=== PATIENT | female | born 1945 | race African-American/Black ===

== ENCOUNTER 2018-06-21 00:19 | Inpatient (IN) | payer MEDICARE, OTHER ==
[~2018-06-21] VITALS: Ht 165.1 cm; Wt 96.2 kg
[2018-06-21] VITALS (10 sets, daily range): BP systolic 109–155; BP diastolic 53–103
[~2018-06-21 00:19] MED LIST: ATIVAN2 MG ORAL; LEVETIRACETAM500 MG ORAL; MULTIVITAMINS1 EA11 ORAL; PREDNISOLO15 MG/5 M1 ORAL; RISPERDAL2 MG ORAL; SINGULAIR10 MG ORAL; TYLENOL 8 HOUR650 M1 ORAL; URECHOLINE25 M1 ORAL
--- NOTE | 2018-06-21 00:47 | Emergency Room Report ---
History of Present Illness General Chief Complaint: Gastrointestinal Illness Source: Patient, Medical Record Present Illness HPI Patient is a 72-year-old female sent in by nursing facility for possible G-tube placement. Patient was noted to have prior history of end-stage Alzheimer's disease. The patient prior G-tube which had been removed due to infection. Patient had been unable to take po fluids and had recent Gtube removal due to infection. Allergies: Coded Allergies: ASPIRIN (Verified Allergy, Unknown, 06/21/18) LOSARTAN (Verified Allergy, Unknown, 06/21/18) Patient History Past Medical History: see triage record Last Menstrual Period: unable to obtain Reviewed Nursing Documentation: PMH: Agreed; PSxH: Agreed Nursing Documentation-PMH Hx Hypertension: Yes Hx Cancer: No Hx Gastrointestinal Problems: Yes - cellulitis abdominal wall, dysphagia History Of Psychiatric Problem: Yes - dementia, Hx Neurological Problems: Yes - alzeimer's disease Hx Dementia: Yes Hx Seizures: Yes Review of Systems All Other Systems: limited - by mental status Physical Exam Vital Signs Date Time Temp Pulse Resp B/P (MAP) Pulse Ox O2 Delivery O2 Flow Rate FiO2 06/21/18 00:24 98.6 80 20 143/108 97 Nasal Cannula 2.0 General Appearance: alert, Chronically Ill Head: normocephalic Neck: limited range of motion Respiratory: lungs clear, normal breath sounds Cardiovascular #1: normal peripheral pulses, regular rate, rhythm Gastrointestinal: other - gtube site incision without erythema, sutures in place Neurologic: aphasia, motor weakness Psychiatric: memory normal Skin: normal color Medical Decision Making Diagnostic Impression: Primary Impression: Weakness generalized Additional Impressions: Hypernatremia Urinary tract infection ER Course Patient is a 72-year-old female brought in by EMS for failure to thrive and possible G-tube placement. Differential diagnosis included was not limited to dehydration, anemia, CVA among others Because of complexity of patient's case laboratory testing and imaging studies were ordered. Patient was given IV fluids the patient was noted to have a recent surgical procedure and still has the suture line. The patient was started on IV fluids. Patient was given IV antibiotics after cultures were obtained. The patient was discussed with Dr. Sarmiento for possible transfer due to capitated facility at [place]. Patient's insurance was unable to arrange a timely transfer. Dr. Hong Caballero was contacted for inpatient management due to panel physician. Labs Test 06/21/18 00:40 White Blood Count 15.8 K/UL (4.8-10.8) Red Blood Count 4.96 M/UL (4.20-5.40) Hemoglobin 12.8 G/DL (12.0-16.0) Hematocrit 42.5 % (37.0-47.0) Mean Corpuscular Volume 86 FL (80-99) Mean Corpuscular Hemoglobin 25.9 PG (27.0-31.0) Mean Corpuscular Hemoglobin Concent 30.2 G/DL (32.0-36.0) Red Cell Distribution Width 16.9 % (11.6-14.8) Platelet Count 261 K/UL (150-450) Mean Platelet Volume 6.5 FL (6.5-10.1) Neutrophils (%) (Auto) 65.9 % (45.0-75.0) Lymphocytes (%) (Auto) 25.5 % (20.0-45.0) Monocytes (%) (Auto) 5.7 % (1.0-10.0) Eosinophils (%) (Auto) 2.5 % (0.0-3.0) Basophils (%) (Auto) 0.4 % (0.0-2.0) Prothrombin Time 11.8 SEC (9.30-11.50) Prothromb Time International Ratio 1.1 (0.9-1.1) Activated Partial Thromboplast Time 27 SEC (23-33) Sodium Level 172 MMOL/L (136-145) Potassium Level 3.2 MMOL/L (3.5-5.1) Chloride Level 130 MMOL/L (98-107) Carbon Dioxide Level 32 MMOL/L (21-32) Anion Gap 9 mmol/L (5-15) Blood Urea Nitrogen 22 mg/dL (7-18) Creatinine 1.2 MG/DL (0.55-1.30) Estimat Glomerular Filtration Rate mL/min (>60) Glucose Level 109 MG/DL (74-106) Calcium Level 10.4 MG/DL (8.5-10.1) Total Bilirubin 0.7 MG/DL (0.2-1.0) Aspartate Amino Transf (AST/SGOT) 19 U/L (15-37) Alanine Aminotransferase (ALT/SGPT) 21 U/L (12-78) Alkaline Phosphatase 63 U/L (46-116) Total Protein 8.4 G/DL (6.4-8.2) Albumin 2.8 G/DL (3.4-5.0) Globulin 5.6 g/dL Albumin/Globulin Ratio 0.5 (1.0-2.7) Last Vital Signs Date Time Temp Pulse Resp B/P (MAP) Pulse Ox O2 Delivery O2 Flow Rate FiO2 06/21/18 00:24 98.6 80 20 143/108 97 Nasal Cannula 2.0 Status: improved Disposition: ADMITTED INPATIENT Condition: Stable Zenon Hu MD Jun 21, 2018 00:47
[2018-06-21] MEDS ORDERED: METOPROLOL HCT GT (00:55)
[2018-06-21] MEDS ORDERED: DUONEB 0.5-3(2.53 ML HHN (00:55)
[2018-06-21] MEDS ORDERED: MORPHINE S10 MG/5 ML ORAL (00:55)
[2018-06-21] MEDS ORDERED: ACETAMINOPHEN325 M1 GT (00:55)
[2018-06-21] MEDS ORDERED: ZOFRAN4 M3 GT (00:55)
[2018-06-21] MEDS ORDERED: LEVSIN0.125 MG ORAL (00:55)
[2018-06-21] MEDS ORDERED: LORAZEPAM0.5 MG GT (00:55)
[2018-06-21] MEDS ORDERED: AMLODIPINE-ATO1 EAC1 ORAL (00:55)
[2018-06-21] MEDS ORDERED: CATAPRES0.1 MG GT (00:55)
[2018-06-21] MEDS ORDERED: BISACODYL5 MG GT (00:55)
[2018-06-21] MEDS ORDERED: PRO-STAT LIQUID30 ML GT (00:55)
[2018-06-21] MEDS ORDERED: HUMALOG 75/255 UNIT1 SUBQ (00:55)
[2018-06-21] MEDS ORDERED: HYDRALAZINE HCL50 MG GT (00:55)
[2018-06-21] MEDS ORDERED: GLUCERNA 1.5 C237 ML GT (00:55)
[2018-06-21 01:05] LABS: BASOPHILS % (AUTO) 0.4 % (0.0-2.0); EOSINOPHILS % (AUTO) 2.5 % (0.0-3.0); HEMATOCRIT 42.5 % (37.0-47.0); HEMOGLOBIN 12.8 G/DL (12.0-16.0); LYMPHOCYTES % (AUTO) 25.5 % (20.0-45.0); MEAN CORPUSCULAR VOLUME 86 FL (80-99); MONOCYTES % (AUTO) 5.7 % (1.0-10.0); NEUTROPHILS % (AUTO) 65.9 % (45.0-75.0); PLATELET COUNT 261 K/UL (150-450); RED BLOOD COUNT 4.96 M/UL (4.20-5.40); RED CELL DISTRIBUTION WIDTH 16.9 % (11.6-14.8); WHITE BLOOD COUNT 15.8 K/UL (4.8-10.8)
[2018-06-21 01:16] LABS: INR 1.1 (0.9-1.1)
[2018-06-21 01:19] LABS: ALANINE AMINOTRANSFERASE 21 U/L (12-78); ALBUMIN 2.8 G/DL (3.4-5.0); ALBUMIN/GLOBULIN RATIO 0.5 (1.0-2.7); ALKALINE PHOSPHATASE 63 U/L (46-116); ANION GAP 9 mmol/L (5-15); ASPARTATE AMINO TRANSFERASE 19 U/L (15-37); BILIRUBIN,TOTAL 0.7 MG/DL (0.2-1.0); BLOOD UREA NITROGEN 22 mg/dL (7-18); CALCIUM 10.4 MG/DL (8.5-10.1); CARBON DIOXIDE 32 MMOL/L (21-32); CHLORIDE 130 MMOL/L (98-107); CREATININE 1.2 MG/DL (0.55-1.30); POTASSIUM 3.2 MMOL/L (3.5-5.1)
[2018-06-21 01:23] LABS: SODIUM 172 MMOL/L (136-145)
[2018-06-21] MEDS ORDERED: D5 1/2NS w/KCl 20mEq 1,000 ML IV ONE (02:00)
[2018-06-21] MEDS ORDERED: Sodium Chloride 500ML 500 ML IV ONE (02:00)
[2018-06-21] MEDS ORDERED: cefTRIAXone 1 GM in NS 55 ML IVPB ONE (02:30)
[2018-06-21 03:08] LABS: BILIRUBIN, URINE NEGATIVE (NEGATIVE); GLUCOSE, URINE (UA) NEGATIVE (NEGATIVE); KETONES,URINE 1+ (NEGATIVE); LEUKOCYTE ESTERASE ,URINE 2+ (NEGATIVE); NITRITE,URINE NEGATIVE (NEGATIVE); PH,URINE 5 (4.5-8.0); PROTEIN,URINE 2+ (NEGATIVE); UROBILINOGEN,URINE 4 MG/DL (0.0-1.0)
[2018-06-21 03:12] LABS: APPEARANCE,URINE SLIGHTLY CLOUDY; COLOR,URINE YELLOW
[2018-06-21] MEDS ORDERED: Morphine Sulfate 2mg/ml Inj IVP PRN (06:30)
[2018-06-21] MEDS ORDERED: Miralax 17gm pkt ORAL PRN (06:30)
[2018-06-21] MEDS ORDERED: Nitroglycerin Subl 0.4mg tab SL PRN (06:30)
[2018-06-21] MEDS ORDERED: Albuterol/Ipratropium 3ml neb HHN PRN (06:30)
[2018-06-21] MEDS ORDERED: Cefepime HCl 2 GM in D5W 110 ML IV SCH (09:00)
[2018-06-21] MEDS ORDERED: Vancomycin 1.5 GM/D5W 250ML IVPB ONE (10:00)
--- NOTE | 2018-06-21 10:00 | Consultation ---
Consult Note Consult Note asked to eval for HyperNatremia HPI Patient is a 72-year-old female sent in by nursing facility for possible G-tube placement. Patient was noted to have prior history of end-stage Alzheimer's disease. The patient prior G-tube which had been removed due to infection. Allergies: Coded Allergies: ASPIRIN (Verified Allergy, Unknown, 06/21/18) Uncoded Allergies: ANGIOTENSIN RECEPTOR RIMA (Allergy, Unknown, 06/21/18) Hx Hypertension: Yes Hx Gastrointestinal Problems: Yes - cellulitis abdominal wall, dysphagia History Of Psychiatric Problem: Yes - dementia, Hx Neurological Problems: Yes - alzeimer's disease Hx Dementia: Yes Hx Seizures: Yes patient examined data reviewed . Assessment/Plan HyperNatremia: Free water deficit / Dehydration UTI HyperCalcemia HypoAlbuminemia Sz disorder Dementia Allergy to ASA and YVONNE inhibitors HTN GT out D5W Monitor Lytes antibiotics IV Keppra Per orders Gonsalo Ortiz MD Jun 21, 2018 10:00
--- NOTE | 2018-06-21 10:58 | Diagnostic Imaging Report ---
Indication: Dyspnea Technique: One view of the chest Comparison: 10/12/2013 Findings: Lungs and pleural spaces are clear. Heart size is upper limits of normal. There is no significant interim change Impression: Negative
--- NOTE | 2018-06-21 11:04 | GI Initial Consult Note ---
History of Present Illness General Date patient seen: Jun 21, 2018 Time patient seen: 11:17 Reason for Hospitalization: Gastrointestinal Illness Referring physician: VERONIQUE CORONADO Reason for Consultation: FTT Present Illness HPI Patient is a 72-year-old female sent in by nursing facility for possible G-tube placement. Patient was noted to have prior history of end-stage Alzheimer's disease. The patient prior G-tube which had been removed due to infection. GI consulted for PEG evaluation. Pt presents today with FTT. ROS limited, patient unable to provide any history. Labs reviewed; leukocytosis and hypernatremia. Unknown history of colonoscopy. Home Meds Reported Medications Acetaminophen* (ACETAMINOPHEN 325MG TABLET*) 325 Mg Tablet, 650 MG GT Q4H PRN for Fever/Headache/Mild Pain, TAB 06/21/18 Lorazepam* (LORAZEPAM*) 0.5 Mg Tablet, 0.5 MG GT THREE TIMES A DAY, TAB 06/21/18 Bisacodyl* (DULCOLAX*) 5 Mg Tablet.dr, 10 MG GT ONCE, #4 TAB 0 Refills 06/21/18 Morphine 10mg/5ml Oral Soln* (Morphine 10mg/5ml Oral Soln*) 10 Mg/5 Ml Solution , 10 MG ORAL PRN for For Pain, ML 0 Refills 06/21/18 Insulin Human Lispro (Humalog) 100 Unit/1 Ml Vial, 0 SUBQ, #1 UNIT 0 Refills 06/21/18 Nut.tx.gluc.intoler,Lac-Fr,Soy (Glucerna 1.5 Stan) 237 Ml Liquid, 237 ML GT, ML 06/21/18 Hydralazine Hcl* (HYDRALAZINE HCL*) 50 Mg Tablet, 50 MG GT EVERY 8 HOURS, TAB 06/21/18 Clonidine Hcl* (CATAPRES*) 0.1 Mg Tablet, 0.1 MG GT EVERY 8 HOURS, TAB 06/21/18 Amlodipine/Atorvastatin 5-40 Mg (AMLODIPINE-ATORVAST 5-40 MG) 1 Each Tablet, 1 TAB ORAL DAILY, TAB 06/21/18 Hyoscyamine Sulfate (LEVSIN) 0.125 Mg Tablet, 0.125 MG ORAL, TAB 06/21/18 Ondansetron* (ZOFRAN*) 4 Mg Tablet, 4 MG GT Q6H PRN for Nausea & Vomiting, TAB 06/21/18 Amino Acids/Protein Hydrolys (PRO-STAT LIQUID) 30 Ml Liquid.pkt, 30 ML GT TWICE A DAY, ML 06/21/18 Metoprolol/Hydrochlorothiazide (METOPROLOL-HCTZ 100-50 MG TAB) 1 Each Tablet, 1 TAB GT DAILY, TAB 06/21/18 Ipratropium/Albuterol Sulfate (DuoNeb 0.5-3(2.5)mg/3ml) 3 Ml Ampul.neb, 3 ML HHN , EA 06/21/18 Risperidone* (RISPERDAL*) 2 Mg Tablet, 2 MG ORAL HS, #30 TAB 0 Refills 10/12/13 Lorazepam* (ATIVAN*) 2 Mg Tablet, 2 MG ORAL THREE TIMES A DAY PRN for For Anxiety, TAB 10/12/13 Acetaminophen (TYLENOL 8 HOUR) 650 Mg Tablet.er, 650 MG ORAL Q6HR, #30 TAB 0 Refills 10/12/13 Prednisolone* (PRELONE*) 15 Mg/5 Ml Solution, 15 MG ORAL HS, ML 10/12/13 Montelukast Sodium* (SINGULAIR*) 10 Mg Tablet, 10 MG ORAL DAILY, #30 TAB 0 Refills 10/12/13 Levetiracetam* (LEVETIRACETAM*) 500 Mg Tablet, 750 MG ORAL TWICE A DAY, #60 TAB 0 Refills 10/12/13 Multivitamin (MULTIVITAMINS) 1 Each Capsule, 1 CAP ORAL DAILY, CAP 10/12/13 Bethanechol Chl* (URECHOLINE*) 25 Mg Tablet, 25 MG ORAL THREE TIMES A DAY, TAB 10/12/13 Med list reviewed/reconciled: Yes Allergies: Coded Allergies: ASPIRIN (Verified Allergy, Unknown, 06/21/18) LOSARTAN (Verified Allergy, Unknown, 06/21/18) Patient History Limited by: medical condition History Provided By: Medical Record PMH Narrative Past Medical History: see triage record Last Menstrual Period: unable to obtain Reviewed Nursing Documentation: PMH: Agreed; PSxH: Agreed Nursing Documentation-PMH Hx Hypertension: Yes Hx Cancer: No Hx Gastrointestinal Problems: Yes - cellulitis abdominal wall, dysphagia History Of Psychiatric Problem: Yes - dementia, Hx Neurological Problems: Yes - Alzheimer's disease Hx Dementia: Yes Hx Seizures: Yes Social History: Denies: smoking, alcohol use, drug use, other Review of Systems All Other Systems: limited Physical Exam Vital Signs Date Time Temp Pulse Resp B/P (MAP) Pulse Ox O2 Delivery O2 Flow Rate FiO2 06/21/18 00:24 98.6 80 20 143/108 97 Nasal Cannula 2.0 Sp02 EP Interpretation: reviewed Labs Laboratory Tests Test 06/21/18 00:40 06/21/18 02:57 06/21/18 08:10 White Blood Count 15.8 K/UL (4.8-10.8) H Red Blood Count 4.96 M/UL (4.20-5.40) Hemoglobin 12.8 G/DL (12.0-16.0) Hematocrit 42.5 % (37.0-47.0) Mean Corpuscular Volume 86 FL (80-99) Mean Corpuscular Hemoglobin 25.9 PG (27.0-31.0) L Mean Corpuscular Hemoglobin Concent 30.2 G/DL (32.0-36.0) L Red Cell Distribution Width 16.9 % (11.6-14.8) H Platelet Count 261 K/UL (150-450) Mean Platelet Volume 6.5 FL (6.5-10.1) Neutrophils (%) (Auto) 65.9 % (45.0-75.0) Lymphocytes (%) (Auto) 25.5 % (20.0-45.0) Monocytes (%) (Auto) 5.7 % (1.0-10.0) Eosinophils (%) (Auto) 2.5 % (0.0-3.0) Basophils (%) (Auto) 0.4 % (0.0-2.0) Prothrombin Time 11.8 SEC (9.30-11.50) H Prothromb Time International Ratio 1.1 (0.9-1.1) Activated Partial Thromboplast Time 27 SEC (23-33) Sodium Level 172 MMOL/L (136-145) *H Potassium Level 3.2 MMOL/L (3.5-5.1) L Chloride Level 130 MMOL/L (98-107) H Carbon Dioxide Level 32 MMOL/L (21-32) Anion Gap 9 mmol/L (5-15) Blood Urea Nitrogen 22 mg/dL (7-18) H Creatinine 1.2 MG/DL (0.55-1.30) Estimat Glomerular Filtration Rate mL/min (>60) Glucose Level 109 MG/DL (74-106) H Calcium Level 10.4 MG/DL (8.5-10.1) H Total Bilirubin 0.7 MG/DL (0.2-1.0) Aspartate Amino Transf (AST/SGOT) 19 U/L (15-37) Alanine Aminotransferase (ALT/SGPT) 21 U/L (12-78) Alkaline Phosphatase 63 U/L (46-116) Total Protein 8.4 G/DL (6.4-8.2) H Albumin 2.8 G/DL (3.4-5.0) L Globulin 5.6 g/dL Albumin/Globulin Ratio 0.5 (1.0-2.7) L Urine Color Yellow Urine Appearance Slightly cloudy Urine pH 5 (4.5-8.0) Urine Specific [place] 1.015 (1.005-1.035) Urine Protein 2+ (NEGATIVE) H Urine Glucose (UA) Negative (NEGATIVE) Urine Ketones 1+ (NEGATIVE) H Urine Blood 2+ (NEGATIVE) H Urine Nitrite Negative (NEGATIVE) Urine Bilirubin Negative (NEGATIVE) Urine Urobilinogen 4 MG/DL (0.0-1.0) H Urine Leukocyte Esterase 2+ (NEGATIVE) H Urine RBC 2-4 /HPF (0 - 2) H Urine WBC 40-60 /HPF (0 - 2) H Urine Squamous Epithelial Cells Many /LPF (NONE/OCC) H Urine Bacteria Moderate /HPF (NONE) H C-Reactive Protein, Quantitative 17.5 mg/dL (0.00-0.90) H General Appearance: no apparent distress Head: normocephalic EENT: normal ENT inspection Neck: supple Respiratory: normal breath sounds Cardiovascular: normal rate Gastrointestinal: non tender, soft Musculoskeletal: back normal Neurologic: alert, responsive Skin: normal inspection, normal color Lymphatic: normal inspection, no adenopathy Current Medications Current Medications Medications (Trade) Dose Ordered Sig/Caroline Route PRN Reason Start Time Stop Time Status Last Admin Dose Admin Acetaminophen (Tylenol) 650 mg Q4H PRN ORAL fever 06/21/18 06:30 07/21/18 06:29 Albuterol/ Ipratropium (Albuterol/ Ipratropium) 3 ml Q4H PRN HHN Shortness of Breath 06/21/18 06:30 06/26/18 06:29 Cefepime HCl 2 gm/ Dextrose 110 ml @ 220 mls/hr EVERY 12 HOURS IV 06/21/18 09:00 06/28/18 08:59 06/21/18 10:16 Dextrose 1,000 ml @ 100 mls/hr Q10H IV 06/21/18 10:00 07/21/18 09:59 Famotidine (Pepcid I.v.) 20 mg Q12HR IVP 06/21/18 11:00 07/21/18 10:59 Heparin Sodium (Porcine) (Heparin 5000 units/ml) 5,000 units EVERY 12 HOURS SUBQ 06/21/18 09:00 07/21/18 08:59 Levetiracetam 1000 mg/Dextrose 105 ml @ 440 mls/hr Q12HR IV 06/21/18 11:30 07/21/18 11:29 Morphine Sulfate (Morphine Sulfate) 2 mg Q4H PRN IVP Moderate Pain (Pain Scale 4-6) 06/21/18 06:30 06/28/18 06:29 Nitroglycerin (Ntg) 0.4 mg Q5M PRN SL Prn Chest Pain 06/21/18 06:30 07/21/18 06:29 Ondansetron HCl (Zofran) 4 mg Q6H PRN IVP Nausea & Vomiting 06/21/18 06:30 07/21/18 06:29 Polyethylene Glycol (Miralax) 17 gm DAILYPRN PRN ORAL Constipation 06/21/18 06:30 07/21/18 06:29 Temazepam (Restoril) 15 mg HSPRN PRN ORAL Insomnia 06/21/18 06:30 06/28/18 06:29 Vancomycin HCl (Vanco rx to dose) 1 ea DAILY PRN MISC PER RX PROTOCOL 06/21/18 07:15 07/21/18 07:14 Vancomycin HCl 1 gm/Dextrose 275 ml @ 183.708 mls/hr Q24H IVPB 06/22/18 10:00 06/27/18 09:59 Vancomycin HCl/ Dextrose 250 ml @ 125 mls/hr ONCE ONCE IVPB 06/21/18 10:00 06/21/18 11:59 GI: Plan Problems: (1) Dysphagia (2) FTT (failure to thrive) in adult (3) Encounter for PEG (percutaneous endoscopic gastrostomy) (4) Dehydration (5) Severe malnutrition Plan ST evaluation ordered, possible PEG electrolyte correction IV hydration bowel regime H2B fu labs Discussed with Dr. Sanchez. Thank you for this patient referral, we will follow. The patient was seen and examined at bedside and all new and available data was reviewed in the patients chart. I agree with the above findings, impression and plan. (Patient seen earlier today. Signature stamp does not reflect patient encounter time.). - MD [facility]illermina [facility] Jun 21, 2018 11:03
--- NOTE | 2018-06-21 14:20 | Consultation ---
History of Present Illness General Date patient seen: Jun 21, 2018 Chief Complaint: Gastrointestinal Illness Referring physician: VERONIQUE CORONADO Reason for Consultation: FTT Present Illness HPI 72 year old female with hx of dementia, prison resident, bed bound, gutube in the past. Brought in for evaluation of FTT. Pt was found to have severe hypernatremia and decreased mental status. Pt is admitted for further evaluation. Allergies: Coded Allergies: ASPIRIN (Verified Allergy, Unknown, 06/21/18) LOSARTAN (Verified Allergy, Unknown, 06/21/18) Medication History Scheduled Acetaminophen (Tylenol 8 Hour), 650 MG ORAL Q6HR, (Reported) Amino Acids/Protein Hydrolys (Pro-Stat Liquid), 30 ML GT TWICE A DAY, (Reported) Amlodipine/Atorvastatin 5-40 Mg (Amlodipine-Atorvast 5-40 Mg), 1 TAB ORAL DAILY, (Reported) Bethanechol Chl* (Urecholine*), 25 MG ORAL THREE TIMES A DAY, (Reported) Bisacodyl* (Dulcolax*), 10 MG GT ONCE, (Reported) Clonidine Hcl* (Catapres*), 0.1 MG GT EVERY 8 HOURS, (Reported) Hydralazine Hcl* (Hydralazine Hcl*), 50 MG GT EVERY 8 HOURS, (Reported) Levetiracetam* (Levetiracetam*), 750 MG ORAL TWICE A DAY, (Reported) Lorazepam* (Lorazepam*), 0.5 MG GT THREE TIMES A DAY, (Reported) Metoprolol/Hydrochlorothiazide (Metoprolol-Hctz 100-50 Mg Tab), 1 TAB GT DAILY, (Reported) Montelukast Sodium* (Singulair*), 10 MG ORAL DAILY, (Reported) Multivitamin (Multivitamins), 1 CAP ORAL DAILY, (Reported) Prednisolone* (Prelone*), 15 MG ORAL HS, (Reported) Risperidone* (Risperdal*), 2 MG ORAL HS, (Reported) Scheduled PRN Acetaminophen* (Acetaminophen 325MG Tablet*), 650 MG GT Q4H PRN for Fever/ Headache/Mild Pain, (Reported) Lorazepam* (Ativan*), 2 MG ORAL THREE TIMES A DAY PRN for For Anxiety, (Reported ) Morphine 10mg/5ml Oral Soln* (Morphine 10mg/5ml Oral Soln*), 10 MG ORAL for For Pain, (Reported) Ondansetron* (Zofran*), 4 MG GT Q6H PRN for Nausea & Vomiting, (Reported) Miscellaneous Medications Hyoscyamine Sulfate (Levsin), 0.125 MG ORAL, (Reported) Insulin Human Lispro (Humalog), 0 SUBQ, (Reported) Ipratropium/Albuterol Sulfate (DuoNeb 0.5-3(2.5)mg/3ml), 3 ML HHN, (Reported) Nut.tx.gluc.intoler,Lac-Fr,Soy (Glucerna 1.5 Stan), 237 ML GT, (Reported) Patient History Healthcare decision maker Resuscitation status Advanced Directive on File Past Medical/Surgical History Past Medical/Surgical History: (1) Severe malnutrition (2) Weakness generalized (3) Seizure disorder, complex partial (4) Bilateral lower extremity edema (5) Diabetes mellitus (6) At high risk for aspiration (7) Hypertension Review of Systems Constitutional: Reports: malaise All Other Systems: negative except mentioned in HPI Physical Exam General Appearance: WD/WN Lines, tubes and drains: peripheral HEENT: atraumatic Neck: non-tender, normal alignment Respiratory/Chest: chest wall non-tender, lungs clear Breasts: no masses Cardiovascular/Chest: normal peripheral pulses, normal rate Abdomen: normal bowel sounds, non tender Genitourinary/Rectal: normal genital exam Extremities: normal range of motion Skin Exam: normal pigmentation Last 24 Hour Vital Signs Date Time Temp Pulse Resp B/P (MAP) Pulse Ox O2 Delivery O2 Flow Rate FiO2 06/21/18 12:13 98.2 87 21 131/103 (112) 96 06/21/18 09:00 Room Air 06/21/18 05:49 Nasal Cannula 2.0 06/21/18 05:39 98.5 76 22 141/65 96 Nasal Cannula 2.0 06/21/18 04:52 98.6 75 24 148/66 100 Nasal Cannula 2.0 06/21/18 03:32 98.6 78 21 147/72 100 Nasal Cannula 2.0 06/21/18 02:16 98.6 80 16 146/64 100 Nasal Cannula 2.0 06/21/18 01:11 80 20 Nasal Cannula 2.0 11/12/18 01:11 98.6 82 24 155/79 100 Nasal Cannula 2.0 06/21/18 00:24 98.6 80 20 143/108 97 Nasal Cannula 2.0 Intake and Output 06/20/18 06/21/18 19:00 07:00 Intake Total 0 ml Balance 0 ml Intake Oral 0 ml Laboratory Tests Test 06/21/18 00:40 06/21/18 02:57 06/21/18 08:10 White Blood Count 15.8 K/UL (4.8-10.8) H Red Blood Count 4.96 M/UL (4.20-5.40) Hemoglobin 12.8 G/DL (12.0-16.0) Hematocrit 42.5 % (37.0-47.0) Mean Corpuscular Volume 86 FL (80-99) Mean Corpuscular Hemoglobin 25.9 PG (27.0-31.0) L Mean Corpuscular Hemoglobin Concent 30.2 G/DL (32.0-36.0) L Red Cell Distribution Width 16.9 % (11.6-14.8) H Platelet Count 261 K/UL (150-450) Mean Platelet Volume 6.5 FL (6.5-10.1) Neutrophils (%) (Auto) 65.9 % (45.0-75.0) Lymphocytes (%) (Auto) 25.5 % (20.0-45.0) Monocytes (%) (Auto) 5.7 % (1.0-10.0) Eosinophils (%) (Auto) 2.5 % (0.0-3.0) Basophils (%) (Auto) 0.4 % (0.0-2.0) Prothrombin Time 11.8 SEC (9.30-11.50) H Prothromb Time International Ratio 1.1 (0.9-1.1) Activated Partial Thromboplast Time 27 SEC (23-33) Sodium Level 172 MMOL/L (136-145) *H Potassium Level 3.2 MMOL/L (3.5-5.1) L Chloride Level 130 MMOL/L (98-107) H Carbon Dioxide Level 32 MMOL/L (21-32) Anion Gap 9 mmol/L (5-15) Blood Urea Nitrogen 22 mg/dL (7-18) H Creatinine 1.2 MG/DL (0.55-1.30) Estimat Glomerular Filtration Rate mL/min (>60) Glucose Level 109 MG/DL (74-106) H Calcium Level 10.4 MG/DL (8.5-10.1) H Total Bilirubin 0.7 MG/DL (0.2-1.0) Aspartate Amino Transf (AST/SGOT) 19 U/L (15-37) Alanine Aminotransferase (ALT/SGPT) 21 U/L (12-78) Alkaline Phosphatase 63 U/L (46-116) Total Protein 8.4 G/DL (6.4-8.2) H Albumin 2.8 G/DL (3.4-5.0) L Globulin 5.6 g/dL Albumin/Globulin Ratio 0.5 (1.0-2.7) L Urine Color Yellow Urine Appearance Slightly cloudy Urine pH 5 (4.5-8.0) Urine Specific [place] 1.015 (1.005-1.035) Urine Protein 2+ (NEGATIVE) H Urine Glucose (UA) Negative (NEGATIVE) Urine Ketones 1+ (NEGATIVE) H Urine Blood 2+ (NEGATIVE) H Urine Nitrite Negative (NEGATIVE) Urine Bilirubin Negative (NEGATIVE) Urine Urobilinogen 4 MG/DL (0.0-1.0) H Urine Leukocyte Esterase 2+ (NEGATIVE) H Urine RBC 2-4 /HPF (0 - 2) H Urine WBC 40-60 /HPF (0 - 2) H Urine Squamous Epithelial Cells Many /LPF (NONE/OCC) H Urine Bacteria Moderate /HPF (NONE) H C-Reactive Protein, Quantitative 17.5 mg/dL (0.00-0.90) H Height (Feet): 5 Height (Inches): 5.00 Weight (Pounds): 200 Medications Current Medications Medications (Trade) Dose Ordered Sig/Caroline Route PRN Reason Start Time Stop Time Status Last Admin Dose Admin Acetaminophen (Tylenol) 650 mg Q4H PRN ORAL fever 06/21/18 06:30 07/21/18 06:29 Albuterol/ Ipratropium (Albuterol/ Ipratropium) 3 ml Q4H PRN HHN Shortness of Breath 06/21/18 06:30 06/26/18 06:29 Cefepime HCl 2 gm/ Dextrose 110 ml @ 220 mls/hr EVERY 12 HOURS IV 06/21/18 09:00 06/28/18 08:59 06/21/18 10:16 Dextrose 1,000 ml @ 100 mls/hr Q10H IV 06/21/18 10:00 07/21/18 09:59 Famotidine (Pepcid I.v.) 20 mg Q12HR IVP 06/21/18 11:00 07/21/18 10:59 Heparin Sodium (Porcine) (Heparin 5000 units/ml) 5,000 units EVERY 12 HOURS SUBQ 06/21/18 09:00 07/21/18 08:59 Levetiracetam 1000 mg/Dextrose 105 ml @ 440 mls/hr Q12HR IV 06/21/18 11:30 07/21/18 11:29 Morphine Sulfate (Morphine Sulfate) 2 mg Q4H PRN IVP Moderate Pain (Pain Scale 4-6) 06/21/18 06:30 06/28/18 06:29 Nitroglycerin (Ntg) 0.4 mg Q5M PRN SL Prn Chest Pain 06/21/18 06:30 07/21/18 06:29 Ondansetron HCl (Zofran) 4 mg Q6H PRN IVP Nausea & Vomiting 06/21/18 06:30 07/21/18 06:29 Polyethylene Glycol (Miralax) 17 gm DAILYPRN PRN ORAL Constipation 06/21/18 06:30 07/21/18 06:29 Temazepam (Restoril) 15 mg HSPRN PRN ORAL Insomnia 06/21/18 06:30 06/28/18 06:29 Vancomycin HCl (Vanco rx to dose) 1 ea DAILY PRN MISC PER RX PROTOCOL 06/21/18 07:15 07/21/18 07:14 Vancomycin HCl 1 gm/Dextrose 275 ml @ 183.708 mls/hr Q24H IVPB 06/22/18 10:00 06/27/18 09:59 Assessment/Plan Problem List: (1) Acute encephalopathy ICD Codes: G93.40 - Encephalopathy, unspecified SNOMED: 03373524, 371329985 (2) Hypernatremia ICD Codes: E87.0 - Hyperosmolality and hypernatremia SNOMED: 94729639 (3) At high risk for aspiration ICD Codes: Z91.89 - Other specified personal risk factors, not elsewhere classified SNOMED: 337870962 (4) Urinary tract infection ICD Codes: N39.0 - Urinary tract infection, site not specified SNOMED: 71986003 (5) Seizure disorder, complex partial ICD Codes: G40.209 - Seizure disorder, complex partial SNOMED: 580509469 (6) Dysphagia ICD Codes: R13.10 - Dysphagia, unspecified SNOMED: 73675912, 380785528 (7) Hypokalemia ICD Codes: E87.6 - Hypokalemia SNOMED: 62210434 (8) Hypertension ICD Codes: I10 - Hypertension SNOMED: 98739466 (9) Diabetes mellitus ICD Codes: E11.9 - Type 2 diabetes mellitus without complications SNOMED: 80973310 Assessment/Plan iv fluids weiner culture renal evaluatin check electrolytes sliding scale insulin coverage ID evaluation weiner cultures Morgan Tang MD Jun 21, 2018 14:20
[2018-06-21] MEDS: levETIRAcetam 1,000 MG in D5W 95 ML IV SCH (15:03)
[2018-06-21] MEDS: Heparin 5000 units/ml inj SUBQ SCH (15:29)
--- NOTE | 2018-06-21 15:46 | Consultation ---
Consult Note Consult Note # [id number] Eduardo Phelps MD Jun 21, 2018 15:46
--- NOTE | 2018-06-21 18:02 | History and Physical Report ---
DATE OF ADMISSION: 06/21/2018 CONSULTANTS: 1. Morgan Tang M.D. 2. Gonsalo Ortiz M.D. 3. Eduardo Phelps M.D. 4. Frankie Sanchez M.D. 5. Pearl Cunningham M.D. CHIEF COMPLAINT: Urinary tract infection, dehydration, hyponatremia, and G-tube malfunction. HISTORY: A 72-year-old female from [facility], presented with above-mentioned diagnosis, was found to have urinary tract infection, sepsis, leukocytosis, hyponatremia, and admitted to medical floor for further treatment. Currently, O2 NC, confused in bed, and now refusing to answer questions. PAST MEDICAL HISTORY: Failure to thrive, weak, and seizure. PAST SURGICAL HISTORY: G-tube. MEDICATIONS: Include vancomycin, levetiracetam, famotidine, cefepime, heparin, albuterol, morphine, polyethylene glycol, Zofran, and temazepam. ALLERGY: Aspirin and losartan. SOCIAL HISTORY: Unable to obtain secondary to the patient's condition. REVIEW OF SYSTEMS: Unavailable. PHYSICAL EXAMINATION: GENERAL: O2 NC, confused in bed, sleeping, not talking much. VITAL SIGNS: Temperature 98 degrees, pulse 87, respirations 21, and blood pressure 131/103. CARDIOVASCULAR: No murmurs. LUNGS: Distant. Poor air exchange. ABDOMEN: Bowel sounds distant. EXTREMITIES: No cyanosis, clubbing, or edema. NEUROLOGIC: The patient moves all extremities, slightly weak. Not following directions. LABORATORY AND DIAGNOSTIC DATA: Labs, at this time, show white count of 15, otherwise CBC is normal. BMP shows sodium 132, potassium 3.2, chloride 130, BUN 22, and glucose 109. INR is 1.1. Urinalysis shows 2+ leukocyte esterase. ASSESSMENT: 1. Urinary tract infection. 2. Sepsis. 3. Leukocytosis. 4. Dehydration. 5. Hyponatremia. 6. Gastrostomy tube malfunction. 7. Encephalopathy. PLAN: 1. Intravenous fluids. 2. Antibiotics per Infectious Disease. 3. OT, PT, and dietary evaluation. 4. CBC and BMP in the morning. 5. Resume home medications. 6. We will continue to follow this patient. 7. Possible G-tube replacement. Hong Caballero D.O. DR: LESLIE JOB#: [id number] CC:
--- NOTE | 2018-06-21 22:31 | Consultation ---
DATE OF CONSULTATION: 06/21/2018 REFERRING PHYSICIAN: Hong Caballero D.O. REASON FOR CONSULTATION: Evaluation of the patient for UTI plus abdominal wall wound infection. HISTORY OF PRESENT ILLNESS: The patient is a 72-year-old female with multiple medical problems as listed below who was admitted to this medical center for G-tube placement. The patient has abdominal wall surgery recently could not obtain detailed information of that. Apparently, the patient had a PEG tube site infection in the past. Laboratory workup, UA showed pyuria. Infectious Disease consultation has been requested for further evaluation of the patient. The patient was found to have white blood cells 15.8 at the time of admission. The patient is not able to provide information, much of the history is gathered through the chart and speaking to the staff. PAST MEDICAL HISTORY: 1. Dementia. 2. History of seizure disorder. 3. Anemia. 4. Hypertension. 5. COPD. 6. History of abdominal wall cellulitis/G-tube site infection. 7. Diabetes. 8. Schizophrenia. ALLERGIES: Aspirin and losartan. FAMILY HISTORY: Unavailable. REVIEW OF SYSTEMS: Unobtainable. SOCIAL HISTORY: The patient is a custodial. MEDICATIONS: Vancomycin and cefepime. PHYSICAL EXAMINATION: VITAL SIGNS: Temperature 98.2, pulse 66, respiratory rate 18, and blood pressure 131/103. HEENT: No pallor. No icterus. CHEST: Clear. HEART: S1 and S2. ABDOMEN: Soft. Transverse abdominal wound present. No evidence of discharge. NEUROLOGIC: Awake. Verbal. LABORATORY AND DIAGNOSTIC DATA: White blood cells 15, hemoglobin 12, and platelets 262,000. UA 40 to 60 white blood cells. BUN 22 and creatinine 1.2. ALT, AST, and alkaline phosphatase are unremarkable. Chest x-ray, negative. ASSESSMENT: The patient is a 72-year-old female with: 1. Leukocytosis. 2. Probable UTI (UA showed pyuria). 3. Probable bacteremia. 4. No evidence of pneumonia. Chest x-ray, NAP[facility]. PLAN: 1. We will continue the patient on IV cefepime day #1, hold IV vancomycin. 2. CBC and . 3. Monitor cultures (blood, urine). 4. Monitor CBC. 5. BMP. 6. Monitor cultures. 7. Monitor chest x-ray. 8. Based on the patient's clinical course and labs, we will do further recommendation. Eduardo Phelps M.D. DR: BOSSMAN JOB#: [id number] CC:
[2018-06-22] VITALS: BP 106/80
[2018-06-22] MEDS: levETIRAcetam 1,000 MG in D5W 95 ML IV SCH ×3 (00:16→23:59)
[2018-06-22] MEDS: Heparin 5000 units/ml inj SUBQ SCH ×3 (00:22→20:59)
[2018-06-22] MEDS ORDERED: Vancomycin 1 GM in D5W 275 ML IV SCH (00:30)
[2018-06-22 04:00] VITALS: BP 109/69
[2018-06-22 06:35] LABS: BASOPHILS % (AUTO) 0.6 % (0.0-2.0); EOSINOPHILS % (AUTO) 5.6 % (0.0-3.0); HEMATOCRIT 33.9 % (37.0-47.0); HEMOGLOBIN 10.2 G/DL (12.0-16.0); LYMPHOCYTES % (AUTO) 19.9 % (20.0-45.0); MEAN CORPUSCULAR VOLUME 86 FL (80-99); NEUTROPHILS % (AUTO) 68.9 % (45.0-75.0); PLATELET COUNT 214 K/UL (150-450); RED BLOOD COUNT 3.95 M/UL (4.20-5.40); RED CELL DISTRIBUTION WIDTH 16.4 % (11.6-14.8); WHITE BLOOD COUNT 12.9 K/UL (4.8-10.8)
[2018-06-22 07:36] LABS: ALANINE AMINOTRANSFERASE 19 U/L (12-78); ALBUMIN 2.3 G/DL (3.4-5.0); ALBUMIN/GLOBULIN RATIO 0.5 (1.0-2.7); ALKALINE PHOSPHATASE 56 U/L (46-116); ANION GAP 9 mmol/L (5-15); ASPARTATE AMINO TRANSFERASE 19 U/L (15-37); BILIRUBIN,TOTAL 0.4 MG/DL (0.2-1.0); BLOOD UREA NITROGEN 15 mg/dL (7-18); CALCIUM 9.3 MG/DL (8.5-10.1); CARBON DIOXIDE 27 MMOL/L (21-32); CHLORIDE 125 MMOL/L (98-107); CHOLESTEROL 182 MG/DL (< 200); CREATININE 0.8 MG/DL (0.55-1.30); HDL CHOLESTEROL 35 MG/DL (40-60); TRIGLYCERIDES 123 MG/DL (30-150)
[2018-06-22 07:37] LABS: POTASSIUM 2.6 MMOL/L (3.5-5.1); SODIUM 161 MMOL/L (136-145)
[2018-06-22 07:43] LABS: CREATINE KINASE 98 U/L (26-308); GAMMA GLUTAMYL TRANSPEPTIDASE 7 U/L (5-85); PHOSPHORUS 2.1 MG/DL (2.5-4.9)
[2018-06-22 08:00] VITALS: BP 140/72
[2018-06-22] MEDS: Memantine 5 MG TAB ORAL SCH ×2 (09:00→18:00)
[2018-06-22] MEDS ORDERED: Potassium Phosphate 30 MM in NS 275 ML IV ONE (09:30)
[2018-06-22] MEDS ORDERED: Vancomycin 1gm/D5W 275ml IVPB SCH ×2 (10:00)
[2018-06-22] MEDS: Cefepime HCl 2 GM in D5W 110 ML IV SCH (11:02)
[2018-06-22 12:00] VITALS: BP 110/58
--- NOTE | 2018-06-22 12:31 | Consultation ---
DATE OF CONSULTATION: 06/22/2018 NOTE: "VERY POOR AUDIO QUALITY/INCOMPREHENSIBLE" CONSULTING PHYSICIAN: Pearl Cunningham M.D. HISTORY OF PRESENT ILLNESS: The patient is a 72-year-old female patient with failure to thrive. This patient is a 72-year-old female patient she came in from [facility], but she does have some confusion, disorganized thought process, and mood lability. altered mental status worsened by , she had significant decline in cognition below her baseline currently just for her medical illness. That is why, her attending has requested daily psychiatric consultation at this time. At bedside, she was flat affect explain why she came to the hospital, so to calm down. PAST MEDICAL HISTORY: Her medical problems and surgical history, failure to thrive. Please see Internal Medicine note for further details. ALLERGIES: No known drug allergies. SUBSTANCE ABUSE HISTORY: No known history of any drug or alcohol use. FAMILY PSYCHIATRIC HISTORY: Denies. PAIN ASSESSMENT: 0/10. DEVELOPMENTAL PROBLEMS: She has no known developmental problems at this time. SOCIAL HISTORY: She lives in [facility]. Financially supported by [employer] and Medicare. PSYCHIATRIC HISTORY: History of major depression with psychotic features, rule out dementia with psychosis. STRENGTHS: She is motivated to get better and has a place to live. WEAKNESSES AND LIABILITIES: She is impulsive. No support system. MENTAL STATUS EXAMINATION: This is a 72-year-old female. Appearance is disheveled. Attitude, irritable and agitated. Affect is flat. Thought process is disorganized and illogical. Intellect is poor because she has no current . Mood, depressed and anxious. Motor activity, psychomotor agitation. Attention an is poor because she cannot do serial 7's or spell world backwards. Orientation x1, because she is oriented to name, but not the person, place, or time. Speech is low volume and she does have altered speech speech. Perception is poor because she seemed to have some perceptual disturbance paranoia. she does have some paranoid perception with problems. Abstract reasoning is poor because she does have . Her insight is poor because she does not have any insight into her psychiatric or medical condition. Judgment is poor because she has decided not to distress. No signs of any suicidal or homicidal thoughts. Short-term memory is 0/3 of 3-word recall, so poor short-term memory. Long-term memory is poor because she cannot recall long-term events of life such as high school that she went to. DIAGNOSIS: Major depressive disorder with psychotic features, rule out dementia with psychosis. PLAN: To start her with Namenda 5 mg twice a day to prevent any further decline in her cognition and also Zyprexa 2.5 mg p.o. nightly to help with mood stabilization disorganized thought process and also appetite. Twenty minutes of cognitive behavioral therapy to help her identify automatic negative thoughts and to convert those negative thoughts to more positive thoughts to reduce depression and anxiety. The patient was seen and assessed at bedside. Chart has been reviewed. Discussed with staff. I recommend that we continue on . Pearl Cunningham M.D. DR: Ruthie JOB#: [id number] CC:
--- NOTE | 2018-06-22 12:50 | Pulmonology Progress Note ---
Assessment/Plan Problems: (1) Acute encephalopathy (2) Hypernatremia (3) At high risk for aspiration (4) Urinary tract infection (5) Seizure disorder, complex partial (6) Dysphagia (7) Hypokalemia (8) Hypertension (9) Diabetes mellitus Assessment/Plan contnue iv fluids Na decreasing weiner culture, pending renal evaluatin check electrolytes sliding scale insulin coverage ID evaluation appreciated weiner cultures Subjective Constitutional: Reports: no symptoms HEENT: Repors: no symptoms Allergies: Coded Allergies: ASPIRIN (Verified Allergy, Unknown, 06/21/18) LOSARTAN (Verified Allergy, Unknown, 06/21/18) Objective Last 24 Hour Vital Signs Date Time Temp Pulse Resp B/P (MAP) Pulse Ox O2 Delivery O2 Flow Rate FiO2 06/22/18 09:00 Room Air 06/22/18 08:00 97.9 77 20 140/72 (94) 96 06/22/18 04:00 98.0 78 20 109/69 (82) 99 06/22/18 00:00 97.9 81 20 106/80 (89) 95 06/21/18 22:01 82 20 Room Air 21 06/21/18 21:00 Room Air 06/21/18 20:00 98.4 85 20 109/82 (91) 93 06/21/18 16:00 97.7 71 18 113/59 (77) 95 06/21/18 15:47 97.7 71 18 113/54 (73) 95 Intake and Output 06/21/18 06/22/18 18:59 06:59 Intake Total 915 ml 1105 ml Output Total 250 ml Balance 915 ml 855 ml IV Total 915 ml 1105 ml Output Urine Total 250 ml General Appearance: WD/WN Respiratory/Chest: chest wall non-tender, lungs clear Breasts: no masses Cardiovascular: normal peripheral pulses Abdomen: normal bowel sounds, soft, non tender Genitourinary: normal external genitalia Neurologic/Psychiatric: contact lens cutter II-XII grossly normal Microbiology Date/Time Source Procedure Growth Status 06/21/18 02:57 Urine,Clean Catch Urine Culture - Preliminary Resulted 06/21/18 01:30 Rectum - Preliminary Resulted Laboratory Tests 06/22/18 06:07: White Blood Count 12.9H, Red Blood Count 3.95L, Hemoglobin 10.2L, Hematocrit 33.9L, Mean Corpuscular Volume 86, Mean Corpuscular Hemoglobin 25.8L, Mean Corpuscular Hemoglobin Concent 30.1L, Red Cell Distribution Width 16.4H, Platelet Count 214, Mean Platelet Volume 6.9, Neutrophils (%) (Auto) 68.9, Lymphocytes (%) (Auto) 19.9L, Monocytes (%) (Auto) 5.0, Eosinophils (%) (Auto) 5.6H, Basophils (%) (Auto) 0.6, Sodium Level 161*H, Potassium Level 2.6*L, Chloride Level 125H, Carbon Dioxide Level 27, Anion Gap 9, Blood Urea Nitrogen 15, Creatinine 0.8, Estimat Glomerular Filtration Rate , Glucose Level 102, Hemoglobin A1c 5.0, Uric Acid 8.8H, Calcium Level 9.3, Phosphorus Level 2.1L, Magnesium Level 1.9, Total Bilirubin 0.4, Gamma Glutamyl Transpeptidase 7, Aspartate Amino Transf (AST/SGOT) 19, Alanine Aminotransferase (ALT/SGPT) 19, Alkaline Phosphatase 56, Total Creatine Kinase 98, Troponin I 0.011, Pro-B-Type Natriuretic Peptide 221H, Total Protein 6.8, Albumin 2.3L, Globulin 4.5, Albumin /Globulin Ratio 0.5L, Triglycerides Level 123, Cholesterol Level 182, LDL Cholesterol 109H, HDL Cholesterol 35L, Cholesterol/HDL Ratio 5.2H, Vitamin B12 Level > 2000H, Folate 32.1, Thyroid Stimulating Hormone (TSH) 1.248 Current Medications Medications (Trade) Dose Ordered Sig/Caroline Route PRN Reason Start Time Stop Time Status Last Admin Dose Admin Acetaminophen (Tylenol) 650 mg Q4H PRN ORAL fever 06/21/18 06:30 07/21/18 06:29 Albuterol/ Ipratropium (Albuterol/ Ipratropium) 3 ml Q4H PRN HHN Shortness of Breath 06/21/18 06:30 06/26/18 06:29 Cefepime HCl 2 gm/ Dextrose 110 ml @ 220 mls/hr DAILY IV 06/22/18 09:00 06/29/18 08:59 06/22/18 11:02 Dextrose 1,000 ml @ 100 mls/hr Q10H IV 06/21/18 10:00 07/21/18 09:59 06/22/18 05:44 Famotidine (Pepcid I.v.) 20 mg Q12HR IVP 06/21/18 11:00 07/21/18 10:59 06/22/18 10:24 Heparin Sodium (Porcine) (Heparin 5000 units/ml) 5,000 units EVERY 12 HOURS SUBQ 06/21/18 09:00 07/21/18 08:59 06/22/18 10:27 Levetiracetam 1000 mg/Dextrose 105 ml @ 440 mls/hr Q12HR IV 06/21/18 11:30 07/21/18 11:29 06/22/18 10:29 Memantine (Namenda) 5 mg BID ORAL 06/22/18 09:00 07/22/18 08:59 Morphine Sulfate (Morphine Sulfate) 2 mg Q4H PRN IVP Moderate Pain (Pain Scale 4-6) 06/21/18 06:30 06/28/18 06:29 Nitroglycerin (Ntg) 0.4 mg Q5M PRN SL Prn Chest Pain 06/21/18 06:30 07/21/18 06:29 Olanzapine (ZyPREXA) 2.5 mg QHS ORAL 06/22/18 21:00 07/22/18 20:59 Ondansetron HCl (Zofran) 4 mg Q6H PRN IVP Nausea & Vomiting 06/21/18 06:30 07/21/18 06:29 Polyethylene Glycol (Miralax) 17 gm DAILYPRN PRN ORAL Constipation 06/21/18 06:30 07/21/18 06:29 Potassium Phosphate 30 mm/ Sodium Chloride 285 ml @ 47.5 mls/hr ONCE ONCE IV 06/22/18 09:30 06/22/18 15:29 06/22/18 12:01 Potassium Chloride 100 ml @ 100 mls/hr Q1H IVPB 06/22/18 15:30 06/22/18 19:29 Temazepam (Restoril) 15 mg HSPRN PRN ORAL Insomnia 06/21/18 06:30 06/28/18 06:29 Morgan Tang MD Jun 22, 2018 12:50
--- NOTE | 2018-06-22 14:19 | General Progress Note ---
Assessment/Plan Problem List: (1) Sepsis ICD Codes: A41.9 - Sepsis, unspecified organism SNOMED: 47959834 (2) Leukocytosis ICD Codes: D72.829 - Elevated white blood cell count, unspecified SNOMED: 511158926, 584514388 (3) Dehydration ICD Codes: E86.0 - Dehydration SNOMED: 48918687 (4) Attention to G-tube ICD Codes: Z43.1 - Encounter for attention to gastrostomy SNOMED: 029800074, 087476466 (5) Acute encephalopathy ICD Codes: G93.40 - Encephalopathy, unspecified SNOMED: 26549515, 066311379 (6) Urinary tract infection ICD Codes: N39.0 - Urinary tract infection, site not specified SNOMED: 61612729 Status: unchanged Assessment/Plan ot pt diet wound care abx pending swallow eval Subjective Constitutional: Reports: weakness Allergies: Coded Allergies: ASPIRIN (Verified Allergy, Unknown, 06/21/18) LOSARTAN (Verified Allergy, Unknown, 06/21/18) All Systems: reviewed and negative except above Subjective calm in bed Objective Last 24 Hour Vital Signs Date Time Temp Pulse Resp B/P (MAP) Pulse Ox O2 Delivery O2 Flow Rate FiO2 06/22/18 12:00 98.2 77 16 110/58 (75) 99 06/22/18 09:00 Room Air 06/22/18 08:00 97.9 77 20 140/72 (94) 96 06/22/18 04:00 98.0 78 20 109/69 (82) 99 06/22/18 00:00 97.9 81 20 106/80 (89) 95 06/21/18 22:01 82 20 Room Air 21 06/21/18 21:00 Room Air 06/21/18 20:00 98.4 85 20 109/82 (91) 93 06/21/18 16:00 97.7 71 18 113/59 (77) 95 06/21/18 15:47 97.7 71 18 113/54 (73) 95 Intake and Output 06/21/18 06/22/18 18:59 06:59 Intake Total 915 ml 1105 ml Output Total 250 ml Balance 915 ml 855 ml IV Total 915 ml 1105 ml Output Urine Total 250 ml Laboratory Tests 06/22/18 06:07: White Blood Count 12.9H, Red Blood Count 3.95L, Hemoglobin 10.2L, Hematocrit 33.9L, Mean Corpuscular Volume 86, Mean Corpuscular Hemoglobin 25.8L, Mean Corpuscular Hemoglobin Concent 30.1L, Red Cell Distribution Width 16.4H, Platelet Count 214, Mean Platelet Volume 6.9, Neutrophils (%) (Auto) 68.9, Lymphocytes (%) (Auto) 19.9L, Monocytes (%) (Auto) 5.0, Eosinophils (%) (Auto) 5.6H, Basophils (%) (Auto) 0.6, Sodium Level 161*H, Potassium Level 2.6*L, Chloride Level 125H, Carbon Dioxide Level 27, Anion Gap 9, Blood Urea Nitrogen 15, Creatinine 0.8, Estimat Glomerular Filtration Rate , Glucose Level 102, Hemoglobin A1c 5.0, Uric Acid 8.8H, Calcium Level 9.3, Phosphorus Level 2.1L, Magnesium Level 1.9, Total Bilirubin 0.4, Gamma Glutamyl Transpeptidase 7, Aspartate Amino Transf (AST/SGOT) 19, Alanine Aminotransferase (ALT/SGPT) 19, Alkaline Phosphatase 56, Total Creatine Kinase 98, Troponin I 0.011, Pro-B-Type Natriuretic Peptide 221H, Total Protein 6.8, Albumin 2.3L, Globulin 4.5, Albumin /Globulin Ratio 0.5L, Triglycerides Level 123, Cholesterol Level 182, LDL Cholesterol 109H, HDL Cholesterol 35L, Cholesterol/HDL Ratio 5.2H, Vitamin B12 Level > 2000H, Folate 32.1, Thyroid Stimulating Hormone (TSH) 1.248 Height (Feet): 5 Height (Inches): 5.00 Weight (Pounds): 200 General Appearance: lethargic EENT: normal ENT inspection Neck: normal alignment Cardiovascular: normal peripheral pulses, normal rate, regular rhythm Respiratory/Chest: chest wall non-tender, lungs clear, normal breath sounds Abdomen: normal bowel sounds, non tender, soft Extremities: normal inspection Edema: no edema noted Arm (L), no edema noted Arm (R), no edema noted Leg (L), no edema noted Leg (R), no edema noted Pedal (L), no edema noted Pedal (R), no edema noted Generalized Neurologic: motor weakness Skin: normal pigmentation, warm/dry Hong Caballero DO Jun 22, 2018 14:19
--- NOTE | 2018-06-22 14:35 | GI Progress Note ---
Assessment/Plan Problems: (1) At high risk for aspiration ICD Codes: Z91.89 - Other specified personal risk factors, not elsewhere classified SNOMED: 176970411 (2) Seizure disorder, complex partial ICD Codes: G40.209 - Seizure disorder, complex partial SNOMED: 302909527 (3) Encounter for PEG (percutaneous endoscopic gastrostomy) ICD Codes: Z43.1 - Encounter for attention to gastrostomy SNOMED: 092105511, 816482121 (4) FTT (failure to thrive) in adult ICD Codes: R62.7 - Adult failure to thrive SNOMED: 361842926 (5) Dysphagia ICD Codes: R13.10 - Dysphagia, unspecified SNOMED: 52369193, 948190570 (6) Severe malnutrition ICD Codes: E43 - Unspecified severe protein-calorie malnutrition SNOMED: 32366795 (7) Dehydration ICD Codes: E86.0 - Dehydration SNOMED: 84503571 Status: unchanged Status Narrative Discussed with Dr. Sanchez. Assessment/Plan ST evaluation noted >> video swallow study tomorrow PEG if necessary NGT insertion today, GTFs per RD to goal electrolyte correction IV hydration bowel regime H2B fu labs The patient was seen and examined at bedside and all new and available data was reviewed in the patients chart. I agree with the above findings, impression and plan. (Patient seen earlier today. Signature stamp does not reflect patient encounter time.). - Frankie Sanchez MD Subjective Gastrointestinal/Abdominal: Reports: no symptoms Subjective limited Objective Last 24 Hour Vital Signs Date Time Temp Pulse Resp B/P (MAP) Pulse Ox O2 Delivery O2 Flow Rate FiO2 06/22/18 12:00 98.2 77 16 110/58 (75) 99 06/22/18 09:00 Room Air 06/22/18 08:00 97.9 77 20 140/72 (94) 96 06/22/18 04:00 98.0 78 20 109/69 (82) 99 06/22/18 00:00 97.9 81 20 106/80 (89) 95 06/21/18 22:01 82 20 Room Air 21 06/21/18 21:00 Room Air 06/21/18 20:00 98.4 85 20 109/82 (91) 93 06/21/18 16:00 97.7 71 18 113/59 (77) 95 06/21/18 15:47 97.7 71 18 113/54 (73) 95 Intake and Output 06/21/18 06/22/18 18:59 06:59 Intake Total 915 ml 1105 ml Output Total 250 ml Balance 915 ml 855 ml IV Total 915 ml 1105 ml Output Urine Total 250 ml Laboratory Tests Test 06/22/18 06:07 White Blood Count 12.9 K/UL (4.8-10.8) H Red Blood Count 3.95 M/UL (4.20-5.40) L Hemoglobin 10.2 G/DL (12.0-16.0) L Hematocrit 33.9 % (37.0-47.0) L Mean Corpuscular Volume 86 FL (80-99) Mean Corpuscular Hemoglobin 25.8 PG (27.0-31.0) L Mean Corpuscular Hemoglobin Concent 30.1 G/DL (32.0-36.0) L Red Cell Distribution Width 16.4 % (11.6-14.8) H Platelet Count 214 K/UL (150-450) Mean Platelet Volume 6.9 FL (6.5-10.1) Neutrophils (%) (Auto) 68.9 % (45.0-75.0) Lymphocytes (%) (Auto) 19.9 % (20.0-45.0) L Monocytes (%) (Auto) 5.0 % (1.0-10.0) Eosinophils (%) (Auto) 5.6 % (0.0-3.0) H Basophils (%) (Auto) 0.6 % (0.0-2.0) Sodium Level 161 MMOL/L (136-145) *H Potassium Level 2.6 MMOL/L (3.5-5.1) *L Chloride Level 125 MMOL/L (98-107) H Carbon Dioxide Level 27 MMOL/L (21-32) Anion Gap 9 mmol/L (5-15) Blood Urea Nitrogen 15 mg/dL (7-18) Creatinine 0.8 MG/DL (0.55-1.30) Estimat Glomerular Filtration Rate mL/min (>60) Glucose Level 102 MG/DL (74-106) Hemoglobin A1c 5.0 % (4.3-6.0) Uric Acid 8.8 MG/DL (2.6-7.2) H Calcium Level 9.3 MG/DL (8.5-10.1) Phosphorus Level 2.1 MG/DL (2.5-4.9) L Magnesium Level 1.9 MG/DL (1.8-2.4) Total Bilirubin 0.4 MG/DL (0.2-1.0) Gamma Glutamyl Transpeptidase 7 U/L (5-85) Aspartate Amino Transf (AST/SGOT) 19 U/L (15-37) Alanine Aminotransferase (ALT/SGPT) 19 U/L (12-78) Alkaline Phosphatase 56 U/L (46-116) Total Creatine Kinase 98 U/L (26-308) Troponin I 0.011 ng/mL (0.000-0.056) Pro-B-Type Natriuretic Peptide 221 pg/mL (0-125) H Total Protein 6.8 G/DL (6.4-8.2) Albumin 2.3 G/DL (3.4-5.0) L Globulin 4.5 g/dL Albumin/Globulin Ratio 0.5 (1.0-2.7) L Triglycerides Level 123 MG/DL (30-150) Cholesterol Level 182 MG/DL (< 200) LDL Cholesterol 109 mg/dL (<100) H HDL Cholesterol 35 MG/DL (40-60) L Cholesterol/HDL Ratio 5.2 (3.3-4.4) H Vitamin B12 Level > 2000 PG/ML (193-986) H Folate 32.1 NG/ML (8.6-58.9) Thyroid Stimulating Hormone (TSH) 1.248 uiU/mL (0.358-3.740) Height (Feet): 5 Height (Inches): 5.00 Weight (Pounds): 200 General Appearance: WD/WN, no apparent distress, alert Cardiovascular: normal rate Respiratory/Chest: normal breath sounds, no respiratory distress Abdominal Exam: normal bowel sounds, non tender, soft Extremities: non-tender Kari Sarmiento [employer] HEL[employer] Jun 22, 2018 14:35
--- NOTE | 2018-06-22 15:52 | Nephrology Progress Note ---
Assessment/Plan Problem List: (1) Hypernatremia (2) Dehydration (3) Hypokalemia (4) Seizure disorder, complex partial (5) Urinary tract infection Assessment HyperNatremia: Free water deficit / Dehydration UTI HyperCalcemia HypoAlbuminemia Sz disorder Dementia Allergy to ASA and YVONNE inhibitors HTN GT out Plan D5W Monitor Lytes antibiotics IV Keppra K and Phos IV Per orders Subjective ROS Limited/Unobtainable: No Constitutional: Reports: malaise Objective Objective Last 24 Hour Vital Signs Date Time Temp Pulse Resp B/P (MAP) Pulse Ox O2 Delivery O2 Flow Rate FiO2 06/22/18 12:00 98.2 77 16 110/58 (75) 99 06/22/18 09:00 Room Air 06/22/18 08:00 97.9 77 20 140/72 (94) 96 06/22/18 04:00 98.0 78 20 109/69 (82) 99 06/22/18 00:00 97.9 81 20 106/80 (89) 95 06/21/18 22:01 82 20 Room Air 21 06/21/18 21:00 Room Air 06/21/18 20:00 98.4 85 20 109/82 (91) 93 06/21/18 16:00 97.7 71 18 113/59 (77) 95 06/21/18 15:47 97.7 71 18 113/54 (73) 95 Intake and Output 06/21/18 06/22/18 18:59 06:59 Intake Total 915 ml 1105 ml Output Total 250 ml Balance 915 ml 855 ml IV Total 915 ml 1105 ml Output Urine Total 250 ml Laboratory Tests 06/22/18 06:07: White Blood Count 12.9H, Red Blood Count 3.95L, Hemoglobin 10.2L, Hematocrit 33.9L, Mean Corpuscular Volume 86, Mean Corpuscular Hemoglobin 25.8L, Mean Corpuscular Hemoglobin Concent 30.1L, Red Cell Distribution Width 16.4H, Platelet Count 214, Mean Platelet Volume 6.9, Neutrophils (%) (Auto) 68.9, Lymphocytes (%) (Auto) 19.9L, Monocytes (%) (Auto) 5.0, Eosinophils (%) (Auto) 5.6H, Basophils (%) (Auto) 0.6, Sodium Level 161*H, Potassium Level 2.6*L, Chloride Level 125H, Carbon Dioxide Level 27, Anion Gap 9, Blood Urea Nitrogen 15, Creatinine 0.8, Estimat Glomerular Filtration Rate , Glucose Level 102, Hemoglobin A1c 5.0, Uric Acid 8.8H, Calcium Level 9.3, Phosphorus Level 2.1L, Magnesium Level 1.9, Total Bilirubin 0.4, Gamma Glutamyl Transpeptidase 7, Aspartate Amino Transf (AST/SGOT) 19, Alanine Aminotransferase (ALT/SGPT) 19, Alkaline Phosphatase 56, Total Creatine Kinase 98, Troponin I 0.011, Pro-B-Type Natriuretic Peptide 221H, Total Protein 6.8, Albumin 2.3L, Globulin 4.5, Albumin /Globulin Ratio 0.5L, Triglycerides Level 123, Cholesterol Level 182, LDL Cholesterol 109H, HDL Cholesterol 35L, Cholesterol/HDL Ratio 5.2H, Vitamin B12 Level > 2000H, Folate 32.1, Thyroid Stimulating Hormone (TSH) 1.248 Height (Feet): 5 Height (Inches): 5.00 Weight (Pounds): 200 General Appearance: no apparent distress, lethargic Cardiovascular: normal rate Respiratory/Chest: decreased breath sounds Abdomen: soft Gonsalo Ortiz MD Jun 22, 2018 15:52
--- NOTE | 2018-06-22 15:58 | Infectious Diseases Prog Note ---
Assessment/Plan Assessment/Plan ASSESSMENT: The patient is a 72-year-old female with: Leukocytosis, improving Probable UTI (UA showed pyuria) Ro probable bacteremia No evidence of pneumonia. Chest x-ray, [facility] Dementia History of seizure disorder Anemia Hypertension COPD History of abdominal wall cellulitis/G-tube site infection Diabetes Schizophrenia PLAN: cont on IV cefepime day # 2 06/21 SP IV Vanco CBC and BMP Monitor cultures (blood, urine) Monitor CBC Monitor chest x-ray Subjective Allergies: Coded Allergies: ASPIRIN (Verified Allergy, Unknown, 06/21/18) LOSARTAN (Verified Allergy, Unknown, 06/21/18) Subjective comfortable Objective Vital Signs Last 24 Hour Vital Signs Date Time Temp Pulse Resp B/P (MAP) Pulse Ox O2 Delivery O2 Flow Rate FiO2 06/22/18 12:00 98.2 77 16 110/58 (75) 99 06/22/18 09:00 Room Air 06/22/18 08:00 97.9 77 20 140/72 (94) 96 06/22/18 04:00 98.0 78 20 109/69 (82) 99 06/22/18 00:00 97.9 81 20 106/80 (89) 95 06/21/18 22:01 82 20 Room Air 21 06/21/18 21:00 Room Air 06/21/18 20:00 98.4 85 20 109/82 (91) 93 06/21/18 16:00 97.7 71 18 113/59 (77) 95 Height (Feet): 5 Height (Inches): 5.00 Weight (Pounds): 200 HEENT: anicteric Respiratory/Chest: normal breath sounds Cardiovascular: regular rhythm Abdomen: no organomegaly Microbiology Date/Time Source Procedure Growth Status 06/21/18 02:57 Urine,Clean Catch Urine Culture - Preliminary Resulted 06/21/18 01:30 Rectum - Preliminary Resulted Laboratory Tests Test 06/22/18 06:07 White Blood Count 12.9 K/UL (4.8-10.8) H Red Blood Count 3.95 M/UL (4.20-5.40) L Hemoglobin 10.2 G/DL (12.0-16.0) L Hematocrit 33.9 % (37.0-47.0) L Mean Corpuscular Volume 86 FL (80-99) Mean Corpuscular Hemoglobin 25.8 PG (27.0-31.0) L Mean Corpuscular Hemoglobin Concent 30.1 G/DL (32.0-36.0) L Red Cell Distribution Width 16.4 % (11.6-14.8) H Platelet Count 214 K/UL (150-450) Mean Platelet Volume 6.9 FL (6.5-10.1) Neutrophils (%) (Auto) 68.9 % (45.0-75.0) Lymphocytes (%) (Auto) 19.9 % (20.0-45.0) L Monocytes (%) (Auto) 5.0 % (1.0-10.0) Eosinophils (%) (Auto) 5.6 % (0.0-3.0) H Basophils (%) (Auto) 0.6 % (0.0-2.0) Sodium Level 161 MMOL/L (136-145) *H Potassium Level 2.6 MMOL/L (3.5-5.1) *L Chloride Level 125 MMOL/L (98-107) H Carbon Dioxide Level 27 MMOL/L (21-32) Anion Gap 9 mmol/L (5-15) Blood Urea Nitrogen 15 mg/dL (7-18) Creatinine 0.8 MG/DL (0.55-1.30) Estimat Glomerular Filtration Rate mL/min (>60) Glucose Level 102 MG/DL (74-106) Hemoglobin A1c 5.0 % (4.3-6.0) Uric Acid 8.8 MG/DL (2.6-7.2) H Calcium Level 9.3 MG/DL (8.5-10.1) Phosphorus Level 2.1 MG/DL (2.5-4.9) L Magnesium Level 1.9 MG/DL (1.8-2.4) Total Bilirubin 0.4 MG/DL (0.2-1.0) Gamma Glutamyl Transpeptidase 7 U/L (5-85) Aspartate Amino Transf (AST/SGOT) 19 U/L (15-37) Alanine Aminotransferase (ALT/SGPT) 19 U/L (12-78) Alkaline Phosphatase 56 U/L (46-116) Total Creatine Kinase 98 U/L (26-308) Troponin I 0.011 ng/mL (0.000-0.056) Pro-B-Type Natriuretic Peptide 221 pg/mL (0-125) H Total Protein 6.8 G/DL (6.4-8.2) Albumin 2.3 G/DL (3.4-5.0) L Globulin 4.5 g/dL Albumin/Globulin Ratio 0.5 (1.0-2.7) L Triglycerides Level 123 MG/DL (30-150) Cholesterol Level 182 MG/DL (< 200) LDL Cholesterol 109 mg/dL (<100) H HDL Cholesterol 35 MG/DL (40-60) L Cholesterol/HDL Ratio 5.2 (3.3-4.4) H Vitamin B12 Level > 2000 PG/ML (193-986) H Folate 32.1 NG/ML (8.6-58.9) Thyroid Stimulating Hormone (TSH) 1.248 uiU/mL (0.358-3.740) Current Medications Medications (Trade) Dose Ordered Sig/Caroline Route PRN Reason Start Time Stop Time Status Last Admin Dose Admin Acetaminophen (Tylenol) 650 mg Q4H PRN ORAL fever 06/21/18 06:30 07/21/18 06:29 Albuterol/ Ipratropium (Albuterol/ Ipratropium) 3 ml Q4H PRN HHN Shortness of Breath 06/21/18 06:30 06/26/18 06:29 Cefepime HCl 2 gm/ Dextrose 110 ml @ 220 mls/hr DAILY IV 06/22/18 09:00 06/29/18 08:59 06/22/18 11:02 Dextrose 1,000 ml @ 100 mls/hr Q10H IV 06/21/18 10:00 07/21/18 09:59 06/22/18 05:44 Famotidine (Pepcid I.v.) 20 mg Q12HR IVP 06/21/18 11:00 07/21/18 10:59 06/22/18 10:24 Heparin Sodium (Porcine) (Heparin 5000 units/ml) 5,000 units EVERY 12 HOURS SUBQ 06/21/18 09:00 07/21/18 08:59 06/22/18 10:27 Levetiracetam 1000 mg/Dextrose 105 ml @ 440 mls/hr Q12HR IV 06/21/18 11:30 07/21/18 11:29 06/22/18 10:29 Memantine (Namenda) 5 mg BID ORAL 06/22/18 09:00 07/22/18 08:59 Morphine Sulfate (Morphine Sulfate) 2 mg Q4H PRN IVP Moderate Pain (Pain Scale 4-6) 06/21/18 06:30 06/28/18 06:29 Nitroglycerin (Ntg) 0.4 mg Q5M PRN SL Prn Chest Pain 06/21/18 06:30 07/21/18 06:29 Olanzapine (ZyPREXA) 2.5 mg QHS ORAL 06/22/18 21:00 07/22/18 20:59 Ondansetron HCl (Zofran) 4 mg Q6H PRN IVP Nausea & Vomiting 06/21/18 06:30 07/21/18 06:29 Polyethylene Glycol (Miralax) 17 gm DAILYPRN PRN ORAL Constipation 06/21/18 06:30 07/21/18 06:29 Potassium Chloride 100 ml @ 100 mls/hr Q1H IVPB 06/22/18 19:00 06/22/18 22:59 Temazepam (Restoril) 15 mg HSPRN PRN ORAL Insomnia 06/21/18 06:30 06/28/18 06:29 Eduardo Phelps MD Jun 22, 2018 15:58
[2018-06-22 16:00] VITALS: BP 149/83
--- NOTE | 2018-06-22 16:35 | Consultation ---
History of Present Illness General Date patient seen: Jun 22, 2018 Chief Complaint: Gastrointestinal Illness Referring physician: VERONIQUE CORONADO Reason for Consultation: FTT Present Illness HPI 72F with multiple medical comorbidities presented with UTI, abdominal pain, decubitus ulcer for care and management. Currently under medical care and surgery called to evaluate and help assist with care of wounds. patient seen, chart reviewed, patient examined. photos taken and care plan initiated. Allergies: Coded Allergies: ASPIRIN (Verified Allergy, Unknown, 06/21/18) LOSARTAN (Verified Allergy, Unknown, 06/21/18) Medication History Scheduled Acetaminophen (Tylenol 8 Hour), 650 MG ORAL Q6HR, (Reported) Amino Acids/Protein Hydrolys (Pro-Stat Liquid), 30 ML GT TWICE A DAY, (Reported) Amlodipine/Atorvastatin 5-40 Mg (Amlodipine-Atorvast 5-40 Mg), 1 TAB ORAL DAILY, (Reported) Bethanechol Chl* (Urecholine*), 25 MG ORAL THREE TIMES A DAY, (Reported) Bisacodyl* (Dulcolax*), 10 MG GT ONCE, (Reported) Clonidine Hcl* (Catapres*), 0.1 MG GT EVERY 8 HOURS, (Reported) Hydralazine Hcl* (Hydralazine Hcl*), 50 MG GT EVERY 8 HOURS, (Reported) Levetiracetam* (Levetiracetam*), 750 MG ORAL TWICE A DAY, (Reported) Lorazepam* (Lorazepam*), 0.5 MG GT THREE TIMES A DAY, (Reported) Metoprolol/Hydrochlorothiazide (Metoprolol-Hctz 100-50 Mg Tab), 1 TAB GT DAILY, (Reported) Montelukast Sodium* (Singulair*), 10 MG ORAL DAILY, (Reported) Multivitamin (Multivitamins), 1 CAP ORAL DAILY, (Reported) Prednisolone* (Prelone*), 15 MG ORAL HS, (Reported) Risperidone* (Risperdal*), 2 MG ORAL HS, (Reported) Scheduled PRN Acetaminophen* (Acetaminophen 325MG Tablet*), 650 MG GT Q4H PRN for Fever/ Headache/Mild Pain, (Reported) Lorazepam* (Ativan*), 2 MG ORAL THREE TIMES A DAY PRN for For Anxiety, (Reported ) Morphine 10mg/5ml Oral Soln* (Morphine 10mg/5ml Oral Soln*), 10 MG ORAL for For Pain, (Reported) Ondansetron* (Zofran*), 4 MG GT Q6H PRN for Nausea & Vomiting, (Reported) Miscellaneous Medications Hyoscyamine Sulfate (Levsin), 0.125 MG ORAL, (Reported) Insulin Human Lispro (Humalog), 0 SUBQ, (Reported) Ipratropium/Albuterol Sulfate (DuoNeb 0.5-3(2.5)mg/3ml), 3 ML HHN, (Reported) Nut.tx.gluc.intoler,Lac-Fr,Soy (Glucerna 1.5 Stan), 237 ML GT, (Reported) Patient History Limited by: medical condition History Provided By: Medical Record, PMD Healthcare decision maker Resuscitation status Advanced Directive on File Past Medical/Surgical History Past Medical/Surgical History: (1) Acute encephalopathy (2) Dehydration (3) Leukocytosis (4) Sepsis (5) Attention to G-tube (6) Hypokalemia (7) Urinary tract infection (8) Hypernatremia (9) Dysphagia (10) Severe malnutrition (11) FTT (failure to thrive) in adult (12) Encounter for PEG (percutaneous endoscopic gastrostomy) (13) Seizure disorder, complex partial (14) Bilateral lower extremity edema (15) Diabetes mellitus (16) At high risk for aspiration (17) Hypertension Review of Systems ROS Narrative cannot obtain given medical condition Physical Exam General Appearance: no apparent distress Lines, tubes and drains: peripheral HEENT: mucous membranes moist Neck: normal inspection Respiratory/Chest: no respiratory distress Abdomen: soft, no organomegaly, no mass, other - large wound subcostal Extremities: non-tender Skin Exam: other Neurologic: unresponsiveness, other Last 24 Hour Vital Signs Date Time Temp Pulse Resp B/P (MAP) Pulse Ox O2 Delivery O2 Flow Rate FiO2 06/22/18 12:00 98.2 77 16 110/58 (75) 99 06/22/18 09:00 Room Air 06/22/18 08:00 97.9 77 20 140/72 (94) 96 06/22/18 04:00 98.0 78 20 109/69 (82) 99 06/22/18 00:00 97.9 81 20 106/80 (89) 95 06/21/18 22:01 82 20 Room Air 21 06/21/18 21:00 Room Air 06/21/18 20:00 98.4 85 20 109/82 (91) 93 Intake and Output 06/21/18 06/22/18 18:59 06:59 Intake Total 915 ml 1105 ml Output Total 250 ml Balance 915 ml 855 ml IV Total 915 ml 1105 ml Output Urine Total 250 ml Laboratory Tests Test 06/22/18 06:07 White Blood Count 12.9 K/UL (4.8-10.8) H Red Blood Count 3.95 M/UL (4.20-5.40) L Hemoglobin 10.2 G/DL (12.0-16.0) L Hematocrit 33.9 % (37.0-47.0) L Mean Corpuscular Volume 86 FL (80-99) Mean Corpuscular Hemoglobin 25.8 PG (27.0-31.0) L Mean Corpuscular Hemoglobin Concent 30.1 G/DL (32.0-36.0) L Red Cell Distribution Width 16.4 % (11.6-14.8) H Platelet Count 214 K/UL (150-450) Mean Platelet Volume 6.9 FL (6.5-10.1) Neutrophils (%) (Auto) 68.9 % (45.0-75.0) Lymphocytes (%) (Auto) 19.9 % (20.0-45.0) L Monocytes (%) (Auto) 5.0 % (1.0-10.0) Eosinophils (%) (Auto) 5.6 % (0.0-3.0) H Basophils (%) (Auto) 0.6 % (0.0-2.0) Sodium Level 161 MMOL/L (136-145) *H Potassium Level 2.6 MMOL/L (3.5-5.1) *L Chloride Level 125 MMOL/L (98-107) H Carbon Dioxide Level 27 MMOL/L (21-32) Anion Gap 9 mmol/L (5-15) Blood Urea Nitrogen 15 mg/dL (7-18) Creatinine 0.8 MG/DL (0.55-1.30) Estimat Glomerular Filtration Rate mL/min (>60) Glucose Level 102 MG/DL (74-106) Hemoglobin A1c 5.0 % (4.3-6.0) Uric Acid 8.8 MG/DL (2.6-7.2) H Calcium Level 9.3 MG/DL (8.5-10.1) Phosphorus Level 2.1 MG/DL (2.5-4.9) L Magnesium Level 1.9 MG/DL (1.8-2.4) Total Bilirubin 0.4 MG/DL (0.2-1.0) Gamma Glutamyl Transpeptidase 7 U/L (5-85) Aspartate Amino Transf (AST/SGOT) 19 U/L (15-37) Alanine Aminotransferase (ALT/SGPT) 19 U/L (12-78) Alkaline Phosphatase 56 U/L (46-116) Total Creatine Kinase 98 U/L (26-308) Troponin I 0.011 ng/mL (0.000-0.056) Pro-B-Type Natriuretic Peptide 221 pg/mL (0-125) H Total Protein 6.8 G/DL (6.4-8.2) Albumin 2.3 G/DL (3.4-5.0) L Globulin 4.5 g/dL Albumin/Globulin Ratio 0.5 (1.0-2.7) L Triglycerides Level 123 MG/DL (30-150) Cholesterol Level 182 MG/DL (< 200) LDL Cholesterol 109 mg/dL (<100) H HDL Cholesterol 35 MG/DL (40-60) L Cholesterol/HDL Ratio 5.2 (3.3-4.4) H Vitamin B12 Level > 2000 PG/ML (193-986) H Folate 32.1 NG/ML (8.6-58.9) Thyroid Stimulating Hormone (TSH) 1.248 uiU/mL (0.358-3.740) Height (Feet): 5 Height (Inches): 5.00 Weight (Pounds): 200 Medications Current Medications Medications (Trade) Dose Ordered Sig/Caroline Route PRN Reason Start Time Stop Time Status Last Admin Dose Admin Acetaminophen (Tylenol) 650 mg Q4H PRN ORAL fever 06/21/18 06:30 07/21/18 06:29 Albuterol/ Ipratropium (Albuterol/ Ipratropium) 3 ml Q4H PRN HHN Shortness of Breath 06/21/18 06:30 06/26/18 06:29 Cefepime HCl 2 gm/ Dextrose 110 ml @ 220 mls/hr DAILY IV 06/22/18 09:00 06/29/18 08:59 06/22/18 11:02 Dextrose 1,000 ml @ 100 mls/hr Q10H IV 06/21/18 10:00 07/21/18 09:59 06/22/18 05:44 Famotidine (Pepcid I.v.) 20 mg Q12HR IVP 06/21/18 11:00 07/21/18 10:59 06/22/18 10:24 Heparin Sodium (Porcine) (Heparin 5000 units/ml) 5,000 units EVERY 12 HOURS SUBQ 06/21/18 09:00 07/21/18 08:59 06/22/18 10:27 Levetiracetam 1000 mg/Dextrose 105 ml @ 440 mls/hr Q12HR IV 06/21/18 11:30 07/21/18 11:29 06/22/18 10:29 Memantine (Namenda) 5 mg BID ORAL 06/22/18 09:00 07/22/18 08:59 Morphine Sulfate (Morphine Sulfate) 2 mg Q4H PRN IVP Moderate Pain (Pain Scale 4-6) 06/21/18 06:30 06/28/18 06:29 Nitroglycerin (Ntg) 0.4 mg Q5M PRN SL Prn Chest Pain 06/21/18 06:30 07/21/18 06:29 Olanzapine (ZyPREXA) 2.5 mg QHS ORAL 06/22/18 21:00 07/22/18 20:59 Ondansetron HCl (Zofran) 4 mg Q6H PRN IVP Nausea & Vomiting 06/21/18 06:30 07/21/18 06:29 Polyethylene Glycol (Miralax) 17 gm DAILYPRN PRN ORAL Constipation 06/21/18 06:30 07/21/18 06:29 Potassium Chloride 100 ml @ 100 mls/hr Q1H IVPB 06/22/18 19:00 06/22/18 22:59 Temazepam (Restoril) 15 mg HSPRN PRN ORAL Insomnia 06/21/18 06:30 06/28/18 06:29 Assessment/Plan Problem List: (1) Open abdominal wall wound ICD Codes: S31.109A - Unspecified open wound of abdominal wall, unspecified quadrant without penetration into peritoneal cavity, initial encounter SNOMED: 022622556 Qualifiers: Qualified Codes: S31.109A - Unspecified open wound of abdominal wall, unspecified quadrant without penetration into peritoneal cavity, initial encounter (2) Severe malnutrition Assessment & Plan: will have dietary see patient for nutritional optimization will follow labs ordered will need extra for wound healing ICD Codes: E43 - Unspecified severe protein-calorie malnutrition SNOMED: 18131545 Assessment/Plan Obese female presents with abdominal incision extending from mid upper abd to L lateral abd (L)1cm x (W)26cm with dehiscence noted proximal incision at mid upper abdomen (L)1cm x (W)5cm,site clean and moist .Minimal serous non-odorous exudate. Additional partial openings and dry scabs with sutures noted along incision without exudate or erythema. I&D noted to abdominal folds groin areas and perineum Noted to have hyperpigmentation sacrum R and L gluteal clefts and posterior L thigh from previous wounds. Darker skin tone noted R and L ischium. Pressure injury to lateral L heel with unstable eschar centrally -detached from borders which noted to have soft slough with small amt purulents exudate(L) 3.8cm x (W)2.8cm . Periwound with dark skin tone. R heel boggy with non-blanchable erythema noted. Tx.Plan : Surface support mattress . Please request Physician consult for evaluation of L heel Ulcer. Cleanse abd wound with saline and obtain Tx orders per Physician consult. Reposition at least every 2 hours or as tolerated. Off-load heels with pillow. Martin Gordon Jun 22, 2018 16:35
[2018-06-22 20:00] VITALS: BP 133/78
[2018-06-22] MEDS: OLANZapine 2.5mg tab ORAL SCH (21:00)
[2018-06-23] VITALS: BP 147/72
[2018-06-23 04:00] VITALS: BP 144/87
--- NOTE | 2018-06-23 05:01 | Consultation ---
DATE OF CONSULTATION: 06/22/2018 NOTE: POOR AUDIO PSYCHOTHERAPY CONSULTATION PROGRESS NOTE CONSULTING PHYSICIAN: Austen Cole PsyD. ATTENDING PHYSICIAN: Hong Caballero D.O. HISTORY OF PRESENT ILLNESS: The patient is a 72-year-old female patient [facility]. The patient has a history of mental illness including the patient was initially admitted to the hospital for failure to thrive. The patient since then has been experiencing mood lability, agitation, confusion, disorganization, and altered mental status, and for these reasons, she was referred to psychotherapeutic services. Today, clinician assessed the patient. The patient very confused and disorganized. The patient continues to remain in hospice. She is a poor historian, unable to provide a logical plan for self-care at this time. has been anxious and impulsive. However, at this time, there is no indication of suicidal or homicidal thoughts of ideation. The patient she remains confused, disorganized, and labile. PAST MEDICAL HISTORY: Includes a history of failure to thrive. ALLERGIES: The patient is allergic to losartan and aspirin. SUBSTANCE ABUSE HISTORY: There is no indication of alcohol use, illicit substance use, or smoking cigarette. PSYCHIATRIC HISTORY: The patient has a history of schizophrenia and has been treated with psychotropic medications in the past. SOCIAL HISTORY: The patient is a 72-year-old female patient from [facility]. Financially sustained through [employer]. MENTAL STATUS EXAMINATION: The patient is alert and oriented to person and place. Mood is anxious. Affect is blunted. Thought process disorganized. Thought content, confused. Poor attention and concentration. Poor insight, judgment, and impulse control. DIAGNOSIS: Paranoid schizophrenia. PLAN: assessed the patient for altered mental status. Provided the patient with reality orientation provided the patient with supportive psychotherapy disorganized thought process anxiety and agitation. mood lability coping skills, relaxation exercises reviewed the patient's chart and discussed the treatment with treatment team. Austen Cole PsyD. DR: DORIS JOB#: [id number] CC:
[2018-06-23 06:48] LABS: BASOPHILS % (AUTO) 0.8 % (0.0-2.0); EOSINOPHILS % (AUTO) 4.7 % (0.0-3.0); HEMATOCRIT 35.9 % (37.0-47.0); LYMPHOCYTES % (AUTO) 30.7 % (20.0-45.0); MEAN CORPUSCULAR VOLUME 85 FL (80-99); MONOCYTES % (AUTO) 5.4 % (1.0-10.0); NEUTROPHILS % (AUTO) 58.5 % (45.0-75.0); PLATELET COUNT 258 K/UL (150-450); RED BLOOD COUNT 4.22 M/UL (4.20-5.40); RED CELL DISTRIBUTION WIDTH 16.4 % (11.6-14.8); WHITE BLOOD COUNT 7.7 K/UL (4.8-10.8)
[2018-06-23 07:20] LABS: ANION GAP 10 mmol/L (5-15); CARBON DIOXIDE 26 MMOL/L (21-32); CHLORIDE 121 MMOL/L (98-107); POTASSIUM 3.4 MMOL/L (3.5-5.1); SODIUM 157 MMOL/L (136-145)
[2018-06-23 07:33] LABS: ALANINE AMINOTRANSFERASE 19 U/L (12-78); ALBUMIN 2.2 G/DL (3.4-5.0); ALBUMIN/GLOBULIN RATIO 0.5 (1.0-2.7); ALKALINE PHOSPHATASE 60 U/L (46-116); ASPARTATE AMINO TRANSFERASE 19 U/L (15-37); BILIRUBIN,TOTAL 0.4 MG/DL (0.2-1.0); BLOOD UREA NITROGEN 10 mg/dL (7-18); CREATININE 0.8 MG/DL (0.55-1.30); PHOSPHORUS 3.1 MG/DL (2.5-4.9)
[2018-06-23 08:00] VITALS: BP 121/61
[2018-06-23] MEDS: Memantine 5 MG TAB ORAL SCH ×2 (09:32→17:42)
[2018-06-23] MEDS: Heparin 5000 units/ml inj SUBQ SCH ×2 (09:37→21:00)
[2018-06-23] MEDS: levETIRAcetam 1,000 MG in D5W 95 ML IV SCH (10:57)
--- NOTE | 2018-06-23 11:44 | GI Progress Note ---
Assessment/Plan Problems: (1) At high risk for aspiration ICD Codes: Z91.89 - Other specified personal risk factors, not elsewhere classified SNOMED: 445501502 (2) Seizure disorder, complex partial ICD Codes: G40.209 - Seizure disorder, complex partial SNOMED: 504723006 (3) Encounter for PEG (percutaneous endoscopic gastrostomy) ICD Codes: Z43.1 - Encounter for attention to gastrostomy SNOMED: 621299351, 529369243 (4) FTT (failure to thrive) in adult ICD Codes: R62.7 - Adult failure to thrive SNOMED: 046378111 (5) Dysphagia ICD Codes: R13.10 - Dysphagia, unspecified SNOMED: 45158728, 525946387 (6) Severe malnutrition ICD Codes: E43 - Unspecified severe protein-calorie malnutrition SNOMED: 79931274 (7) Dehydration ICD Codes: E86.0 - Dehydration SNOMED: 20999329 Status: stable Status Narrative Discussed with Dr. Sanchez. Assessment/Plan d/w with ST, patient passed swallow evaluation with possible silent aspiration. Recommendation for PEG to meet nutritional needs voicemail left with daughter PEG tomorrow if family agrees cont NGTFs per RD to goal electrolyte correction IV hydration bowel regime H2B fu labs The patient was seen and examined at bedside and all new and available data was reviewed in the patients chart. I agree with the above findings, impression and plan. (Patient seen earlier today. Signature stamp does not reflect patient encounter time.). - Frankie Sanchez MD Subjective Subjective limited Objective Last 24 Hour Vital Signs Date Time Temp Pulse Resp B/P (MAP) Pulse Ox O2 Delivery O2 Flow Rate FiO2 06/23/18 09:00 Room Air 06/23/18 08:00 98.6 72 18 121/61 (81) 96 06/23/18 04:00 97.9 70 18 144/87 (106) 100 06/23/18 00:00 97.7 77 20 147/72 (97) 100 06/22/18 21:00 Room Air 06/22/18 20:04 78 18 Room Air 21 06/22/18 20:00 97.4 78 18 133/78 (96) 99 06/22/18 16:00 98.8 79 20 149/83 (105) 97 06/22/18 12:00 98.2 77 16 110/58 (75) 99 Intake and Output 06/22/18 06/23/18 19:00 07:00 Intake Total 300 ml 1125 ml Output Total 650 ml 500 ml Balance -350 ml 625 ml Free Water 50 ml IV Total 300 ml 905 ml Tube Feeding 170 ml Output Urine Total 650 ml 500 ml # Bowel Movements 1 Laboratory Tests Test 06/23/18 05:45 White Blood Count 7.7 K/UL (4.8-10.8) Red Blood Count 4.22 M/UL (4.20-5.40) Hemoglobin 11.0 G/DL (12.0-16.0) L Hematocrit 35.9 % (37.0-47.0) L Mean Corpuscular Volume 85 FL (80-99) Mean Corpuscular Hemoglobin 26.0 PG (27.0-31.0) L Mean Corpuscular Hemoglobin Concent 30.6 G/DL (32.0-36.0) L Red Cell Distribution Width 16.4 % (11.6-14.8) H Platelet Count 258 K/UL (150-450) Mean Platelet Volume 7.2 FL (6.5-10.1) Neutrophils (%) (Auto) 58.5 % (45.0-75.0) Lymphocytes (%) (Auto) 30.7 % (20.0-45.0) Monocytes (%) (Auto) 5.4 % (1.0-10.0) Eosinophils (%) (Auto) 4.7 % (0.0-3.0) H Basophils (%) (Auto) 0.8 % (0.0-2.0) Erythrocyte Sedimentation Rate 99 MM/HR (0-30) H Sodium Level 157 MMOL/L (136-145) H Potassium Level 3.4 MMOL/L (3.5-5.1) L Chloride Level 121 MMOL/L (98-107) H Carbon Dioxide Level 26 MMOL/L (21-32) Anion Gap 10 mmol/L (5-15) Blood Urea Nitrogen 10 mg/dL (7-18) Creatinine 0.8 MG/DL (0.55-1.30) Estimat Glomerular Filtration Rate mL/min (>60) Glucose Level 93 MG/DL (74-106) Calcium Level 9.0 MG/DL (8.5-10.1) Phosphorus Level 3.1 MG/DL (2.5-4.9) Magnesium Level 1.8 MG/DL (1.8-2.4) Total Bilirubin 0.4 MG/DL (0.2-1.0) Aspartate Amino Transf (AST/SGOT) 19 U/L (15-37) Alanine Aminotransferase (ALT/SGPT) 19 U/L (12-78) Alkaline Phosphatase 60 U/L (46-116) C-Reactive Protein, Quantitative 9.2 mg/dL (0.00-0.90) H Total Protein 6.9 G/DL (6.4-8.2) Albumin 2.2 G/DL (3.4-5.0) L Globulin 4.7 g/dL Albumin/Globulin Ratio 0.5 (1.0-2.7) L Height (Feet): 5 Height (Inches): 5.00 Weight (Pounds): 212 General Appearance: WD/WN, no apparent distress, alert Cardiovascular: normal rate Respiratory/Chest: normal breath sounds, no respiratory distress Abdominal Exam: normal bowel sounds, non tender, soft, other - NGT Extremities: non-tender Kari Sarmiento MOSS PICKER Jun 23, 2018 11:44
--- NOTE | 2018-06-23 11:47 | Diagnostic Imaging Report ---
Indication: Nasogastric tube Technique: Supine view of the upper abdomen Comparison: none Findings: There is a nasogastric tube in place, shaft making a hairpin loop deep within the gastric antrum, tip pointed retrograde within the gastric fundus, proximal port at the level gastric body. Visualized bowel gas is unremarkable. Impression: Satisfactory nasogastric intubation This agrees with the preliminary interpretation provided overnight by [facility] teleradiology service.
--- NOTE | 2018-06-23 11:52 | Nephrology Progress Note ---
Assessment/Plan Problem List: (1) Hypernatremia (2) Dehydration (3) Hypokalemia (4) Seizure disorder, complex partial (5) Urinary tract infection Assessment HyperNatremia: Free water deficit / Dehydration improving UTI HyperCalcemia HypoAlbuminemia Sz disorder Dementia Allergy to ASA and YVONNE inhibitors HTN GT out Plan D5W Monitor Lytes- antibiotics Keppra to po K and Phos IV Per orders Subjective ROS Limited/Unobtainable: No Constitutional: Reports: malaise Objective Objective Last 24 Hour Vital Signs Date Time Temp Pulse Resp B/P (MAP) Pulse Ox O2 Delivery O2 Flow Rate FiO2 06/23/18 09:00 Room Air 06/23/18 08:00 98.6 72 18 121/61 (81) 96 06/23/18 04:00 97.9 70 18 144/87 (106) 100 06/23/18 00:00 97.7 77 20 147/72 (97) 100 06/22/18 21:00 Room Air 06/22/18 20:04 78 18 Room Air 21 06/22/18 20:00 97.4 78 18 133/78 (96) 99 06/22/18 16:00 98.8 79 20 149/83 (105) 97 06/22/18 12:00 98.2 77 16 110/58 (75) 99 Intake and Output 06/22/18 06/23/18 19:00 07:00 Intake Total 300 ml 1125 ml Output Total 650 ml 500 ml Balance -350 ml 625 ml Free Water 50 ml IV Total 300 ml 905 ml Tube Feeding 170 ml Output Urine Total 650 ml 500 ml # Bowel Movements 1 Laboratory Tests 06/23/18 05:45: White Blood Count 7.7, Red Blood Count 4.22, Hemoglobin 11.0L, Hematocrit 35.9L , Mean Corpuscular Volume 85, Mean Corpuscular Hemoglobin 26.0L, Mean Corpuscular Hemoglobin Concent 30.6L, Red Cell Distribution Width 16.4H, Platelet Count 258, Mean Platelet Volume 7.2, Neutrophils (%) (Auto) 58.5, Lymphocytes (%) (Auto) 30.7, Monocytes (%) (Auto) 5.4, Eosinophils (%) (Auto) 4.7H, Basophils (%) (Auto) 0.8, Erythrocyte Sedimentation Rate 99H, Sodium Level 157H, Potassium Level 3.4L, Chloride Level 121H, Carbon Dioxide Level 26, Anion Gap 10, Blood Urea Nitrogen 10, Creatinine 0.8, Estimat Glomerular Filtration Rate , Glucose Level 93, Calcium Level 9.0, Phosphorus Level 3.1, Magnesium Level 1.8, Total Bilirubin 0.4, Aspartate Amino Transf (AST/SGOT) 19, Alanine Aminotransferase (ALT/SGPT) 19, Alkaline Phosphatase 60, C-Reactive Protein, Quantitative 9.2H, Total Protein 6.9, Albumin 2.2L, Globulin 4.7, Albumin/Globulin Ratio 0.5L Height (Feet): 5 Height (Inches): 5.00 Weight (Pounds): 212 EENT: other - NGT Cardiovascular: normal rate Respiratory/Chest: decreased breath sounds Abdomen: soft Objective no other changes Gonsalo Ortiz MD Jun 23, 2018 11:52
[2018-06-23] MEDS: Cefepime HCl 2 GM in D5W 110 ML IV SCH (11:57)
[2018-06-23 12:00] VITALS: BP 136/72
--- NOTE | 2018-06-23 12:24 | Pulmonology Progress Note ---
Assessment/Plan Problems: (1) Acute encephalopathy (2) Hypernatremia (3) At high risk for aspiration (4) Urinary tract infection (5) Seizure disorder, complex partial (6) Dysphagia (7) Hypokalemia (8) Hypertension (9) Diabetes mellitus Assessment/Plan swallow study done, pt can eat orally No new complains contnue iv fluids Na decreasing some more weiner culture, pending renal evaluatin check electrolytes sliding scale insulin coverage ID evaluation appreciated weiner cultures Subjective ROS Limited/Unobtainable: Yes Interval Events: awake, comfortable Allergies: Coded Allergies: ASPIRIN (Verified Allergy, Unknown, 06/21/18) LOSARTAN (Verified Allergy, Unknown, 06/21/18) Objective Last 24 Hour Vital Signs Date Time Temp Pulse Resp B/P (MAP) Pulse Ox O2 Delivery O2 Flow Rate FiO2 06/23/18 09:00 Room Air 06/23/18 08:00 98.6 72 18 121/61 (81) 96 06/23/18 04:00 97.9 70 18 144/87 (106) 100 06/23/18 00:00 97.7 77 20 147/72 (97) 100 06/22/18 21:00 Room Air 06/22/18 20:04 78 18 Room Air 21 06/22/18 20:00 97.4 78 18 133/78 (96) 99 06/22/18 16:00 98.8 79 20 149/83 (105) 97 Intake and Output 06/22/18 06/23/18 19:00 07:00 Intake Total 300 ml 1125 ml Output Total 650 ml 500 ml Balance -350 ml 625 ml Free Water 50 ml IV Total 300 ml 905 ml Tube Feeding 170 ml Output Urine Total 650 ml 500 ml # Bowel Movements 1 General Appearance: WD/WN HEENT: normocephalic, anicteric Respiratory/Chest: chest wall non-tender, lungs clear Breasts: no masses Cardiovascular: normal rate Abdomen: soft, non tender, non distended Genitourinary: normal external genitalia Extremities: no cyanosis Skin: no rash Microbiology Date/Time Source Procedure Growth Status 06/21/18 08:10 Blood Blood Culture - Preliminary NO GROWTH AFTER 24 HOURS Resulted 06/21/18 08:00 Blood Blood Culture - Preliminary NO GROWTH AFTER 24 HOURS Resulted 06/21/18 01:30 Nasal Nares MRSA Culture - Final NO METHICILLIN RESISTANT STAPH AUREUS... Complete 06/21/18 02:57 Urine,Clean Catch Urine Culture - Preliminary Streptococcus Species Resulted 06/21/18 01:30 Rectum VRE Culture - Final Enterococcus Faecalis - Vre Enterococcus Faecium - Vre Complete 06/21/18 01:30 Rectum - Final NO CARBAPENEM-RESISTANT ENTEROBACTERI... Complete Laboratory Tests 06/23/18 05:45: White Blood Count 7.7, Red Blood Count 4.22, Hemoglobin 11.0L, Hematocrit 35.9L , Mean Corpuscular Volume 85, Mean Corpuscular Hemoglobin 26.0L, Mean Corpuscular Hemoglobin Concent 30.6L, Red Cell Distribution Width 16.4H, Platelet Count 258, Mean Platelet Volume 7.2, Neutrophils (%) (Auto) 58.5, Lymphocytes (%) (Auto) 30.7, Monocytes (%) (Auto) 5.4, Eosinophils (%) (Auto) 4.7H, Basophils (%) (Auto) 0.8, Erythrocyte Sedimentation Rate 99H, Sodium Level 157H, Potassium Level 3.4L, Chloride Level 121H, Carbon Dioxide Level 26, Anion Gap 10, Blood Urea Nitrogen 10, Creatinine 0.8, Estimat Glomerular Filtration Rate , Glucose Level 93, Calcium Level 9.0, Phosphorus Level 3.1, Magnesium Level 1.8, Total Bilirubin 0.4, Aspartate Amino Transf (AST/SGOT) 19, Alanine Aminotransferase (ALT/SGPT) 19, Alkaline Phosphatase 60, C-Reactive Protein, Quantitative 9.2H, Total Protein 6.9, Albumin 2.2L, Globulin 4.7, Albumin/Globulin Ratio 0.5L Current Medications Medications (Trade) Dose Ordered Sig/Caroline Route PRN Reason Start Time Stop Time Status Last Admin Dose Admin Acetaminophen (Tylenol) 650 mg Q4H PRN ORAL fever 06/21/18 06:30 07/21/18 06:29 Albuterol/ Ipratropium (Albuterol/ Ipratropium) 3 ml Q4H PRN HHN Shortness of Breath 06/21/18 06:30 06/26/18 06:29 Cefepime HCl 2 gm/ Dextrose 110 ml @ 220 mls/hr DAILY IV 06/22/18 09:00 06/29/18 08:59 06/23/18 11:57 Dextrose 1,000 ml @ 100 mls/hr Q10H IV 06/21/18 10:00 07/21/18 09:59 06/23/18 02:01 Famotidine (Pepcid) 20 mg BID GT 06/23/18 18:00 07/23/18 17:59 Heparin Sodium (Porcine) (Heparin 5000 units/ml) 5,000 units EVERY 12 HOURS SUBQ 06/21/18 09:00 07/21/18 08:59 06/23/18 09:37 Levetiracetam (Keppra) 1,000 mg Q12HR NG 06/23/18 21:00 07/23/18 20:59 Memantine (Namenda) 5 mg BID ORAL 06/22/18 09:00 07/22/18 08:59 06/23/18 09:32 Morphine Sulfate (Morphine Sulfate) 2 mg Q4H PRN IVP Moderate Pain (Pain Scale 4-6) 06/21/18 06:30 06/28/18 06:29 Nitroglycerin (Ntg) 0.4 mg Q5M PRN SL Prn Chest Pain 06/21/18 06:30 07/21/18 06:29 Olanzapine (ZyPREXA) 2.5 mg QHS ORAL 06/22/18 21:00 07/22/18 20:59 Ondansetron HCl (Zofran) 4 mg Q6H PRN IVP Nausea & Vomiting 06/21/18 06:30 07/21/18 06:29 Polyethylene Glycol (Miralax) 17 gm DAILYPRN PRN ORAL Constipation 06/21/18 06:30 07/21/18 06:29 Potassium Chloride 100 ml @ 100 mls/hr Q1HR IVPB 06/23/18 10:00 06/23/18 12:59 06/23/18 10:56 Temazepam (Restoril) 15 mg HSPRN PRN ORAL Insomnia 06/21/18 06:30 06/28/18 06:29 Morgan Tang MD Jun 23, 2018 12:24
--- NOTE | 2018-06-23 13:19 | Infectious Diseases Prog Note ---
Assessment/Plan Assessment/Plan ASSESSMENT: The patient is a 72-year-old female with: Leukocytosis, improving Probable UTI (UA showed pyuria) Ucx : 40-50K Strp ? significance Ro probable bacteremia / Asp pneumonia. Chest x-ray, NAPD patient passed swallow evaluation with possible silent aspiration. Recommendation for PEG to meet nutritional needs Dementia History of seizure disorder Anemia Hypertension COPD History of abdominal wall cellulitis/G-tube site infection Diabetes Schizophrenia PLAN: cont on IV cefepime day # 3 ,a dd Flagyl d# 1 / 11 SP IV Vanco CBC and BMP Monitor cultures (blood, urine) Monitor CBC Monitor chest x-ray PEG Subjective Allergies: Coded Allergies: ASPIRIN (Verified Allergy, Unknown, 06/21/18) LOSARTAN (Verified Allergy, Unknown, 06/21/18) Subjective Afebrile comfortable Objective Vital Signs Last 24 Hour Vital Signs Date Time Temp Pulse Resp B/P (MAP) Pulse Ox O2 Delivery O2 Flow Rate FiO2 06/23/18 12:00 98.9 86 18 136/72 (93) 98 06/23/18 09:00 Room Air 06/23/18 08:00 98.6 72 18 121/61 (81) 96 06/23/18 04:00 97.9 70 18 144/87 (106) 100 06/23/18 00:00 97.7 77 20 147/72 (97) 100 06/22/18 21:00 Room Air 06/22/18 20:04 78 18 Room Air 21 06/22/18 20:00 97.4 78 18 133/78 (96) 99 06/22/18 16:00 98.8 79 20 149/83 (105) 97 Height (Feet): 5 Height (Inches): 5.00 Weight (Pounds): 212 HEENT: anicteric Respiratory/Chest: no respiratory distress Cardiovascular: regular rhythm Abdomen: soft, non tender Microbiology Date/Time Source Procedure Growth Status 06/21/18 08:10 Blood Blood Culture - Preliminary NO GROWTH AFTER 24 HOURS Resulted 06/21/18 08:00 Blood Blood Culture - Preliminary NO GROWTH AFTER 24 HOURS Resulted 06/21/18 01:30 Nasal Nares MRSA Culture - Final NO METHICILLIN RESISTANT STAPH AUREUS... Complete 06/21/18 02:57 Urine,Clean Catch Urine Culture - Preliminary Streptococcus Species Resulted 06/21/18 01:30 Rectum VRE Culture - Final Enterococcus Faecalis - Vre Enterococcus Faecium - Vre Complete 06/21/18 01:30 Rectum - Final NO CARBAPENEM-RESISTANT ENTEROBACTERI... Complete Laboratory Tests Test 06/23/18 05:45 White Blood Count 7.7 K/UL (4.8-10.8) Red Blood Count 4.22 M/UL (4.20-5.40) Hemoglobin 11.0 G/DL (12.0-16.0) L Hematocrit 35.9 % (37.0-47.0) L Mean Corpuscular Volume 85 FL (80-99) Mean Corpuscular Hemoglobin 26.0 PG (27.0-31.0) L Mean Corpuscular Hemoglobin Concent 30.6 G/DL (32.0-36.0) L Red Cell Distribution Width 16.4 % (11.6-14.8) H Platelet Count 258 K/UL (150-450) Mean Platelet Volume 7.2 FL (6.5-10.1) Neutrophils (%) (Auto) 58.5 % (45.0-75.0) Lymphocytes (%) (Auto) 30.7 % (20.0-45.0) Monocytes (%) (Auto) 5.4 % (1.0-10.0) Eosinophils (%) (Auto) 4.7 % (0.0-3.0) H Basophils (%) (Auto) 0.8 % (0.0-2.0) Erythrocyte Sedimentation Rate 99 MM/HR (0-30) H Sodium Level 157 MMOL/L (136-145) H Potassium Level 3.4 MMOL/L (3.5-5.1) L Chloride Level 121 MMOL/L (98-107) H Carbon Dioxide Level 26 MMOL/L (21-32) Anion Gap 10 mmol/L (5-15) Blood Urea Nitrogen 10 mg/dL (7-18) Creatinine 0.8 MG/DL (0.55-1.30) Estimat Glomerular Filtration Rate mL/min (>60) Glucose Level 93 MG/DL (74-106) Calcium Level 9.0 MG/DL (8.5-10.1) Phosphorus Level 3.1 MG/DL (2.5-4.9) Magnesium Level 1.8 MG/DL (1.8-2.4) Total Bilirubin 0.4 MG/DL (0.2-1.0) Aspartate Amino Transf (AST/SGOT) 19 U/L (15-37) Alanine Aminotransferase (ALT/SGPT) 19 U/L (12-78) Alkaline Phosphatase 60 U/L (46-116) C-Reactive Protein, Quantitative 9.2 mg/dL (0.00-0.90) H Total Protein 6.9 G/DL (6.4-8.2) Albumin 2.2 G/DL (3.4-5.0) L Globulin 4.7 g/dL Albumin/Globulin Ratio 0.5 (1.0-2.7) L Current Medications Medications (Trade) Dose Ordered Sig/Caroline Route PRN Reason Start Time Stop Time Status Last Admin Dose Admin Acetaminophen (Tylenol) 650 mg Q4H PRN ORAL fever 06/21/18 06:30 07/21/18 06:29 Albuterol/ Ipratropium (Albuterol/ Ipratropium) 3 ml Q4H PRN HHN Shortness of Breath 06/21/18 06:30 06/26/18 06:29 Cefepime HCl 2 gm/ Dextrose 110 ml @ 220 mls/hr DAILY IV 06/22/18 09:00 06/29/18 08:59 06/23/18 11:57 Dextrose 1,000 ml @ 100 mls/hr Q10H IV 06/21/18 10:00 07/21/18 09:59 06/23/18 12:00 Famotidine (Pepcid) 20 mg BID GT 06/23/18 18:00 07/23/18 17:59 Heparin Sodium (Porcine) (Heparin 5000 units/ml) 5,000 units EVERY 12 HOURS SUBQ 06/21/18 09:00 07/21/18 08:59 06/23/18 09:37 Levetiracetam (Keppra) 1,000 mg Q12HR NG 06/23/18 21:00 07/23/18 20:59 Memantine (Namenda) 5 mg BID ORAL 06/22/18 09:00 07/22/18 08:59 06/23/18 09:32 Morphine Sulfate (Morphine Sulfate) 2 mg Q4H PRN IVP Moderate Pain (Pain Scale 4-6) 06/21/18 06:30 06/28/18 06:29 Nitroglycerin (Ntg) 0.4 mg Q5M PRN SL Prn Chest Pain 06/21/18 06:30 07/21/18 06:29 Olanzapine (ZyPREXA) 2.5 mg QHS ORAL 06/22/18 21:00 07/22/18 20:59 Ondansetron HCl (Zofran) 4 mg Q6H PRN IVP Nausea & Vomiting 06/21/18 06:30 07/21/18 06:29 Polyethylene Glycol (Miralax) 17 gm DAILYPRN PRN ORAL Constipation 06/21/18 06:30 07/21/18 06:29 Temazepam (Restoril) 15 mg HSPRN PRN ORAL Insomnia 06/21/18 06:30 06/28/18 06:29 Eduardo Phelps MD Jun 23, 2018 13:19
--- NOTE | 2018-06-23 14:27 | General Progress Note ---
Assessment/Plan Problem List: (1) Sepsis ICD Codes: A41.9 - Sepsis, unspecified organism SNOMED: 39600790 (2) Leukocytosis ICD Codes: D72.829 - Elevated white blood cell count, unspecified SNOMED: 167898507, 100844967 (3) Dehydration ICD Codes: E86.0 - Dehydration SNOMED: 75279831 (4) Attention to G-tube ICD Codes: Z43.1 - Encounter for attention to gastrostomy SNOMED: 837433325, 051683669 (5) Acute encephalopathy ICD Codes: G93.40 - Encephalopathy, unspecified SNOMED: 62094353, 141034856 (6) Urinary tract infection ICD Codes: N39.0 - Urinary tract infection, site not specified SNOMED: 01910636 Status: unchanged Assessment/Plan ot pt diet wound care abx cbc bmp am possible gtube placement Subjective Constitutional: Reports: weakness Allergies: Coded Allergies: ASPIRIN (Verified Allergy, Unknown, 06/21/18) LOSARTAN (Verified Allergy, Unknown, 06/21/18) All Systems: reviewed and negative except above Subjective calm in bed ng in place Objective Last 24 Hour Vital Signs Date Time Temp Pulse Resp B/P (MAP) Pulse Ox O2 Delivery O2 Flow Rate FiO2 06/23/18 12:00 98.9 86 18 136/72 (93) 98 06/23/18 09:00 Room Air 06/23/18 08:00 98.6 72 18 121/61 (81) 96 06/23/18 04:00 97.9 70 18 144/87 (106) 100 06/23/18 00:00 97.7 77 20 147/72 (97) 100 06/22/18 21:00 Room Air 06/22/18 20:04 78 18 Room Air 21 06/22/18 20:00 97.4 78 18 133/78 (96) 99 06/22/18 16:00 98.8 79 20 149/83 (105) 97 Intake and Output 06/22/18 06/23/18 18:59 06:59 Intake Total 300 ml 1125 ml Output Total 650 ml 500 ml Balance -350 ml 625 ml Free Water 50 ml IV Total 300 ml 905 ml Tube Feeding 170 ml Output Urine Total 650 ml 500 ml # Bowel Movements 1 Laboratory Tests 06/23/18 05:45: White Blood Count 7.7, Red Blood Count 4.22, Hemoglobin 11.0L, Hematocrit 35.9L , Mean Corpuscular Volume 85, Mean Corpuscular Hemoglobin 26.0L, Mean Corpuscular Hemoglobin Concent 30.6L, Red Cell Distribution Width 16.4H, Platelet Count 258, Mean Platelet Volume 7.2, Neutrophils (%) (Auto) 58.5, Lymphocytes (%) (Auto) 30.7, Monocytes (%) (Auto) 5.4, Eosinophils (%) (Auto) 4.7H, Basophils (%) (Auto) 0.8, Erythrocyte Sedimentation Rate 99H, Sodium Level 157H, Potassium Level 3.4L, Chloride Level 121H, Carbon Dioxide Level 26, Anion Gap 10, Blood Urea Nitrogen 10, Creatinine 0.8, Estimat Glomerular Filtration Rate , Glucose Level 93, Calcium Level 9.0, Phosphorus Level 3.1, Magnesium Level 1.8, Total Bilirubin 0.4, Aspartate Amino Transf (AST/SGOT) 19, Alanine Aminotransferase (ALT/SGPT) 19, Alkaline Phosphatase 60, C-Reactive Protein, Quantitative 9.2H, Total Protein 6.9, Albumin 2.2L, Globulin 4.7, Albumin/Globulin Ratio 0.5L Height (Feet): 5 Height (Inches): 5.00 Weight (Pounds): 212 General Appearance: lethargic EENT: normal ENT inspection Neck: normal alignment Cardiovascular: normal peripheral pulses, normal rate, regular rhythm Respiratory/Chest: chest wall non-tender, lungs clear, normal breath sounds Abdomen: normal bowel sounds, non tender, soft Extremities: normal inspection Edema: no edema noted Arm (L), no edema noted Arm (R), no edema noted Leg (L), no edema noted Leg (R), no edema noted Pedal (L), no edema noted Pedal (R), no edema noted Generalized Neurologic: responsive, motor weakness Skin: normal pigmentation, warm/dry Hong Caballero DO Jun 23, 2018 14:27
[2018-06-23 16:00] VITALS: BP 122/82
[2018-06-23] MEDS ORDERED: D5W 275ml ONE (16:03)
[2018-06-23] MEDS ORDERED: Tubing IV Secondary IV ONE (16:54)
--- NOTE | 2018-06-23 19:15 | Progress Note ---
DATE: 06/23/2018 SUBJECTIVE: The patient is a 72-year-old female patient with failure to thrive. She has altered mental status and confusion worsened by stress of her medical illness that is why her attending physician has requested daily psychiatric consultation because of failure to thrive and significant decline in cognition below baseline. MENTAL STATUS EXAMINATION: The patient is a 72-year-old female. Appearance disheveled. Attitude, irritable and agitated. Affect, guarded and restricted. Intellect poor. Mood depressed and anxious. Motor activity, psychomotor agitation. Attention is poor. Orientation x2. Speech is low volume. Thought process, disorganized and illogical. Thought content, some paranoid delusions. Insight and judgment is poor. DIAGNOSIS: Major depressive disorder with psychotic features, rule out pseudodementia. PLAN: Treat this patient with psychotropic medication regimen of Zyprexa 2.5 mg p.o. at bedtime for mood stabilization and altered mental status and also to increase her appetite. Also, Namenda 5 mg twice a day to prevent any further decline in cognition and in addition to that provided 20 minutes of cognitive behavior therapy to help identify automatic negative thoughts and help convert those negative thought to more positive thoughts to reduce depression, anxiety, and suicidality. A 20 minutes of cognitive behavior therapy. Chart reviewed and discussed with staff. Seen and assessed in room. Pearl Cunningham M.D. DR: Kermit JOB#: [id number] CC:
[2018-06-23 20:00] VITALS: BP 133/71
[2018-06-23] MEDS: levETIRAcetam 500mg/5ml Liquid NG SCH (20:15)
[2018-06-23] MEDS: OLANZapine 2.5mg tab ORAL SCH (20:15)
[2018-06-24] VITALS (10 sets, daily range): BP systolic 125–140; BP diastolic 65–94
[2018-06-24 07:36] LABS: BASOPHILS % (AUTO) 0.9 % (0.0-2.0); EOSINOPHILS % (AUTO) 3.6 % (0.0-3.0); HEMATOCRIT 30.1 % (37.0-47.0); HEMOGLOBIN 9.5 G/DL (12.0-16.0); LYMPHOCYTES % (AUTO) 33.5 % (20.0-45.0); MEAN CORPUSCULAR VOLUME 84 FL (80-99); MONOCYTES % (AUTO) 5.5 % (1.0-10.0); NEUTROPHILS % (AUTO) 56.5 % (45.0-75.0); PLATELET COUNT 222 K/UL (150-450); RED BLOOD COUNT 3.58 M/UL (4.20-5.40); RED CELL DISTRIBUTION WIDTH 15.9 % (11.6-14.8); WHITE BLOOD COUNT 8.8 K/UL (4.8-10.8)
[2018-06-24] MEDS: Cefepime HCl 2 GM in D5W 110 ML IV SCH (08:00)
[2018-06-24] MEDS: Memantine 5 MG TAB ORAL SCH ×2 (08:01→17:25)
[2018-06-24] MEDS: Heparin 5000 units/ml inj SUBQ SCH ×2 (08:01→21:29)
[2018-06-24 08:03] LABS: ALANINE AMINOTRANSFERASE 12 U/L (12-78); ALBUMIN/GLOBULIN RATIO 0.5 (1.0-2.7); ALKALINE PHOSPHATASE 59 U/L (46-116); ANION GAP 8 mmol/L (5-15); ASPARTATE AMINO TRANSFERASE 18 U/L (15-37); BILIRUBIN,TOTAL 0.3 MG/DL (0.2-1.0); BLOOD UREA NITROGEN 6 mg/dL (7-18); CALCIUM 8.8 MG/DL (8.5-10.1); CARBON DIOXIDE 24 MMOL/L (21-32); CHLORIDE 116 MMOL/L (98-107); CREATININE 0.7 MG/DL (0.55-1.30); PHOSPHORUS 2.2 MG/DL (2.5-4.9); POTASSIUM 3.2 MMOL/L (3.5-5.1); SODIUM 148 MMOL/L (136-145)
[2018-06-24] MEDS: levETIRAcetam 500mg/5ml Liquid NG SCH ×2 (08:39→21:22)
--- NOTE | 2018-06-24 09:35 | Anethesia Preoperative Eval ---
Anesthesia Pre-op PMH/ROS General Date of Evaluation: Jun 24, 2018 Anesthesiologist: Renu Linares CRNA ASA Score: ASA 3 Mallampati Score Class I : Soft palate, uvula, fauces, pillars visible Class II: Soft palate, uvula, fauces visible Class III: Soft palate, base of uvula visible Class IV: Only hard plate visible Mallampati Classification: Class II Surgeon: Daniel Diagnosis: Failure to thrive, dehydration, dysphagia Surgical Procedure: EGD with PEG placement Anesthesia History: none Family History: no anesthesia problems Allergies: Coded Allergies: ASPIRIN (Verified Allergy, Unknown, 06/21/18) LOSARTAN (Verified Allergy, Unknown, 06/21/18) Medications: see eMAR Patient NPO?: Yes NPO Date: Jun 24, 2018 NPO Time: 00:00 Past Medical History Cardiovascular: Reports: HTN; Denies: CAD, [place], valve dz, arrhythmia, other Pulmonary: Denies: asthma, COPD, MAX, other Gastrointestinal/Genitourinary: Reports: GERD, other - severe dehydration with hypokalemia and hypernatremia resolving; Denies: CRI, ESRD Neurologic/Psychiatric: Reports: dementia, other - Seizure disorder, acute encephalopathy; Denies: CVA, depression/anxiety, TIA Endocrine: Reports: DM; Denies: hypothyroidism, steroids, other HEENT: Denies: cataract (L), cataract (R), glaucoma, [place] (L), [place] (R), other Hematology/Immune: Denies: anemia, DVT, bleeding disorder, other Musculoskeletal/Integumentary: Reports: OA; Denies: RA, DJD, DDD, edema, other Other: obesity PMH Narrative: as above PSxH Narrative: G-tube Anesthesia Pre-op Phys. Exam Physician Exam Last Vital Signs Date Time Temp Pulse Resp B/P (MAP) Pulse Ox O2 Delivery O2 Flow Rate FiO2 06/24/18 04:00 99.7 74 18 137/78 (97) 100 06/23/18 21:00 Room Air 06/23/18 19:28 21 06/21/18 05:49 2.0 Constitutional: NAD Neurologic: other - not oriented Cardiovascular: RRR Respiratory: CTA Gastrointestinal: S/NT/ND, other - g-tube scar Airway Exam Mallampati Score: Class II MO: full Neck: limited TMD: > 3 FB ROM: limited Teeth: missing, broken Dentures: upper, lower Anesthesia Pre-op A/P Labs Hematology Test 06/24/18 06:20 White Blood Count 8.8 K/UL (4.8-10.8) Red Blood Count 3.58 M/UL (4.20-5.40) L Hemoglobin 9.5 G/DL (12.0-16.0) L Hematocrit 30.1 % (37.0-47.0) L Mean Corpuscular Volume 84 FL (80-99) Mean Corpuscular Hemoglobin 26.6 PG (27.0-31.0) L Mean Corpuscular Hemoglobin Concent 31.7 G/DL (32.0-36.0) L Red Cell Distribution Width 15.9 % (11.6-14.8) H Platelet Count 222 K/UL (150-450) Mean Platelet Volume 6.5 FL (6.5-10.1) Neutrophils (%) (Auto) 56.5 % (45.0-75.0) Lymphocytes (%) (Auto) 33.5 % (20.0-45.0) Monocytes (%) (Auto) 5.5 % (1.0-10.0) Eosinophils (%) (Auto) 3.6 % (0.0-3.0) H Basophils (%) (Auto) 0.9 % (0.0-2.0) Erythrocyte Sedimentation Rate 97 MM/HR (0-30) H Coagulation Test 06/24/18 06:20 Prothrombin Time 10.6 SEC (9.30-11.50) Prothromb Time International Ratio 1.0 (0.9-1.1) Activated Partial Thromboplast Time 30 SEC (23-33) Chemistry Test 06/24/18 06:20 Sodium Level 148 MMOL/L (136-145) H Potassium Level 3.2 MMOL/L (3.5-5.1) L Chloride Level 116 MMOL/L (98-107) H Carbon Dioxide Level 24 MMOL/L (21-32) Anion Gap 8 mmol/L (5-15) Blood Urea Nitrogen 6 mg/dL (7-18) L Creatinine 0.7 MG/DL (0.55-1.30) Estimat Glomerular Filtration Rate mL/min (>60) Glucose Level 91 MG/DL (74-106) Uric Acid 5.8 MG/DL (2.6-7.2) Calcium Level 8.8 MG/DL (8.5-10.1) Phosphorus Level 2.2 MG/DL (2.5-4.9) L Magnesium Level 1.8 MG/DL (1.8-2.4) Total Bilirubin 0.3 MG/DL (0.2-1.0) Aspartate Amino Transf (AST/SGOT) 18 U/L (15-37) Alanine Aminotransferase (ALT/SGPT) 12 U/L (12-78) Alkaline Phosphatase 59 U/L (46-116) C-Reactive Protein, Quantitative 6.4 mg/dL (0.00-0.90) H Total Protein 6.3 G/DL (6.4-8.2) L Albumin 2.0 G/DL (3.4-5.0) L Globulin 4.3 g/dL Albumin/Globulin Ratio 0.5 (1.0-2.7) L Accucheck 91 Studies Pre-op Studies: CXR - no acute disease Risk Assessment & Plan Assessment: ASA 3, ok to proceed Plan: MAC Status Change Before Surgery: No Pre-Antibiotics Given Within 1 Hr of Incision: Renu Alexander CRNA Jun 24, 2018 09:35
[2018-06-24] MEDS ORDERED: DiphenhydrAMINE 50mg/ml Inj IVP PRN (10:30)
[2018-06-24] MEDS ORDERED: Lidocaine 1% MPF 10mg/ml 5ml ONE (10:30)
[2018-06-24] MEDS ORDERED: Propofol 200mg/20ml IV ONE (10:30)
[2018-06-24] MEDS ORDERED: LR 1000ml ONE (10:30)
[2018-06-24] MEDS ORDERED: NS 500ML IVPB ONE (10:35)
--- NOTE | 2018-06-24 10:38 | Pre-Procedure Note/Attestation ---
Pre-Procedure Note/Attestation Complete Prior to Procedure Planned Procedure: not applicable Procedure Narrative: egd/peg Indications for Procedure Pre-Operative Diagnosis: dysphagia Attestation I attest that I discussed the nature of the procedure; its benefits; risks and complications; and alternatives (and the risks and benefits of such alternatives ), prior to the procedure, with the patient (or the patient's legal car sales representative). I attest that, if there was a reasonable possibility of needing a blood transfusion, the patient (or the patient's legal car sales representative) was given the [facility] standardized written summary, pursuant to the Papito Justine Blood Safety Act ([place] Health and Safety Code # 1645, as amended). I attest that I re-evaluated the patient just prior to the surgery and that there has been no change in the patient's H&P, except as documented below: Frankie Sanchez MD Jun 24, 2018 10:38
[2018-06-24] MEDS ORDERED: Potassium Phosphate 30 MM in NS 275 ML IV ONE (11:00)
--- NOTE | 2018-06-24 11:13 | Immediate Post-Op Evaluation ---
Immediate Post-Op Evalulation Immediate Post-Op Evalulation Procedure: PEG insertion Date of Evaluation: Jun 24, 2018 Time of Evaluation: 10:56 IV Fluids: LR 100 ml Blood Pressure Systolic: 135 Blood Pressure Diastolic: 68 Pulse Rate: 71 Respiratory Rate: 30 O2 Sat by Pulse Oximetry: 100 Temperature (Fahrenheit): 98.0 Pain Score (1-10): 0 Nausea: No Vomiting: No Complications none Patient Status: awake, reacts, patent Hydration Status: adequate Given Within 1 Hr of Incision: Renu Alexander CRNA Jun 24, 2018 11:13
--- NOTE | 2018-06-24 11:59 | General Progress Note ---
Assessment/Plan Problem List: (1) Sepsis ICD Codes: A41.9 - Sepsis, unspecified organism SNOMED: 20048057 (2) Leukocytosis ICD Codes: D72.829 - Elevated white blood cell count, unspecified SNOMED: 826568739, 341697639 (3) Dehydration ICD Codes: E86.0 - Dehydration SNOMED: 10646610 (4) Attention to G-tube ICD Codes: Z43.1 - Encounter for attention to gastrostomy SNOMED: 572403190, 801856445 (5) Acute encephalopathy ICD Codes: G93.40 - Encephalopathy, unspecified SNOMED: 52948296, 967726005 (6) Urinary tract infection ICD Codes: N39.0 - Urinary tract infection, site not specified SNOMED: 47579897 Status: stable, progressing Assessment/Plan ot pt diet wound care abx cbc bmp am Subjective Constitutional: Reports: weakness Allergies: Coded Allergies: ASPIRIN (Verified Allergy, Unknown, 06/21/18) LOSARTAN (Verified Allergy, Unknown, 06/21/18) All Systems: reviewed and negative except above Subjective calm in bed lethargic Objective Last 24 Hour Vital Signs Date Time Temp Pulse Resp B/P (MAP) Pulse Ox O2 Delivery O2 Flow Rate FiO2 06/24/18 11:17 74 30 134/65 100 Room Air 06/24/18 11:13 71 30 100 06/24/18 11:05 71 30 137/68 100 Nasal Cannula 3 06/24/18 11:00 71 30 136/69 100 Nasal Cannula 3 06/24/18 10:56 98.0 71 30 135/68 100 Nasal Cannula 3 06/24/18 09:00 Room Air 06/24/18 08:00 98.7 81 18 132/68 (89) 100 06/24/18 04:00 99.7 74 18 137/78 (97) 100 06/24/18 00:00 98.7 79 18 135/77 (96) 99 06/23/18 21:00 Room Air 06/23/18 20:00 98.9 77 20 133/71 (91) 100 06/23/18 19:28 75 18 Room Air 21 06/23/18 16:00 98.4 79 16 122/82 (95) 98 06/23/18 12:00 98.9 86 18 136/72 (93) 98 Intake and Output 06/23/18 06/24/18 19:00 07:00 Intake Total 1370 ml 1240 ml Output Total 600 ml Balance 1370 ml 640 ml Free Water 100 ml IV Total 700 ml 1000 ml Tube Feeding 570 ml 240 ml Output Urine Total 600 ml # Bowel Movements 1 1 Laboratory Tests 06/24/18 06:20: White Blood Count 8.8, Red Blood Count 3.58L, Hemoglobin 9.5L, Hematocrit 30.1L , Mean Corpuscular Volume 84, Mean Corpuscular Hemoglobin 26.6L, Mean Corpuscular Hemoglobin Concent 31.7L, Red Cell Distribution Width 15.9H, Platelet Count 222, Mean Platelet Volume 6.5, Neutrophils (%) (Auto) 56.5, Lymphocytes (%) (Auto) 33.5, Monocytes (%) (Auto) 5.5, Eosinophils (%) (Auto) 3.6H, Basophils (%) (Auto) 0.9, Erythrocyte Sedimentation Rate 97H, Prothrombin Time 10.6, Prothromb Time International Ratio 1.0, Activated Partial Thromboplast Time 30, Sodium Level 148H, Potassium Level 3.2L, Chloride Level 116H, Carbon Dioxide Level 24, Anion Gap 8, Blood Urea Nitrogen 6L, Creatinine 0.7, Estimat Glomerular Filtration Rate , Glucose Level 91, Uric Acid 5.8, Calcium Level 8.8, Phosphorus Level 2.2L, Magnesium Level 1.8, Total Bilirubin 0.3, Aspartate Amino Transf (AST/SGOT) 18, Alanine Aminotransferase (ALT/SGPT) 12, Alkaline Phosphatase 59, C-Reactive Protein, Quantitative 6.4H, Total Protein 6.3L, Albumin 2.0L, Globulin 4.3, Albumin/Globulin Ratio 0.5L Height (Feet): 5 Height (Inches): 5.00 Weight (Pounds): 212 General Appearance: lethargic, confused EENT: normal ENT inspection Neck: normal alignment Cardiovascular: normal peripheral pulses, normal rate, regular rhythm Respiratory/Chest: chest wall non-tender, lungs clear, normal breath sounds Abdomen: normal bowel sounds, non tender, soft Extremities: normal inspection Edema: no edema noted Arm (L), no edema noted Arm (R), no edema noted Leg (L), no edema noted Leg (R), no edema noted Pedal (L), no edema noted Pedal (R), no edema noted Generalized Neurologic: motor weakness Skin: normal pigmentation, warm/dry Hong Caballero DO Jun 24, 2018 11:59
--- NOTE | 2018-06-24 12:18 | Nephrology Progress Note ---
Assessment/Plan Problem List: (1) Hypernatremia (2) Dehydration (3) Hypokalemia (4) Seizure disorder, complex partial (5) Urinary tract infection Assessment HyperNatremia: Free water deficit / Dehydration improving UTI HyperCalcemia HypoAlbuminemia Sz disorder Dementia Allergy to ASA and YVONNE inhibitors HTN GT out Plan PEG in now- D5W Monitor Lytes- antibiotics Keppra to GT K and Phos IV Per orders Subjective ROS Limited/Unobtainable: No Constitutional: Reports: malaise Objective Objective Last 24 Hour Vital Signs Date Time Temp Pulse Resp B/P (MAP) Pulse Ox O2 Delivery O2 Flow Rate FiO2 06/24/18 12:00 98.3 73 21 140/70 (93) 96 06/24/18 11:17 74 30 134/65 100 Room Air 06/24/18 11:13 71 30 100 06/24/18 11:05 71 30 137/68 100 Nasal Cannula 3 06/24/18 11:00 71 30 136/69 100 Nasal Cannula 3 06/24/18 10:56 98.0 71 30 135/68 100 Nasal Cannula 3 06/24/18 09:00 Room Air 06/24/18 08:00 98.7 81 18 132/68 (89) 100 06/24/18 04:00 99.7 74 18 137/78 (97) 100 06/24/18 00:00 98.7 79 18 135/77 (96) 99 06/23/18 21:00 Room Air 06/23/18 20:00 98.9 77 20 133/71 (91) 100 06/23/18 19:28 75 18 Room Air 21 06/23/18 16:00 98.4 79 16 122/82 (95) 98 Intake and Output 06/23/18 06/24/18 19:00 07:00 Intake Total 1370 ml 1240 ml Output Total 600 ml Balance 1370 ml 640 ml Free Water 100 ml IV Total 700 ml 1000 ml Tube Feeding 570 ml 240 ml Output Urine Total 600 ml # Bowel Movements 1 1 Laboratory Tests 06/24/18 06:20: White Blood Count 8.8, Red Blood Count 3.58L, Hemoglobin 9.5L, Hematocrit 30.1L , Mean Corpuscular Volume 84, Mean Corpuscular Hemoglobin 26.6L, Mean Corpuscular Hemoglobin Concent 31.7L, Red Cell Distribution Width 15.9H, Platelet Count 222, Mean Platelet Volume 6.5, Neutrophils (%) (Auto) 56.5, Lymphocytes (%) (Auto) 33.5, Monocytes (%) (Auto) 5.5, Eosinophils (%) (Auto) 3.6H, Basophils (%) (Auto) 0.9, Erythrocyte Sedimentation Rate 97H, Prothrombin Time 10.6, Prothromb Time International Ratio 1.0, Activated Partial Thromboplast Time 30, Sodium Level 148H, Potassium Level 3.2L, Chloride Level 116H, Carbon Dioxide Level 24, Anion Gap 8, Blood Urea Nitrogen 6L, Creatinine 0.7, Estimat Glomerular Filtration Rate , Glucose Level 91, Uric Acid 5.8, Calcium Level 8.8, Phosphorus Level 2.2L, Magnesium Level 1.8, Total Bilirubin 0.3, Aspartate Amino Transf (AST/SGOT) 18, Alanine Aminotransferase (ALT/SGPT) 12, Alkaline Phosphatase 59, C-Reactive Protein, Quantitative 6.4H, Total Protein 6.3L, Albumin 2.0L, Globulin 4.3, Albumin/Globulin Ratio 0.5L Height (Feet): 5 Height (Inches): 5.00 Weight (Pounds): 212 General Appearance: no apparent distress Respiratory/Chest: decreased breath sounds Abdomen: soft, other - PEG in Objective no other changes Gonsalo Ortiz MD Jun 24, 2018 12:18
--- NOTE | 2018-06-24 12:37 | Infectious Diseases Prog Note ---
Assessment/Plan Assessment/Plan ASSESSMENT: The patient is a 72-year-old female with: Leukocytosis, Sp doubt UTI (UA showed pyuria) Ucx : 40-50K VRE Colonizer Asp pneumonia. Chest x-ray, NAPD patient passed swallow evaluation with possible silent aspiration Dementia History of seizure disorder Anemia Hypertension COPD History of abdominal wall cellulitis/G-tube site infection 06/23 SP PEG replacement 06/23 Sp debridment of Rt foot Diabetes Schizophrenia PLAN: cont on IV cefepime day # 4/7 Flagyl d# 2/5 ( Asp pneum ) 06/21 SP IV Vanco CBC and BMP Monitor cultures (blood) Monitor CBC Monitor chest x-ray Subjective Allergies: Coded Allergies: ASPIRIN (Verified Allergy, Unknown, 06/21/18) LOSARTAN (Verified Allergy, Unknown, 06/21/18) Subjective Afebrile comfortable Objective Vital Signs Last 24 Hour Vital Signs Date Time Temp Pulse Resp B/P (MAP) Pulse Ox O2 Delivery O2 Flow Rate FiO2 06/24/18 12:00 98.3 73 21 140/70 (93) 96 06/24/18 11:17 74 30 134/65 100 Room Air 06/24/18 11:13 71 30 100 06/24/18 11:05 71 30 137/68 100 Nasal Cannula 3 06/24/18 11:00 71 30 136/69 100 Nasal Cannula 3 06/24/18 10:56 98.0 71 30 135/68 100 Nasal Cannula 3 06/24/18 09:00 Room Air 06/24/18 08:00 98.7 81 18 132/68 (89) 100 06/24/18 04:00 99.7 74 18 137/78 (97) 100 06/24/18 00:00 98.7 79 18 135/77 (96) 99 06/23/18 21:00 Room Air 06/23/18 20:00 98.9 77 20 133/71 (91) 100 06/23/18 19:28 75 18 Room Air 21 06/23/18 16:00 98.4 79 16 122/82 (95) 98 Height (Feet): 5 Height (Inches): 5.00 Weight (Pounds): 212 HEENT: atraumatic Respiratory/Chest: normal breath sounds Cardiovascular: normal rate Abdomen: non distended Laboratory Tests Test 06/24/18 06:20 White Blood Count 8.8 K/UL (4.8-10.8) Red Blood Count 3.58 M/UL (4.20-5.40) L Hemoglobin 9.5 G/DL (12.0-16.0) L Hematocrit 30.1 % (37.0-47.0) L Mean Corpuscular Volume 84 FL (80-99) Mean Corpuscular Hemoglobin 26.6 PG (27.0-31.0) L Mean Corpuscular Hemoglobin Concent 31.7 G/DL (32.0-36.0) L Red Cell Distribution Width 15.9 % (11.6-14.8) H Platelet Count 222 K/UL (150-450) Mean Platelet Volume 6.5 FL (6.5-10.1) Neutrophils (%) (Auto) 56.5 % (45.0-75.0) Lymphocytes (%) (Auto) 33.5 % (20.0-45.0) Monocytes (%) (Auto) 5.5 % (1.0-10.0) Eosinophils (%) (Auto) 3.6 % (0.0-3.0) H Basophils (%) (Auto) 0.9 % (0.0-2.0) Erythrocyte Sedimentation Rate 97 MM/HR (0-30) H Prothrombin Time 10.6 SEC (9.30-11.50) Prothromb Time International Ratio 1.0 (0.9-1.1) Activated Partial Thromboplast Time 30 SEC (23-33) Sodium Level 148 MMOL/L (136-145) H Potassium Level 3.2 MMOL/L (3.5-5.1) L Chloride Level 116 MMOL/L (98-107) H Carbon Dioxide Level 24 MMOL/L (21-32) Anion Gap 8 mmol/L (5-15) Blood Urea Nitrogen 6 mg/dL (7-18) L Creatinine 0.7 MG/DL (0.55-1.30) Estimat Glomerular Filtration Rate mL/min (>60) Glucose Level 91 MG/DL (74-106) Uric Acid 5.8 MG/DL (2.6-7.2) Calcium Level 8.8 MG/DL (8.5-10.1) Phosphorus Level 2.2 MG/DL (2.5-4.9) L Magnesium Level 1.8 MG/DL (1.8-2.4) Total Bilirubin 0.3 MG/DL (0.2-1.0) Aspartate Amino Transf (AST/SGOT) 18 U/L (15-37) Alanine Aminotransferase (ALT/SGPT) 12 U/L (12-78) Alkaline Phosphatase 59 U/L (46-116) C-Reactive Protein, Quantitative 6.4 mg/dL (0.00-0.90) H Total Protein 6.3 G/DL (6.4-8.2) L Albumin 2.0 G/DL (3.4-5.0) L Globulin 4.3 g/dL Albumin/Globulin Ratio 0.5 (1.0-2.7) L Current Medications Medications (Trade) Dose Ordered Sig/Caroline Route PRN Reason Start Time Stop Time Status Last Admin Dose Admin Acetaminophen (Tylenol) 650 mg Q4H PRN ORAL fever 06/21/18 06:30 12 06:29 Acetaminophen (Tylenol) 650 mg Q4H PRN ORAL Mild Pain (Pain Scale 1-3) 06/24/18 10:30 06/24/18 18:00 Albuterol/ Ipratropium (Albuterol/ Ipratropium) 3 ml Q4H PRN HHN Shortness of Breath 06/21/18 06:30 06/26/18 06:29 Cefepime HCl 2 gm/ Dextrose 110 ml @ 220 mls/hr DAILY IV 06/22/18 09:00 06/29/18 08:59 06/24/18 08:00 Dextrose 1,000 ml @ 50 mls/hr Q20H IV 06/24/18 10:00 07/21/18 09:59 Diphenhydramine HCl (Benadryl) 25 mg Q15M PRN IVP Itching 06/24/18 10:30 06/24/18 18:00 Famotidine (Pepcid) 20 mg BID GT 06/23/18 18:00 07/23/18 17:59 06/23/18 17:42 Heparin Sodium (Porcine) (Heparin 5000 units/ml) 5,000 units EVERY 12 HOURS SUBQ 06/21/18 09:00 07/21/18 08:59 06/23/18 09:37 Hydralazine HCl (Apresoline) 5 mg Q30M PRN IV SBP>160 /DBP>90 06/24/18 10:30 06/24/18 18:00 Levetiracetam (Keppra) 1,000 mg Q12HR NG 06/23/18 21:00 07/23/18 20:59 06/23/18 20:15 Memantine (Namenda) 5 mg BID ORAL 06/22/18 09:00 07/22/18 08:59 06/23/18 17:42 Metronidazole 100 ml @ 100 mls/hr Q8HR IVPB 06/23/18 14:00 06/30/18 13:59 06/24/18 05:25 Morphine Sulfate (Morphine Sulfate) 2 mg Q4H PRN IVP Moderate Pain (Pain Scale 4-6) 06/21/18 06:30 06/28/18 06:29 Nitroglycerin (Ntg) 0.4 mg Q5M PRN SL Prn Chest Pain 06/21/18 06:30 07/21/18 06:29 Olanzapine (ZyPREXA) 2.5 mg QHS ORAL 06/22/18 21:00 07/22/18 20:59 06/23/18 20:15 Ondansetron HCl (Zofran) 4 mg Q6H PRN IVP Nausea & Vomiting 06/21/18 06:30 07/21/18 06:29 Polyethylene Glycol (Miralax) 17 gm DAILYPRN PRN ORAL Constipation 06/21/18 06:30 07/21/18 06:29 Potassium Phosphate 30 mm/ Sodium Chloride 285 ml @ 47.5 mls/hr ONCE ONCE IV 06/24/18 11:00 06/24/18 16:59 06/24/18 12:01 Temazepam (Restoril) 15 mg HSPRN PRN ORAL Insomnia 06/21/18 06:30 06/28/18 06:29 Eduardo Phelps MD Jun 24, 2018 12:37
--- NOTE | 2018-06-24 12:44 | Pulmonology Progress Note ---
Assessment/Plan Problems: (1) Acute encephalopathy (2) Hypernatremia (3) At high risk for aspiration (4) Urinary tract infection (5) Seizure disorder, complex partial (6) Dysphagia (7) Hypokalemia (8) Hypertension (9) Diabetes mellitus Assessment/Plan all reviewed No new complains contnue iv fluids Na decreasing some more weiner culture, pending renal evaluatin check electrolytes sliding scale insulin coverage ID evaluation appreciated weiner cultures dc planning Subjective ROS Limited/Unobtainable: No Constitutional: Reports: no symptoms HEENT: Repors: no symptoms Respiratory: Reports: no symptoms Allergies: Coded Allergies: ASPIRIN (Verified Allergy, Unknown, 06/21/18) LOSARTAN (Verified Allergy, Unknown, 06/21/18) Objective Last 24 Hour Vital Signs Date Time Temp Pulse Resp B/P (MAP) Pulse Ox O2 Delivery O2 Flow Rate FiO2 06/24/18 12:00 98.3 73 21 140/70 (93) 96 06/24/18 11:17 74 30 134/65 100 Room Air 06/24/18 11:13 71 30 100 06/24/18 11:05 71 30 137/68 100 Nasal Cannula 3 06/24/18 11:00 71 30 136/69 100 Nasal Cannula 3 06/24/18 10:56 98.0 71 30 135/68 100 Nasal Cannula 3 06/24/18 09:00 Room Air 06/24/18 08:00 98.7 81 18 132/68 (89) 100 06/24/18 04:00 99.7 74 18 137/78 (97) 100 06/24/18 00:00 98.7 79 18 135/77 (96) 99 06/23/18 21:00 Room Air 06/23/18 20:00 98.9 77 20 133/71 (91) 100 06/23/18 19:28 75 18 Room Air 21 06/23/18 16:00 98.4 79 16 122/82 (95) 98 Intake and Output 06/23/18 06/24/18 19:00 07:00 Intake Total 1370 ml 1240 ml Output Total 600 ml Balance 1370 ml 640 ml Free Water 100 ml IV Total 700 ml 1000 ml Tube Feeding 570 ml 240 ml Output Urine Total 600 ml # Bowel Movements 1 1 General Appearance: WD/WN HEENT: normocephalic, atraumatic Respiratory/Chest: chest wall non-tender, lungs clear Breasts: no masses Cardiovascular: normal peripheral pulses, normal rate Abdomen: normal bowel sounds, soft, non tender, no organomegaly Genitourinary: normal external genitalia Extremities: no cyanosis Neurologic/Psychiatric: production cloth cutter II-XII grossly normal Lymphatic: no neck adenopathy Laboratory Tests 06/24/18 06:20: White Blood Count 8.8, Red Blood Count 3.58L, Hemoglobin 9.5L, Hematocrit 30.1L , Mean Corpuscular Volume 84, Mean Corpuscular Hemoglobin 26.6L, Mean Corpuscular Hemoglobin Concent 31.7L, Red Cell Distribution Width 15.9H, Platelet Count 222, Mean Platelet Volume 6.5, Neutrophils (%) (Auto) 56.5, Lymphocytes (%) (Auto) 33.5, Monocytes (%) (Auto) 5.5, Eosinophils (%) (Auto) 3.6H, Basophils (%) (Auto) 0.9, Erythrocyte Sedimentation Rate 97H, Prothrombin Time 10.6, Prothromb Time International Ratio 1.0, Activated Partial Thromboplast Time 30, Sodium Level 148H, Potassium Level 3.2L, Chloride Level 116H, Carbon Dioxide Level 24, Anion Gap 8, Blood Urea Nitrogen 6L, Creatinine 0.7, Estimat Glomerular Filtration Rate , Glucose Level 91, Uric Acid 5.8, Calcium Level 8.8, Phosphorus Level 2.2L, Magnesium Level 1.8, Total Bilirubin 0.3, Aspartate Amino Transf (AST/SGOT) 18, Alanine Aminotransferase (ALT/SGPT) 12, Alkaline Phosphatase 59, C-Reactive Protein, Quantitative 6.4H, Total Protein 6.3L, Albumin 2.0L, Globulin 4.3, Albumin/Globulin Ratio 0.5L Current Medications Medications (Trade) Dose Ordered Sig/Caroline Route PRN Reason Start Time Stop Time Status Last Admin Dose Admin Acetaminophen (Tylenol) 650 mg Q4H PRN ORAL fever 06/21/18 06:30 07/21/18 06:29 Acetaminophen (Tylenol) 650 mg Q4H PRN ORAL Mild Pain (Pain Scale 1-3) 06/24/18 10:30 06/24/18 18:00 Albuterol/ Ipratropium (Albuterol/ Ipratropium) 3 ml Q4H PRN HHN Shortness of Breath 06/21/18 06:30 06/26/18 06:29 Cefepime HCl 2 gm/ Dextrose 110 ml @ 220 mls/hr DAILY IV 06/22/18 09:00 06/29/18 08:59 06/24/18 08:00 Dextrose 1,000 ml @ 50 mls/hr Q20H IV 06/24/18 10:00 07/21/18 09:59 Diphenhydramine HCl (Benadryl) 25 mg Q15M PRN IVP Itching 06/24/18 10:30 06/24/18 18:00 Famotidine (Pepcid) 20 mg BID GT 06/23/18 18:00 07/23/18 17:59 06/23/18 17:42 Heparin Sodium (Porcine) (Heparin 5000 units/ml) 5,000 units EVERY 12 HOURS SUBQ 06/21/18 09:00 07/21/18 08:59 06/23/18 09:37 Hydralazine HCl (Apresoline) 5 mg Q30M PRN IV SBP>160 /DBP>90 06/24/18 10:30 06/24/18 18:00 Levetiracetam (Keppra) 1,000 mg Q12HR NG 06/23/18 21:00 07/23/18 20:59 06/23/18 20:15 Memantine (Namenda) 5 mg BID ORAL 06/22/18 09:00 07/22/18 08:59 06/23/18 17:42 Metronidazole 100 ml @ 100 mls/hr Q8HR IVPB 06/23/18 14:00 06/30/18 13:59 06/24/18 05:25 Morphine Sulfate (Morphine Sulfate) 2 mg Q4H PRN IVP Moderate Pain (Pain Scale 4-6) 06/21/18 06:30 06/28/18 06:29 Nitroglycerin (Ntg) 0.4 mg Q5M PRN SL Prn Chest Pain 06/21/18 06:30 07/21/18 06:29 Olanzapine (ZyPREXA) 2.5 mg QHS ORAL 06/22/18 21:00 07/22/18 20:59 06/23/18 20:15 Ondansetron HCl (Zofran) 4 mg Q6H PRN IVP Nausea & Vomiting 06/21/18 06:30 07/21/18 06:29 Polyethylene Glycol (Miralax) 17 gm DAILYPRN PRN ORAL Constipation 06/21/18 06:30 07/21/18 06:29 Potassium Phosphate 30 mm/ Sodium Chloride 285 ml @ 47.5 mls/hr ONCE ONCE IV 06/24/18 11:00 06/24/18 16:59 06/24/18 12:01 Temazepam (Restoril) 15 mg HSPRN PRN ORAL Insomnia 06/21/18 06:30 06/28/18 06:29 Morgan Tang MD Jun 24, 2018 12:44
--- NOTE | 2018-06-24 15:06 | Operative Note - PDOC ---
Operative Note Operative Note Date of Operation/Procedure: Jun 24, 2018 Pre-op Diagnosis: left lateral distal lower extremity unstable eschar on decubitus ulcer Procedure: Excisional debridement of left lateral distal lower extremity unstable eschar on decubitus ulcer 4cm x 3cm Post-op Diagnosis: same as pre-op Surgeon: megan Anesthesia: other Specimen: yes - eschar discarded Complications: none Condition: stable Estimated Blood Loss: minimal Drains: none Implant(s) used?: No Indications for Procedure 72F with left lateral distal lower extremity unstable eschar on decubitus ulcer noted on admission. eschar cap with fibrinous edges and unstable. exudate noted around necrotic eschar cap. family notified and debridement was indicated and recommended. consent obtained from POA. Description of Procedure patient was made comfortable at bedside. wound evaluated on left distal lower lateral extremity. site cleaned. using fresh #10 scalpel and surgical supplies the necrotic eschar cap was removed followed by debridement of fibrinous necrotic tissue down to healthy viable back bleeding tissue. wound cleaned and dressings applied. non adherent dressing with honeygel and gauze placed. keep leg elevated. change daily and prn. Martin Gordon Jun 24, 2018 15:06
--- NOTE | 2018-06-24 16:24 | Diagnostic Imaging Report ---
Indications: Dysphagia Technique: Patient ingested multiple substances under the supervision of speech pathology. Video fluoroscopic recording performed. Total fluoroscopy time 172 seconds. Total dose area product 0.05896 mGycm2 Total number of images-10 Comparison: none Findings: There is a nasogastric tube in place. Ingestion of thin liquid barium demonstrates multiple episodes of supraglottic laryngeal penetration, with marisa aspiration with sequential drinking through a straw. With nectar thick liquid barium, there is early pooling in the vallecula, multiple episodes of supraglottic laryngeal penetration. Ingestion of honey thick liquid barium demonstrates early pooling in the vallecula, no evidence of aspiration or penetration. Ingestion of barium puree demonstrates early pooling, no evidence of aspiration or penetration Impression: Positive for aspiration of thin liquid barium and penetration of nectar thick liquid barium Please refer to speech pathology report for more detailed analysis
--- NOTE | 2018-06-24 19:30 | Progress Note ---
DATE: 06/24/2018 SUBJECTIVE: The patient is a 72-year-old female patient with failure to thrive. She continues to have confusion, disorganized thought process, and some mood lability as well confusion, disorganized thought process, and depression. That is why, her attending physician has requested daily psychiatric consultation. MENTAL STATUS EXAMINATION: A 72-year-old female. Appearance is disheveled. Attitude, irritable and agitated. Affect, guarded and restricted. Intellect poor. Mood, depressed and anxious. Motor activity, psychomotor agitation. Attention span is poor. Orientation x2. Speech is low volume and slurred. Thought process is disorganized. Thought content, some auditory hallucinations and paranoid delusions. Insight and judgment is poor. DIAGNOSIS: Major depression with psychotic features, rule out pseudodementia. PLAN: Treat her with Namenda 5 mg twice a day and Zyprexa 2.5 mg nightly to stabilize mood and to boost her appetite. Provided 20 minutes of cognitive behavioral therapy to help her identify automatic negative thoughts and help to convert her negative thoughts to more positive thinking. On June 24, 2018, 20 minutes of cognitive behavioral therapy provided. Chart reviewed. Discussed with staff. Seen and assessed in her room. Pearl Cunningham M.D. DR: Ruthie JOB#: [id number] CC:
--- NOTE | 2018-06-24 21:00 | Procedure Note ---
DATE OF PROCEDURE: 06/24/2018 SURGEON: Frankie Sanchez M.D. PROCEDURE: Upper endoscopy with PEG placement. ANESTHESIA: Per Nena SEBASTIAN. INSTRUMENT: Olympus adult flexible upper endoscope. INDICATION: Dysphagia. REASON FOR PROCEDURE: The procedure, risks, benefits, and possible consequences, including hemorrhage, aspiration, perforation and infection, and alternative treatments, were explained to the patient/legal guardian by Dr. Frankie Sanchez and the patient/legal guardian understood and accepted these risks. DESCRIPTION OF PROCEDURE: After informed consent was obtained and the patient was adequately sedated, Olympus upper endoscope was advanced from mouth into the second portion of duodenum and retroflexion was performed in the stomach. Then under endoscopic guidance and under sterile condition, a 20-Vietnamese pull type of G-tube was successfully placed in the epigastric area. The distance from the tip of the tube to skin was about 4 cm in size. The patient tolerated the procedure very well without any complication. SUMMARY FINDINGS: Status post successful PEG placement. RECOMMENDATIONS: 1. Abdominal binder. 2. Elevate the head of the bed at all times. 3. G-tube flush. 4. G-tube care. 5. Start tube feedings later today. 6. The patient is currently on antibiotics. Frankie Sanchez M.D. DR: CODY JOB#: [id number] CC:
[2018-06-24] MEDS: OLANZapine 2.5mg tab ORAL SCH (21:22)
[2018-06-25 00:44] VITALS: BP 155/80
[2018-06-25 04:36] VITALS: BP 158/64
[2018-06-25 06:40] LABS: BASOPHILS % (AUTO) 0.6 % (0.0-2.0); EOSINOPHILS % (AUTO) 3.1 % (0.0-3.0); HEMATOCRIT 33.9 % (37.0-47.0); LYMPHOCYTES % (AUTO) 26.7 % (20.0-45.0); MEAN CORPUSCULAR VOLUME 84 FL (80-99); MONOCYTES % (AUTO) 5.8 % (1.0-10.0); NEUTROPHILS % (AUTO) 63.8 % (45.0-75.0); PLATELET COUNT 266 K/UL (150-450); RED BLOOD COUNT 4.03 M/UL (4.20-5.40); RED CELL DISTRIBUTION WIDTH 15.7 % (11.6-14.8); WHITE BLOOD COUNT 8.7 K/UL (4.8-10.8)
[2018-06-25 06:50] LABS: ANION GAP 4 mmol/L (5-15); BLOOD UREA NITROGEN 5 mg/dL (7-18); CALCIUM 9.3 MG/DL (8.5-10.1); CARBON DIOXIDE 29 MMOL/L (21-32); CHLORIDE 115 MMOL/L (98-107); CREATININE 0.7 MG/DL (0.55-1.30); POTASSIUM 3.4 MMOL/L (3.5-5.1); SODIUM 147 MMOL/L (136-145)
[2018-06-25 07:00] LABS: ALANINE AMINOTRANSFERASE 16 U/L (12-78); ALBUMIN 2.1 G/DL (3.4-5.0); ALKALINE PHOSPHATASE 67 U/L (46-116); ASPARTATE AMINO TRANSFERASE 19 U/L (15-37); BILIRUBIN,DIRECT < 0.1 MG/DL (0.0-0.3); BILIRUBIN,TOTAL 0.2 MG/DL (0.2-1.0); PHOSPHORUS 2.4 MG/DL (2.5-4.9)
[2018-06-25 08:00] VITALS: BP 138/76
--- NOTE | 2018-06-25 08:53 | 48 Hour Post Anesthesia Eval ---
Post Anesthesia Evaluation Procedure: PEG insertion Date of Evaluation: Jun 25, 2018 Time of Evaluation: 08:51 Blood Pressure Systolic: 155 0: 80 Pulse Rate: 77 Respiratory Rate: 20 Temperature (Fahrenheit): 98.3 O2 Sat by Pulse Oximetry: 100 Airway: patent Nausea: No Vomiting: No Pain Intensity: 0 Hydration Status: adequate Cardiopulmonary Status: stable Mental Status/LOC: patient returned to baseline Follow-up Care/Observations: per hospitalist Post-Anesthesia Complications: none Follow-up care needed: N/A Renu Linares CRNA Jun 25, 2018 08:52
[2018-06-25] MEDS ORDERED: Potassium Phosphate 30 MM in NS 275 ML IV SCH (09:30)
--- NOTE | 2018-06-25 09:44 | Nephrology Progress Note ---
Assessment/Plan Problem List: (1) Hypernatremia (2) Dehydration (3) Hypokalemia (4) Seizure disorder, complex partial (5) Urinary tract infection Assessment HyperNatremia: Free water deficit / Dehydration improving UTI HyperCalcemia HypoAlbuminemia Sz disorder Dementia Allergy to ASA and YVONNE inhibitors HTN GT out Plan PEG in now- D5W Monitor Lytes- antibiotics Keppra to GT K and Phos IV Per orders Subjective ROS Limited/Unobtainable: No Constitutional: Reports: malaise Objective Objective Last 24 Hour Vital Signs Date Time Temp Pulse Resp B/P (MAP) Pulse Ox O2 Delivery O2 Flow Rate FiO2 06/25/18 08:52 77 20 100 06/25/18 07:23 76 18 Room Air 21 06/25/18 04:36 97.3 82 20 158/64 (95) 97 06/25/18 00:44 98.7 77 20 155/80 (105) 97 06/24/18 21:41 Room Air 06/24/18 21:03 78 18 Room Air 21 06/24/18 20:30 99.9 85 20 125/94 (104) 100 06/24/18 16:00 99.1 73 20 137/77 (97) 86 06/24/18 12:00 98.3 73 21 140/70 (93) 96 06/24/18 11:17 74 30 134/65 100 Room Air 06/24/18 11:13 71 30 100 06/24/18 11:05 71 30 137/68 100 Nasal Cannula 3 06/24/18 11:00 71 30 136/69 100 Nasal Cannula 3 06/24/18 10:56 98.0 71 30 135/68 100 Nasal Cannula 3 Intake and Output 06/24/18 06/25/18 19:00 07:00 Intake Total 802.5 ml 780 ml Balance 802.5 ml 780 ml Free Water 60 ml 60 ml IV Total 502.5 ml 200 ml Tube Feeding 240 ml 520 ml Laboratory Tests 06/25/18 05:10: White Blood Count 8.7, Red Blood Count 4.03L, Hemoglobin 11.0L, Hematocrit 33.9L , Mean Corpuscular Volume 84, Mean Corpuscular Hemoglobin 27.2, Mean Corpuscular Hemoglobin Concent 32.3, Red Cell Distribution Width 15.7H, Platelet Count 266, Mean Platelet Volume 6.6, Neutrophils (%) (Auto) 63.8, Lymphocytes (%) (Auto) 26.7, Monocytes (%) (Auto) 5.8, Eosinophils (%) (Auto) 3.1H, Basophils (%) (Auto) 0.6, Sodium Level 147H, Potassium Level 3.4L, Chloride Level 115H, Carbon Dioxide Level 29, Anion Gap 4L, Blood Urea Nitrogen 5L, Creatinine 0.7, Estimat Glomerular Filtration Rate , Glucose Level 110H, Calcium Level 9.3, Phosphorus Level 2.4L, Magnesium Level 1.7L, Total Bilirubin 0.2, Direct Bilirubin < 0.1, Aspartate Amino Transf (AST/SGOT) 19, Alanine Aminotransferase (ALT/SGPT) 16, Alkaline Phosphatase 67, Total Protein 6.6, Albumin 2.1L Height (Feet): 5 Height (Inches): 5.00 Weight (Pounds): 212 Cardiovascular: normal rate Respiratory/Chest: decreased breath sounds Abdomen: soft, other - GT + Objective no other changes Gonsalo Ortiz MD Jun 25, 2018 09:44
[2018-06-25] MEDS: levETIRAcetam 500mg/5ml Liquid NG SCH (09:55)
[2018-06-25] MEDS: Memantine 5 MG TAB ORAL SCH ×2 (09:55→18:52)
[2018-06-25] MEDS: Heparin 5000 units/ml inj SUBQ SCH ×2 (09:57→20:35)
--- NOTE | 2018-06-25 10:49 | Endoscopy Procedure Note ---
Endoscopy Procedure Note General Indication for Procedure: dusphagia Procedures Performed: EGD, PEG Operative Findings/Diagnosis: same Specimen: none Pt Tolerated Procedure Well: Yes Estimated Blood Loss: none Anesthesia Anesthesiologist: see chart Anesthesia: MAC Inserted Devices Implant(s) used?: No GI Core Measures 50 yrs or older w/o bx or poly: Not Applicable 10yrs. F/U not recommended: Not Applicable Frankie Sanchez MD Jun 25, 2018 10:49
--- NOTE | 2018-06-25 11:00 | GI Progress Note ---
Assessment/Plan Problems: (1) At high risk for aspiration ICD Codes: Z91.89 - Other specified personal risk factors, not elsewhere classified SNOMED: 032534268 (2) Seizure disorder, complex partial ICD Codes: G40.209 - Seizure disorder, complex partial SNOMED: 540147340 (3) Encounter for PEG (percutaneous endoscopic gastrostomy) ICD Codes: Z43.1 - Encounter for attention to gastrostomy SNOMED: 428114945, 828490862 (4) FTT (failure to thrive) in adult ICD Codes: R62.7 - Adult failure to thrive SNOMED: 870189284 (5) Dysphagia ICD Codes: R13.10 - Dysphagia, unspecified SNOMED: 53908216, 205452741 (6) Severe malnutrition ICD Codes: E43 - Unspecified severe protein-calorie malnutrition SNOMED: 32364986 (7) Dehydration ICD Codes: E86.0 - Dehydration SNOMED: 39477792 Status: stable Status Narrative Discussed with Dr. Sanchez. Assessment/Plan SUMMARY FINDINGS: Status post successful PEG placement. RECOMMENDATIONS: GTFs per RD to goal IV hydration bowel regime H2B fu labs The patient was seen and examined at bedside and all new and available data was reviewed in the patients chart. I agree with the above findings, impression and plan. (Patient seen earlier today. Signature stamp does not reflect patient encounter time.). - Frankie Sanchez MD Subjective Subjective limited Objective Last 24 Hour Vital Signs Date Time Temp Pulse Resp B/P (MAP) Pulse Ox O2 Delivery O2 Flow Rate FiO2 06/25/18 08:52 77 20 100 06/25/18 07:23 76 18 Room Air 21 06/25/18 04:36 97.3 82 20 158/64 (95) 97 06/25/18 00:44 98.7 77 20 155/80 (105) 97 06/24/18 21:41 Room Air 06/24/18 21:03 78 18 Room Air 21 06/24/18 20:30 99.9 85 20 125/94 (104) 100 06/24/18 16:00 99.1 73 20 137/77 (97) 86 06/24/18 12:00 98.3 73 21 140/70 (93) 96 06/24/18 11:17 74 30 134/65 100 Room Air 06/24/18 11:13 71 30 100 06/24/18 11:05 71 30 137/68 100 Nasal Cannula 3 06/24/18 11:00 71 30 136/69 100 Nasal Cannula 3 Intake and Output 06/24/18 06/25/18 19:00 07:00 Intake Total 802.5 ml 780 ml Balance 802.5 ml 780 ml Free Water 60 ml 60 ml IV Total 502.5 ml 200 ml Tube Feeding 240 ml 520 ml Laboratory Tests Test 06/25/18 05:10 White Blood Count 8.7 K/UL (4.8-10.8) Red Blood Count 4.03 M/UL (4.20-5.40) L Hemoglobin 11.0 G/DL (12.0-16.0) L Hematocrit 33.9 % (37.0-47.0) L Mean Corpuscular Volume 84 FL (80-99) Mean Corpuscular Hemoglobin 27.2 PG (27.0-31.0) Mean Corpuscular Hemoglobin Concent 32.3 G/DL (32.0-36.0) Red Cell Distribution Width 15.7 % (11.6-14.8) H Platelet Count 266 K/UL (150-450) Mean Platelet Volume 6.6 FL (6.5-10.1) Neutrophils (%) (Auto) 63.8 % (45.0-75.0) Lymphocytes (%) (Auto) 26.7 % (20.0-45.0) Monocytes (%) (Auto) 5.8 % (1.0-10.0) Eosinophils (%) (Auto) 3.1 % (0.0-3.0) H Basophils (%) (Auto) 0.6 % (0.0-2.0) Sodium Level 147 MMOL/L (136-145) H Potassium Level 3.4 MMOL/L (3.5-5.1) L Chloride Level 115 MMOL/L (98-107) H Carbon Dioxide Level 29 MMOL/L (21-32) Anion Gap 4 mmol/L (5-15) L Blood Urea Nitrogen 5 mg/dL (7-18) L Creatinine 0.7 MG/DL (0.55-1.30) Estimat Glomerular Filtration Rate mL/min (>60) Glucose Level 110 MG/DL (74-106) H Calcium Level 9.3 MG/DL (8.5-10.1) Phosphorus Level 2.4 MG/DL (2.5-4.9) L Magnesium Level 1.7 MG/DL (1.8-2.4) L Total Bilirubin 0.2 MG/DL (0.2-1.0) Direct Bilirubin < 0.1 MG/DL (0.0-0.3) Aspartate Amino Transf (AST/SGOT) 19 U/L (15-37) Alanine Aminotransferase (ALT/SGPT) 16 U/L (12-78) Alkaline Phosphatase 67 U/L (46-116) Total Protein 6.6 G/DL (6.4-8.2) Albumin 2.1 G/DL (3.4-5.0) L Height (Feet): 5 Height (Inches): 5.00 Weight (Pounds): 212 General Appearance: WD/WN, no apparent distress, alert Cardiovascular: normal rate Respiratory/Chest: normal breath sounds, no respiratory distress Abdominal Exam: normal bowel sounds, non tender, soft Extremities: normal range of motion, non-tender Kari Sarmiento [employer] Jun 25, 2018 11:00
--- NOTE | 2018-06-25 11:48 | Infectious Diseases Prog Note ---
Assessment/Plan Assessment/Plan ASSESSMENT: The patient is a 72-year-old female with: Leukocytosis, Sp doubt UTI (UA showed pyuria) Ucx : 40-50K VRE Colonizer Asp pneumonia. Chest x-ray, NAPD patient passed swallow evaluation with possible silent aspiration Dementia History of seizure disorder Anemia Hypertension COPD History of abdominal wall cellulitis/G-tube site infection 06/23 SP PEG replacement 06/23 Sp debridment of Rt foot Diabetes Schizophrenia PLAN: cont on IV cefepime day # 5/ Flagyl d# 3/5 ( Asp pneum ) 06/21 SP IV Vanco CBC and BMP Monitor cultures (blood) Monitor CBC Monitor chest x-ray Subjective Allergies: Coded Allergies: ASPIRIN (Verified Allergy, Unknown, 06/21/18) LOSARTAN (Verified Allergy, Unknown, 06/21/18) Subjective Afebrile comfortable Objective Vital Signs Last 24 Hour Vital Signs Date Time Temp Pulse Resp B/P (MAP) Pulse Ox O2 Delivery O2 Flow Rate FiO2 06/25/18 08:52 77 20 100 06/25/18 07:23 76 18 Room Air 21 06/25/18 04:36 97.3 82 20 158/64 (95) 97 06/25/18 00:44 98.7 77 20 155/80 (105) 97 06/24/18 21:41 Room Air 06/24/18 21:03 78 18 Room Air 21 06/24/18 20:30 99.9 85 20 125/94 (104) 100 06/24/18 16:00 99.1 73 20 137/77 (97) 86 06/24/18 12:00 98.3 73 21 140/70 (93) 96 Height (Feet): 5 Height (Inches): 5.00 Weight (Pounds): 212 HEENT: atraumatic Respiratory/Chest: normal breath sounds Cardiovascular: regular rhythm Abdomen: non distended Laboratory Tests Test 06/25/18 05:10 White Blood Count 8.7 K/UL (4.8-10.8) Red Blood Count 4.03 M/UL (4.20-5.40) L Hemoglobin 11.0 G/DL (12.0-16.0) L Hematocrit 33.9 % (37.0-47.0) L Mean Corpuscular Volume 84 FL (80-99) Mean Corpuscular Hemoglobin 27.2 PG (27.0-31.0) Mean Corpuscular Hemoglobin Concent 32.3 G/DL (32.0-36.0) Red Cell Distribution Width 15.7 % (11.6-14.8) H Platelet Count 266 K/UL (150-450) Mean Platelet Volume 6.6 FL (6.5-10.1) Neutrophils (%) (Auto) 63.8 % (45.0-75.0) Lymphocytes (%) (Auto) 26.7 % (20.0-45.0) Monocytes (%) (Auto) 5.8 % (1.0-10.0) Eosinophils (%) (Auto) 3.1 % (0.0-3.0) H Basophils (%) (Auto) 0.6 % (0.0-2.0) Sodium Level 147 MMOL/L (136-145) H Potassium Level 3.4 MMOL/L (3.5-5.1) L Chloride Level 115 MMOL/L (98-107) H Carbon Dioxide Level 29 MMOL/L (21-32) Anion Gap 4 mmol/L (5-15) L Blood Urea Nitrogen 5 mg/dL (7-18) L Creatinine 0.7 MG/DL (0.55-1.30) Estimat Glomerular Filtration Rate mL/min (>60) Glucose Level 110 MG/DL (74-106) H Calcium Level 9.3 MG/DL (8.5-10.1) Phosphorus Level 2.4 MG/DL (2.5-4.9) L Magnesium Level 1.7 MG/DL (1.8-2.4) L Total Bilirubin 0.2 MG/DL (0.2-1.0) Direct Bilirubin < 0.1 MG/DL (0.0-0.3) Aspartate Amino Transf (AST/SGOT) 19 U/L (15-37) Alanine Aminotransferase (ALT/SGPT) 16 U/L (12-78) Alkaline Phosphatase 67 U/L (46-116) Total Protein 6.6 G/DL (6.4-8.2) Albumin 2.1 G/DL (3.4-5.0) L Current Medications Medications (Trade) Dose Ordered Sig/Caroline Route PRN Reason Start Time Stop Time Status Last Admin Dose Admin Acetaminophen (Tylenol) 650 mg Q4H PRN ORAL fever 06/21/18 06:30 07/21/18 06:29 Albuterol/ Ipratropium (Albuterol/ Ipratropium) 3 ml Q4H PRN HHN Shortness of Breath 06/21/18 06:30 06/26/18 06:29 Cefepime HCl 2 gm/ Dextrose 110 ml @ 220 mls/hr DAILY IV 06/22/18 09:00 06/29/18 08:59 06/24/18 08:00 Dextrose 1,000 ml @ 50 mls/hr Q20H IV 06/24/18 10:00 07/21/18 09:59 06/25/18 05:33 Famotidine (Pepcid) 20 mg BID GT 06/23/18 18:00 07/23/18 17:59 06/25/18 09:55 Heparin Sodium (Porcine) (Heparin 5000 units/ml) 5,000 units EVERY 12 HOURS SUBQ 06/21/18 09:00 07/21/18 08:59 06/25/18 09:57 Levetiracetam (Keppra) 1,000 mg Q12HR NG 06/23/18 21:00 07/23/18 20:59 06/25/18 09:55 Magnesium Sulfate 100 ml @ 100 mls/hr Q1H IVPB 06/25/18 09:00 06/25/18 11:59 06/25/18 09:54 Memantine (Namenda) 5 mg BID ORAL 06/22/18 09:00 07/22/18 08:59 06/25/18 09:55 Metronidazole 100 ml @ 100 mls/hr Q8HR IVPB 06/23/18 14:00 06/30/18 13:59 06/25/18 05:32 Morphine Sulfate (Morphine Sulfate) 2 mg Q4H PRN IVP Moderate Pain (Pain Scale 4-6) 06/21/18 06:30 06/28/18 06:29 06/24/18 17:27 Nitroglycerin (Ntg) 0.4 mg Q5M PRN SL Prn Chest Pain 06/21/18 06:30 07/21/18 06:29 Olanzapine (ZyPREXA) 2.5 mg QHS ORAL 06/22/18 21:00 07/22/18 20:59 06/24/18 21:22 Ondansetron HCl (Zofran) 4 mg Q6H PRN IVP Nausea & Vomiting 06/21/18 06:30 07/21/18 06:29 Polyethylene Glycol (Miralax) 17 gm DAILYPRN PRN ORAL Constipation 06/21/18 06:30 07/21/18 06:29 Temazepam (Restoril) 15 mg HSPRN PRN ORAL Insomnia 06/21/18 06:30 06/28/18 06:29 Eduardo Phelps MD Jun 25, 2018 11:48
[2018-06-25 12:00] VITALS: BP 143/73
--- NOTE | 2018-06-25 12:11 | Pulmonology Progress Note ---
Assessment/Plan Problems: (1) Acute encephalopathy (2) Hypernatremia (3) At high risk for aspiration (4) Urinary tract infection (5) Seizure disorder, complex partial (6) Dysphagia (7) Hypokalemia (8) Hypertension (9) Diabetes mellitus Assessment/Plan all reviewed No new complains hold iv fluids Na decreasing some more weiner culture, pending renal f/u check electrolytes sliding scale insulin coverage ID evaluation appreciated weiner cultures dc planning Subjective ROS Limited/Unobtainable: No Constitutional: Reports: no symptoms HEENT: Repors: no symptoms Respiratory: Reports: no symptoms Allergies: Coded Allergies: ASPIRIN (Verified Allergy, Unknown, 06/21/18) LOSARTAN (Verified Allergy, Unknown, 06/21/18) Objective Last 24 Hour Vital Signs Date Time Temp Pulse Resp B/P (MAP) Pulse Ox O2 Delivery O2 Flow Rate FiO2 06/25/18 08:52 77 20 100 06/25/18 07:23 76 18 Room Air 21 06/25/18 04:36 97.3 82 20 158/64 (95) 97 06/25/18 00:44 98.7 77 20 155/80 (105) 97 06/24/18 21:41 Room Air 06/24/18 21:03 78 18 Room Air 21 06/24/18 20:30 99.9 85 20 125/94 (104) 100 06/24/18 16:00 99.1 73 20 137/77 (97) 86 Intake and Output 06/24/18 06/25/18 19:00 07:00 Intake Total 802.5 ml 780 ml Balance 802.5 ml 780 ml Free Water 60 ml 60 ml IV Total 502.5 ml 200 ml Tube Feeding 240 ml 520 ml General Appearance: WD/WN HEENT: normocephalic Respiratory/Chest: chest wall non-tender, normal breath sounds Breasts: no masses Cardiovascular: normal peripheral pulses, regularly irregular Abdomen: normal bowel sounds Genitourinary: normal external genitalia Skin: no rash Laboratory Tests 06/25/18 05:10: White Blood Count 8.7, Red Blood Count 4.03L, Hemoglobin 11.0L, Hematocrit 33.9L , Mean Corpuscular Volume 84, Mean Corpuscular Hemoglobin 27.2, Mean Corpuscular Hemoglobin Concent 32.3, Red Cell Distribution Width 15.7H, Platelet Count 266, Mean Platelet Volume 6.6, Neutrophils (%) (Auto) 63.8, Lymphocytes (%) (Auto) 26.7, Monocytes (%) (Auto) 5.8, Eosinophils (%) (Auto) 3.1H, Basophils (%) (Auto) 0.6, Sodium Level 147H, Potassium Level 3.4L, Chloride Level 115H, Carbon Dioxide Level 29, Anion Gap 4L, Blood Urea Nitrogen 5L, Creatinine 0.7, Estimat Glomerular Filtration Rate , Glucose Level 110H, Calcium Level 9.3, Phosphorus Level 2.4L, Magnesium Level 1.7L, Total Bilirubin 0.2, Direct Bilirubin < 0.1, Aspartate Amino Transf (AST/SGOT) 19, Alanine Aminotransferase (ALT/SGPT) 16, Alkaline Phosphatase 67, Total Protein 6.6, Albumin 2.1L Current Medications Medications (Trade) Dose Ordered Sig/Caroline Route PRN Reason Start Time Stop Time Status Last Admin Dose Admin Acetaminophen (Tylenol) 650 mg Q4H PRN ORAL fever 06/21/18 06:30 07/21/18 06:29 Albuterol/ Ipratropium (Albuterol/ Ipratropium) 3 ml Q4H PRN HHN Shortness of Breath 06/21/18 06:30 06/26/18 06:29 Cefepime HCl 2 gm/ Dextrose 110 ml @ 220 mls/hr DAILY IV 06/22/18 09:00 06/29/18 08:59 06/24/18 08:00 Dextrose 1,000 ml @ 50 mls/hr Q20H IV 06/24/18 10:00 07/21/18 09:59 06/25/18 05:33 Famotidine (Pepcid) 20 mg BID GT 06/23/18 18:00 07/23/18 17:59 06/25/18 09:55 Heparin Sodium (Porcine) (Heparin 5000 units/ml) 5,000 units EVERY 12 HOURS SUBQ 06/21/18 09:00 07/21/18 08:59 06/25/18 09:57 Levetiracetam (Keppra) 1,000 mg Q12HR NG 06/23/18 21:00 07/23/18 20:59 06/25/18 09:55 Memantine (Namenda) 5 mg BID ORAL 06/22/18 09:00 07/22/18 08:59 06/25/18 09:55 Metronidazole 100 ml @ 100 mls/hr Q8HR IVPB 06/23/18 14:00 06/30/18 13:59 06/25/18 05:32 Morphine Sulfate (Morphine Sulfate) 2 mg Q4H PRN IVP Moderate Pain (Pain Scale 4-6) 06/21/18 06:30 06/28/18 06:29 06/24/18 17:27 Nitroglycerin (Ntg) 0.4 mg Q5M PRN SL Prn Chest Pain 06/21/18 06:30 07/21/18 06:29 Olanzapine (ZyPREXA) 2.5 mg QHS ORAL 06/22/18 21:00 07/22/18 20:59 06/24/18 21:22 Ondansetron HCl (Zofran) 4 mg Q6H PRN IVP Nausea & Vomiting 06/21/18 06:30 07/21/18 06:29 Polyethylene Glycol (Miralax) 17 gm DAILYPRN PRN ORAL Constipation 06/21/18 06:30 07/21/18 06:29 Temazepam (Restoril) 15 mg HSPRN PRN ORAL Insomnia 06/21/18 06:30 06/28/18 06:29 Morgan Tang MD Jun 25, 2018 12:10
--- NOTE | 2018-06-25 12:39 | General Progress Note ---
Assessment/Plan Problem List: (1) Sepsis ICD Codes: A41.9 - Sepsis, unspecified organism SNOMED: 42763664 (2) Leukocytosis ICD Codes: D72.829 - Elevated white blood cell count, unspecified SNOMED: 858638341, 252078440 (3) Dehydration ICD Codes: E86.0 - Dehydration SNOMED: 19386327 (4) Attention to G-tube ICD Codes: Z43.1 - Encounter for attention to gastrostomy SNOMED: 730213925, 986739763 (5) Acute encephalopathy ICD Codes: G93.40 - Encephalopathy, unspecified SNOMED: 25700933, 439247933 (6) Urinary tract infection ICD Codes: N39.0 - Urinary tract infection, site not specified SNOMED: 64693870 Status: stable, progressing Assessment/Plan ot pt diet wound care abx adv feed as bethany cbc bmp am Subjective Constitutional: Reports: weakness Allergies: Coded Allergies: ASPIRIN (Verified Allergy, Unknown, 06/21/18) LOSARTAN (Verified Allergy, Unknown, 06/21/18) All Systems: reviewed and negative except above Subjective calm in bed lethargic s/p gtube Objective Last 24 Hour Vital Signs Date Time Temp Pulse Resp B/P (MAP) Pulse Ox O2 Delivery O2 Flow Rate FiO2 06/25/18 08:52 77 20 100 06/25/18 07:23 76 18 Room Air 21 06/25/18 04:36 97.3 82 20 158/64 (95) 97 06/25/18 00:44 98.7 77 20 155/80 (105) 97 06/24/18 21:41 Room Air 06/24/18 21:03 78 18 Room Air 21 06/24/18 20:30 99.9 85 20 125/94 (104) 100 06/24/18 16:00 99.1 73 20 137/77 (97) 86 Intake and Output 06/24/18 06/25/18 19:00 07:00 Intake Total 802.5 ml 780 ml Balance 802.5 ml 780 ml Free Water 60 ml 60 ml IV Total 502.5 ml 200 ml Tube Feeding 240 ml 520 ml Laboratory Tests 06/25/18 05:10: White Blood Count 8.7, Red Blood Count 4.03L, Hemoglobin 11.0L, Hematocrit 33.9L , Mean Corpuscular Volume 84, Mean Corpuscular Hemoglobin 27.2, Mean Corpuscular Hemoglobin Concent 32.3, Red Cell Distribution Width 15.7H, Platelet Count 266, Mean Platelet Volume 6.6, Neutrophils (%) (Auto) 63.8, Lymphocytes (%) (Auto) 26.7, Monocytes (%) (Auto) 5.8, Eosinophils (%) (Auto) 3.1H, Basophils (%) (Auto) 0.6, Sodium Level 147H, Potassium Level 3.4L, Chloride Level 115H, Carbon Dioxide Level 29, Anion Gap 4L, Blood Urea Nitrogen 5L, Creatinine 0.7, Estimat Glomerular Filtration Rate , Glucose Level 110H, Calcium Level 9.3, Phosphorus Level 2.4L, Magnesium Level 1.7L, Total Bilirubin 0.2, Direct Bilirubin < 0.1, Aspartate Amino Transf (AST/SGOT) 19, Alanine Aminotransferase (ALT/SGPT) 16, Alkaline Phosphatase 67, Total Protein 6.6, Albumin 2.1L Height (Feet): 5 Height (Inches): 5.00 Weight (Pounds): 212 General Appearance: lethargic EENT: normal ENT inspection Neck: normal alignment Cardiovascular: normal peripheral pulses, normal rate, regular rhythm Respiratory/Chest: chest wall non-tender, lungs clear, normal breath sounds Abdomen: normal bowel sounds, non tender, soft Extremities: normal inspection Edema: no edema noted Arm (L), no edema noted Arm (R), no edema noted Leg (L), no edema noted Leg (R), no edema noted Pedal (L), no edema noted Pedal (R), no edema noted Generalized Neurologic: motor weakness Skin: normal pigmentation, warm/dry Hong Caballero DO Jun 25, 2018 12:39
[2018-06-25] MEDS: Cefepime HCl 2 GM in D5W 110 ML IV SCH (13:15)
--- NOTE | 2018-06-25 14:25 | General Surgery Progress Note ---
General Surgery-Progress Note Subjective Procedure Performed Excisional debridement of left lateral distal lower extremity unstable eschar on decubitus ulcer 4cm x 3cm Symptoms: improved Additional Comments resting comfortable. no n/v/f/c. Objective Last 24 Hour Vital Signs Date Time Temp Pulse Resp B/P (MAP) Pulse Ox O2 Delivery O2 Flow Rate FiO2 06/25/18 08:52 77 20 100 06/25/18 07:23 76 18 Room Air 21 06/25/18 04:36 97.3 82 20 158/64 (95) 97 06/25/18 00:44 98.7 77 20 155/80 (105) 97 06/24/18 21:41 Room Air 06/24/18 21:03 78 18 Room Air 21 06/24/18 20:30 99.9 85 20 125/94 (104) 100 06/24/18 16:00 99.1 73 20 137/77 (97) 86 I&O Intake and Output 06/24/18 06/25/18 19:00 07:00 Intake Total 802.5 ml 780 ml Balance 802.5 ml 780 ml Free Water 60 ml 60 ml IV Total 502.5 ml 200 ml Tube Feeding 240 ml 520 ml Dressing: saturated Wound: clean Drains: other Cardiovascular: RSR Respiratory: clear Abdomen: soft, flat, non-tender, present bowel sounds Extremities: other Laboratory Tests Test 06/25/18 05:10 White Blood Count 8.7 K/UL (4.8-10.8) Red Blood Count 4.03 M/UL (4.20-5.40) L Hemoglobin 11.0 G/DL (12.0-16.0) L Hematocrit 33.9 % (37.0-47.0) L Mean Corpuscular Volume 84 FL (80-99) Mean Corpuscular Hemoglobin 27.2 PG (27.0-31.0) Mean Corpuscular Hemoglobin Concent 32.3 G/DL (32.0-36.0) Red Cell Distribution Width 15.7 % (11.6-14.8) H Platelet Count 266 K/UL (150-450) Mean Platelet Volume 6.6 FL (6.5-10.1) Neutrophils (%) (Auto) 63.8 % (45.0-75.0) Lymphocytes (%) (Auto) 26.7 % (20.0-45.0) Monocytes (%) (Auto) 5.8 % (1.0-10.0) Eosinophils (%) (Auto) 3.1 % (0.0-3.0) H Basophils (%) (Auto) 0.6 % (0.0-2.0) Sodium Level 147 MMOL/L (136-145) H Potassium Level 3.4 MMOL/L (3.5-5.1) L Chloride Level 115 MMOL/L (98-107) H Carbon Dioxide Level 29 MMOL/L (21-32) Anion Gap 4 mmol/L (5-15) L Blood Urea Nitrogen 5 mg/dL (7-18) L Creatinine 0.7 MG/DL (0.55-1.30) Estimat Glomerular Filtration Rate mL/min (>60) Glucose Level 110 MG/DL (74-106) H Calcium Level 9.3 MG/DL (8.5-10.1) Phosphorus Level 2.4 MG/DL (2.5-4.9) L Magnesium Level 1.7 MG/DL (1.8-2.4) L Total Bilirubin 0.2 MG/DL (0.2-1.0) Direct Bilirubin < 0.1 MG/DL (0.0-0.3) Aspartate Amino Transf (AST/SGOT) 19 U/L (15-37) Alanine Aminotransferase (ALT/SGPT) 16 U/L (12-78) Alkaline Phosphatase 67 U/L (46-116) Total Protein 6.6 G/DL (6.4-8.2) Albumin 2.1 G/DL (3.4-5.0) L Plan Problems: (1) Open abdominal wall wound Assessment & Plan: wound well healing s/p g tube / PEG. okay to use. (2) Severe malnutrition Assessment & Plan: will have dietary see patient for nutritional optimization will follow labs ordered will need extra for wound healing (3) Ulcer of left lower leg Assessment & Plan: s/p excision of necrotic cap wound bed washed and now clean with healthy tissue cont with dressings will need outpatient care/follow up Martin Gordon Jun 25, 2018 14:25
[2018-06-25 16:00] VITALS: BP 148/73
[2018-06-25] MEDS ORDERED: NS 275ml ONE (16:29)
[2018-06-25] MEDS ORDERED: D5NS 1000ml IV ONE (16:29)
[2018-06-25] MEDS ORDERED: Tubing IV Secondary IV ONE (16:29)
--- NOTE | 2018-06-25 17:45 | Progress Note ---
DATE: 06/25/2018 SUBJECTIVE: The patient is a 72-year-old female patient with failure to thrive. She continues to have altered mental status and confusion and also not eating well, so her attending has requested daily psychiatric consultation. Diagnoses was failure to thrive, altered mental status. MENTAL STATUS EXAMINATION: The patient is a 72-year-old female. Appearance is disheveled. Attitude irritable and agitated. Affect guarded and restricted. Intellect poor. Mood depressed and anxious. Motor activity, psychomotor agitation. Attention span is poor. Orientation x2. Speech is low volume and slurred. Thought process, disorganized and illogical. Thought content, auditory hallucinations, paranoia. Insight and judgement poor. DIAGNOSES: Major depression with psychotic features, rule out dementia with psychosis. PLAN: Treat with Namenda at a dose of 5 mg twice a day to reduce any further decline in cognition, Zyprexa 2.5 mg at bedtime for mood stabilization and altered mental status and also to increase her appetite. Provided 20 minutes of supportive cognitive behavioral therapy to help identify automatic negative thoughts and help her to convert to those automatic negative thoughts to more positive thoughts to reduce depression, anxiety, and mood lability. Chart reviewed and discussed with staff. Seen and assessed in her room. Pearl Cunningham M.D. DR: Kermit JOB#: [id number] CC:
[2018-06-25 20:23] VITALS: BP 151/73
[2018-06-25] MEDS: OLANZapine 2.5mg tab GT SCH (20:33)
[2018-06-25] MEDS: levETIRAcetam 500mg/5ml Liquid GT SCH (20:34)
[2018-06-26 00:17] VITALS: BP 148/80
[2018-06-26 04:39] VITALS: BP 149/79
[2018-06-26 06:20] LABS: BASOPHILS % (AUTO) 0.9 % (0.0-2.0); EOSINOPHILS % (AUTO) 3.7 % (0.0-3.0); HEMATOCRIT 33.8 % (37.0-47.0); HEMOGLOBIN 10.4 G/DL (12.0-16.0); LYMPHOCYTES % (AUTO) 29.1 % (20.0-45.0); MEAN CORPUSCULAR VOLUME 84 FL (80-99); MONOCYTES % (AUTO) 6.1 % (1.0-10.0); NEUTROPHILS % (AUTO) 60.3 % (45.0-75.0); PLATELET COUNT 292 K/UL (150-450); RED BLOOD COUNT 4.03 M/UL (4.20-5.40); RED CELL DISTRIBUTION WIDTH 16.3 % (11.6-14.8)
[2018-06-26 06:34] LABS: ANION GAP 8 mmol/L (5-15); BLOOD UREA NITROGEN 6 mg/dL (7-18); CALCIUM 9.1 MG/DL (8.5-10.1); CARBON DIOXIDE 27 MMOL/L (21-32); CHLORIDE 112 MMOL/L (98-107); CREATININE 0.7 MG/DL (0.55-1.30); POTASSIUM 3.6 MMOL/L (3.5-5.1); SODIUM 147 MMOL/L (136-145)
[2018-06-26 08:00] VITALS: BP 128/56
--- NOTE | 2018-06-26 08:04 | General Progress Note ---
Assessment/Plan Problem List: (1) Sepsis ICD Codes: A41.9 - Sepsis, unspecified organism SNOMED: 72708455 (2) Leukocytosis ICD Codes: D72.829 - Elevated white blood cell count, unspecified SNOMED: 462120670, 834348337 (3) Dehydration ICD Codes: E86.0 - Dehydration SNOMED: 96438583 (4) Attention to G-tube ICD Codes: Z43.1 - Encounter for attention to gastrostomy SNOMED: 981509475, 664121187 (5) Acute encephalopathy ICD Codes: G93.40 - Encephalopathy, unspecified SNOMED: 46238583, 912388786 (6) Urinary tract infection ICD Codes: N39.0 - Urinary tract infection, site not specified SNOMED: 94028123 Status: stable, progressing Assessment/Plan ot pt diet wound care abx adv feed as bethany dc to snf if clear Subjective Constitutional: Reports: weakness Allergies: Coded Allergies: ASPIRIN (Verified Allergy, Unknown, 06/21/18) LOSARTAN (Verified Allergy, Unknown, 06/21/18) All Systems: reviewed and negative except above Subjective calm in bed lethargic s/p gtube Objective Last 24 Hour Vital Signs Date Time Temp Pulse Resp B/P (MAP) Pulse Ox O2 Delivery O2 Flow Rate FiO2 06/26/18 08:01 84 18 Room Air 21 06/26/18 04:39 99.3 85 20 149/79 (102) 99 06/26/18 00:17 99.3 84 20 148/80 (102) 96 06/25/18 21:06 Room Air 06/25/18 20:23 99.1 81 20 151/73 (99) 100 06/25/18 19:42 85 18 Room Air 21 06/25/18 16:00 98.1 84 20 148/73 (98) 99 06/25/18 12:00 99.0 84 20 143/73 (96) 98 06/25/18 09:00 Room Air 06/25/18 08:52 77 20 100 Intake and Output 06/25/18 06/26/18 19:00 07:00 Intake Total 1150 ml 1380 ml Output Total 600 ml 300 ml Balance 550 ml 1080 ml Free Water 240 ml IV Total 310 ml 600 ml Tube Feeding 600 ml 660 ml Blood Product 120 ml Output Urine Total 600 ml 300 ml Laboratory Tests 06/26/18 05:20: White Blood Count 10.0, Red Blood Count 4.03L, Hemoglobin 10.4L, Hematocrit 33.8L, Mean Corpuscular Volume 84, Mean Corpuscular Hemoglobin 25.8L, Mean Corpuscular Hemoglobin Concent 30.8L, Red Cell Distribution Width 16.3H, Platelet Count 292, Mean Platelet Volume 6.8, Neutrophils (%) (Auto) 60.3, Lymphocytes (%) (Auto) 29.1, Monocytes (%) (Auto) 6.1, Eosinophils (%) (Auto) 3.7H, Basophils (%) (Auto) 0.9, Sodium Level 147H, Potassium Level 3.6, Chloride Level 112H, Carbon Dioxide Level 27, Anion Gap 8, Blood Urea Nitrogen 6L, Creatinine 0.7, Estimat Glomerular Filtration Rate , Glucose Level 104, Calcium Level 9.1 Height (Feet): 5 Height (Inches): 5.00 Weight (Pounds): 212 General Appearance: lethargic EENT: normal ENT inspection Neck: normal alignment Cardiovascular: normal peripheral pulses, normal rate, regular rhythm Respiratory/Chest: chest wall non-tender, lungs clear, normal breath sounds Abdomen: normal bowel sounds, non tender, soft Extremities: normal inspection Edema: no edema noted Arm (L), no edema noted Arm (R), no edema noted Leg (L), no edema noted Leg (R), no edema noted Pedal (L), no edema noted Pedal (R), no edema noted Generalized Neurologic: motor weakness Skin: normal pigmentation, warm/dry Hong Caballero DO Jun 26, 2018 08:04
[2018-06-26] MEDS: Memantine 5 MG TAB GT SCH ×2 (09:13→18:31)
[2018-06-26] MEDS: levETIRAcetam 500mg/5ml Liquid GT SCH ×2 (09:13→21:15)
[2018-06-26] MEDS: Heparin 5000 units/ml inj SUBQ SCH ×2 (09:14→21:16)
[2018-06-26] MEDS: Cefepime HCl 2 GM in D5W 110 ML IV SCH (09:14)
--- NOTE | 2018-06-26 09:55 | Infectious Diseases Prog Note ---
Assessment/Plan Assessment/Plan ASSESSMENT: The patient is a 72-year-old female with: Sp fever x 1 , afebrile Leukocytosis, Sp doubt UTI (UA showed pyuria) Ucx : 40-50K VRE Colonizer Asp pneumonia. Chest x-ray, NAPD patient passed swallow evaluation with possible silent aspiration Dementia History of seizure disorder Anemia Hypertension COPD History of abdominal wall cellulitis/G-tube site infection 06/24 SP PEG replacement 06/24 Sp debridment of Rt foot Diabetes Schizophrenia PLAN: cont on IV cefepime day # 6 /7 Flagyl d# 4/5 ( Asp pneum ) 06/21 SP IV Vanco CBC and BMP Monitor cultures (blood) Monitor CBC Monitor chest x-ray Subjective Allergies: Coded Allergies: ASPIRIN (Verified Allergy, Unknown, 06/21/18) LOSARTAN (Verified Allergy, Unknown, 06/21/18) Subjective Afebrile x 24 hr Objective Vital Signs Last 24 Hour Vital Signs Date Time Temp Pulse Resp B/P (MAP) Pulse Ox O2 Delivery O2 Flow Rate FiO2 06/26/18 08:01 84 18 Room Air 21 06/26/18 04:39 99.3 85 20 149/79 (102) 99 06/26/18 00:17 99.3 84 20 148/80 (102) 96 06/25/18 21:06 Room Air 06/25/18 20:23 99.1 81 20 151/73 (99) 100 06/25/18 19:42 85 18 Room Air 21 06/25/18 16:00 98.1 84 20 148/73 (98) 99 06/25/18 12:00 99.0 84 20 143/73 (96) 98 Height (Feet): 5 Height (Inches): 5.00 Weight (Pounds): 212 HEENT: anicteric Respiratory/Chest: no respiratory distress Cardiovascular: regular rhythm Abdomen: non distended Laboratory Tests Test 06/26/18 05:20 White Blood Count 10.0 K/UL (4.8-10.8) Red Blood Count 4.03 M/UL (4.20-5.40) L Hemoglobin 10.4 G/DL (12.0-16.0) L Hematocrit 33.8 % (37.0-47.0) L Mean Corpuscular Volume 84 FL (80-99) Mean Corpuscular Hemoglobin 25.8 PG (27.0-31.0) L Mean Corpuscular Hemoglobin Concent 30.8 G/DL (32.0-36.0) L Red Cell Distribution Width 16.3 % (11.6-14.8) H Platelet Count 292 K/UL (150-450) Mean Platelet Volume 6.8 FL (6.5-10.1) Neutrophils (%) (Auto) 60.3 % (45.0-75.0) Lymphocytes (%) (Auto) 29.1 % (20.0-45.0) Monocytes (%) (Auto) 6.1 % (1.0-10.0) Eosinophils (%) (Auto) 3.7 % (0.0-3.0) H Basophils (%) (Auto) 0.9 % (0.0-2.0) Sodium Level 147 MMOL/L (136-145) H Potassium Level 3.6 MMOL/L (3.5-5.1) Chloride Level 112 MMOL/L (98-107) H Carbon Dioxide Level 27 MMOL/L (21-32) Anion Gap 8 mmol/L (5-15) Blood Urea Nitrogen 6 mg/dL (7-18) L Creatinine 0.7 MG/DL (0.55-1.30) Estimat Glomerular Filtration Rate mL/min (>60) Glucose Level 104 MG/DL (74-106) Calcium Level 9.1 MG/DL (8.5-10.1) Current Medications Medications (Trade) Dose Ordered Sig/Caroline Route PRN Reason Start Time Stop Time Status Last Admin Dose Admin Acetaminophen (Tylenol) 650 mg Q4H PRN ORAL fever 06/21/18 06:30 07/21/18 06:29 Cefepime HCl 2 gm/ Dextrose 110 ml @ 220 mls/hr DAILY IV 06/22/18 09:00 06/29/18 08:59 06/26/18 09:14 Dextrose 1,000 ml @ 50 mls/hr Q20H IV 06/24/18 10:00 07/21/18 09:59 06/25/18 05:33 Famotidine (Pepcid) 20 mg BID GT 06/23/18 18:00 07/23/18 17:59 06/26/18 09:13 Heparin Sodium (Porcine) (Heparin 5000 units/ml) 5,000 units EVERY 12 HOURS SUBQ 06/21/18 09:00 07/21/18 08:59 06/26/18 09:14 Levetiracetam (Keppra) 1,000 mg Q12HR GT 06/25/18 21:00 07/23/18 20:59 06/26/18 09:13 Memantine (Namenda) 5 mg BID GT 06/26/18 09:00 07/22/18 08:59 06/26/18 09:13 Metronidazole 100 ml @ 100 mls/hr Q8HR IVPB 06/23/18 14:00 06/30/18 13:59 06/26/18 05:04 Morphine Sulfate (Morphine Sulfate) 2 mg Q4H PRN IVP Moderate Pain (Pain Scale 4-6) 06/21/18 06:30 06/28/18 06:29 06/24/18 17:27 Nitroglycerin (Ntg) 0.4 mg Q5M PRN SL Prn Chest Pain 06/21/18 06:30 07/21/18 06:29 Olanzapine (ZyPREXA) 2.5 mg QHS GT 06/25/18 21:00 07/22/18 20:59 06/25/18 20:33 Ondansetron HCl (Zofran) 4 mg Q6H PRN IVP Nausea & Vomiting 06/21/18 06:30 07/21/18 06:29 Polyethylene Glycol (Miralax) 17 gm DAILYPRN PRN ORAL Constipation 06/21/18 06:30 07/21/18 06:29 Temazepam (Restoril) 15 mg HSPRN PRN ORAL Insomnia 06/21/18 06:30 06/28/18 06:29 Eduardo Phelps MD Jun 26, 2018 09:55
--- NOTE | 2018-06-26 10:17 | General Surgery Progress Note ---
General Surgery-Progress Note Subjective Procedure Performed Excisional debridement of left lateral distal lower extremity unstable eschar on decubitus ulcer 4cm x 3cm Symptoms: improved Additional Comments more alert today. improving. Objective Last 24 Hour Vital Signs Date Time Temp Pulse Resp B/P (MAP) Pulse Ox O2 Delivery O2 Flow Rate FiO2 06/26/18 08:01 84 18 Room Air 21 06/26/18 04:39 99.3 85 20 149/79 (102) 99 06/26/18 00:17 99.3 84 20 148/80 (102) 96 06/25/18 21:06 Room Air 06/25/18 20:23 99.1 81 20 151/73 (99) 100 06/25/18 19:42 85 18 Room Air 21 06/25/18 16:00 98.1 84 20 148/73 (98) 99 06/25/18 12:00 99.0 84 20 143/73 (96) 98 I&O Intake and Output 06/25/18 06/26/18 19:00 07:00 Intake Total 1150 ml 1380 ml Output Total 600 ml 300 ml Balance 550 ml 1080 ml Free Water 240 ml IV Total 310 ml 600 ml Tube Feeding 600 ml 660 ml Blood Product 120 ml Output Urine Total 600 ml 300 ml Dressing: saturated Wound: clean Drains: other Cardiovascular: RSR Respiratory: clear Abdomen: soft, flat, non-tender, present bowel sounds Extremities: other Laboratory Tests Test 06/26/18 05:20 White Blood Count 10.0 K/UL (4.8-10.8) Red Blood Count 4.03 M/UL (4.20-5.40) L Hemoglobin 10.4 G/DL (12.0-16.0) L Hematocrit 33.8 % (37.0-47.0) L Mean Corpuscular Volume 84 FL (80-99) Mean Corpuscular Hemoglobin 25.8 PG (27.0-31.0) L Mean Corpuscular Hemoglobin Concent 30.8 G/DL (32.0-36.0) L Red Cell Distribution Width 16.3 % (11.6-14.8) H Platelet Count 292 K/UL (150-450) Mean Platelet Volume 6.8 FL (6.5-10.1) Neutrophils (%) (Auto) 60.3 % (45.0-75.0) Lymphocytes (%) (Auto) 29.1 % (20.0-45.0) Monocytes (%) (Auto) 6.1 % (1.0-10.0) Eosinophils (%) (Auto) 3.7 % (0.0-3.0) H Basophils (%) (Auto) 0.9 % (0.0-2.0) Sodium Level 147 MMOL/L (136-145) H Potassium Level 3.6 MMOL/L (3.5-5.1) Chloride Level 112 MMOL/L (98-107) H Carbon Dioxide Level 27 MMOL/L (21-32) Anion Gap 8 mmol/L (5-15) Blood Urea Nitrogen 6 mg/dL (7-18) L Creatinine 0.7 MG/DL (0.55-1.30) Estimat Glomerular Filtration Rate mL/min (>60) Glucose Level 104 MG/DL (74-106) Calcium Level 9.1 MG/DL (8.5-10.1) Plan Problems: (1) Open abdominal wall wound Assessment & Plan: wound well healing s/p g tube / PEG. okay to use. (2) Severe malnutrition Assessment & Plan: will have dietary see patient for nutritional optimization will follow labs ordered will need extra for wound healing (3) Ulcer of left lower leg Assessment & Plan: s/p excision of necrotic cap wound bed washed and now clean with healthy tissue cont with dressings will need outpatient care/follow up Martin Gordon Jun 26, 2018 10:17
--- NOTE | 2018-06-26 10:20 | Nephrology Progress Note ---
Assessment/Plan Problem List: (1) Hypernatremia (2) Dehydration (3) Hypokalemia (4) Seizure disorder, complex partial (5) Urinary tract infection Assessment HyperNatremia: Free water deficit / Dehydration improving UTI HyperCalcemia HypoAlbuminemia Sz disorder Dementia Allergy to ASA and YVONNE inhibitors HTN GT out Plan PEG in now- D5W Monitor Lytes- antibiotics Keppra to GT K and Phos IV Per orders ? DC Subjective ROS Limited/Unobtainable: No Objective Objective Last 24 Hour Vital Signs Date Time Temp Pulse Resp B/P (MAP) Pulse Ox O2 Delivery O2 Flow Rate FiO2 06/26/18 08:01 84 18 Room Air 21 06/26/18 04:39 99.3 85 20 149/79 (102) 99 06/26/18 00:17 99.3 84 20 148/80 (102) 96 06/25/18 21:06 Room Air 06/25/18 20:23 99.1 81 20 151/73 (99) 100 06/25/18 19:42 85 18 Room Air 21 06/25/18 16:00 98.1 84 20 148/73 (98) 99 06/25/18 12:00 99.0 84 20 143/73 (96) 98 Intake and Output 06/25/18 06/26/18 19:00 07:00 Intake Total 1150 ml 1380 ml Output Total 600 ml 300 ml Balance 550 ml 1080 ml Free Water 240 ml IV Total 310 ml 600 ml Tube Feeding 600 ml 660 ml Blood Product 120 ml Output Urine Total 600 ml 300 ml Laboratory Tests 06/26/18 05:20: White Blood Count 10.0, Red Blood Count 4.03L, Hemoglobin 10.4L, Hematocrit 33.8L, Mean Corpuscular Volume 84, Mean Corpuscular Hemoglobin 25.8L, Mean Corpuscular Hemoglobin Concent 30.8L, Red Cell Distribution Width 16.3H, Platelet Count 292, Mean Platelet Volume 6.8, Neutrophils (%) (Auto) 60.3, Lymphocytes (%) (Auto) 29.1, Monocytes (%) (Auto) 6.1, Eosinophils (%) (Auto) 3.7H, Basophils (%) (Auto) 0.9, Sodium Level 147H, Potassium Level 3.6, Chloride Level 112H, Carbon Dioxide Level 27, Anion Gap 8, Blood Urea Nitrogen 6L, Creatinine 0.7, Estimat Glomerular Filtration Rate , Glucose Level 104, Calcium Level 9.1 Height (Feet): 5 Height (Inches): 5.00 Weight (Pounds): 212 General Appearance: no apparent distress Respiratory/Chest: lungs clear Abdomen: soft Objective no other changes Gonsalo Ortiz MD Jun 26, 2018 10:20
[2018-06-26] MEDS ORDERED: CEFEPIME-D2 GM/50 ML IVPB (10:36)
[2018-06-26] MEDS ORDERED: METRONIDAZ500 MG/100 IVPB (10:36)
[2018-06-26] MEDS ORDERED: FAMOTIDINE20 MG GT (10:37)
[2018-06-26] MEDS ORDERED: KEPPRA1000 MG GT (10:39)
[2018-06-26] MEDS ORDERED: NAMENDA5 MG GT (10:40)
[2018-06-26] MEDS ORDERED: OLANZAPINE2.5 MG GT (10:42)
[2018-06-26] MEDS ORDERED: MIRALAX17 G2 GT (10:43)
[2018-06-26] MEDS ORDERED: RESTORIL15 MG GT (10:44)
[2018-06-26 12:00] VITALS: BP 146/61
--- NOTE | 2018-06-26 12:00 | Progress Note ---
DATE: 06/26/2018 SUBJECTIVE: The patient is a 72-year-old female patient with failure to thrive. She states that she is 72 years old. She has failure to thrive. She has altered mental status as well, that is why her attending has requested daily psychiatric consultation. I saw and assessed this patient at bedside. She is confused, disorganized, mood labile. MENTAL STATUS EXAMINATION: The patient is a 72-year-old female. Appearance is disheveled. Attitude, irritable and agitated. Affect, guarded and restricted. Intellect poor. Mood depressed and anxious. Motor activity, psychomotor agitation. Attention span is poor. Orientation x2. Speech is pressured. Thought process, disorganized and illogical. Thought content is auditory hallucinations and paranoid delusions. Insight and judgment is poor. DIAGNOSIS: Major depression with psychotic features, rule out pseudodementia. PLAN: Treat with Namenda 5 mg twice a day and Zyprexa mg at bedtime. Provided with 20 minutes of cognitive behavioral therapy to help her identify automatic negative thoughts and help to convert her negative thoughts to more positive thinking. Chart reviewed. Discussed with staff. Seen and assessed in her room. Pearl Cunningham M.D. DR: Kermit JOB#: [id number] CC:
[2018-06-26 16:00] VITALS: BP 117/78
--- NOTE | 2018-06-26 17:39 | General Progress Note ---
Assessment/Plan Assessment/Plan Assessment Problems: (1) At high risk for aspiration ICD Codes: Z91.89 - Other specified personal risk factors, not elsewhere classified SNOMED: 167820454 (2) Seizure disorder, complex partial ICD Codes: G40.209 - Seizure disorder, complex partial SNOMED: 027621952 (3) Encounter for PEG (percutaneous endoscopic gastrostomy) ICD Codes: Z43.1 - Encounter for attention to gastrostomy SNOMED: 537215882, 327967712 (4) FTT (failure to thrive) in adult ICD Codes: R62.7 - Adult failure to thrive SNOMED: 111444036 (5) Dysphagia ICD Codes: R13.10 - Dysphagia, unspecified SNOMED: 56579487, 747273700 (6) Severe malnutrition ICD Codes: E43 - Unspecified severe protein-calorie malnutrition SNOMED: 75216917 (7) Dehydration ICD Codes: E86.0 - Dehydration SNOMED: 41210186 Status: stable Assessment/Plan SUMMARY FINDINGS: Status post successful PEG placement. RECOMMENDATIONS: GTFs per RD to goal IV hydration bowel regime H2B fu labs Subjective Allergies: Coded Allergies: ASPIRIN (Verified Allergy, Unknown, 06/21/18) LOSARTAN (Verified Allergy, Unknown, 06/21/18) Subjective no compliant no events overnight Objective Last 24 Hour Vital Signs Date Time Temp Pulse Resp B/P (MAP) Pulse Ox O2 Delivery O2 Flow Rate FiO2 06/26/18 12:00 98.2 86 24 146/61 (89) 100 06/26/18 09:00 Room Air 06/26/18 08:01 84 18 Room Air 21 06/26/18 08:00 98.4 84 24 128/56 (80) 99 06/26/18 04:39 99.3 85 20 149/79 (102) 99 06/26/18 00:17 99.3 84 20 148/80 (102) 96 06/25/18 21:06 Room Air 06/25/18 20:23 99.1 81 20 151/73 (99) 100 06/25/18 19:42 85 18 Room Air 21 Intake and Output 06/25/18 06/26/18 19:00 07:00 Intake Total 1150 ml 1380 ml Output Total 600 ml 300 ml Balance 550 ml 1080 ml Free Water 240 ml IV Total 310 ml 600 ml Tube Feeding 600 ml 660 ml Blood Product 120 ml Output Urine Total 600 ml 300 ml Laboratory Tests 06/26/18 05:20: White Blood Count 10.0, Red Blood Count 4.03L, Hemoglobin 10.4L, Hematocrit 33.8L, Mean Corpuscular Volume 84, Mean Corpuscular Hemoglobin 25.8L, Mean Corpuscular Hemoglobin Concent 30.8L, Red Cell Distribution Width 16.3H, Platelet Count 292, Mean Platelet Volume 6.8, Neutrophils (%) (Auto) 60.3, Lymphocytes (%) (Auto) 29.1, Monocytes (%) (Auto) 6.1, Eosinophils (%) (Auto) 3.7H, Basophils (%) (Auto) 0.9, Sodium Level 147H, Potassium Level 3.6, Chloride Level 112H, Carbon Dioxide Level 27, Anion Gap 8, Blood Urea Nitrogen 6L, Creatinine 0.7, Estimat Glomerular Filtration Rate , Glucose Level 104, Calcium Level 9.1 Height (Feet): 5 Height (Inches): 5.00 Weight (Pounds): 212 Objective Obese AA woman NCAT supple CTA RRR abd soft ND, (+) G no edema Feli Maya MD Jun 26, 2018 17:39
[2018-06-26 20:00] VITALS: BP 146/79
[2018-06-26] MEDS: OLANZapine 2.5mg tab GT SCH (21:15)
[2018-06-27] VITALS: BP 164/84
[2018-06-27 00:32] VITALS: BP 148/77
[2018-06-27 03:56] VITALS: BP 133/80
[2018-06-27 08:00] VITALS: BP 133/70
--- NOTE | 2018-06-27 08:13 | General Progress Note ---
Assessment/Plan Problem List: (1) Sepsis ICD Codes: A41.9 - Sepsis, unspecified organism SNOMED: 67719685 (2) Leukocytosis ICD Codes: D72.829 - Elevated white blood cell count, unspecified SNOMED: 582079913, 274094070 (3) Dehydration ICD Codes: E86.0 - Dehydration SNOMED: 90375008 (4) Attention to G-tube ICD Codes: Z43.1 - Encounter for attention to gastrostomy SNOMED: 605819888, 307269692 (5) Acute encephalopathy ICD Codes: G93.40 - Encephalopathy, unspecified SNOMED: 89125952, 275669663 (6) Urinary tract infection ICD Codes: N39.0 - Urinary tract infection, site not specified SNOMED: 05017087 Status: stable, progressing Assessment/Plan ot pt diet wound care abx adv feed as bethany cbc bmp am dc to snf if clear Subjective Constitutional: Reports: weakness Allergies: Coded Allergies: ASPIRIN (Verified Allergy, Unknown, 06/21/18) LOSARTAN (Verified Allergy, Unknown, 06/21/18) All Systems: reviewed and negative except above Subjective calm in bed sleepy Objective Last 24 Hour Vital Signs Date Time Temp Pulse Resp B/P (MAP) Pulse Ox O2 Delivery O2 Flow Rate FiO2 06/27/18 07:11 86 18 Room Air 21 06/27/18 03:56 98.7 86 20 133/80 (97) 99 06/27/18 00:32 148/77 (100) 06/27/18 00:00 99.0 86 20 164/84 (110) 100 06/26/18 21:00 Room Air 06/26/18 20:59 88 16 Room Air 21 06/26/18 20:00 99.0 81 20 146/79 (101) 100 06/26/18 16:00 99.5 89 24 117/78 (91) 100 06/26/18 12:00 98.2 86 24 146/61 (89) 100 06/26/18 09:00 Room Air Intake and Output 06/26/18 06/27/18 19:00 07:00 Intake Total 1305 ml 1295 ml Output Total 750 ml 450 ml Balance 555 ml 845 ml Free Water 120 ml 60 ml IV Total 465 ml 575 ml Tube Feeding 720 ml 660 ml Output Urine Total 750 ml 450 ml # Voids 1 Height (Feet): 5 Height (Inches): 5.00 Weight (Pounds): 212 General Appearance: lethargic EENT: normal ENT inspection Neck: normal alignment Cardiovascular: normal rate Respiratory/Chest: chest wall non-tender, lungs clear, normal breath sounds Abdomen: normal bowel sounds, non tender, soft Extremities: normal inspection Edema: no edema noted Arm (L), no edema noted Arm (R), no edema noted Leg (L), no edema noted Leg (R), no edema noted Pedal (L), no edema noted Pedal (R), no edema noted Generalized Neurologic: motor weakness Skin: normal pigmentation, warm/dry Hong Caballero DO Jun 27, 2018 08:13
[2018-06-27] MEDS: Memantine 5 MG TAB GT SCH (08:44)
[2018-06-27] MEDS: levETIRAcetam 500mg/5ml Liquid GT SCH (08:45)
[2018-06-27] MEDS: Cefepime HCl 2 GM in D5W 110 ML IV SCH (08:45)
[2018-06-27] MEDS: Heparin 5000 units/ml inj SUBQ SCH (08:46)
--- NOTE | 2018-06-27 13:53 | Nephrology Progress Note ---
Assessment/Plan Problem List: (1) Hypernatremia (2) Dehydration (3) Hypokalemia (4) Seizure disorder, complex partial (5) Urinary tract infection Assessment HyperNatremia: Free water deficit / Dehydration improving UTI HyperCalcemia HypoAlbuminemia Sz disorder Dementia Allergy to ASA and YVONNE inhibitors HTN GT out Plan PEG in now- D5W Monitor Lytes- antibiotics Keppra to GT K and Phos IV Per orders ? DC Subjective ROS Limited/Unobtainable: No Constitutional: Reports: malaise Objective Objective Last 24 Hour Vital Signs Date Time Temp Pulse Resp B/P (MAP) Pulse Ox O2 Delivery O2 Flow Rate FiO2 06/27/18 09:00 Room Air 06/27/18 08:00 98.5 85 21 133/70 (91) 06/27/18 07:11 86 18 Room Air 21 06/27/18 03:56 98.7 86 20 133/80 (97) 99 06/27/18 00:32 148/77 (100) 06/27/18 00:00 99.0 86 20 164/84 (110) 100 06/26/18 21:00 Room Air 06/26/18 20:59 88 16 Room Air 21 06/26/18 20:00 99.0 81 20 146/79 (101) 100 06/26/18 16:00 99.5 89 24 117/78 (91) 100 Intake and Output 06/26/18 06/27/18 19:00 07:00 Intake Total 1305 ml 1295 ml Output Total 750 ml 450 ml Balance 555 ml 845 ml Free Water 120 ml 60 ml IV Total 465 ml 575 ml Tube Feeding 720 ml 660 ml Output Urine Total 750 ml 450 ml # Voids 1 Height (Feet): 5 Height (Inches): 5.00 Weight (Pounds): 212 General Appearance: no apparent distress Cardiovascular: normal rate Respiratory/Chest: decreased breath sounds Abdomen: soft Objective no other changes Gonsalo Ortiz MD Jun 27, 2018 13:53
--- NOTE | 2018-06-27 16:15 | Progress Note ---
DATE: 06/27/2018 SUBJECTIVE: This is a 72-year-old female patient with failure to thrive. She continues to have altered mental status and some confusion, some disorganized thought process and mood lability. She has altered mental status, depression and poor insight. MENTAL STATUS EXAMINATION: The patient is a 72-year-old female. Appearance is disheveled. Attitude, irritable and agitated. Affect guarded and restricted. Intellect is poor. Mood depressed and anxious. Motor activity, psychomotor agitation. Attention span is poor. Orientation x2. Speech is low volume and slurred. Thought process disorganized and illogical. Thought content, auditory hallucinations, paranoia. Insight and judgement is poor. DIAGNOSIS: Major depression with psychotic features, rule out pseudodementia. PLAN: Treat her with Zyprexa 2.5 mg at bedtime to stabilize her mood and increase her appetite and also Namenda 5 mg twice a day to prevent any further decline in cognition. A 20 minutes of cognitive behavioral therapy provided to help this patient identify automatic negative thoughts and help to convert those negative thoughts to more positive thinking. Chart reviewed. Discussed with staff. Seen and assessed at bedside. Pearl Cunningham M.D. DR: Kermit JOB#: [id number] CC:
--- NOTE | 2018-06-27 21:21 | General Progress Note ---
Assessment/Plan Assessment/Plan Assessment Problems: (1) At high risk for aspiration ICD Codes: Z91.89 - Other specified personal risk factors, not elsewhere classified SNOMED: 247859987 (2) Seizure disorder, complex partial ICD Codes: G40.209 - Seizure disorder, complex partial SNOMED: 859127678 (3) Encounter for PEG (percutaneous endoscopic gastrostomy) ICD Codes: Z43.1 - Encounter for attention to gastrostomy SNOMED: 632384125, 854531843 (4) FTT (failure to thrive) in adult ICD Codes: R62.7 - Adult failure to thrive SNOMED: 514832138 (5) Dysphagia ICD Codes: R13.10 - Dysphagia, unspecified SNOMED: 33111962, 344486820 (6) Severe malnutrition ICD Codes: E43 - Unspecified severe protein-calorie malnutrition SNOMED: 30217294 (7) Dehydration ICD Codes: E86.0 - Dehydration SNOMED: 72435626 Status: stable Assessment/Plan SUMMARY FINDINGS: Status post successful PEG placement. RECOMMENDATIONS: GTFs per RD to goal GT care IV hydration bowel regime H2B fu labs d/c planning Subjective Allergies: Coded Allergies: ASPIRIN (Verified Allergy, Unknown, 06/21/18) LOSARTAN (Verified Allergy, Unknown, 06/21/18) Subjective no compliant no events overnight Objective Last 24 Hour Vital Signs Date Time Temp Pulse Resp B/P (MAP) Pulse Ox O2 Delivery O2 Flow Rate FiO2 06/27/18 09:00 Room Air 06/27/18 08:00 98.5 85 21 133/70 (91) 06/27/18 07:11 86 18 Room Air 21 06/27/18 03:56 98.7 86 20 133/80 (97) 99 06/27/18 00:32 148/77 (100) 06/27/18 00:00 99.0 86 20 164/84 (110) 100 Intake and Output 06/26/18 06/27/18 19:00 07:00 Intake Total 1305 ml 1295 ml Output Total 750 ml 450 ml Balance 555 ml 845 ml Free Water 120 ml 60 ml IV Total 465 ml 575 ml Tube Feeding 720 ml 660 ml Output Urine Total 750 ml 450 ml # Voids 1 Height (Feet): 5 Height (Inches): 5.00 Weight (Pounds): 212 Objective Obese AA woman NCAT supple CTA RRR abd soft ND, (+) G no edema Feli Maya MD Jun 27, 2018 21:21
--- NOTE | 2018-06-29 11:31 | Discharge Summary ---
Discharge Summary Discharge Summary _ DATE OF ADMISSION: 06/21/2018 DATE OF DISCHARGE: 06/27/2018 REASON FOR ADMISSION: 72 years old female, [facility], with past medical history of hypertension , diabetes, Alzheimer dementia ,seizure disorder, recent cellulitis of abdominal wall ,status post removal of G-tube, dysphagia, was sent from the [facility] for possible G-tube placement. Patient was unable to take oral foods and was sent for evaluation and possible placement of G-tube. Upon evaluation vital signs reveal elevated blood pressure 143/108 , patient required placement of supplemental oxygen to keep pulse oximetry above 92%. Laboratory workup revealed leukocytosis WBC 15.8 , stable hemoglobin and hematocrit. Sodium 172 ,potassium 3.2. BUN 22 creatinine 1.2, stable LFT. Urinalysis with pyuria and moderate bacteria. Chest X-ray revealed no acute cardiopulmonary pathology. Patient admitted with diagnoses of acute encephalopathy, electrolyte abnormality (hypernatremia, hypokalemia,) , aspiration risk, leukocytosis , probably urinary tract infection, dysphagia, seizure disorder, complex partialseizures, CONSULTANTS: pulmonary Dr. Tang ID specialist Dr. Phelps GI specialist Dr. Sanchez baker laboratory Dr. Ortiz surgery Dr. Gordon psychiatrist Dr. Cunningham [facility] COURSE: Patient admitted and started on IV fluids. Patient was pancultured and started on broad spectrum antibiotics as per ID specialist recommendations. Supplemental oxygen titrated as needed to keep pulse oximetry above 92% , pulmonary toilet provided as needed. Renal parameters and electrolytes were closely monitored ; electrolytes were corrected as needed ( potassium and magnesium). Nephrotoxins were avoided. Hypernatremia was likely secondary to free water deficit , improved. Prior to discharge sodium from 172 down to 147. BUN from 22 down to 6 and creatinine from 1.2 down to 0.7 . Infectious disease specialist closely followed . Initial leukocytosis and fever resolved. Blood culture were negative. Urine culture revealed 40-50 K VRE, colonizer as per ID. Patient was followed up with the chest x-ray. Patient likely had Aspiration pneumonia and was on antibiotics with Flagyl and cefepime . Antibiotic to be completed at the [facility] as per ID specialist recommendations. Video swallow evaluation was positive for aspiration of thin liquid barium and penetration of nectar thick liquid barium. Subsequently patient undergone upper endoscopy with placement of PEG 06/24 Strict aspiration /reflux precautions were maintained . G-tube site care provided. Abdominal binder was kept on. Patient slowly started on tube feeding and advanced as tolerated as per wood barrel reconditioner recommendations. At the same day as upper endoscopy was performed , patient undergone excisional debridement of left lateral lower extremity unstable eschar on decubitus ulcer. Wound care provided as per surgeon recommendation , and to be continued at the facility. Blood pressure was closely monitored and managed . Hemoglobin A1c 5.0. Psychiatrist optimized psychiatric medication regimen. Supportive care provided. Bowel regimen instituted. DVT and GI prophylaxis provided. Seizure precautions maintained. Keppra was continued. No evidence of seizure activity while in the hospital. Patient clinically improved : leukocytosis and fever resolved, electrolytes stable, s/p PEG placement, tolerated feeding. Patient was ready for transfer back to [facility] facility for continuation of care. FINAL DIAGNOSES: Aspiration pneumonia Acute encephalopathy Electrolyte abnormality (hypernatremia, hypokalemia) Dehydration Leukocytosis-resolved Dysphagia Status post upper endoscopy with PEG placement 06/24/18 Left lateral distal lower extremity unstable eschar on decubitus ulcer Status post 06/24 excisional debridement of the left lateral distal lower extremity unstable eschar on decubitus ulcer 4 cm x 3 cm Seizure disorder, complex partial Severe malnutrition Major depression with psychotic features DISCHARGE MEDICATIONS: See Medication Reconciliation list. DISCHARGE INSTRUCTIONS: Patient was discharged to the [facility]. Follow up with medical doctor at the facility. I have been assigned to dictate discharge summary for this account. I was not involved in the patient's management. Debi Sprague NP Jun 29, 2018 11:31
== END 2018-06-27 13:51 | DRG 137 ==
LOC: EDUNIT# 00:19 → EDBD 00:19 → EMR 00:54 → EDBEDREQ 01:19 → 4E 04:42 → EDBEDREQ 05:00
PROC: 0JBR0ZZ Excision of Left Foot Subcutaneous Tissue and Fascia, Open Approach (ICD-10-PCS; principal; 2018-06-24 09:30)
PROC: 0DH63UZ Insertion of Feeding Device into Stomach, Percutaneous Approach (ICD-10-PCS; 2018-06-24 09:30)
DX: J69.0 Pneumonitis due to inhalation of food and vomit (principal); E43 Unspecified severe protein-calorie malnutrition; G93.40 Encephalopathy, unspecified; E87.0 Hyperosmolality and hypernatremia; F32.3 Major depressive disorder, single episode, severe with psychotic features; R13.10 Dysphagia, unspecified; G40.209 Localization-related (focal) (partial) symptomatic epilepsy and epileptic syndromes with complex partial seizures, not intractable, without status epilepticus; G30.9 Alzheimer's disease, unspecified; L89.629 Pressure ulcer of left heel, unspecified stage; F02.80 Dementia in other diseases classified elsewhere, unspecified severity, without behavioral disturbance, psychotic disturbance, mood disturbance, and anxiety; E11.9 Type 2 diabetes mellitus without complications; E87.1 Hypo-osmolality and hyponatremia; I10 Essential (primary) hypertension; E86.0 Dehydration; Z88.8 Allergy status to other drugs, medicaments and biological substances; Z88.6 Allergy status to analgesic agent; N39.0 Urinary tract infection, site not specified; F20.0 Paranoid schizophrenia; R62.7 Adult failure to thrive
CPT/HCPCS: 36415; 71045; 74018; 74230; 80048; 80053; 80061; 80076; 81003; 82550; 82607; 82746; 82977; 83036; 83735; 83880; 84100; 84443; 84484; 84550; 85025; 85610; 85651; 85730; 86140; 86850; 86900; 86901; 87040; 87081; 87086; 87181; 94003; 94150; 94664; 97803; 99285

== ENCOUNTER 2018-07-13 12:38 | Inpatient (IN) | payer MEDICARE, OTHER ==
[~2018-07-13] VITALS: Ht 160 cm; Wt 108.1 kg
[2018-07-13] VITALS (15 sets, daily range): BP systolic 92–167; BP diastolic 41–82
[~2018-07-13 12:38] MED LIST changes: +ACETAMINOPHEN325 M1 GT; +AMLODIPINE-ATO1 EAC1 ORAL; +BISACODYL5 MG GT; +CATAPRES0.1 MG GT; +CEFEPIME-D2 GM/50 ML IVPB; +DUONEB 0.5-3(2.53 ML HHN; +FAMOTIDINE20 MG GT; +GLUCERNA 1.5 C237 ML GT; +HUMALOG 75/255 UNIT1 SUBQ; +HYDRALAZINE HCL50 MG GT; +KEPPRA1000 MG GT; +LEVSIN0.125 MG SL; +LORAZEPAM0.5 MG SL; +METOPROLOL HCT GT; +METRONIDAZ500 MG/100 IVPB; +MIRALAX17 G2 GT; +MORPHINE S10 MG/5 ML ORAL; +NAMENDA5 MG GT; +OLANZAPINE2.5 MG GT; +PRO-STAT LIQUID30 ML GT; +RESTORIL15 MG GT; +ZOFRAN4 M3 SL
[2018-07-13] MEDS ORDERED: Acetaminophen 650 MG SUPP RECTAL ONE (13:00)
[2018-07-13 13:18] LABS: EOSINOPHILS % (AUTO) 1.6 % (0.0-3.0); HEMATOCRIT 38.3 % (37.0-47.0); HEMOGLOBIN 11.9 G/DL (12.0-16.0); LYMPHOCYTES % (AUTO) 26.3 % (20.0-45.0); MEAN CORPUSCULAR VOLUME 85 FL (80-99); MONOCYTES % (AUTO) 4.1 % (1.0-10.0); PLATELET COUNT 310 K/UL (150-450); RED CELL DISTRIBUTION WIDTH 15.7 % (11.6-14.8); WHITE BLOOD COUNT 17.3 K/UL (4.8-10.8)
[2018-07-13 13:20] LABS: APPEARANCE,URINE TURBID; BILIRUBIN, URINE NEGATIVE (NEGATIVE); GLUCOSE, URINE (UA) NEGATIVE (NEGATIVE); KETONES,URINE NEGATIVE (NEGATIVE); LEUKOCYTE ESTERASE ,URINE 3+ (NEGATIVE); NITRITE,URINE NEGATIVE (NEGATIVE); PH,URINE 8 (4.5-8.0); PROTEIN,URINE 4+ (NEGATIVE); UROBILINOGEN,URINE 1 MG/DL (0.0-1.0)
[2018-07-13 13:21] LABS: COLOR,URINE YELLOW
[2018-07-13 13:24] LABS: INR 1.2 (0.9-1.1)
[2018-07-13 13:29] LABS: ANION GAP 9 mmol/L (5-15); BLOOD UREA NITROGEN 23 mg/dL (7-18); CALCIUM 9.5 MG/DL (8.5-10.1); CARBON DIOXIDE 29 MMOL/L (21-32); CHLORIDE 114 MMOL/L (98-107); CREATININE 0.8 MG/DL (0.55-1.30); POTASSIUM 4.2 MMOL/L (3.5-5.1); SODIUM 152 MMOL/L (136-145)
[2018-07-13 13:43] LABS: ALANINE AMINOTRANSFERASE 18 U/L (12-78); ALBUMIN 2.3 G/DL (3.4-5.0); ALBUMIN/GLOBULIN RATIO 0.4 (1.0-2.7); ALKALINE PHOSPHATASE 62 U/L (46-116); ASPARTATE AMINO TRANSFERASE 24 U/L (15-37); BILIRUBIN,TOTAL 0.3 MG/DL (0.2-1.0); CKMB < 0.5 NG/ML (0.0-3.6); CREATINE KINASE 148 U/L (26-308); PHOSPHORUS 2.6 MG/DL (2.5-4.9)
[2018-07-13] MEDS ORDERED: Vancomycin 1.5gm/D5W 250ml 250 ML IVPB ONE (14:00)
[2018-07-13] MEDS ORDERED: Piperacillin/Tazobactam 3.375 GM in NS 110 ML IVPB ONE (14:00)
[2018-07-13] MEDS ORDERED: Adenosine 6mg/2ml Inj ONE (14:02)
[2018-07-13] MEDS ORDERED: Adenosine 6mg/2ml Inj IVP ONE (14:04)
--- NOTE | 2018-07-13 14:50 | Diagnostic Imaging Report ---
Indication: Shortness of breath Technique: One view of the chest Comparison: 06/21/2018 Findings: Opacity at the right lung base may reflect infiltrate or atelectasis involving the right middle and/or lower lobe. The remainder of the lungs and pleural spaces are clear. The heart is borderline enlarged. The aorta is tortuous and ectatic Impression: Suspect right basilar infiltrate and/or atelectasis Borderline cardiac megaly
[2018-07-13] MEDS ORDERED: HEPARIN SO5000 UNIT2 SUBQ (14:54)
[2018-07-13] MEDS ORDERED: MIRALAX17 G2 ORAL (14:54)
[2018-07-13] MEDS ORDERED: METOPROLOL TAR100 M1 ORAL (14:54)
[2018-07-13] MEDS ORDERED: DULCOLAX10 MG RC (14:54)
[2018-07-13] MEDS ORDERED: MORPHINE SL (14:54)
[2018-07-13] MEDS ORDERED: AMLODIPINE BESYL5 MG ORAL (14:54)
[2018-07-13] MEDS ORDERED: KEPPRA LIQ100 MG/1 M ORAL (14:54)
--- NOTE | 2018-07-13 15:05 | Emergency Room Report ---
History of Present Illness General Chief Complaint: Altered Level of Consciousness Source: Medical Record, EMS Present Illness HPI Patient is 72-year-old female presented after increased shortness of breath and agitation. Patient gradual onset of symptoms. Patient had been noted to have increased respiratory rate. Patient brought in by EMS. Patient was noted to have a high fever. Patient recent hospitalization after abdomen wall had become infected.Patient is followed by Dr. Hong Caballero. Allergies: Coded Allergies: ASPIRIN (Verified Allergy, Unknown, 06/21/18) LOSARTAN (Verified Allergy, Unknown, 06/21/18) Patient History Past Medical History: see triage record Last Menstrual Period: na Reviewed Nursing Documentation: PMH: Agreed; PSxH: Agreed Nursing Documentation-PMH Past Medical History: No History, Except For Hx Hypertension: Yes Hx COPD: Yes Hx Diabetes: Yes Hx Cancer: No Hx Gastrointestinal Problems: Yes - cellulitis abdominal wall, dysphagia, aphasia Hx Neurological Problems: Yes - alzeimer's disease Hx Dementia: Yes Hx Seizures: Yes Review of Systems All Other Systems: negative except mentioned in HPI Physical Exam Vital Signs Date Time Temp Pulse Resp B/P (MAP) Pulse Ox O2 Delivery O2 Flow Rate FiO2 07/13/18 12:27 100.4 120 36 169/90 98 Room Air 07/13/18 13:10 30 07/13/18 13:10 15.0 Sp02 EP Interpretation: reviewed, normal General Appearance: obese, Chronically Ill Head: atraumatic ENT: normal voice, dry mucus membranes Neck: supple, no bony tend, limited range of motion Respiratory: no retraction, respiratory distress, decreased breath sounds, wheezing Cardiovascular #1: tachycardia, edema Gastrointestinal: normal inspection, normal bowel sounds, non tender, soft, no guarding, no hernia Genitourinary: normal inspection, no CVA tenderness Musculoskeletal: normal inspection, back normal, decreased range of motion Neurologic: normal inspection, alert, responsive Psychiatric: normal inspection, judgement/insight normal, mood/affect normal Skin: normal inspection, normal color, no rash Procedures Critical Care Time Critical Care Time Patient had a critical medical condition which untreated could potentially result in life or limb threatening injury. Total critical care time excluding procedures approximately 45 minutes. Medical Decision Making Diagnostic Impression: Primary Impression: Respiratory failure Additional Impressions: Sepsis Supraventricular arrhythmia ER Course Patient presented for shortness of breath.Differential included but was not limited to anemia, pneumonia, pneumothorax, myocardial infarction, pericardial effusion, congestive heart failure, acidosis. Because of complexity of patient' s case laboratory testing and imaging studies were ordered. The patient was noted to have initial EKG which showed sinus tachycardia. The patient was suctioned by respiratory therapy. She subsequently started on BiPAP.Patient was subsequently developed supraventricular tachycardia with a rate approximately 190. The patient was converted with adenosine 6 mg IV. The patient started on IV fluids as well as IV antibiotics. The patient appears to have the some evidence of urinary tract infection. Patient was noted to have the prior surgical incisions. Dr. Hong Caballero was contacted for inpatient management. Labs Test 07/13/18 12:40 07/13/18 14:12 White Blood Count 17.3 K/UL (4.8-10.8) Red Blood Count 4.50 M/UL (4.20-5.40) Hemoglobin 11.9 G/DL (12.0-16.0) Hematocrit 38.3 % (37.0-47.0) Mean Corpuscular Volume 85 FL (80-99) Mean Corpuscular Hemoglobin 26.4 PG (27.0-31.0) Mean Corpuscular Hemoglobin Concent 31.0 G/DL (32.0-36.0) Red Cell Distribution Width 15.7 % (11.6-14.8) Platelet Count 310 K/UL (150-450) Mean Platelet Volume 6.4 FL (6.5-10.1) Neutrophils (%) (Auto) 67.0 % (45.0-75.0) Lymphocytes (%) (Auto) 26.3 % (20.0-45.0) Monocytes (%) (Auto) 4.1 % (1.0-10.0) Eosinophils (%) (Auto) 1.6 % (0.0-3.0) Basophils (%) (Auto) 1.0 % (0.0-2.0) Prothrombin Time 12.4 SEC (9.30-11.50) Prothromb Time International Ratio 1.2 (0.9-1.1) Urine Color Yellow Urine Appearance Turbid Urine pH 8 (4.5-8.0) Urine Specific [place] 1.010 (1.005-1.035) Urine Protein 4+ (NEGATIVE) Urine Glucose (UA) Negative (NEGATIVE) Urine Ketones Negative (NEGATIVE) Urine Blood 5+ (NEGATIVE) Urine Nitrite Negative (NEGATIVE) Urine Bilirubin Negative (NEGATIVE) Urine Urobilinogen 1 MG/DL (0.0-1.0) Urine Leukocyte Esterase 3+ (NEGATIVE) Urine RBC 40-60 /HPF (0 - 2) Urine WBC 10-15 /HPF (0 - 2) Urine Squamous Epithelial Cells Few /LPF (NONE/OCC) Urine Bacteria Many /HPF (NONE) Sodium Level 152 MMOL/L (136-145) Potassium Level 4.2 MMOL/L (3.5-5.1) Chloride Level 114 MMOL/L (98-107) Carbon Dioxide Level 29 MMOL/L (21-32) Anion Gap 9 mmol/L (5-15) Blood Urea Nitrogen 23 mg/dL (7-18) Creatinine 0.8 MG/DL (0.55-1.30) Estimat Glomerular Filtration Rate mL/min (>60) Glucose Level 118 MG/DL (74-106) Lactic Acid Level 1.30 mmol/L (0.4-2.0) Calcium Level 9.5 MG/DL (8.5-10.1) Phosphorus Level 2.6 MG/DL (2.5-4.9) Magnesium Level 2.1 MG/DL (1.8-2.4) Total Bilirubin 0.3 MG/DL (0.2-1.0) Aspartate Amino Transf (AST/SGOT) 24 U/L (15-37) Alanine Aminotransferase (ALT/SGPT) 18 U/L (12-78) Alkaline Phosphatase 62 U/L (46-116) Total Creatine Kinase 148 U/L (26-308) Creatine Kinase MB < 0.5 NG/ML (0.0-3.6) Creatine Kinase MB Relative Index 0.3 Troponin I 0.014 ng/mL (0.000-0.056) Pro-B-Type Natriuretic Peptide 1070 pg/mL (0-125) Total Protein 8.1 G/DL (6.4-8.2) Albumin 2.3 G/DL (3.4-5.0) Globulin 5.8 g/dL Albumin/Globulin Ratio 0.4 (1.0-2.7) Arterial Blood pH 7.480 (7.350-7.450) Arterial Blood Partial Pressure CO2 39.8 mmHg (35.0-45.0) Arterial Blood Partial Pressure O2 69.8 mmHg (75.0-100.0) Arterial Blood HCO3 29.0 mmol/L (22.0-26.0) Arterial Blood Oxygen Saturation 94.2 % (95-100) Arterial Blood Base Excess 5.1 (-2-2) Chris Test Positive EKG Diagnostic Results Rate: tachycardiac Rhythm: NSR ST Segments: no acute changes Chest X-Ray Diagnostic Results Chest X-Ray Diagnostic Results : Chest X-Ray Ordered: Yes Indication: Shortness of Breath EP Interpretation: Yes Interpretation: no consolidation, no effusion, no pneumothorax, no acute cardiopulmonary disease Impression: No acute disease Electronically Signed by: Electronically signed by Dr. Zenon Hu M.D. Last Vital Signs Date Time Temp Pulse Resp B/P (MAP) Pulse Ox O2 Delivery O2 Flow Rate FiO2 07/13/18 14:57 110 07/13/18 14:44 26 100 Facial 15.0 30 07/13/18 14:00 165/72 07/13/18 13:11 103.5 Status: improved Disposition: ADMITTED INPATIENT Condition: Critical Referrals: NON PHYSICIAN (PCP) Zenon Hu MD Jul 13, 2018 15:05
[2018-07-13] MEDS ORDERED: NAMENDA5 MG GT (15:16)
[2018-07-13] MEDS ORDERED: MULTIVITAL GT (15:16)
[2018-07-13] MEDS ORDERED: ZINC SULFATE220 M1 GT (15:16)
[2018-07-13] MEDS ORDERED: VITAMIN C500 M1 GT (15:16)
[2018-07-13] MEDS ORDERED: NITROSTAT0.4 M1 SL (15:16)
--- NOTE | 2018-07-13 16:29 | Cardiac Electrophysiology PN ---
Subjective Subjective [id number] Objective Last 24 Hour Vital Signs Date Time Temp Pulse Resp B/P (MAP) Pulse Ox O2 Delivery O2 Flow Rate FiO2 07/13/18 16:00 100 29 150/82 100 Bi-pap 07/13/18 15:00 101.3 07/13/18 15:00 101.3 106 28 150/77 100 Bi-pap 07/13/18 14:57 110 07/13/18 14:44 108 26 100 Facial 15.0 30 07/13/18 14:30 110 31 167/77 100 Bi-pap 07/13/18 14:06 109 152/75 07/13/18 14:04 198 129/69 07/13/18 14:00 110 36 165/72 100 Bi-pap 07/13/18 13:11 103.5 110 36 115/80 100 Room Air 07/13/18 13:11 110 36 Bi-pap 30 07/13/18 13:10 113 22 100 Facial 15.0 30 07/13/18 13:10 113 22 Bi-pap 30 07/13/18 12:45 30 07/13/18 12:27 100.4 120 36 169/90 98 Room Air Laboratory Tests Test 07/13/18 12:40 07/13/18 14:12 White Blood Count 17.3 K/UL (4.8-10.8) H Red Blood Count 4.50 M/UL (4.20-5.40) Hemoglobin 11.9 G/DL (12.0-16.0) L Hematocrit 38.3 % (37.0-47.0) Mean Corpuscular Volume 85 FL (80-99) Mean Corpuscular Hemoglobin 26.4 PG (27.0-31.0) L Mean Corpuscular Hemoglobin Concent 31.0 G/DL (32.0-36.0) L Red Cell Distribution Width 15.7 % (11.6-14.8) H Platelet Count 310 K/UL (150-450) Mean Platelet Volume 6.4 FL (6.5-10.1) L Neutrophils (%) (Auto) 67.0 % (45.0-75.0) Lymphocytes (%) (Auto) 26.3 % (20.0-45.0) Monocytes (%) (Auto) 4.1 % (1.0-10.0) Eosinophils (%) (Auto) 1.6 % (0.0-3.0) Basophils (%) (Auto) 1.0 % (0.0-2.0) Prothrombin Time 12.4 SEC (9.30-11.50) H Prothromb Time International Ratio 1.2 (0.9-1.1) H Urine Color Yellow Urine Appearance Turbid Urine pH 8 (4.5-8.0) Urine Specific [place] 1.010 (1.005-1.035) Urine Protein 4+ (NEGATIVE) H Urine Glucose (UA) Negative (NEGATIVE) Urine Ketones Negative (NEGATIVE) Urine Blood 5+ (NEGATIVE) H Urine Nitrite Negative (NEGATIVE) Urine Bilirubin Negative (NEGATIVE) Urine Urobilinogen 1 MG/DL (0.0-1.0) H Urine Leukocyte Esterase 3+ (NEGATIVE) H Urine RBC 40-60 /HPF (0 - 2) H Urine WBC 10-15 /HPF (0 - 2) H Urine Squamous Epithelial Cells Few /LPF (NONE/OCC) Urine Bacteria Many /HPF (NONE) H Sodium Level 152 MMOL/L (136-145) H Potassium Level 4.2 MMOL/L (3.5-5.1) Chloride Level 114 MMOL/L (98-107) H Carbon Dioxide Level 29 MMOL/L (21-32) Anion Gap 9 mmol/L (5-15) Blood Urea Nitrogen 23 mg/dL (7-18) H Creatinine 0.8 MG/DL (0.55-1.30) Estimat Glomerular Filtration Rate mL/min (>60) Glucose Level 118 MG/DL (74-106) H Lactic Acid Level 1.30 mmol/L (0.4-2.0) Calcium Level 9.5 MG/DL (8.5-10.1) Phosphorus Level 2.6 MG/DL (2.5-4.9) Magnesium Level 2.1 MG/DL (1.8-2.4) Total Bilirubin 0.3 MG/DL (0.2-1.0) Aspartate Amino Transf (AST/SGOT) 24 U/L (15-37) Alanine Aminotransferase (ALT/SGPT) 18 U/L (12-78) Alkaline Phosphatase 62 U/L (46-116) Total Creatine Kinase 148 U/L (26-308) Creatine Kinase MB < 0.5 NG/ML (0.0-3.6) Creatine Kinase MB Relative Index 0.3 Troponin I 0.014 ng/mL (0.000-0.056) Pro-B-Type Natriuretic Peptide 1070 pg/mL (0-125) H Total Protein 8.1 G/DL (6.4-8.2) Albumin 2.3 G/DL (3.4-5.0) L Globulin 5.8 g/dL Albumin/Globulin Ratio 0.4 (1.0-2.7) L Arterial Blood pH 7.480 (7.350-7.450) Arterial Blood Partial Pressure CO2 39.8 mmHg (35.0-45.0) Arterial Blood Partial Pressure O2 69.8 mmHg (75.0-100.0) L Arterial Blood HCO3 29.0 mmol/L (22.0-26.0) H Arterial Blood Oxygen Saturation 94.2 % (95-100) L Arterial Blood Base Excess 5.1 (-2-2) H Chris Test Positive Microbiology Date/Time Source Procedure Growth Status 07/13/18 12:40 Nasal Nares Influenza Types A,B Antigen ([place]) - Final Complete Scar Kamara MD Jul 13, 2018 16:29
[2018-07-13] MEDS ORDERED: dilTIAZem HCl 25mg/5ml Inj IV PRN (21:00)
[2018-07-13] MEDS ORDERED: Morphine Sulfate 2mg/ml Inj IVP PRN (21:00)
[2018-07-13] MEDS ORDERED: Acetaminophen 650mg/20.3ml GT PRN (21:00)
[2018-07-13] MEDS ORDERED: Miralax 17gm pkt GT PRN (21:00)
[2018-07-13] MEDS ORDERED: Nitroglycerin Subl 0.4mg tab SL PRN (21:00)
[2018-07-13] MEDS ORDERED: Enalaprilat 2.5mg/2ml Inj IV PRN (21:00)
[2018-07-13] MEDS ORDERED: Albuterol/Ipratropium 3ml neb HHN PRN (21:00)
[2018-07-13] MEDS: Heparin 5000 units/ml inj SUBQ SCH (22:05)
[2018-07-13] MEDS: HydrALAZINE 50mg tab GT SCH (22:10)
[2018-07-13] MEDS: dilTIAZem HCl 30mg tab GT SCH (22:11)
[2018-07-13] MEDS: levETIRAcetam 500mg/5ml Liquid GT SCH (22:15)
[2018-07-14] VITALS (24 sets, daily range): BP systolic 92–125; BP diastolic 44–81
--- NOTE | 2018-07-14 02:45 | Consultation ---
DATE OF CONSULTATION: 07/13/2018 CARDIOLOGY CONSULTATION REASON FOR CONSULTATION: Hypertension and supraventricular tachycardia. HISTORY OF PRESENT ILLNESS: The patient is a 72-year-old lady who was just recently hospitalized after abdominal wall had become infected. The patient has dysphagia, status post PEG placement. The patient was admitted to the hospital for increasing shortness of breath and agitation. In the emergency room, the patient was found to be in supraventricular tachycardia, with 6 mg of IV adenosine. Rate of SVT was around 200 beats per minute. At the time of my evaluation, the patient is still in the emergency room in sinus rhythm. She was put on BiPAP, unable to provide any information. REVIEW OF SYSTEMS: Cannot be obtained. PAST MEDICAL HISTORY: 1. Hypertension. 2. History of CVA. 3. Diabetes. 4. Dysphagia, status post post G tube placement. 5. Seizure disorder. 6. History of debridement of the abdominal wound. FAMILY HISTORY: Noncontributory. SOCIAL HISTORY: She lives in a [facility]. MEDICATIONS: Include Norvasc, clonidine, Humalog, Keppra, metoprolol, and Namenda. PHYSICAL EXAMINATION: VITAL SIGNS: Blood pressure 169/90, pulse is 120, and temperature 100.4. HEAD AND NECK: Shows no JVD. LUNGS: Coarse rhonchi and decreased breath sounds. CARDIOVASCULAR: Shows regular S1 and S2 with no gallop or murmur. ABDOMEN: Status post G-tube. EXTREMITIES: A 1+ pitting edema. LABORATORY AND DIAGNOSTIC DATA: Labs show white count of 17.1, hemoglobin of 11.9, hematocrit 38.3, and platelet count is 310,000. Sodium is 142, potassium 4.2, BUN of 22, creatinine 0.8, and glucose of 118. Troponin is negative. ASSESSMENT AND PLAN: 1. Supraventricular tachycardia, treated with adenosine. I will start the patient on Cardizem 30 mg 3 times daily for hypertension as well as suppression of her arrhythmia. 2. Hypertension. I will discontinue amlodipine. Start the patient on Cardizem. The patient has sepsis. The patient was on metoprolol 100 mg b.i.d. She will be continued on low-dose Cardizem. This patient still had a despite metoprolol. 3. Diabetes, on insulin. 4. Respiratory failure and possible pneumonia, on antibiotic as well as BiPAP. 5. Dysphagia, status post PEG placement. 6. Dementia. 7. History of seizure disorder. 8. Hypernatremia. The patient will be getting IV hydration. 9. The patient has had PEG placement and also sharp excisional debridement of left lateral distal lower extremity on previous admission. Thank you very much for allowing me to participate in the care of this patient. Please do not hesitate to contact me for any questions regarding my evaluation. Scar Kamara M.D. DR: CEZAR JOB#: [id number] CC:
[2018-07-14 05:27] LABS: BASOPHILS % (AUTO) 1.4 % (0.0-2.0); HEMATOCRIT 33.6 % (37.0-47.0); HEMOGLOBIN 10.2 G/DL (12.0-16.0); LYMPHOCYTES % (AUTO) 31.5 % (20.0-45.0); MEAN CORPUSCULAR VOLUME 88 FL (80-99); MONOCYTES % (AUTO) 7.3 % (1.0-10.0); NEUTROPHILS % (AUTO) 57.9 % (45.0-75.0); PLATELET COUNT 380 K/UL (150-450); RED BLOOD COUNT 3.82 M/UL (4.20-5.40)
[2018-07-14] MEDS: HydrALAZINE 50mg tab GT SCH (06:00)
[2018-07-14 06:02] LABS: INR 1.1 (0.9-1.1)
[2018-07-14 06:14] LABS: ANION GAP 8 mmol/L (5-15); BLOOD UREA NITROGEN 26 mg/dL (7-18); CALCIUM 9.3 MG/DL (8.5-10.1); CARBON DIOXIDE 30 MMOL/L (21-32); CHLORIDE 116 MMOL/L (98-107); CHOLESTEROL 168 MG/DL (< 200); CREATININE 0.7 MG/DL (0.55-1.30); HDL CHOLESTEROL 37 MG/DL (40-60); POTASSIUM 3.5 MMOL/L (3.5-5.1); SODIUM 154 MMOL/L (136-145); TRIGLYCERIDES 93 MG/DL (30-150)
[2018-07-14] MEDS: dilTIAZem HCl 30mg tab GT SCH ×3 (06:19→21:53)
[2018-07-14] MEDS: levETIRAcetam 500mg/5ml Liquid GT SCH ×2 (09:23→20:43)
[2018-07-14] MEDS: Heparin 5000 units/ml inj SUBQ SCH ×2 (09:24→20:45)
--- NOTE | 2018-07-14 10:30 | Cardiac Electrophysiology PN ---
Assessment/Plan Assessment/Plan 1. Supraventricular tachycardia, treated with adenosine. No recurrence on Cardizem 30 mg 3 times daily and Metoprolol 100 bid 2. Hypertension. I will discontinue amlodipine a patient is on Cardizem and DC Hydralazine. Continue Cardizem and Metoprolol 3. Diabetes, on insulin. 4. Respiratory failure and possible pneumonia, on antibiotic and off BiPAP. 5. Dysphagia, status post PEG placement. 6. Dementia. 7. History of seizure disorder. 8. Hypernatremia. The patient will be getting IV hydration. 9. S/P sharp excisional debridement of left lateral distal lower extremity on previous admission. DW [employer] Subjective Subjective Transferred to ICu. Now off BIPAP. No SVT overnight. BP running low in 90s Objective Last 24 Hour Vital Signs Date Time Temp Pulse Resp B/P (MAP) Pulse Ox O2 Delivery O2 Flow Rate FiO2 07/14/18 10:00 97.8 65 19 94/45 (61) 100 07/14/18 09:16 96 24 Nasal Cannula 4.0 36 07/14/18 09:16 Nasal Cannula 4.0 36 07/14/18 09:16 96 Nasal Cannula 4.0 36 07/14/18 09:00 68 102/57 07/14/18 09:00 68 102/57 07/14/18 09:00 64 18 95/44 (61) 100 07/14/18 08:00 Non-Rebreather 15.0 07/14/18 08:00 61 18 96/46 (63) 100 07/14/18 08:00 59 07/14/18 07:00 66 20 92/44 (60) 100 07/14/18 06:19 65 98/46 07/14/18 06:04 64 22 98/46 (63) 100 07/14/18 06:00 98/46 07/14/18 06:00 98/46 07/14/18 05:00 97.9 64 19 100/68 (79) 100 07/14/18 04:00 Non-Rebreather 15.0 07/14/18 04:00 63 07/14/18 04:00 63 19 102/45 (64) 100 07/14/18 03:00 62 19 103/50 (67) 100 07/14/18 02:00 60 16 111/54 (73) 100 07/14/18 01:00 98.3 58 22 109/52 (71) 100 07/14/18 00:00 59 07/14/18 00:00 Non-Rebreather 15.0 07/14/18 00:00 95 Non-Rebreather 15.0 100 07/14/18 00:00 Non-Rebreather 15.0 100 07/14/18 00:00 59 18 119/49 (72) 100 07/13/18 23:00 59 22 92/41 (58) 100 07/13/18 22:11 85 109/55 07/13/18 22:10 109/55 07/13/18 22:07 82 109/55 07/13/18 22:00 84 21 109/55 (73) 100 07/13/18 22:00 109/55 07/13/18 21:00 86 21 134/58 (83) 100 07/13/18 20:00 Non-Rebreather 15.0 07/13/18 20:00 97.3 92 22 141/61 (87) 100 07/13/18 19:31 90 07/13/18 19:30 100.3 93 16 108/81 100 Non-Rebreather 10.0 07/13/18 19:29 90 108/80 (89) 07/13/18 19:00 90 23 135/70 100 07/13/18 19:00 102 28 98 Facial 30 07/13/18 18:00 100.3 92 24 136/70 100 Bi-pap 07/13/18 17:05 105 22 100 Facial 15.0 30 07/13/18 17:00 95 25 150/80 97 Bi-pap 07/13/18 16:00 100 29 150/82 100 Bi-pap 07/13/18 15:00 101.3 07/13/18 15:00 101.3 106 28 150/77 100 Bi-pap 07/13/18 14:57 110 07/13/18 14:44 108 26 100 Facial 15.0 30 07/13/18 14:30 110 31 167/77 100 Bi-pap 07/13/18 14:06 109 152/75 07/13/18 14:04 198 129/69 07/13/18 14:00 110 36 165/72 100 Bi-pap 07/13/18 13:11 103.5 110 36 115/80 100 Room Air 07/13/18 13:11 110 36 Bi-pap 30 07/13/18 13:10 113 22 100 Facial 15.0 30 07/13/18 13:10 113 22 Bi-pap 30 07/13/18 12:45 30 07/13/18 12:27 100.4 120 36 169/90 98 Room Air Intake and Output 07/13/18 07/14/18 19:00 07:00 Intake Total 110 ml 310 ml Output Total 830 ml Balance 110 ml -520 ml Intake Oral 0 ml IV Total 110 ml Tube Feeding 310 ml Output Urine Total 830 ml # Voids 1 Laboratory Tests Test 07/13/18 12:40 07/13/18 14:12 07/13/18 22:00 07/14/18 04:10 White Blood Count 17.3 K/UL (4.8-10.8) H 14.0 K/UL (4.8-10.8) H Red Blood Count 4.50 M/UL (4.20-5.40) 3.82 M/UL (4.20-5.40) L Hemoglobin 11.9 G/DL (12.0-16.0) L 10.2 G/DL (12.0-16.0) L Hematocrit 38.3 % (37.0-47.0) 33.6 % (37.0-47.0) L Mean Corpuscular Volume 85 FL (80-99) 88 FL (80-99) Mean Corpuscular Hemoglobin 26.4 PG (27.0-31.0) L 26.8 PG (27.0-31.0) L Mean Corpuscular Hemoglobin Concent 31.0 G/DL (32.0-36.0) L 30.5 G/DL (32.0-36.0) L Red Cell Distribution Width 15.7 % (11.6-14.8) H 16.0 % (11.6-14.8) H Platelet Count 310 K/UL (150-450) 380 K/UL (150-450) Mean Platelet Volume 6.4 FL (6.5-10.1) L 5.2 FL (6.5-10.1) L Neutrophils (%) (Auto) 67.0 % (45.0-75.0) 57.9 % (45.0-75.0) Lymphocytes (%) (Auto) 26.3 % (20.0-45.0) 31.5 % (20.0-45.0) Monocytes (%) (Auto) 4.1 % (1.0-10.0) 7.3 % (1.0-10.0) Eosinophils (%) (Auto) 1.6 % (0.0-3.0) 2.0 % (0.0-3.0) Basophils (%) (Auto) 1.0 % (0.0-2.0) 1.4 % (0.0-2.0) Prothrombin Time 12.4 SEC (9.30-11.50) H 11.8 SEC (9.30-11.50) H Prothromb Time International Ratio 1.2 (0.9-1.1) H 1.1 (0.9-1.1) Urine Color Yellow Urine Appearance Turbid Urine pH 8 (4.5-8.0) Urine Specific [place] 1.010 (1.005-1.035) Urine Protein 4+ (NEGATIVE) H Urine Glucose (UA) Negative (NEGATIVE) Urine Ketones Negative (NEGATIVE) Urine Blood 5+ (NEGATIVE) H Urine Nitrite Negative (NEGATIVE) Urine Bilirubin Negative (NEGATIVE) Urine Urobilinogen 1 MG/DL (0.0-1.0) H Urine Leukocyte Esterase 3+ (NEGATIVE) H Urine RBC 40-60 /HPF (0 - 2) H Urine WBC 10-15 /HPF (0 - 2) H Urine Squamous Epithelial Cells Few /LPF (NONE/OCC) Urine Bacteria Many /HPF (NONE) H Sodium Level 152 MMOL/L (136-145) H 154 MMOL/L (136-145) H Potassium Level 4.2 MMOL/L (3.5-5.1) 3.5 MMOL/L (3.5-5.1) Chloride Level 114 MMOL/L (98-107) H 116 MMOL/L (98-107) H Carbon Dioxide Level 29 MMOL/L (21-32) 30 MMOL/L (21-32) Anion Gap 9 mmol/L (5-15) 8 mmol/L (5-15) Blood Urea Nitrogen 23 mg/dL (7-18) H 26 mg/dL (7-18) H Creatinine 0.8 MG/DL (0.55-1.30) 0.7 MG/DL (0.55-1.30) Estimat Glomerular Filtration Rate mL/min (>60) mL/min (>60) Glucose Level 118 MG/DL (74-106) H 112 MG/DL (74-106) H Lactic Acid Level 1.30 mmol/L (0.4-2.0) Calcium Level 9.5 MG/DL (8.5-10.1) 9.3 MG/DL (8.5-10.1) Phosphorus Level 2.6 MG/DL (2.5-4.9) Magnesium Level 2.1 MG/DL (1.8-2.4) Total Bilirubin 0.3 MG/DL (0.2-1.0) Aspartate Amino Transf (AST/SGOT) 24 U/L (15-37) Alanine Aminotransferase (ALT/SGPT) 18 U/L (12-78) Alkaline Phosphatase 62 U/L (46-116) Total Creatine Kinase 148 U/L (26-308) Creatine Kinase MB < 0.5 NG/ML (0.0-3.6) Creatine Kinase MB Relative Index 0.3 Troponin I 0.014 ng/mL (0.000-0.056) 0.030 ng/mL (0.000-0.056) 0.006 ng/mL (0.000-0.056) Pro-B-Type Natriuretic Peptide 1070 pg/mL (0-125) H 675 pg/mL (0-125) H Total Protein 8.1 G/DL (6.4-8.2) Albumin 2.3 G/DL (3.4-5.0) L Globulin 5.8 g/dL Albumin/Globulin Ratio 0.4 (1.0-2.7) L Arterial Blood pH 7.480 (7.350-7.450) Arterial Blood Partial Pressure CO2 39.8 mmHg (35.0-45.0) Arterial Blood Partial Pressure O2 69.8 mmHg (75.0-100.0) L Arterial Blood HCO3 29.0 mmol/L (22.0-26.0) H Arterial Blood Oxygen Saturation 94.2 % (95-100) L Arterial Blood Base Excess 5.1 (-2-2) H Chris Test Positive Activated Partial Thromboplast Time 28 SEC (23-33) C-Reactive Protein, Quantitative 16.0 mg/dL (0.00-0.90) H Triglycerides Level 93 MG/DL (30-150) Cholesterol Level 168 MG/DL (< 200) LDL Cholesterol 121 mg/dL (<100) H HDL Cholesterol 37 MG/DL (40-60) L Cholesterol/HDL Ratio 4.5 (3.3-4.4) H Thyroid Stimulating Hormone (TSH) 2.275 uiU/mL (0.358-3.740) Free Thyroxine 1.21 NG/DL (0.76-1.46) Microbiology Date/Time Source Procedure Growth Status 07/13/18 12:40 Nasal Nares Influenza Types A,B Antigen ([facility]) - Final Complete 07/13/18 20:30 Rectum Received Objective HEAD AND NECK: No JVD. LUNGS: Coarse rhonchi and decreased breath sounds. CARDIOVASCULAR: Regular S1 and S2 with no gallop or murmur. ABDOMEN: Status post G-tube. EXTREMITIES: 1+ pitting edema. Scar Kamara MD Jul 14, 2018 10:30
--- NOTE | 2018-07-14 11:02 | Consultation ---
History of Present Illness General Date patient seen: Jul 14, 2018 Chief Complaint: Altered Level of Consciousness Present Illness HPI 72-year-old female with hx of CVA, bed bound, aphasic, Gtube feeding, presented to ER by paramedics with CC of shortness of breath and agitation with gradual onset of symptoms and increased respiratory rate. She had a high fever in ER. She had SVT and got Adenosine in ER. Was put on BIPAP in ER and transferred to ICU. She is off BIPAP now and looks more calm. Allergies: Coded Allergies: ASPIRIN (Verified Allergy, Unknown, 06/21/18) LOSARTAN (Verified Allergy, Unknown, 06/21/18) Medication History Scheduled Amino Acids/Protein Hydrolys (Pro-Stat Liquid), 30 ML GT TWICE A DAY, (Reported) Amlodipine Besylate* (Amlodipine Besylate*), 5 MG ORAL DAILY, (Reported) Ascorbic Acid* (Vitamin C*), 500 MG GT TWICE A DAY, (Reported) Clonidine Hcl* (Catapres*), 0.1 MG GT EVERY 8 HOURS, (Reported) Famotidine (Famotidine), 20 MG GT BID, (Reported) Heparin Sod (Porcine) (Heparin Sodium*), 5,000 UNITS SUBQ EVERY 12 HOURS, ( Reported) Hydralazine Hcl* (Hydralazine Hcl*), 50 MG GT EVERY 8 HOURS, (Reported) Ipratropium/Albuterol Sulfate (DuoNeb 0.5-3(2.5)mg/3ml), 3 ML HHN Q4HR, ( Reported) Levetiracetam (Keppra), 5 ML ORAL TWICE A DAY, (Reported) Lorazepam* (Lorazepam*), 0.5 MG SL Q6HR, (Reported) Memantine Hcl* (Namenda*), 5 MG GT TWICE A DAY, (Reported) Memantine Hcl* (Namenda*), 5 MG GT TWICE A DAY, (Reported) Metoprolol Tartrate* (Metoprolol Tartrate*), 100 MG ORAL EVERY 12 HOURS, ( Reported) Metronidazole/Sodium Chloride* (Metronidazole 500 Mg/100 Ml*), 500 MG IVPB EVERY 8 HOURS, (Reported) Montelukast Sodium* (Singulair*), 10 MG ORAL DAILY, (Reported) Olanzapine (Olanzapine), 5 MG GT HS, (Reported) Polyethylene Glycol 3350* (Miralax*), 17 GM ORAL DAILY, (Reported) Prednisolone* (Prelone*), 15 MG ORAL HS, (Reported) Risperidone* (Risperdal*), 2 MG ORAL HS, (Reported) Zinc Sulfate (Zinc Sulfate*), 220 MG GT DAILY, (Reported) [Multivital ], 1 TAB GT DAILY, (Reported) Scheduled PRN Nitroglycerin (Nitrostat), 0.4 MG SL Q5M X3 DOSES PRN for CHEST PAIN, (Reported) Ondansetron* (Zofran*), 4 MG SL Q6H PRN for Nausea & Vomiting, (Reported) Polyethylene Glycol 3350* (Miralax*), 17 GM GT DAILY PRN for Constipation, ( Reported) Temazepam* (Restoril*), 15 MG GT BEDTIME PRN for insomnia, (Reported) [Morphine ], 0.25 ML SL Q4HR PRN for For Pain, (Reported) Miscellaneous Medications Bisacodyl (Dulcolax), 10 MG RC, (Reported) Hyoscyamine Sulfate (Levsin), 0.125 MG SL, (Reported) Insulin Human Lispro (Humalog), 0 SUBQ, (Reported) Nut.tx.gluc.intoler,Lac-Fr,Soy (Glucerna 1.5 Stan), 237 ML GT, (Reported) Discontinued Medications Acetaminophen (Tylenol 8 Hour), 650 MG ORAL Q6HR, (Reported) Discontinued Reason: Medication dose changed Acetaminophen* (Acetaminophen 325MG Tablet*), 650 MG GT Q4H PRN for Fever/ Headache/Mild Pain, (Reported) Discontinued Reason: Medication dose changed Amlodipine/Atorvastatin 5-40 Mg (Amlodipine-Atorvast 5-40 Mg), 1 TAB ORAL DAILY, (Reported) Discontinued Reason: MD discontinued med Bethanechol Chl* (Urecholine*), 25 MG ORAL THREE TIMES A DAY, (Reported) Discontinued Reason: MD discontinued med Bisacodyl* (Dulcolax*), 10 MG GT ONCE, (Reported) Discontinued Reason: Medication dose changed Cefepime Hcl/D5w (Cefepime-Dextrose 2 Gm/50 Ml), 2 GM IVPB Q24H, (Reported) Discontinued Reason: MD discontinued med Levetiracetam (Keppra), 1,000 MG GT EVERY 12 HOURS, (Reported) Discontinued Reason: MD discontinued med Levetiracetam* (Levetiracetam*), 750 MG ORAL TWICE A DAY, (Reported) Discontinued Reason: Medication dose changed Lorazepam* (Ativan*), 2 MG ORAL THREE TIMES A DAY PRN for For Anxiety, (Reported ) Discontinued Reason: MD discontinued med Metoprolol/Hydrochlorothiazide (Metoprolol-Hctz 100-50 Mg Tab), 1 TAB GT DAILY, (Reported) Discontinued Reason: MD discontinued med Morphine 10mg/5ml Oral Soln* (Morphine 10mg/5ml Oral Soln*), 10 MG ORAL for For Pain, (Reported) Discontinued Reason: Medication dose changed Multivitamin (Multivitamins), 1 CAP ORAL DAILY, (Reported) Discontinued Reason: MD discontinued med Patient History Healthcare decision maker Kenneth Arredondo dtr Resuscitation status Full Code Advanced Directive on File Yes Past Medical/Surgical History Past Medical/Surgical History: (1) At high risk for aspiration (2) Diabetes mellitus (3) Seizure disorder, complex partial (4) Ulcer of left lower leg Review of Systems All Other Systems: negative except mentioned in HPI Physical Exam General Appearance: WD/WN Lines, tubes and drains: peripheral HEENT: normocephalic, atraumatic Neck: non-tender, normal alignment Respiratory/Chest: chest wall non-tender Breasts: no masses Skin Exam: other - sacral abdomen and feet ulcer Last 24 Hour Vital Signs Date Time Temp Pulse Resp B/P (MAP) Pulse Ox O2 Delivery O2 Flow Rate FiO2 07/14/18 10:00 97.8 65 19 94/45 (61) 100 07/14/18 09:16 96 24 Nasal Cannula 4.0 36 07/14/18 09:16 Nasal Cannula 4.0 36 07/14/18 09:16 96 Nasal Cannula 4.0 36 07/14/18 09:00 68 102/57 07/14/18 09:00 68 102/57 07/14/18 09:00 64 18 95/44 (61) 100 07/14/18 08:00 Non-Rebreather 15.0 07/14/18 08:00 61 18 96/46 (63) 100 07/14/18 08:00 59 07/14/18 07:00 66 20 92/44 (60) 100 07/14/18 06:19 65 98/46 07/14/18 06:04 64 22 98/46 (63) 100 07/14/18 06:00 98/46 07/14/18 06:00 98/46 07/14/18 05:00 97.9 64 19 100/68 (79) 100 07/14/18 04:00 Non-Rebreather 15.0 07/14/18 04:00 63 07/14/18 04:00 63 19 102/45 (64) 100 07/14/18 03:00 62 19 103/50 (67) 100 07/14/18 02:00 60 16 111/54 (73) 100 07/14/18 01:00 98.3 58 22 109/52 (71) 100 07/14/18 00:00 59 07/14/18 00:00 Non-Rebreather 15.0 07/14/18 00:00 95 Non-Rebreather 15.0 100 07/14/18 00:00 Non-Rebreather 15.0 100 07/14/18 00:00 59 18 119/49 (72) 100 07/13/18 23:00 59 22 92/41 (58) 100 07/13/18 22:11 85 109/55 07/13/18 22:10 109/55 07/13/18 22:07 82 109/55 07/13/18 22:00 84 21 109/55 (73) 100 07/13/18 22:00 109/55 07/13/18 21:00 86 21 134/58 (83) 100 07/13/18 20:00 Non-Rebreather 15.0 07/13/18 20:00 97.3 92 22 141/61 (87) 100 07/13/18 19:31 90 07/13/18 19:30 100.3 93 16 108/81 100 Non-Rebreather 10.0 07/13/18 19:29 90 108/80 (89) 07/13/18 19:00 90 23 135/70 100 07/13/18 19:00 102 28 98 Facial 30 07/13/18 18:00 100.3 92 24 136/70 100 Bi-pap 07/13/18 17:05 105 22 100 Facial 15.0 30 12/4/18 17:00 95 25 150/80 97 Bi-pap 07/13/18 16:00 100 29 150/82 100 Bi-pap 07/13/18 15:00 101.3 07/13/18 15:00 101.3 106 28 150/77 100 Bi-pap 07/13/18 14:57 110 07/13/18 14:44 108 26 100 Facial 15.0 30 07/13/18 14:30 110 31 167/77 100 Bi-pap 07/13/18 14:06 109 152/75 07/13/18 14:04 198 129/69 07/13/18 14:00 110 36 165/72 100 Bi-pap 07/13/18 13:11 103.5 110 36 115/80 100 Room Air 07/13/18 13:11 110 36 Bi-pap 30 07/13/18 13:10 113 22 100 Facial 15.0 30 07/13/18 13:10 113 22 Bi-pap 30 07/13/18 12:45 30 07/13/18 12:27 100.4 120 36 169/90 98 Room Air Intake and Output 07/13/18 07/14/18 19:00 07:00 Intake Total 110 ml 310 ml Output Total 830 ml Balance 110 ml -520 ml Intake Oral 0 ml IV Total 110 ml Tube Feeding 310 ml Output Urine Total 830 ml # Voids 1 Laboratory Tests Test 07/13/18 12:40 07/13/18 14:12 07/13/18 22:00 07/14/18 04:10 White Blood Count 17.3 K/UL (4.8-10.8) H 14.0 K/UL (4.8-10.8) H Red Blood Count 4.50 M/UL (4.20-5.40) 3.82 M/UL (4.20-5.40) L Hemoglobin 11.9 G/DL (12.0-16.0) L 10.2 G/DL (12.0-16.0) L Hematocrit 38.3 % (37.0-47.0) 33.6 % (37.0-47.0) L Mean Corpuscular Volume 85 FL (80-99) 88 FL (80-99) Mean Corpuscular Hemoglobin 26.4 PG (27.0-31.0) L 26.8 PG (27.0-31.0) L Mean Corpuscular Hemoglobin Concent 31.0 G/DL (32.0-36.0) L 30.5 G/DL (32.0-36.0) L Red Cell Distribution Width 15.7 % (11.6-14.8) H 16.0 % (11.6-14.8) H Platelet Count 310 K/UL (150-450) 380 K/UL (150-450) Mean Platelet Volume 6.4 FL (6.5-10.1) L 5.2 FL (6.5-10.1) L Neutrophils (%) (Auto) 67.0 % (45.0-75.0) 57.9 % (45.0-75.0) Lymphocytes (%) (Auto) 26.3 % (20.0-45.0) 31.5 % (20.0-45.0) Monocytes (%) (Auto) 4.1 % (1.0-10.0) 7.3 % (1.0-10.0) Eosinophils (%) (Auto) 1.6 % (0.0-3.0) 2.0 % (0.0-3.0) Basophils (%) (Auto) 1.0 % (0.0-2.0) 1.4 % (0.0-2.0) Prothrombin Time 12.4 SEC (9.30-11.50) H 11.8 SEC (9.30-11.50) H Prothromb Time International Ratio 1.2 (0.9-1.1) H 1.1 (0.9-1.1) Urine Color Yellow Urine Appearance Turbid Urine pH 8 (4.5-8.0) Urine Specific [place] 1.010 (1.005-1.035) Urine Protein 4+ (NEGATIVE) H Urine Glucose (UA) Negative (NEGATIVE) Urine Ketones Negative (NEGATIVE) Urine Blood 5+ (NEGATIVE) H Urine Nitrite Negative (NEGATIVE) Urine Bilirubin Negative (NEGATIVE) Urine Urobilinogen 1 MG/DL (0.0-1.0) H Urine Leukocyte Esterase 3+ (NEGATIVE) H Urine RBC 40-60 /HPF (0 - 2) H Urine WBC 10-15 /HPF (0 - 2) H Urine Squamous Epithelial Cells Few /LPF (NONE/OCC) Urine Bacteria Many /HPF (NONE) H Sodium Level 152 MMOL/L (136-145) H 154 MMOL/L (136-145) H Potassium Level 4.2 MMOL/L (3.5-5.1) 3.5 MMOL/L (3.5-5.1) Chloride Level 114 MMOL/L (98-107) H 116 MMOL/L (98-107) H Carbon Dioxide Level 29 MMOL/L (21-32) 30 MMOL/L (21-32) Anion Gap 9 mmol/L (5-15) 8 mmol/L (5-15) Blood Urea Nitrogen 23 mg/dL (7-18) H 26 mg/dL (7-18) H Creatinine 0.8 MG/DL (0.55-1.30) 0.7 MG/DL (0.55-1.30) Estimat Glomerular Filtration Rate mL/min (>60) mL/min (>60) Glucose Level 118 MG/DL (74-106) H 112 MG/DL (74-106) H Lactic Acid Level 1.30 mmol/L (0.4-2.0) Calcium Level 9.5 MG/DL (8.5-10.1) 9.3 MG/DL (8.5-10.1) Phosphorus Level 2.6 MG/DL (2.5-4.9) Magnesium Level 2.1 MG/DL (1.8-2.4) Total Bilirubin 0.3 MG/DL (0.2-1.0) Aspartate Amino Transf (AST/SGOT) 24 U/L (15-37) Alanine Aminotransferase (ALT/SGPT) 18 U/L (12-78) Alkaline Phosphatase 62 U/L (46-116) Total Creatine Kinase 148 U/L (26-308) Creatine Kinase MB < 0.5 NG/ML (0.0-3.6) Creatine Kinase MB Relative Index 0.3 Troponin I 0.014 ng/mL (0.000-0.056) 0.030 ng/mL (0.000-0.056) 0.006 ng/mL (0.000-0.056) Pro-B-Type Natriuretic Peptide 1070 pg/mL (0-125) H 675 pg/mL (0-125) H Total Protein 8.1 G/DL (6.4-8.2) Albumin 2.3 G/DL (3.4-5.0) L Globulin 5.8 g/dL Albumin/Globulin Ratio 0.4 (1.0-2.7) L Arterial Blood pH 7.480 (7.350-7.450) Arterial Blood Partial Pressure CO2 39.8 mmHg (35.0-45.0) Arterial Blood Partial Pressure O2 69.8 mmHg (75.0-100.0) L Arterial Blood HCO3 29.0 mmol/L (22.0-26.0) H Arterial Blood Oxygen Saturation 94.2 % (95-100) L Arterial Blood Base Excess 5.1 (-2-2) H Chris Test Positive Activated Partial Thromboplast Time 28 SEC (23-33) C-Reactive Protein, Quantitative 16.0 mg/dL (0.00-0.90) H Triglycerides Level 93 MG/DL (30-150) Cholesterol Level 168 MG/DL (< 200) LDL Cholesterol 121 mg/dL (<100) H HDL Cholesterol 37 MG/DL (40-60) L Cholesterol/HDL Ratio 4.5 (3.3-4.4) H Thyroid Stimulating Hormone (TSH) 2.275 uiU/mL (0.358-3.740) Free Thyroxine 1.21 NG/DL (0.76-1.46) Microbiology Date/Time Source Procedure Growth Status 07/13/18 12:40 Nasal Nares Influenza Types A,B Antigen ([facility]) - Final Complete 07/13/18 20:30 Rectum Received Height (Feet): 5 Height (Inches): 3.00 Weight (Pounds): 213 Medications Current Medications Medications (Trade) Dose Ordered Sig/Caroline Route PRN Reason Start Time Stop Time Status Last Admin Dose Admin Acetaminophen (Tylenol) 650 mg Q4H PRN GT FEVER (Temp>100.5F) 07/13/18 21:00 08/12/18 20:59 Albuterol/ Ipratropium (Albuterol/ Ipratropium) 3 ml Q4H PRN HHN Shortness of Breath 07/13/18 21:00 07/18/18 20:59 Clonidine HCl (Catapres Tab) 0.1 mg EVERY 8 HOURS GT 07/13/18 22:00 08/12/18 21:59 Clonidine HCl (Catapres Tab) 0.1 mg Q2H PRN GT sbp>170 07/13/18 21:15 08/12/18 16:29 Diltiazem HCl (Cardizem) 10 mg Q1H PRN IV heart rate more than 120, 07/13/18 21:00 08/12/18 20:59 Diltiazem HCl (Cardizem) 30 mg EVERY 8 HOURS GT 07/14/18 14:00 08/12/18 21:59 Enalaprilat (Vasotec) 2.5 mg Q6H PRN IV sbp more than 160 07/13/18 21:00 08/12/18 20:59 Heparin Sodium (Porcine) (Heparin 5000 units/ml) 5,000 units EVERY 12 HOURS SUBQ 07/13/18 21:00 08/12/18 20:59 07/14/18 09:24 Lansoprazole (Prevacid) 30 mg DAILY GT 07/14/18 09:00 08/13/18 08:59 07/14/18 09:23 Levetiracetam (Keppra) 500 mg Q12HR GT 07/13/18 22:00 08/12/18 21:59 07/14/18 09:23 Metoprolol Tartrate (Lopressor) 100 mg EVERY 12 HOURS GT 07/14/18 21:00 08/12/18 20:59 Morphine Sulfate (Morphine Sulfate) 2 mg Q4H PRN IVP severe Pain (Pain Scale 7-10) 07/13/18 21:00 07/20/18 20:59 Nitroglycerin (Ntg) 0.4 mg Q5M PRN SL Prn Chest Pain 07/13/18 21:00 08/12/18 20:59 Ondansetron HCl (Zofran) 4 mg Q6H PRN IVP Nausea & Vomiting 07/13/18 21:00 08/12/18 20:59 Polyethylene Glycol (Miralax) 17 gm DAILYPRN PRN GT Constipation 07/13/18 21:00 08/12/18 20:59 Temazepam (Restoril) 15 mg HSPRN PRN GT Insomnia 07/13/18 21:00 07/20/18 20:59 Assessment/Plan Problem List: (1) Acute encephalopathy ICD Codes: G93.40 - Encephalopathy, unspecified SNOMED: 99108005, 119200136 (2) Acute respiratory failure ICD Codes: J96.00 - Acute respiratory failure, unspecified whether with hypoxia or hypercapnia SNOMED: 70583199 (3) Supraventricular arrhythmia ICD Codes: I49.9 - Cardiac arrhythmia, unspecified SNOMED: 33668311 (4) Sepsis ICD Codes: A41.9 - Sepsis, unspecified organism SNOMED: 64597703 (5) Seizure disorder, complex partial ICD Codes: G40.209 - Seizure disorder, complex partial SNOMED: 658192422 Assessment/Plan respiratory failure resolved titrate fio2 to sat of 92% continue nasal cannula f/u cxr iv abx weiner culture dvt prophylaxis Morgan Tang MD Jul 14, 2018 11:02
--- NOTE | 2018-07-14 13:47 | Consultation ---
History of Present Illness General Date patient seen: Jul 14, 2018 Chief Complaint: Altered Level of Consciousness Present Illness HPI 72 y/o F with hx of HTN, COPD dysphagia, aphasia, Alzheimer's dementia presents to ED on 07/13 with SOB, agitation, fever. Of note, patient recently admitted with abd wall infection Allergies: Coded Allergies: ASPIRIN (Verified Allergy, Unknown, 06/21/18) LOSARTAN (Verified Allergy, Unknown, 06/21/18) Medication History Scheduled Amino Acids/Protein Hydrolys (Pro-Stat Liquid), 30 ML GT TWICE A DAY, (Reported) Amlodipine Besylate* (Amlodipine Besylate*), 5 MG ORAL DAILY, (Reported) Ascorbic Acid* (Vitamin C*), 500 MG GT TWICE A DAY, (Reported) Clonidine Hcl* (Catapres*), 0.1 MG GT EVERY 8 HOURS, (Reported) Famotidine (Famotidine), 20 MG GT BID, (Reported) Heparin Sod (Porcine) (Heparin Sodium*), 5,000 UNITS SUBQ EVERY 12 HOURS, ( Reported) Hydralazine Hcl* (Hydralazine Hcl*), 50 MG GT EVERY 8 HOURS, (Reported) Ipratropium/Albuterol Sulfate (DuoNeb 0.5-3(2.5)mg/3ml), 3 ML HHN Q4HR, ( Reported) Levetiracetam (Keppra), 5 ML ORAL TWICE A DAY, (Reported) Lorazepam* (Lorazepam*), 0.5 MG SL Q6HR, (Reported) Memantine Hcl* (Namenda*), 5 MG GT TWICE A DAY, (Reported) Memantine Hcl* (Namenda*), 5 MG GT TWICE A DAY, (Reported) Metoprolol Tartrate* (Metoprolol Tartrate*), 100 MG ORAL EVERY 12 HOURS, ( Reported) Metronidazole/Sodium Chloride* (Metronidazole 500 Mg/100 Ml*), 500 MG IVPB EVERY 8 HOURS, (Reported) Montelukast Sodium* (Singulair*), 10 MG ORAL DAILY, (Reported) Olanzapine (Olanzapine), 5 MG GT HS, (Reported) Polyethylene Glycol 3350* (Miralax*), 17 GM ORAL DAILY, (Reported) Prednisolone* (Prelone*), 15 MG ORAL HS, (Reported) Risperidone* (Risperdal*), 2 MG ORAL HS, (Reported) Zinc Sulfate (Zinc Sulfate*), 220 MG GT DAILY, (Reported) [Multivital ], 1 TAB GT DAILY, (Reported) Scheduled PRN Nitroglycerin (Nitrostat), 0.4 MG SL Q5M X3 DOSES PRN for CHEST PAIN, (Reported) Ondansetron* (Zofran*), 4 MG SL Q6H PRN for Nausea & Vomiting, (Reported) Polyethylene Glycol 3350* (Miralax*), 17 GM GT DAILY PRN for Constipation, ( Reported) Temazepam* (Restoril*), 15 MG GT BEDTIME PRN for insomnia, (Reported) [Morphine ], 0.25 ML SL Q4HR PRN for For Pain, (Reported) Miscellaneous Medications Bisacodyl (Dulcolax), 10 MG RC, (Reported) Hyoscyamine Sulfate (Levsin), 0.125 MG SL, (Reported) Insulin Human Lispro (Humalog), 0 SUBQ, (Reported) Nut.tx.gluc.intoler,Lac-Fr,Soy (Glucerna 1.5 Stan), 237 ML GT, (Reported) Discontinued Medications Acetaminophen (Tylenol 8 Hour), 650 MG ORAL Q6HR, (Reported) Discontinued Reason: Medication dose changed Acetaminophen* (Acetaminophen 325MG Tablet*), 650 MG GT Q4H PRN for Fever/ Headache/Mild Pain, (Reported) Discontinued Reason: Medication dose changed Amlodipine/Atorvastatin 5-40 Mg (Amlodipine-Atorvast 5-40 Mg), 1 TAB ORAL DAILY, (Reported) Discontinued Reason: MD discontinued med Bethanechol Chl* (Urecholine*), 25 MG ORAL THREE TIMES A DAY, (Reported) Discontinued Reason: MD discontinued med Bisacodyl* (Dulcolax*), 10 MG GT ONCE, (Reported) Discontinued Reason: Medication dose changed Cefepime Hcl/D5w (Cefepime-Dextrose 2 Gm/50 Ml), 2 GM IVPB Q24H, (Reported) Discontinued Reason: MD discontinued med Levetiracetam (Keppra), 1,000 MG GT EVERY 12 HOURS, (Reported) Discontinued Reason: MD discontinued med Levetiracetam* (Levetiracetam*), 750 MG ORAL TWICE A DAY, (Reported) Discontinued Reason: Medication dose changed Lorazepam* (Ativan*), 2 MG ORAL THREE TIMES A DAY PRN for For Anxiety, (Reported ) Discontinued Reason: MD discontinued med Metoprolol/Hydrochlorothiazide (Metoprolol-Hctz 100-50 Mg Tab), 1 TAB GT DAILY, (Reported) Discontinued Reason: MD discontinued med Morphine 10mg/5ml Oral Soln* (Morphine 10mg/5ml Oral Soln*), 10 MG ORAL for For Pain, (Reported) Discontinued Reason: Medication dose changed Multivitamin (Multivitamins), 1 CAP ORAL DAILY, (Reported) Discontinued Reason: MD discontinued med Patient History Healthcare decision maker Kenneth Arredondo dtr Resuscitation status Full Code Advanced Directive on File Yes Physical Exam Physical Exam Narrative General Appearance: WD/WN Lines, tubes and drains: peripheral HEENT: normocephalic, atraumatic Neck: non-tender, normal alignment Respiratory/Chest: chest wall non-tender Breasts: no masses Skin Exam: other - sacral abdomen and feet ulcer Last 24 Hour Vital Signs Date Time Temp Pulse Resp B/P (MAP) Pulse Ox O2 Delivery O2 Flow Rate FiO2 07/14/18 12:00 66 07/14/18 12:00 Non-Rebreather 15.0 07/14/18 12:00 66 18 112/55 (74) 100 07/14/18 11:00 68 18 96/48 (64) 100 07/14/18 10:00 97.8 65 19 94/45 (61) 100 07/14/18 09:16 96 24 Nasal Cannula 4.0 36 07/14/18 09:16 Nasal Cannula 4.0 36 07/14/18 09:16 96 Nasal Cannula 4.0 36 07/14/18 09:00 68 102/57 07/14/18 09:00 68 102/57 07/14/18 09:00 64 18 95/44 (61) 100 07/14/18 08:00 Non-Rebreather 15.0 07/14/18 08:00 61 18 96/46 (63) 100 07/14/18 08:00 59 07/14/18 07:00 66 20 92/44 (60) 100 07/14/18 06:19 65 98/46 07/14/18 06:04 64 22 98/46 (63) 100 07/14/18 06:00 98/46 07/14/18 06:00 98/46 07/14/18 05:00 97.9 64 19 100/68 (79) 100 07/14/18 04:00 Non-Rebreather 15.0 07/14/18 04:00 63 07/14/18 04:00 63 19 102/45 (64) 100 07/14/18 03:00 62 19 103/50 (67) 100 07/14/18 02:00 60 16 111/54 (73) 100 07/14/18 01:00 98.3 58 22 109/52 (71) 100 07/14/18 00:00 59 07/14/18 00:00 Non-Rebreather 15.0 07/14/18 00:00 95 Non-Rebreather 15.0 100 07/14/18 00:00 Non-Rebreather 15.0 100 07/14/18 00:00 59 18 119/49 (72) 100 07/13/18 23:00 59 22 92/41 (58) 100 07/13/18 22:11 85 109/55 07/13/18 22:10 109/55 07/13/18 22:07 82 109/55 07/13/18 22:00 84 21 109/55 (73) 100 07/13/18 22:00 109/55 07/13/18 21:00 86 21 134/58 (83) 100 07/13/18 20:00 Non-Rebreather 15.0 07/13/18 20:00 97.3 92 22 141/61 (87) 100 07/13/18 19:31 90 07/13/18 19:30 100.3 93 16 108/81 100 Non-Rebreather 10.0 07/13/18 19:29 90 108/80 (89) 07/13/18 19:00 90 23 135/70 100 07/13/18 19:00 102 28 98 Facial 30 07/13/18 18:00 100.3 92 24 136/70 100 Bi-pap 07/13/18 17:05 105 22 100 Facial 15.0 30 07/13/18 17:00 95 25 150/80 97 Bi-pap 07/13/18 16:00 100 29 150/82 100 Bi-pap 07/13/18 15:00 101.3 07/13/18 15:00 101.3 106 28 150/77 100 Bi-pap 07/13/18 14:57 110 07/13/18 14:44 108 26 100 Facial 15.0 30 07/13/18 14:30 110 31 167/77 100 Bi-pap 07/13/18 14:06 109 152/75 07/13/18 14:04 198 129/69 07/13/18 14:00 110 36 165/72 100 Bi-pap Intake and Output 07/13/18 07/14/18 19:00 07:00 Intake Total 110 ml 310 ml Output Total 830 ml Balance 110 ml -520 ml Intake Oral 0 ml IV Total 110 ml Tube Feeding 310 ml Output Urine Total 830 ml # Voids 1 Laboratory Tests Test 07/13/18 14:12 07/13/18 22:00 07/14/18 04:10 Arterial Blood pH 7.480 (7.350-7.450) Arterial Blood Partial Pressure CO2 39.8 mmHg (35.0-45.0) Arterial Blood Partial Pressure O2 69.8 mmHg (75.0-100.0) L Arterial Blood HCO3 29.0 mmol/L (22.0-26.0) H Arterial Blood Oxygen Saturation 94.2 % (95-100) L Arterial Blood Base Excess 5.1 (-2-2) H Chris Test Positive Troponin I 0.030 ng/mL (0.000-0.056) 0.006 ng/mL (0.000-0.056) White Blood Count 14.0 K/UL (4.8-10.8) H Red Blood Count 3.82 M/UL (4.20-5.40) L Hemoglobin 10.2 G/DL (12.0-16.0) L Hematocrit 33.6 % (37.0-47.0) L Mean Corpuscular Volume 88 FL (80-99) Mean Corpuscular Hemoglobin 26.8 PG (27.0-31.0) L Mean Corpuscular Hemoglobin Concent 30.5 G/DL (32.0-36.0) L Red Cell Distribution Width 16.0 % (11.6-14.8) H Platelet Count 380 K/UL (150-450) Mean Platelet Volume 5.2 FL (6.5-10.1) L Neutrophils (%) (Auto) 57.9 % (45.0-75.0) Lymphocytes (%) (Auto) 31.5 % (20.0-45.0) Monocytes (%) (Auto) 7.3 % (1.0-10.0) Eosinophils (%) (Auto) 2.0 % (0.0-3.0) Basophils (%) (Auto) 1.4 % (0.0-2.0) Prothrombin Time 11.8 SEC (9.30-11.50) H Prothromb Time International Ratio 1.1 (0.9-1.1) Activated Partial Thromboplast Time 28 SEC (23-33) Sodium Level 154 MMOL/L (136-145) H Potassium Level 3.5 MMOL/L (3.5-5.1) Chloride Level 116 MMOL/L (98-107) H Carbon Dioxide Level 30 MMOL/L (21-32) Anion Gap 8 mmol/L (5-15) Blood Urea Nitrogen 26 mg/dL (7-18) H Creatinine 0.7 MG/DL (0.55-1.30) Estimat Glomerular Filtration Rate mL/min (>60) Glucose Level 112 MG/DL (74-106) H Calcium Level 9.3 MG/DL (8.5-10.1) C-Reactive Protein, Quantitative 16.0 mg/dL (0.00-0.90) H Pro-B-Type Natriuretic Peptide 675 pg/mL (0-125) H Triglycerides Level 93 MG/DL (30-150) Cholesterol Level 168 MG/DL (< 200) LDL Cholesterol 121 mg/dL (<100) H HDL Cholesterol 37 MG/DL (40-60) L Cholesterol/HDL Ratio 4.5 (3.3-4.4) H Thyroid Stimulating Hormone (TSH) 2.275 uiU/mL (0.358-3.740) Free Thyroxine 1.21 NG/DL (0.76-1.46) Microbiology Date/Time Source Procedure Growth Status 07/13/18 20:30 Rectum Received Height (Feet): 5 Height (Inches): 3.00 Weight (Pounds): 213 Medications Current Medications Medications (Trade) Dose Ordered Sig/Caroline Route PRN Reason Start Time Stop Time Status Last Admin Dose Admin Acetaminophen (Tylenol) 650 mg Q4H PRN GT FEVER (Temp>100.5F) 07/13/18 21:00 08/12/18 20:59 Albuterol/ Ipratropium (Albuterol/ Ipratropium) 3 ml Q4H PRN HHN Shortness of Breath 07/13/18 21:00 07/18/18 20:59 Clonidine HCl (Catapres Tab) 0.1 mg EVERY 8 HOURS GT 07/13/18 22:00 08/12/18 21:59 Clonidine HCl (Catapres Tab) 0.1 mg Q2H PRN GT sbp>170 07/13/18 21:15 08/12/18 16:29 Diltiazem HCl (Cardizem) 10 mg Q1H PRN IV heart rate more than 120, 07/13/18 21:00 08/12/18 20:59 Diltiazem HCl (Cardizem) 30 mg EVERY 8 HOURS GT 07/14/18 14:00 08/12/18 21:59 Enalaprilat (Vasotec) 2.5 mg Q6H PRN IV sbp more than 160 07/13/18 21:00 08/12/18 20:59 Heparin Sodium (Porcine) (Heparin 5000 units/ml) 5,000 units EVERY 12 HOURS SUBQ 07/13/18 21:00 08/12/18 20:59 07/14/18 09:24 Lansoprazole (Prevacid) 30 mg DAILY GT 07/14/18 09:00 08/13/18 08:59 07/14/18 09:23 Levetiracetam (Keppra) 500 mg Q12HR GT 07/13/18 22:00 08/12/18 21:59 07/14/18 09:23 Metoprolol Tartrate (Lopressor) 100 mg EVERY 12 HOURS GT 07/14/18 21:00 08/12/18 20:59 Morphine Sulfate (Morphine Sulfate) 2 mg Q4H PRN IVP severe Pain (Pain Scale 7-10) 07/13/18 21:00 07/20/18 20:59 Nitroglycerin (Ntg) 0.4 mg Q5M PRN SL Prn Chest Pain 07/13/18 21:00 08/12/18 20:59 Ondansetron HCl (Zofran) 4 mg Q6H PRN IVP Nausea & Vomiting 07/13/18 21:00 08/12/18 20:59 Polyethylene Glycol (Miralax) 17 gm DAILYPRN PRN GT Constipation 07/13/18 21:00 08/12/18 20:59 Sodium Chloride 1,000 ml @ 75 mls/hr [id number] IV 07/14/18 11:15 08/13/18 11:14 07/14/18 11:37 Temazepam (Restoril) 15 mg HSPRN PRN GT Insomnia 07/13/18 21:00 07/20/18 20:59 Assessment/Plan Assessment/Plan Abx: IV vancomycin x1 07/13 Zosyn x1 07/13 Assessment: Sepsis 2ry to PNA -CXR: Suspect right basilar infiltrate and/or atelectasis. Borderline cardiac megaly -influenza sc neg Fever Leukocytosis, improving -u/a wbc 10-15, nit neg, leuk +3; ucx p -Bcx p HTN COPD dysphagia aphasia Alzheimer's dementia Plan: -Continue IV Vancomycin and Zosyn for PNA pending cultures -f/u cx -Monitor CBC/CMP, temperatures -aspiration precautions Thank you for this consultation. Will continue to follow along with you. Discussed with Selene Brian M.D. Jul 14, 2018 13:47
--- NOTE | 2018-07-14 14:26 | Consultation ---
Consult Note Consult Note Patient is 72-year-old female presented after increased shortness of breath and agitation. Patient gradual onset of symptoms. Patient had been noted to have increased respiratory rate. Patient brought in by EMS. Patient was noted to have a high fever. Patient recent hospitalization after abdomen wall had become infected.Patient is followed by Dr. Hong Caballero. Allergies: Coded Allergies: ASPIRIN (Verified Allergy, Unknown, 06/21/18) LOSARTAN (Verified Allergy, Unknown, 06/21/18) Patient History Past Medical History: see triage record Last Menstrual Period: na Reviewed Nursing Documentation: PMH: Agreed; PSxH: Agreed Nursing Documentation-PMH Past Medical History: No History, Except For Hx Hypertension: Yes Hx COPD: Yes Hx Diabetes: Yes Hx Cancer: No Hx Gastrointestinal Problems: Yes - cellulitis abdominal wall, dysphagia, aphasia Hx Neurological Problems: Yes - alzeimer's disease Hx Dementia: Yes Hx Seizures: Yes Assessment/Plan Respiratory failure Sepsis Supraventricular arrhythmia Hypernatremia Free water deficit Dehydration Seizure disorder, complex partial Urinary tract infection HypoAlbuminemia Dementia Allergy to ASA and YVONNE inhibitors HTN PEG in D5W Monitor Lytes- antibiotics Keppra to GT K and Phos IV Per orders and consultants Gonsalo Ortiz MD Jul 14, 2018 14:26
[2018-07-14] MEDS: Piperacillin/Tazobactam 3.375 GM in NS 110 ML IVPB SCH ×2 (15:00→23:21)
--- NOTE | 2018-07-14 15:57 | Consultation ---
History of Present Illness General Chief Complaint: Altered Level of Consciousness Present Illness HPI 72-year-old female with hx of dementia and agitation was just recently hospitalized after abdominal wall had become infected. the pt has waxing and waning of consciousness and episodes of agitation. the pt is non verbal at baseline Allergies: Coded Allergies: ASPIRIN (Verified Allergy, Unknown, 06/21/18) LOSARTAN (Verified Allergy, Unknown, 06/21/18) Medication History Scheduled Amino Acids/Protein Hydrolys (Pro-Stat Liquid), 30 ML GT TWICE A DAY, (Reported) Amlodipine Besylate* (Amlodipine Besylate*), 5 MG ORAL DAILY, (Reported) Ascorbic Acid* (Vitamin C*), 500 MG GT TWICE A DAY, (Reported) Clonidine Hcl* (Catapres*), 0.1 MG GT EVERY 8 HOURS, (Reported) Famotidine (Famotidine), 20 MG GT BID, (Reported) Heparin Sod (Porcine) (Heparin Sodium*), 5,000 UNITS SUBQ EVERY 12 HOURS, ( Reported) Hydralazine Hcl* (Hydralazine Hcl*), 50 MG GT EVERY 8 HOURS, (Reported) Ipratropium/Albuterol Sulfate (DuoNeb 0.5-3(2.5)mg/3ml), 3 ML HHN Q4HR, ( Reported) Levetiracetam (Keppra), 5 ML ORAL TWICE A DAY, (Reported) Lorazepam* (Lorazepam*), 0.5 MG SL Q6HR, (Reported) Memantine Hcl* (Namenda*), 5 MG GT TWICE A DAY, (Reported) Memantine Hcl* (Namenda*), 5 MG GT TWICE A DAY, (Reported) Metoprolol Tartrate* (Metoprolol Tartrate*), 100 MG ORAL EVERY 12 HOURS, ( Reported) Metronidazole/Sodium Chloride* (Metronidazole 500 Mg/100 Ml*), 500 MG IVPB EVERY 8 HOURS, (Reported) Montelukast Sodium* (Singulair*), 10 MG ORAL DAILY, (Reported) Olanzapine (Olanzapine), 5 MG GT HS, (Reported) Polyethylene Glycol 3350* (Miralax*), 17 GM ORAL DAILY, (Reported) Prednisolone* (Prelone*), 15 MG ORAL HS, (Reported) Risperidone* (Risperdal*), 2 MG ORAL HS, (Reported) Zinc Sulfate (Zinc Sulfate*), 220 MG GT DAILY, (Reported) [Multivital ], 1 TAB GT DAILY, (Reported) Scheduled PRN Nitroglycerin (Nitrostat), 0.4 MG SL Q5M X3 DOSES PRN for CHEST PAIN, (Reported) Ondansetron* (Zofran*), 4 MG SL Q6H PRN for Nausea & Vomiting, (Reported) Polyethylene Glycol 3350* (Miralax*), 17 GM GT DAILY PRN for Constipation, ( Reported) Temazepam* (Restoril*), 15 MG GT BEDTIME PRN for insomnia, (Reported) [Morphine ], 0.25 ML SL Q4HR PRN for For Pain, (Reported) Miscellaneous Medications Bisacodyl (Dulcolax), 10 MG RC, (Reported) Hyoscyamine Sulfate (Levsin), 0.125 MG SL, (Reported) Insulin Human Lispro (Humalog), 0 SUBQ, (Reported) Nut.tx.gluc.intoler,Lac-Fr,Soy (Glucerna 1.5 Stan), 237 ML GT, (Reported) Discontinued Medications Acetaminophen (Tylenol 8 Hour), 650 MG ORAL Q6HR, (Reported) Discontinued Reason: Medication dose changed Acetaminophen* (Acetaminophen 325MG Tablet*), 650 MG GT Q4H PRN for Fever/ Headache/Mild Pain, (Reported) Discontinued Reason: Medication dose changed Amlodipine/Atorvastatin 5-40 Mg (Amlodipine-Atorvast 5-40 Mg), 1 TAB ORAL DAILY, (Reported) Discontinued Reason: MD discontinued med Bethanechol Chl* (Urecholine*), 25 MG ORAL THREE TIMES A DAY, (Reported) Discontinued Reason: MD discontinued med Bisacodyl* (Dulcolax*), 10 MG GT ONCE, (Reported) Discontinued Reason: Medication dose changed Cefepime Hcl/D5w (Cefepime-Dextrose 2 Gm/50 Ml), 2 GM IVPB Q24H, (Reported) Discontinued Reason: MD discontinued med Levetiracetam (Keppra), 1,000 MG GT EVERY 12 HOURS, (Reported) Discontinued Reason: MD discontinued med Levetiracetam* (Levetiracetam*), 750 MG ORAL TWICE A DAY, (Reported) Discontinued Reason: Medication dose changed Lorazepam* (Ativan*), 2 MG ORAL THREE TIMES A DAY PRN for For Anxiety, (Reported ) Discontinued Reason: MD discontinued med Metoprolol/Hydrochlorothiazide (Metoprolol-Hctz 100-50 Mg Tab), 1 TAB GT DAILY, (Reported) Discontinued Reason: MD discontinued med Morphine 10mg/5ml Oral Soln* (Morphine 10mg/5ml Oral Soln*), 10 MG ORAL for For Pain, (Reported) Discontinued Reason: Medication dose changed Multivitamin (Multivitamins), 1 CAP ORAL DAILY, (Reported) Discontinued Reason: MD discontinued med Patient History Limited by: medical condition History Provided By: Patient, Medical Record, PMD Healthcare decision maker Kenneth Arredondo dtr Resuscitation status Full Code Advanced Directive on File No Past Medical/Surgical History Past Medical/Surgical History: (1) Supraventricular arrhythmia (2) Ulcer of left lower leg (3) Respiratory failure (4) Acute respiratory failure (5) Hypokalemia (6) Dysphagia (7) Severe malnutrition (8) FTT (failure to thrive) in adult (9) Encounter for PEG (percutaneous endoscopic gastrostomy) (10) Seizure disorder, complex partial (11) Bilateral lower extremity edema (12) Diabetes mellitus (13) At high risk for aspiration (14) Hypertension (15) Acute encephalopathy (16) Dehydration (17) Leukocytosis (18) Sepsis (19) Attention to G-tube (20) Open abdominal wall wound Review of Systems Psychiatric: Reports: prior hx, anxiety, depressed feelings, emotional problems Physical Exam General Appearance: alert, lethargic, confused, agitated Last 24 Hour Vital Signs Date Time Temp Pulse Resp B/P (MAP) Pulse Ox O2 Delivery O2 Flow Rate FiO2 07/14/18 15:00 66 18 110/56 (74) 100 07/14/18 14:00 97.7 65 19 109/45 (66) 100 07/14/18 14:00 78 109/45 07/14/18 14:00 109/45 07/14/18 13:00 67 18 105/52 (69) 100 07/14/18 12:00 66 07/14/18 12:00 Non-Rebreather 15.0 07/14/18 12:00 66 18 112/55 (74) 100 07/14/18 11:00 68 18 96/48 (64) 100 07/14/18 10:00 97.8 65 19 94/45 (61) 100 07/14/18 09:16 96 24 Nasal Cannula 4.0 36 07/14/18 09:16 Nasal Cannula 4.0 36 07/14/18 09:16 96 Nasal Cannula 4.0 36 07/14/18 09:00 68 102/57 07/14/18 09:00 68 102/57 07/14/18 09:00 64 18 95/44 (61) 100 07/14/18 08:00 Non-Rebreather 15.0 07/14/18 08:00 61 18 96/46 (63) 100 07/14/18 08:00 59 07/14/18 07:00 66 20 92/44 (60) 100 07/14/18 06:19 65 98/46 07/14/18 06:04 64 22 98/46 (63) 100 07/14/18 06:00 98/46 07/14/18 06:00 98/46 07/14/18 05:00 97.9 64 19 100/68 (79) 100 07/14/18 04:00 Non-Rebreather 15.0 07/14/18 04:00 63 07/14/18 04:00 63 19 102/45 (64) 100 07/14/18 03:00 62 19 103/50 (67) 100 07/14/18 02:00 60 16 111/54 (73) 100 07/14/18 01:00 98.3 58 22 109/52 (71) 100 07/14/18 00:00 59 07/14/18 00:00 Non-Rebreather 15.0 07/14/18 00:00 95 Non-Rebreather 15.0 100 07/14/18 00:00 Non-Rebreather 15.0 100 07/14/18 00:00 59 18 119/49 (72) 100 07/13/18 23:00 59 22 92/41 (58) 100 07/13/18 22:11 85 109/55 07/13/18 22:10 109/55 07/13/18 22:07 82 109/55 07/13/18 22:00 84 21 109/55 (73) 100 07/13/18 22:00 109/55 07/13/18 21:00 86 21 134/58 (83) 100 07/13/18 20:00 Non-Rebreather 15.0 07/13/18 20:00 97.3 92 22 141/61 (87) 100 07/13/18 19:31 90 07/13/18 19:30 100.3 93 16 108/81 100 Non-Rebreather 10.0 07/13/18 19:29 90 108/80 (89) 07/13/18 19:00 90 23 135/70 100 07/13/18 19:00 102 28 98 Facial 30 07/13/18 18:00 100.3 92 24 136/70 100 Bi-pap 07/13/18 17:05 105 22 100 Facial 15.0 30 07/13/18 17:00 95 25 150/80 97 Bi-pap 07/13/18 16:00 100 29 150/82 100 Bi-pap Intake and Output 07/13/18 07/14/18 19:00 07:00 Intake Total 110 ml 310 ml Output Total 830 ml Balance 110 ml -520 ml Intake Oral 0 ml IV Total 110 ml Tube Feeding 310 ml Output Urine Total 830 ml # Voids 1 Laboratory Tests Test 07/13/18 22:00 07/14/18 04:10 Troponin I 0.030 ng/mL (0.000-0.056) 0.006 ng/mL (0.000-0.056) White Blood Count 14.0 K/UL (4.8-10.8) H Red Blood Count 3.82 M/UL (4.20-5.40) L Hemoglobin 10.2 G/DL (12.0-16.0) L Hematocrit 33.6 % (37.0-47.0) L Mean Corpuscular Volume 88 FL (80-99) Mean Corpuscular Hemoglobin 26.8 PG (27.0-31.0) L Mean Corpuscular Hemoglobin Concent 30.5 G/DL (32.0-36.0) L Red Cell Distribution Width 16.0 % (11.6-14.8) H Platelet Count 380 K/UL (150-450) Mean Platelet Volume 5.2 FL (6.5-10.1) L Neutrophils (%) (Auto) 57.9 % (45.0-75.0) Lymphocytes (%) (Auto) 31.5 % (20.0-45.0) Monocytes (%) (Auto) 7.3 % (1.0-10.0) Eosinophils (%) (Auto) 2.0 % (0.0-3.0) Basophils (%) (Auto) 1.4 % (0.0-2.0) Prothrombin Time 11.8 SEC (9.30-11.50) H Prothromb Time International Ratio 1.1 (0.9-1.1) Activated Partial Thromboplast Time 28 SEC (23-33) Sodium Level 154 MMOL/L (136-145) H Potassium Level 3.5 MMOL/L (3.5-5.1) Chloride Level 116 MMOL/L (98-107) H Carbon Dioxide Level 30 MMOL/L (21-32) Anion Gap 8 mmol/L (5-15) Blood Urea Nitrogen 26 mg/dL (7-18) H Creatinine 0.7 MG/DL (0.55-1.30) Estimat Glomerular Filtration Rate mL/min (>60) Glucose Level 112 MG/DL (74-106) H Calcium Level 9.3 MG/DL (8.5-10.1) C-Reactive Protein, Quantitative 16.6 mg/dL (0.00-0.90) H Pro-B-Type Natriuretic Peptide 675 pg/mL (0-125) H Triglycerides Level 93 MG/DL (30-150) Cholesterol Level 168 MG/DL (< 200) LDL Cholesterol 121 mg/dL (<100) H HDL Cholesterol 37 MG/DL (40-60) L Cholesterol/HDL Ratio 4.5 (3.3-4.4) H Thyroid Stimulating Hormone (TSH) 2.275 uiU/mL (0.358-3.740) Free Thyroxine 1.21 NG/DL (0.76-1.46) Microbiology Date/Time Source Procedure Growth Status 07/13/18 20:30 Rectum Received Height (Feet): 5 Height (Inches): 3.00 Weight (Pounds): 213 Medications Current Medications Medications (Trade) Dose Ordered Sig/Caroline Route PRN Reason Start Time Stop Time Status Last Admin Dose Admin Acetaminophen (Tylenol) 650 mg Q4H PRN GT FEVER (Temp>100.5F) 07/13/18 21:00 08/12/18 20:59 Albuterol/ Ipratropium (Albuterol/ Ipratropium) 3 ml Q4H PRN HHN Shortness of Breath 07/13/18 21:00 07/18/18 20:59 Clonidine HCl (Catapres Tab) 0.1 mg Q4H PRN GT sbp>160 07/14/18 14:45 08/12/18 16:29 Dextrose 1,000 ml @ 75 mls/hr [id number] IV 07/14/18 15:00 08/13/18 14:59 07/14/18 15:00 Diltiazem HCl (Cardizem) 10 mg Q1H PRN IV heart rate more than 120, 07/13/18 21:00 08/12/18 20:59 Diltiazem HCl (Cardizem) 30 mg EVERY 8 HOURS GT 07/14/18 14:00 08/12/18 21:59 Heparin Sodium (Porcine) (Heparin 5000 units/ml) 5,000 units EVERY 12 HOURS SUBQ 07/13/18 21:00 08/12/18 20:59 07/14/18 09:24 Lansoprazole (Prevacid) 30 mg BID GT 07/14/18 18:00 08/13/18 08:59 Levetiracetam (Keppra) 500 mg Q12HR GT 07/13/18 22:00 08/12/18 21:59 07/14/18 09:23 Metoprolol Tartrate (Lopressor) 100 mg EVERY 12 HOURS GT 07/14/18 21:00 08/12/18 20:59 Morphine Sulfate (Morphine Sulfate) 2 mg Q4H PRN IVP severe Pain (Pain Scale 7-10) 07/13/18 21:00 07/20/18 20:59 Nitroglycerin (Ntg) 0.4 mg Q5M PRN SL Prn Chest Pain 07/13/18 21:00 08/12/18 20:59 Ondansetron HCl (Zofran) 4 mg Q6H PRN IVP Nausea & Vomiting 07/13/18 21:00 08/12/18 20:59 Piperacillin Sod/ Tazobactam Sod 3.375 gm/Sodium Chloride 110 ml @ 27.5 mls/hr Q8H IVPB 07/14/18 15:00 07/21/18 14:59 07/14/18 15:00 Polyethylene Glycol (Miralax) 17 gm DAILYPRN PRN GT Constipation 07/13/18 21:00 08/12/18 20:59 Temazepam (Restoril) 15 mg HSPRN PRN GT Insomnia 07/13/18 21:00 07/20/18 20:59 Vancomycin HCl (Vanco rx to dose) 1 ea DAILY PRN MISC Per rx protocol 07/14/18 13:45 08/13/18 13:44 Vancomycin/Sodium Chloride 250 ml @ 166.667 mls/hr Q12HR IVPB 07/14/18 21:00 07/19/18 20:59 Assessment/Plan Problem List: (1) Dementia ICD Codes: F03.90 - Unspecified dementia without behavioral disturbance SNOMED: 88899015 (2) encephalopathy due toxin Assessment/Plan seroquel prn the pt lacks capacity to make decisions. MIPS Medication Reconciliation Is this a Psycho/Diag encounte: Yes Unhealthy Alcohol Use 431 (psycho/diag only) I Obtained,updated or reviewed the patient's current medications (including prescription,over the counter, herbal, and nutritional supplements). Tobacco Use 226 (psycho/diag only) Patient was screened for unhealthy alcohol use today or within the past 2 years. Patient was NOT identified as an unhealthy alcohol user. BMI 128 (psycho/diag only) BMI was documented today or within the past year. BMI was outside normal parameters, and the patient received counseling. Depression 134,411,370 (psycho/diag only) Depression screening was performed today. Does this Patient have Dementi: Yes Safety Screening-Dementia 286 (psycho/diag only) Safety screening performed today-negative. Caregiver Health-Dementia 288 (psycho/diag only) Caregiver education and counseling was performed at another time in the past 12 months. Caleb Falcon MD Jul 14, 2018 15:57
--- NOTE | 2018-07-14 16:18 | Cardiology Report ---
APPROVED REPORT EXAM: Two-dimensional and M-mode echocardiogram with Doppler and color Doppler. INDICATION Left ventricular function M-Mode DIMENSIONS IVSd1.0 (0.7-1.1cm)Left Atrium (MM)3.3 (1.6-4.0cm) LVDd4.6 (3.5-5.6cm)Aortic Root2.6 (2.0-3.7cm) PWd1.0 (0.7-1.1cm)Aortic Cusp Exc.1.6 (1.5-2.0cm) LVDs3.0 (2.5-4.0cm) PWs1.5 cm Technically difficult study due to poor acoustic windows. Study quality precludes accurate assessment of regional wall motion. Normal left ventricular chamber size, systolic function and wall motion. Left ventricular ejection fraction estimated to be 60 %. No evidence of left ventricular hypertrophy. Anterior Echo-free space, may be due to pericardial fat or effusion. All other cardiac chamber sizes are within normal limits. Aortic valve calcification with decreased cusp excursion c/w aortic stenosis. Thickened mitral valve leaflets with normal excursion. Mild mitral annulus and aortic root calcification. Pulmonic valve not well visualized. Normal tricuspid valve structure. Subcostal images not obtained due to G-tube. A color flow and spectral Doppler study was performed and revealed: No aortic insufficiency. Peak aortic valve gradient of 19 mmHg and a mean of 8 mmHg. Aortic valve area 1.6 cm2 calculated by continuity equation. Trace mitral regurgitation. Mitral diastolic velocities suggest mild left ventricular diastolic dysfunction (Grade I). Mild tricuspid regurgitation. Tricuspid systolic velocities suggests peak right ventricular systolic pressure of 42 mmHg, consistent with mild pulmonary hypertension. No pulmonic regurgitation present.
--- NOTE | 2018-07-14 16:35 | Cardiology Report ---
APPROVED REPORT EKG Measurement Heart [id number] [place] [id number] Sinus tachycardia Nonspecific ST abnormality Abnormal ECG
--- NOTE | 2018-07-14 19:30 | History and Physical Report ---
DATE OF ADMISSION: 07/13/2018 CONSULTANTS: 1. Morgan Tang M.D. 2. Eduardo Phelps M.D. 3. Gonsalo Ortiz M.D. 4. Scar Kamara M.D. CHIEF COMPLAINT: Lethargy, UTI, sepsis, and SVT. BRIEF HISTORY: This is a 72-year-old female, who lives in [facility], presented with above-mentioned diagnosis, admitted to the ICU for further care. Currently, O2 NC, lethargic in bed, and nonverbal. PAST MEDICAL HISTORY: Includes respiratory failure, malnutrition, seizure, diabetes, encephalopathy, and dehydration. PAST SURGICAL HISTORY: G-tube. MEDICATIONS: Include metoprolol, vancomycin, Zosyn, diltiazem, pantoprazole, lansoprazole, hydralazine, clonidine, levetiracetam, metoprolol, Tylenol, morphine, Zofran, and temazepam. ALLERGY: Aspirin and losartan. SOCIAL HISTORY: No smoking. No alcohol. No intravenous drug abuse. FAMILY HISTORY: Noncontributory. REVIEW OF SYSTEMS: Unavailable. PHYSICAL EXAMINATION: GENERAL: Lethargic in bed, nonverbal, O2 NC, in intensive care unit. VITAL SIGNS: Temperature is 97 degrees, pulse 66, respirations 18, and blood pressure 112/55. CARDIOVASCULAR: No murmurs. LUNGS: Poor air exchange. ABDOMEN: Bowel sounds distant. EXTREMITIES: Show no cyanosis, clubbing, or edema. NEUROLOGIC: The patient is flaccid in bed, not following directions. LABORATORY AND DIAGNOSTIC DATA: White count 14, H and H are 10 and 33, and platelets is 380,000. BMP shows sodium 154, chloride 116, BUN and creatinine are 26 and 0.7, and glucose 112. Troponin is 0.006. BNP is 575. INR is 1.1. PTT 28. Urinalysis show 3+ leukocyte esterase. ASSESSMENT: 1. Urinary tract infection. 2. Sepsis. 3. Supraventricular tachycardia. 4. Respiratory failure. 5. Malnutrition. 6. Anemia. 7. Seizure. 8. Diabetes. 9. Encephalopathy. 10. Dehydration. PLAN: 1. O2 and pulmonary treatment. 2. Antibiotics per Infectious Disease. 3. Blood pressure, blood sugar, and seizure control. 4. Dietary followup. 5. Cardiology followup. 6. CBC and BMP in the morning. Hong Caballero D.O. DR: LESLIE JOB#: [id number] CC:
[2018-07-14] MEDS ORDERED: Vancomycin 750mg/NS 250ml IVPB SCH (21:00)
[2018-07-15] VITALS (10 sets, daily range): BP systolic 105–121; BP diastolic 33–78
[2018-07-15] MEDS ORDERED: Albuterol/Ipratropium 3ml neb HHN PRN (05:00)
[2018-07-15] MEDS ORDERED: Acetaminophen 650mg/20.3ml GT PRN (05:00)
[2018-07-15] MEDS ORDERED: dilTIAZem HCl 25mg/5ml Inj IV PRN (05:00)
[2018-07-15] MEDS ORDERED: Morphine Sulfate 2mg/ml Inj IVP PRN (05:00)
[2018-07-15] MEDS ORDERED: Nitroglycerin Subl 0.4mg tab SL PRN (05:00)
[2018-07-15 05:11] LABS: BASOPHILS % (AUTO) 0.6 % (0.0-2.0); EOSINOPHILS % (AUTO) 5.8 % (0.0-3.0); HEMATOCRIT 29.7 % (37.0-47.0); HEMOGLOBIN 9.3 G/DL (12.0-16.0); LYMPHOCYTES % (AUTO) 20.8 % (20.0-45.0); MEAN CORPUSCULAR VOLUME 85 FL (80-99); MONOCYTES % (AUTO) 5.1 % (1.0-10.0); NEUTROPHILS % (AUTO) 67.7 % (45.0-75.0); PLATELET COUNT 242 K/UL (150-450); RED BLOOD COUNT 3.48 M/UL (4.20-5.40); RED CELL DISTRIBUTION WIDTH 15.5 % (11.6-14.8); WHITE BLOOD COUNT 13.7 K/UL (4.8-10.8)
[2018-07-15 05:44] LABS: GAMMA GLUTAMYL TRANSPEPTIDASE 10 U/L (5-85)
[2018-07-15] MEDS: dilTIAZem HCl 30mg tab GT SCH ×3 (05:53→22:53)
[2018-07-15 05:56] LABS: % IRON SATURATION 34 % (15-50); IRON 37 ug/dL (50-175); TOTAL IRON BINDING CAPACITY 109 ug/dL (250-450)
[2018-07-15 05:57] LABS: ALANINE AMINOTRANSFERASE 17 U/L (12-78); ALBUMIN 1.8 G/DL (3.4-5.0); ALBUMIN/GLOBULIN RATIO 0.4 (1.0-2.7); ALKALINE PHOSPHATASE 54 U/L (46-116); ANION GAP 6 mmol/L (5-15); ASPARTATE AMINO TRANSFERASE 18 U/L (15-37); BILIRUBIN,TOTAL 0.2 MG/DL (0.2-1.0); BLOOD UREA NITROGEN 25 mg/dL (7-18); CALCIUM 9.2 MG/DL (8.5-10.1); CARBON DIOXIDE 30 MMOL/L (21-32); CHLORIDE 115 MMOL/L (98-107); CREATININE 0.6 MG/DL (0.55-1.30); FERRITIN 576 NG/ML (8-388); POTASSIUM 3.2 MMOL/L (3.5-5.1); SODIUM 151 MMOL/L (136-145)
[2018-07-15] MEDS: Piperacillin/Tazobactam 3.375 GM in NS 110 ML IVPB SCH ×3 (06:20→22:53)
[2018-07-15] MEDS: levETIRAcetam 500mg/5ml Liquid GT SCH ×2 (08:57→20:20)
[2018-07-15] MEDS: Heparin 5000 units/ml inj SUBQ SCH ×2 (09:09→20:22)
[2018-07-15] MEDS ORDERED: Tubing IV Secondary IV ONE (09:13)
[2018-07-15] MEDS ORDERED: 1/2 NS 1000ml IV ONE (09:13)
[2018-07-15] MEDS ORDERED: D5W 275ml ONE (09:13)
--- NOTE | 2018-07-15 10:09 | Nephrology Progress Note ---
Assessment/Plan Problem List: (1) Hypernatremia (2) Hypokalemia (3) Dehydration (4) Sepsis Assessment Respiratory failure Sepsis Supraventricular arrhythmia Hypernatremia Free water deficit Dehydration Seizure disorder, complex partial Urinary tract infection HypoAlbuminemia Dementia Allergy to ASA and YVONNE inhibitors HTN Plan adjust bp meds K supplement D5W Monitor Lytes- antibiotics Keppra to GT K and Phos IV Per orders and consultants Objective Objective Last 24 Hour Vital Signs Date Time Temp Pulse Resp B/P (MAP) Pulse Ox O2 Delivery O2 Flow Rate FiO2 07/15/18 08:58 57 105/53 07/15/18 08:00 97.9 57 18 105/33 (57) 100 07/15/18 05:53 62 128/65 07/15/18 04:30 98.7 62 24 117/56 (76) 100 07/15/18 04:24 61 07/15/18 04:00 98.5 67 24 116/54 (74) 100 07/15/18 04:00 Nasal Cannula 3.0 07/15/18 04:00 64 07/15/18 03:00 61 24 114/54 (74) 100 07/15/18 02:00 60 23 118/50 (72) 100 07/15/18 01:00 60 23 110/51 (70) 100 07/15/18 00:00 Nasal Cannula 3.0 07/15/18 00:00 60 07/15/18 00:00 97.5 60 23 105/56 (72) 100 07/14/18 23:00 57 26 113/51 (71) 100 07/14/18 22:00 62 29 99/57 (71) 100 07/14/18 21:53 65 109/64 07/14/18 21:00 73 23 109/54 (72) 100 07/14/18 20:43 72 125/81 07/14/18 20:00 80 18 Nasal Cannula 3.0 32 07/14/18 20:00 73 07/14/18 20:00 73 18 125/81 (96) 99 07/14/18 20:00 Nasal Cannula 3.0 07/14/18 19:30 Nasal Cannula 3.0 32 07/14/18 19:30 98 Nasal Cannula 3.0 32 07/14/18 19:00 66 17 118/62 (80) 100 07/14/18 18:00 98.0 64 19 110/50 (70) 100 07/14/18 17:00 68 17 112/58 (76) 100 07/14/18 16:00 65 18 108/55 (72) 100 07/14/18 16:00 68 07/14/18 16:00 Non-Rebreather 15.0 07/14/18 15:00 66 18 110/56 (74) 100 07/14/18 14:00 97.7 65 19 109/45 (66) 100 07/14/18 14:00 78 109/45 07/14/18 14:00 109/45 07/14/18 13:00 67 18 105/52 (69) 100 07/14/18 12:00 66 07/14/18 12:00 Non-Rebreather 15.0 07/14/18 12:00 66 18 112/55 (74) 100 07/14/18 11:00 68 18 96/48 (64) 100 Intake and Output 07/14/18 07/15/18 18:59 06:59 Intake Total 842.5 ml 2125.834 ml Output Total 455 ml 560 ml Balance 387.5 ml 1565.834 ml IV Total 307.5 ml 1295.834 ml Tube Feeding 535 ml 710 ml Other 120 ml Output Urine Total 455 ml 560 ml Laboratory Tests 07/14/18 20:10: Troponin I 0.007 07/15/18 04:20: Troponin I 0.017, White Blood Count 13.7H, Red Blood Count 3.48L, Hemoglobin 9.3L, Hematocrit 29.7L, Mean Corpuscular Volume 85, Mean Corpuscular Hemoglobin 26.8L, Mean Corpuscular Hemoglobin Concent 31.4L, Red Cell Distribution Width 15.5H, Platelet Count 242, Mean Platelet Volume 6.8, Neutrophils (%) (Auto) 67.7 , Lymphocytes (%) (Auto) 20.8, Monocytes (%) (Auto) 5.1, Eosinophils (%) (Auto) 5.8H, Basophils (%) (Auto) 0.6, Sodium Level 151H, Potassium Level 3.2L, Chloride Level 115H, Carbon Dioxide Level 30, Anion Gap 6, Blood Urea Nitrogen 25H, Creatinine 0.6, Estimat Glomerular Filtration Rate , Glucose Level 104, Hemoglobin A1c 5.1, Uric Acid 4.3, Calcium Level 9.2, Phosphorus Level 3.0, Magnesium Level 2.1, Iron Level 37L, Total Iron Binding Capacity 109L, Percent Iron Saturation 34, Unsaturated Iron Binding 72L, Ferritin 576H, Total Bilirubin 0.2, Gamma Glutamyl Transpeptidase 10, Aspartate Amino Transf (AST/ SGOT) 18, Alanine Aminotransferase (ALT/SGPT) 17, Alkaline Phosphatase 54, Pro-B -Type Natriuretic Peptide 346H, Total Protein 6.6, Albumin 1.8L, Globulin 4.8, Albumin/Globulin Ratio 0.4L, Vitamin B12 Level 1038H, Folate 23.3, Thyroid Stimulating Hormone (TSH) 1.814, Cortisol AM Sample [Pending] Height (Feet): 5 Height (Inches): 3.00 Weight (Pounds): 215 Gonsalo Ortiz MD Jul 15, 2018 10:09
--- NOTE | 2018-07-15 10:18 | Diagnostic Imaging Report ---
Indication: Shortness of breath Technique: One view of the chest Comparison: 07/13/2018 Findings: Previously demonstrated right basilar opacity has resolved. Lungs and pleural spaces currently clear. The heart remains borderline enlarged. There are what appear to be pleural calcifications at the medial right lung base. Impression: Improved aeration of the right lung base, since prior study 07/13/2018. No acute process currently Cardiomegaly Other findings as noted
[2018-07-15] MEDS: Vancomycin 750mg/NS 250ml 250 ML IVPB SCH ×2 (10:30→20:17)
--- NOTE | 2018-07-15 10:36 | Cardiac Electrophysiology PN ---
Assessment/Plan Assessment/Plan 1. Supraventricular tachycardia, treated with adenosine. No recurrence on Cardizem 30 mg 3 times daily and Metoprolol 100 bid 2. Hypertension. On Cardizem and Metoprolol 3. Diabetes, on insulin. 4. Respiratory failure and possible pneumonia, on antibiotic and off BiPAP. 5. Dysphagia, status post PEG placement. 6. Dementia. 7. History of seizure disorder. 8. Hypernatremia. The patient will be getting IV hydration. 9. S/P sharp excisional debridement of left lateral distal lower extremity on previous admission. ANTELMO RN Subjective Subjective Transferred out of ICU. Now off BIPAP. No SVT overnight. Objective Last 24 Hour Vital Signs Date Time Temp Pulse Resp B/P (MAP) Pulse Ox O2 Delivery O2 Flow Rate FiO2 07/15/18 08:58 57 105/53 07/15/18 08:00 97.9 57 18 105/33 (57) 100 07/15/18 05:53 62 128/65 07/15/18 04:30 98.7 62 24 117/56 (76) 100 07/15/18 04:24 61 07/15/18 04:00 98.5 67 24 116/54 (74) 100 07/15/18 04:00 Nasal Cannula 3.0 07/15/18 04:00 64 07/15/18 03:00 61 24 114/54 (74) 100 07/15/18 02:00 60 23 118/50 (72) 100 07/15/18 01:00 60 23 110/51 (70) 100 07/15/18 00:00 Nasal Cannula 3.0 07/15/18 00:00 60 07/15/18 00:00 97.5 60 23 105/56 (72) 100 07/14/18 23:00 57 26 113/51 (71) 100 07/14/18 22:00 62 29 99/57 (71) 100 07/14/18 21:53 65 109/64 07/14/18 21:00 73 23 109/54 (72) 100 07/14/18 20:43 72 125/81 07/14/18 20:00 80 18 Nasal Cannula 3.0 32 07/14/18 20:00 73 07/14/18 20:00 73 18 125/81 (96) 99 07/14/18 20:00 Nasal Cannula 3.0 07/14/18 19:30 Nasal Cannula 3.0 32 07/14/18 19:30 98 Nasal Cannula 3.0 32 07/14/18 19:00 66 17 118/62 (80) 100 07/14/18 18:00 98.0 64 19 110/50 (70) 100 07/14/18 17:00 68 17 112/58 (76) 100 07/14/18 16:00 65 18 108/55 (72) 100 07/14/18 16:00 68 07/14/18 16:00 Non-Rebreather 15.0 07/14/18 15:00 66 18 110/56 (74) 100 07/14/18 14:00 97.7 65 19 109/45 (66) 100 07/14/18 14:00 78 109/45 07/14/18 14:00 109/45 07/14/18 13:00 67 18 105/52 (69) 100 07/14/18 12:00 66 07/14/18 12:00 Non-Rebreather 15.0 07/14/18 12:00 66 18 112/55 (74) 100 07/14/18 11:00 68 18 96/48 (64) 100 Intake and Output 07/14/18 07/15/18 18:59 06:59 Intake Total 842.5 ml 2125.834 ml Output Total 455 ml 560 ml Balance 387.5 ml 1565.834 ml IV Total 307.5 ml 1295.834 ml Tube Feeding 535 ml 710 ml Other 120 ml Output Urine Total 455 ml 560 ml Laboratory Tests Test 07/14/18 20:10 07/15/18 04:20 Troponin I 0.007 ng/mL (0.000-0.056) 0.017 ng/mL (0.000-0.056) White Blood Count 13.7 K/UL (4.8-10.8) H Red Blood Count 3.48 M/UL (4.20-5.40) L Hemoglobin 9.3 G/DL (12.0-16.0) L Hematocrit 29.7 % (37.0-47.0) L Mean Corpuscular Volume 85 FL (80-99) Mean Corpuscular Hemoglobin 26.8 PG (27.0-31.0) L Mean Corpuscular Hemoglobin Concent 31.4 G/DL (32.0-36.0) L Red Cell Distribution Width 15.5 % (11.6-14.8) H Platelet Count 242 K/UL (150-450) Mean Platelet Volume 6.8 FL (6.5-10.1) Neutrophils (%) (Auto) 67.7 % (45.0-75.0) Lymphocytes (%) (Auto) 20.8 % (20.0-45.0) Monocytes (%) (Auto) 5.1 % (1.0-10.0) Eosinophils (%) (Auto) 5.8 % (0.0-3.0) H Basophils (%) (Auto) 0.6 % (0.0-2.0) Sodium Level 151 MMOL/L (136-145) H Potassium Level 3.2 MMOL/L (3.5-5.1) L Chloride Level 115 MMOL/L (98-107) H Carbon Dioxide Level 30 MMOL/L (21-32) Anion Gap 6 mmol/L (5-15) Blood Urea Nitrogen 25 mg/dL (7-18) H Creatinine 0.6 MG/DL (0.55-1.30) Estimat Glomerular Filtration Rate mL/min (>60) Glucose Level 104 MG/DL (74-106) Hemoglobin A1c 5.1 % (4.3-6.0) Uric Acid 4.3 MG/DL (2.6-7.2) Calcium Level 9.2 MG/DL (8.5-10.1) Phosphorus Level 3.0 MG/DL (2.5-4.9) Magnesium Level 2.1 MG/DL (1.8-2.4) Iron Level 37 ug/dL (50-175) L Total Iron Binding Capacity 109 ug/dL (250-450) L Percent Iron Saturation 34 % (15-50) Unsaturated Iron Binding 72 ug/dL (112-346) L Ferritin 576 NG/ML (8-388) H Total Bilirubin 0.2 MG/DL (0.2-1.0) Gamma Glutamyl Transpeptidase 10 U/L (5-85) Aspartate Amino Transf (AST/SGOT) 18 U/L (15-37) Alanine Aminotransferase (ALT/SGPT) 17 U/L (12-78) Alkaline Phosphatase 54 U/L (46-116) Pro-B-Type Natriuretic Peptide 346 pg/mL (0-125) H Total Protein 6.6 G/DL (6.4-8.2) Albumin 1.8 G/DL (3.4-5.0) L Globulin 4.8 g/dL Albumin/Globulin Ratio 0.4 (1.0-2.7) L Vitamin B12 Level 1038 PG/ML (193-986) H Folate 23.3 NG/ML (8.6-58.9) Thyroid Stimulating Hormone (TSH) 1.814 uiU/mL (0.358-3.740) Cortisol AM Sample Pending Microbiology Date/Time Source Procedure Growth Status 07/13/18 12:55 Blood Blood Culture - Preliminary NO GROWTH AFTER 24 HOURS Resulted 07/13/18 12:40 Blood Blood Culture - Preliminary NO GROWTH AFTER 24 HOURS Resulted 07/13/18 12:40 Nasal Nares Influenza Types A,B Antigen (ZELALEM) - Final Complete 07/13/18 12:40 Urine,Clean Catch Urine Culture - Preliminary Gram Negative Bacillus 1 Resulted 07/13/18 20:30 Rectum Received Objective HEAD AND NECK: No JVD. LUNGS: Coarse rhonchi and decreased breath sounds. CARDIOVASCULAR: Regular S1 and S2 with no gallop or murmur. ABDOMEN: Status post G-tube. EXTREMITIES: 1+ pitting edema. Scar Kamara MD Jul 15, 2018 10:36
--- NOTE | 2018-07-15 10:51 | Pulmonology Progress Note ---
Assessment/Plan Problems: (1) Acute encephalopathy (2) Acute respiratory failure (3) Supraventricular arrhythmia (4) Sepsis (5) Seizure disorder, complex partial Assessment/Plan afebrile improving continue iv abx check cultures sinus rhythm now tolerating feeding tube dvt prophylaxis Subjective ROS Limited/Unobtainable: Yes Interval Events: off bipap Constitutional: Reports: no symptoms HEENT: Repors: no symptoms Allergies: Coded Allergies: ASPIRIN (Verified Allergy, Unknown, 06/21/18) LOSARTAN (Verified Allergy, Unknown, 06/21/18) Objective Last 24 Hour Vital Signs Date Time Temp Pulse Resp B/P (MAP) Pulse Ox O2 Delivery O2 Flow Rate FiO2 07/15/18 08:58 57 105/53 07/15/18 08:00 97.9 57 18 105/33 (57) 100 07/15/18 05:53 62 128/65 07/15/18 04:30 98.7 62 24 117/56 (76) 100 07/15/18 04:24 61 07/15/18 04:00 98.5 67 24 116/54 (74) 100 07/15/18 04:00 Nasal Cannula 3.0 07/15/18 04:00 64 07/15/18 03:00 61 24 114/54 (74) 100 07/15/18 02:00 60 23 118/50 (72) 100 07/15/18 01:00 60 23 110/51 (70) 100 07/15/18 00:00 Nasal Cannula 3.0 07/15/18 00:00 60 07/15/18 00:00 97.5 60 23 105/56 (72) 100 07/14/18 23:00 57 26 113/51 (71) 100 07/14/18 22:00 62 29 99/57 (71) 100 07/14/18 21:53 65 109/64 07/14/18 21:00 73 23 109/54 (72) 100 07/14/18 20:43 72 125/81 07/14/18 20:00 80 18 Nasal Cannula 3.0 32 07/14/18 20:00 73 07/14/18 20:00 73 18 125/81 (96) 99 07/14/18 20:00 Nasal Cannula 3.0 07/14/18 19:30 Nasal Cannula 3.0 32 07/14/18 19:30 98 Nasal Cannula 3.0 32 07/14/18 19:00 66 17 118/62 (80) 100 07/14/18 18:00 98.0 64 19 110/50 (70) 100 07/14/18 17:00 68 17 112/58 (76) 100 07/14/18 16:00 65 18 108/55 (72) 100 07/14/18 16:00 68 07/14/18 16:00 Non-Rebreather 15.0 07/14/18 15:00 66 18 110/56 (74) 100 07/14/18 14:00 97.7 65 19 109/45 (66) 100 07/14/18 14:00 78 109/45 07/14/18 14:00 109/45 07/14/18 13:00 67 18 105/52 (69) 100 07/14/18 12:00 66 07/14/18 12:00 Non-Rebreather 15.0 07/14/18 12:00 66 18 112/55 (74) 100 07/14/18 11:00 68 18 96/48 (64) 100 Intake and Output 07/14/18 07/15/18 18:59 06:59 Intake Total 842.5 ml 2125.834 ml Output Total 455 ml 560 ml Balance 387.5 ml 1565.834 ml IV Total 307.5 ml 1295.834 ml Tube Feeding 535 ml 710 ml Other 120 ml Output Urine Total 455 ml 560 ml General Appearance: WD/WN HEENT: normocephalic, atraumatic Respiratory/Chest: chest wall non-tender, lungs clear Breasts: no masses Cardiovascular: normal peripheral pulses Abdomen: normal bowel sounds, no organomegaly Skin: no rash Microbiology Date/Time Source Procedure Growth Status 07/13/18 12:55 Blood Blood Culture - Preliminary NO GROWTH AFTER 24 HOURS Resulted 07/13/18 12:40 Blood Blood Culture - Preliminary NO GROWTH AFTER 24 HOURS Resulted 07/13/18 12:40 Nasal Nares Influenza Types A,B Antigen (ZELALEM) - Final Complete 07/13/18 12:40 Urine,Clean Catch Urine Culture - Preliminary Gram Negative Bacillus 1 Resulted 07/13/18 20:30 Rectum Received Laboratory Tests 07/14/18 20:10: Troponin I 0.007 07/15/18 04:20: Troponin I 0.017, White Blood Count 13.7H, Red Blood Count 3.48L, Hemoglobin 9.3L, Hematocrit 29.7L, Mean Corpuscular Volume 85, Mean Corpuscular Hemoglobin 26.8L, Mean Corpuscular Hemoglobin Concent 31.4L, Red Cell Distribution Width 15.5H, Platelet Count 242, Mean Platelet Volume 6.8, Neutrophils (%) (Auto) 67.7 , Lymphocytes (%) (Auto) 20.8, Monocytes (%) (Auto) 5.1, Eosinophils (%) (Auto) 5.8H, Basophils (%) (Auto) 0.6, Sodium Level 151H, Potassium Level 3.2L, Chloride Level 115H, Carbon Dioxide Level 30, Anion Gap 6, Blood Urea Nitrogen 25H, Creatinine 0.6, Estimat Glomerular Filtration Rate , Glucose Level 104, Hemoglobin A1c 5.1, Uric Acid 4.3, Calcium Level 9.2, Phosphorus Level 3.0, Magnesium Level 2.1, Iron Level 37L, Total Iron Binding Capacity 109L, Percent Iron Saturation 34, Unsaturated Iron Binding 72L, Ferritin 576H, Total Bilirubin 0.2, Gamma Glutamyl Transpeptidase 10, Aspartate Amino Transf (AST/ SGOT) 18, Alanine Aminotransferase (ALT/SGPT) 17, Alkaline Phosphatase 54, Pro-B -Type Natriuretic Peptide 346H, Total Protein 6.6, Albumin 1.8L, Globulin 4.8, Albumin/Globulin Ratio 0.4L, Vitamin B12 Level 1038H, Folate 23.3, Thyroid Stimulating Hormone (TSH) 1.814, Cortisol AM Sample [Pending] Current Medications Medications (Trade) Dose Ordered Sig/Caorline Route PRN Reason Start Time Stop Time Status Last Admin Dose Admin Acetaminophen (Tylenol) 650 mg Q4H PRN GT FEVER (Temp>100.5F) 07/15/18 05:00 08/12/18 20:59 Albuterol/ Ipratropium (Albuterol/ Ipratropium) 3 ml Q4H PRN HHN Shortness of Breath 07/15/18 05:00 07/18/18 20:59 Clonidine HCl (Catapres Tab) 0.1 mg Q4H PRN GT sbp>160 07/15/18 06:45 08/12/18 16:29 Dextrose 1,000 ml @ 75 mls/hr [id number] IV 07/15/18 05:00 08/13/18 14:59 07/15/18 05:00 Diltiazem HCl (Cardizem) 10 mg Q1H PRN IV heart rate more than 120, 07/15/18 05:00 08/12/18 20:59 Diltiazem HCl (Cardizem) 30 mg EVERY 8 HOURS GT 07/15/18 06:00 08/12/18 21:59 07/15/18 05:53 Heparin Sodium (Porcine) (Heparin 5000 units/ml) 5,000 units EVERY 12 HOURS SUBQ 07/15/18 09:00 08/12/18 20:59 07/15/18 09:09 Lansoprazole (Prevacid) 30 mg BID GT 07/15/18 09:00 08/13/18 08:59 07/15/18 08:57 Levetiracetam (Keppra) 500 mg Q12HR GT 07/15/18 09:00 08/12/18 21:59 07/15/18 08:57 Metoprolol Tartrate (Lopressor) 50 mg Q12HR GT 07/15/18 21:00 08/14/18 20:59 Morphine Sulfate (Morphine Sulfate) 2 mg Q4H PRN IVP severe Pain (Pain Scale 7-10) 07/15/18 05:00 07/20/18 20:59 Nitroglycerin (Ntg) 0.4 mg Q5M PRN SL Prn Chest Pain 07/15/18 05:00 08/12/18 20:59 Ondansetron HCl (Zofran) 4 mg Q6H PRN IVP Nausea & Vomiting 07/15/18 09:00 08/12/18 20:59 Piperacillin Sod/ Tazobactam Sod 3.375 gm/Sodium Chloride 110 ml @ 27.5 mls/hr Q8H IVPB 07/15/18 07:00 07/21/18 14:59 07/15/18 06:20 Polyethylene Glycol (Miralax) 17 gm DAILYPRN PRN GT Constipation 07/15/18 21:00 08/12/18 20:59 Potassium Chloride 100 ml @ 100 mls/hr Q1HR IVPB 07/15/18 09:00 07/15/18 12:59 07/15/18 10:30 Temazepam (Restoril) 15 mg HSPRN PRN GT Insomnia 07/15/18 21:00 07/20/18 20:59 Vancomycin HCl (Vanco rx to dose) 1 ea DAILY PRN MISC Per rx protocol 07/15/18 09:00 08/13/18 13:44 Vancomycin/Sodium Chloride 250 ml @ 166.667 mls/hr Q12HR IVPB 07/15/18 09:00 07/19/18 20:59 07/15/18 10:30 Morgan Tang MD Jul 15, 2018 10:51
--- NOTE | 2018-07-15 11:36 | Infectious Diseases Prog Note ---
Assessment/Plan Assessment/Plan Abx: IV vancomycin x1 07/13 Zosyn x1 07/13 Assessment: Sepsis 2ry to PNA -CXR: Suspect right basilar infiltrate and/or atelectasis. Borderline cardiac megaly -influenza sc neg -sp cx p Fever, improving Leukocytosis, improving -u/a wbc 10-15, nit neg, leuk +3; ucx >100k GNR- ?UTI -Bcx NTD HTN COPD dysphagia aphasia Alzheimer's dementia Plan: -Continue IV Vancomycin and Zosyn #3 for PNA pending cultures -f/u cx -Monitor CBC/CMP, temperatures -aspiration precautions Thank you for this consultation. Will continue to follow along with you. Discussed with RN. Subjective Allergies: Coded Allergies: ASPIRIN (Verified Allergy, Unknown, 06/21/18) LOSARTAN (Verified Allergy, Unknown, 06/21/18) Subjective afebrile >36hrs wbc improving Bcx NTD Sp cx p Objective Vital Signs Last 24 Hour Vital Signs Date Time Temp Pulse Resp B/P (MAP) Pulse Ox O2 Delivery O2 Flow Rate FiO2 07/15/18 08:58 57 105/53 07/15/18 08:00 97.9 57 18 105/33 (57) 100 07/15/18 08:00 58 07/15/18 05:53 62 128/65 07/15/18 04:30 98.7 62 24 117/56 (76) 100 07/15/18 04:24 61 07/15/18 04:00 98.5 67 24 116/54 (74) 100 07/15/18 04:00 Nasal Cannula 3.0 07/15/18 04:00 64 07/15/18 03:00 61 24 114/54 (74) 100 07/15/18 02:00 60 23 118/50 (72) 100 07/15/18 01:00 60 23 110/51 (70) 100 07/15/18 00:00 Nasal Cannula 3.0 07/15/18 00:00 60 07/15/18 00:00 97.5 60 23 105/56 (72) 100 07/14/18 23:00 57 26 113/51 (71) 100 07/14/18 22:00 62 29 99/57 (71) 100 07/14/18 21:53 65 109/64 07/14/18 21:00 73 23 109/54 (72) 100 07/14/18 20:43 72 125/81 07/14/18 20:00 80 18 Nasal Cannula 3.0 32 07/14/18 20:00 73 07/14/18 20:00 73 18 125/81 (96) 99 18 20:00 Nasal Cannula 3.0 07/14/18 19:30 Nasal Cannula 3.0 32 07/14/18 19:30 98 Nasal Cannula 3.0 32 07/14/18 19:00 66 17 118/62 (80) 100 07/14/18 18:00 98.0 64 19 110/50 (70) 100 07/14/18 17:00 68 17 112/58 (76) 100 07/14/18 16:00 65 18 108/55 (72) 100 07/14/18 16:00 68 07/14/18 16:00 Non-Rebreather 15.0 07/14/18 15:00 66 18 110/56 (74) 100 07/14/18 14:00 97.7 65 19 109/45 (66) 100 07/14/18 14:00 78 109/45 07/14/18 14:00 109/45 07/14/18 13:00 67 18 105/52 (69) 100 07/14/18 12:00 66 07/14/18 12:00 Non-Rebreather 15.0 07/14/18 12:00 66 18 112/55 (74) 100 Height (Feet): 5 Height (Inches): 3.00 Weight (Pounds): 215 Microbiology Date/Time Source Procedure Growth Status 07/13/18 12:55 Blood Blood Culture - Preliminary NO GROWTH AFTER 24 HOURS Resulted 07/13/18 12:40 Blood Blood Culture - Preliminary NO GROWTH AFTER 24 HOURS Resulted 07/13/18 12:40 Nasal Nares Influenza Types A,B Antigen (ZELALEM) - Final Complete 07/13/18 12:40 Urine,Clean Catch Urine Culture - Preliminary Gram Negative Bacillus 1 Resulted 07/13/18 20:30 Rectum Received Laboratory Tests Test 07/14/18 20:10 07/15/18 04:20 Troponin I 0.007 ng/mL (0.000-0.056) 0.017 ng/mL (0.000-0.056) White Blood Count 13.7 K/UL (4.8-10.8) H Red Blood Count 3.48 M/UL (4.20-5.40) L Hemoglobin 9.3 G/DL (12.0-16.0) L Hematocrit 29.7 % (37.0-47.0) L Mean Corpuscular Volume 85 FL (80-99) Mean Corpuscular Hemoglobin 26.8 PG (27.0-31.0) L Mean Corpuscular Hemoglobin Concent 31.4 G/DL (32.0-36.0) L Red Cell Distribution Width 15.5 % (11.6-14.8) H Platelet Count 242 K/UL (150-450) Mean Platelet Volume 6.8 FL (6.5-10.1) Neutrophils (%) (Auto) 67.7 % (45.0-75.0) Lymphocytes (%) (Auto) 20.8 % (20.0-45.0) Monocytes (%) (Auto) 5.1 % (1.0-10.0) Eosinophils (%) (Auto) 5.8 % (0.0-3.0) H Basophils (%) (Auto) 0.6 % (0.0-2.0) Sodium Level 151 MMOL/L (136-145) H Potassium Level 3.2 MMOL/L (3.5-5.1) L Chloride Level 115 MMOL/L (98-107) H Carbon Dioxide Level 30 MMOL/L (21-32) Anion Gap 6 mmol/L (5-15) Blood Urea Nitrogen 25 mg/dL (7-18) H Creatinine 0.6 MG/DL (0.55-1.30) Estimat Glomerular Filtration Rate mL/min (>60) Glucose Level 104 MG/DL (74-106) Hemoglobin A1c 5.1 % (4.3-6.0) Uric Acid 4.3 MG/DL (2.6-7.2) Calcium Level 9.2 MG/DL (8.5-10.1) Phosphorus Level 3.0 MG/DL (2.5-4.9) Magnesium Level 2.1 MG/DL (1.8-2.4) Iron Level 37 ug/dL (50-175) L Total Iron Binding Capacity 109 ug/dL (250-450) L Percent Iron Saturation 34 % (15-50) Unsaturated Iron Binding 72 ug/dL (112-346) L Ferritin 576 NG/ML (8-388) H Total Bilirubin 0.2 MG/DL (0.2-1.0) Gamma Glutamyl Transpeptidase 10 U/L (5-85) Aspartate Amino Transf (AST/SGOT) 18 U/L (15-37) Alanine Aminotransferase (ALT/SGPT) 17 U/L (12-78) Alkaline Phosphatase 54 U/L (46-116) Pro-B-Type Natriuretic Peptide 346 pg/mL (0-125) H Total Protein 6.6 G/DL (6.4-8.2) Albumin 1.8 G/DL (3.4-5.0) L Globulin 4.8 g/dL Albumin/Globulin Ratio 0.4 (1.0-2.7) L Vitamin B12 Level 1038 PG/ML (193-986) H Folate 23.3 NG/ML (8.6-58.9) Thyroid Stimulating Hormone (TSH) 1.814 uiU/mL (0.358-3.740) Cortisol AM Sample Pending Current Medications Medications (Trade) Dose Ordered Sig/Caroline Route PRN Reason Start Time Stop Time Status Last Admin Dose Admin Acetaminophen (Tylenol) 650 mg Q4H PRN GT FEVER (Temp>100.5F) 07/15/18 05:00 08/12/18 20:59 Albuterol/ Ipratropium (Albuterol/ Ipratropium) 3 ml Q4H PRN HHN Shortness of Breath 07/15/18 05:00 07/18/18 20:59 Clonidine HCl (Catapres Tab) 0.1 mg Q4H PRN GT sbp>160 07/15/18 06:45 08/12/18 16:29 Dextrose 1,000 ml @ 75 mls/hr [id number] IV 07/15/18 05:00 08/13/18 14:59 07/15/18 05:00 Diltiazem HCl (Cardizem) 10 mg Q1H PRN IV heart rate more than 120, 07/15/18 05:00 08/12/18 20:59 Diltiazem HCl (Cardizem) 30 mg EVERY 8 HOURS GT 07/15/18 06:00 08/12/18 21:59 07/15/18 05:53 Heparin Sodium (Porcine) (Heparin 5000 units/ml) 5,000 units EVERY 12 HOURS SUBQ 07/15/18 09:00 08/12/18 20:59 07/15/18 09:09 Lansoprazole (Prevacid) 30 mg BID GT 07/15/18 09:00 08/13/18 08:59 07/15/18 08:57 Levetiracetam (Keppra) 500 mg Q12HR GT 07/15/18 09:00 08/12/18 21:59 07/15/18 08:57 Metoprolol Tartrate (Lopressor) 50 mg Q12HR GT 07/15/18 21:00 08/14/18 20:59 Morphine Sulfate (Morphine Sulfate) 2 mg Q4H PRN IVP severe Pain (Pain Scale 7-10) 07/15/18 05:00 07/20/18 20:59 Nitroglycerin (Ntg) 0.4 mg Q5M PRN SL Prn Chest Pain 07/15/18 05:00 08/12/18 20:59 Ondansetron HCl (Zofran) 4 mg Q6H PRN IVP Nausea & Vomiting 07/15/18 09:00 08/12/18 20:59 Piperacillin Sod/ Tazobactam Sod 3.375 gm/Sodium Chloride 110 ml @ 27.5 mls/hr Q8H IVPB 07/15/18 07:00 07/21/18 14:59 07/15/18 06:20 Polyethylene Glycol (Miralax) 17 gm DAILYPRN PRN GT Constipation 07/15/18 21:00 08/12/18 20:59 Potassium Chloride 100 ml @ 100 mls/hr Q1HR IVPB 07/15/18 09:00 07/15/18 12:59 07/15/18 10:30 Temazepam (Restoril) 15 mg HSPRN PRN GT Insomnia 07/15/18 21:00 07/20/18 20:59 Vancomycin HCl (Vanco rx to dose) 1 ea DAILY PRN MISC Per rx protocol 07/15/18 09:00 08/13/18 13:44 Vancomycin/Sodium Chloride 250 ml @ 166.667 mls/hr Q12HR IVPB 07/15/18 09:00 07/19/18 20:59 07/15/18 10:30 Selene Francis M.D. Jul 15, 2018 11:36
--- NOTE | 2018-07-15 12:41 | General Progress Note ---
Assessment/Plan Problem List: (1) Ulcer of left lower leg ICD Codes: L97.929 - Non-pressure chronic ulcer of unspecified part of left lower leg with unspecified severity SNOMED: 140177899, 150705201 (2) Respiratory failure ICD Codes: J96.90 - Respiratory failure, unspecified, unspecified whether with hypoxia or hypercapnia SNOMED: 764862914 (3) FTT (failure to thrive) in adult ICD Codes: R62.7 - Adult failure to thrive SNOMED: 270383472 (4) Acute respiratory failure ICD Codes: J96.00 - Acute respiratory failure, unspecified whether with hypoxia or hypercapnia SNOMED: 44216034 (5) Severe malnutrition ICD Codes: E43 - Unspecified severe protein-calorie malnutrition SNOMED: 28794497 (6) Sepsis ICD Codes: A41.9 - Sepsis, unspecified organism SNOMED: 34230790 (7) Leukocytosis ICD Codes: D72.829 - Elevated white blood cell count, unspecified SNOMED: 520002748, 001351748 (8) At high risk for aspiration ICD Codes: Z91.89 - Other specified personal risk factors, not elsewhere classified SNOMED: 901805987 (9) Seizure disorder, complex partial ICD Codes: G40.209 - Seizure disorder, complex partial SNOMED: 538137852 Status: unchanged Assessment/Plan o2 pulm tx ot pt diet abx cbc bmp am Subjective Constitutional: Reports: weakness Respiratory: Reports: shortness of breath Allergies: Coded Allergies: ASPIRIN (Verified Allergy, Unknown, 06/21/18) LOSARTAN (Verified Allergy, Unknown, 06/21/18) All Systems: reviewed and negative except above Subjective o2nc confused Objective Last 24 Hour Vital Signs Date Time Temp Pulse Resp B/P (MAP) Pulse Ox O2 Delivery O2 Flow Rate FiO2 07/15/18 12:00 97.5 76 20 118/78 (91) 98 07/15/18 12:00 Nasal Cannula 3.0 07/15/18 08:58 57 105/53 07/15/18 08:00 97.9 57 18 105/33 (57) 100 07/15/18 08:00 Nasal Cannula 3.0 07/15/18 08:00 58 07/15/18 05:53 62 128/65 07/15/18 04:30 98.7 62 24 117/56 (76) 100 07/15/18 04:24 61 07/15/18 04:00 98.5 67 24 116/54 (74) 100 07/15/18 04:00 Nasal Cannula 3.0 07/15/18 04:00 64 07/15/18 03:00 61 24 114/54 (74) 100 07/15/18 02:00 60 23 118/50 (72) 100 07/15/18 01:00 60 23 110/51 (70) 100 07/15/18 00:00 Nasal Cannula 3.0 07/15/18 00:00 60 07/15/18 00:00 97.5 60 23 105/56 (72) 100 07/14/18 23:00 57 26 113/51 (71) 100 07/14/18 22:00 62 29 99/57 (71) 100 07/14/18 21:53 65 109/64 07/14/18 21:00 73 23 109/54 (72) 100 07/14/18 20:43 72 125/81 07/14/18 20:00 80 18 Nasal Cannula 3.0 32 07/14/18 20:00 73 07/14/18 20:00 73 18 125/81 (96) 99 07/14/18 20:00 Nasal Cannula 3.0 07/14/18 19:30 Nasal Cannula 3.0 32 07/14/18 19:30 98 Nasal Cannula 3.0 32 07/14/18 19:00 66 17 118/62 (80) 100 07/14/18 18:00 98.0 64 19 110/50 (70) 100 07/14/18 17:00 68 17 112/58 (76) 100 07/14/18 16:00 65 18 108/55 (72) 100 07/14/18 16:00 68 07/14/18 16:00 Non-Rebreather 15.0 07/14/18 15:00 66 18 110/56 (74) 100 07/14/18 14:00 97.7 65 19 109/45 (66) 100 07/14/18 14:00 78 109/45 07/14/18 14:00 109/45 07/14/18 13:00 67 18 105/52 (69) 100 Intake and Output 12/5/18 12/6/18 19:00 07:00 Intake Total 955.0 ml 2048.334 ml Output Total 455 ml 530 ml Balance 500.0 ml 1518.334 ml IV Total 410.0 ml 1268.334 ml Tube Feeding 545 ml 660 ml Other 120 ml Output Urine Total 455 ml 530 ml Laboratory Tests 07/14/18 20:10: Troponin I 0.007 07/15/18 04:20: Troponin I 0.017, White Blood Count 13.7H, Red Blood Count 3.48L, Hemoglobin 9.3L, Hematocrit 29.7L, Mean Corpuscular Volume 85, Mean Corpuscular Hemoglobin 26.8L, Mean Corpuscular Hemoglobin Concent 31.4L, Red Cell Distribution Width 15.5H, Platelet Count 242, Mean Platelet Volume 6.8, Neutrophils (%) (Auto) 67.7 , Lymphocytes (%) (Auto) 20.8, Monocytes (%) (Auto) 5.1, Eosinophils (%) (Auto) 5.8H, Basophils (%) (Auto) 0.6, Sodium Level 151H, Potassium Level 3.2L, Chloride Level 115H, Carbon Dioxide Level 30, Anion Gap 6, Blood Urea Nitrogen 25H, Creatinine 0.6, Estimat Glomerular Filtration Rate , Glucose Level 104, Hemoglobin A1c 5.1, Uric Acid 4.3, Calcium Level 9.2, Phosphorus Level 3.0, Magnesium Level 2.1, Iron Level 37L, Total Iron Binding Capacity 109L, Percent Iron Saturation 34, Unsaturated Iron Binding 72L, Ferritin 576H, Total Bilirubin 0.2, Gamma Glutamyl Transpeptidase 10, Aspartate Amino Transf (AST/ SGOT) 18, Alanine Aminotransferase (ALT/SGPT) 17, Alkaline Phosphatase 54, Pro-B -Type Natriuretic Peptide 346H, Total Protein 6.6, Albumin 1.8L, Globulin 4.8, Albumin/Globulin Ratio 0.4L, Vitamin B12 Level 1038H, Folate 23.3, Thyroid Stimulating Hormone (TSH) 1.814, Cortisol AM Sample [Pending] Height (Feet): 5 Height (Inches): 3.00 Weight (Pounds): 215 General Appearance: lethargic EENT: normal ENT inspection Neck: normal alignment Cardiovascular: normal peripheral pulses, normal rate, regular rhythm Respiratory/Chest: chest wall non-tender, lungs clear, normal breath sounds Abdomen: normal bowel sounds, non tender, soft Extremities: normal inspection Edema: no edema noted Arm (L), no edema noted Arm (R), no edema noted Leg (L), no edema noted Leg (R), no edema noted Pedal (L), no edema noted Pedal (R), no edema noted Generalized Neurologic: motor weakness Skin: normal pigmentation, warm/dry Hong Caballero DO Jul 15, 2018 12:41
[2018-07-15] MEDS ORDERED: LORazepam 0.5mg tab ORAL PRN (15:30)
[2018-07-15] MEDS ORDERED: Memantine 5 MG TAB GT SCH (18:00)
[2018-07-15] MEDS ORDERED: Miralax 17gm pkt GT PRN (21:00)
[2018-07-15] MEDS ORDERED: Metoprolol Tartrate 50mg tab GT SCH (21:00)
[2018-07-16] VITALS (7 sets, daily range): BP systolic 109–150; BP diastolic 53–89
--- NOTE | 2018-07-16 01:15 | Consultation ---
DATE OF CONSULTATION: 07/15/2018 CONSULTING PHYSICIAN: Pearl Cunningham M.D. HISTORY OF PRESENT ILLNESS: The patient is a 72-year-old female patient. She came into the hospital because of sepsis and respiratory failure. However, she is having a decline in cognition below baseline worsened by the stress of her medical illness. That is why her attending physician has requested daily psychiatric consultation for this patient. She does have some mood lability, confusion, and disorganized thought process, and because of her mood lability and also the fact she has a previous diagnosis of major depression with psychotic features, rule out dementia with psychosis, there was a daily psychiatric consultation requested for this patient to be seen. I saw and assessed the patient at bedside. She is confused and disorganized. She does have some mood lability. She is confused, disorganized, altered mental status, and she has no logical plan for her own self-care. As far as her mental status examination, she is very confused and disorganized. Cognition has declined below baseline. I have seen this patient before, she is below baseline as far as her cognition. PAST MEDICAL HISTORY: Respiratory failure, seizure disorder, diabetes, encephalopathy, and dehydration. ALLERGIES: Allergies to aspirin and losartan. PSYCHOTROPIC MEDICATIONS ON ADMISSION: Per chart, she has a history of taking Namenda 5 mg per G-tube twice a day as well as taking Zyprexa in the past as well. SUBSTANCE ABUSE HISTORY: No history of drug or alcohol use. FAMILY PSYCHIATRIC HISTORY: Denies. PAIN ASSESSMENT: 0/10. DEVELOPMENTAL PROBLEMS: Denies. SOCIAL HISTORY: Lives in [facility]. Financially supported by [employer] and Medicare. STRENGTHS: She is motivated to get better and has a place to live. WEAKNESSES: She is impulsive and minimal support system. MENTAL STATUS EXAMINATION: This is a 72-year-old female. Appearance is disheveled. Attitude is irritable and agitated. Affect is guarded and restricted. Intellect poor. Mood depressed and anxious. Motor activity, psychomotor agitation. Attention span is poor. Orientation x2. Speech is pressured. Thought process, disorganized and illogical. Thought content, auditory hallucinations and paranoid delusions. Insight and judgment are poor. As far as her short-term memory, 0/3 with recall after 5 minutes delay, has poor short-term memory. Poor long-term memory, she is unable to recall long-term events in her life such as high school that she went to. Orientation, she is oriented to time and person. Concentration is poor. She is unable to do serial sevens or spell "world" backwards. Insight is poor. She does not seem to recognize her cognitive disturbances and poor judgment as well. No signs of any suicidal or homicidal thoughts. DIAGNOSES: 1. Major depression disorder, mild, recurrent, rule out pseudodementia. 2. No secondary diagnosis. 3. Medical problems include sepsis, respiratory insufficiency, hypertension, also supraventricular arrhythmias, hypokalemia, and dysphagia. 4. Psychosocial stressors, financial. 5. Function impairment is moderate. PLAN: My plan for this patient again is to treat this patient with a medication regimen consisting of Namenda at a dose of 5 mg per G-tube twice a day to improve cognition. She will continue to be followed by Psychiatry throughout her hospital course and I am also going to treat with medications to prevent any further decline in cognition and Ativan at a dose of 0.5 mg every 6 hours p.r.n. anxiety and agitation. Provided with 20 minutes of insight-oriented psychotherapy to help recognize her cognitive disturbances and cognitive decline so that she has better impulse control behavior on the unit. Twenty minutes of insight-oriented psychotherapy provided. Chart reviewed and discussed with staff. I would like to thank Dr. Hong Caballero for this interesting consultation. Pearl Cunningham M.D. DR: RYAN JOB#: [id number] CC:
[2018-07-16] MEDS: dilTIAZem HCl 30mg tab GT SCH ×2 (05:28→21:52)
[2018-07-16] MEDS: Piperacillin/Tazobactam 3.375 GM in NS 110 ML IVPB SCH (06:31)
[2018-07-16] MEDS ORDERED: Acetaminophen 650mg/20.3ml GT PRN ×2 (06:44→20:30)
[2018-07-16] MEDS ORDERED: Albuterol/Ipratropium 3ml neb HHN PRN ×2 (06:44→20:30)
[2018-07-16] MEDS ORDERED: LORazepam 0.5mg tab ORAL PRN ×2 (06:44→20:30)
[2018-07-16] MEDS ORDERED: Morphine Sulfate 2mg/ml Inj IVP PRN ×2 (06:44→20:30)
[2018-07-16] MEDS ORDERED: Miralax 17gm pkt GT PRN ×2 (06:45→20:30)
[2018-07-16] MEDS ORDERED: Nitroglycerin Subl 0.4mg tab SL PRN ×2 (06:45→20:30)
[2018-07-16] MEDS ORDERED: dilTIAZem HCl 25mg/5ml Inj IV PRN ×2 (07:00→21:00)
[2018-07-16] MEDS: Memantine 5 MG TAB GT SCH ×2 (08:40→18:12)
[2018-07-16] MEDS ORDERED: levETIRAcetam 500mg/5ml Liquid GT SCH (09:00)
[2018-07-16] MEDS ORDERED: Heparin 5000 units/ml inj SUBQ SCH (09:00)
[2018-07-16] MEDS ORDERED: Metoprolol Tartrate 50mg tab GT SCH (09:00)
[2018-07-16] MEDS ORDERED: Vancomycin 750mg/NS 250ml 250 ML IVPB SCH (09:00)
[2018-07-16 09:40] LABS: BASOPHILS % (AUTO) 0.7 % (0.0-2.0); EOSINOPHILS % (AUTO) 6.7 % (0.0-3.0); HEMOGLOBIN 9.7 G/DL (12.0-16.0); LYMPHOCYTES % (AUTO) 23.9 % (20.0-45.0); MEAN CORPUSCULAR VOLUME 85 FL (80-99); MONOCYTES % (AUTO) 5.4 % (1.0-10.0); NEUTROPHILS % (AUTO) 63.2 % (45.0-75.0); PLATELET COUNT 235 K/UL (150-450); RED BLOOD COUNT 3.64 M/UL (4.20-5.40); WHITE BLOOD COUNT 9.5 K/UL (4.8-10.8)
[2018-07-16 10:04] LABS: ALANINE AMINOTRANSFERASE 20 U/L (12-78); ALBUMIN 1.8 G/DL (3.4-5.0); ALBUMIN/GLOBULIN RATIO 0.4 (1.0-2.7); ALKALINE PHOSPHATASE 63 U/L (46-116); ANION GAP 5 mmol/L (5-15); ASPARTATE AMINO TRANSFERASE 19 U/L (15-37); BILIRUBIN,TOTAL < 0.1 MG/DL (0.2-1.0); BLOOD UREA NITROGEN 19 mg/dL (7-18); CALCIUM 9.1 MG/DL (8.5-10.1); CARBON DIOXIDE 30 MMOL/L (21-32); CHLORIDE 110 MMOL/L (98-107); CREATININE 0.6 MG/DL (0.55-1.30); PHOSPHORUS 3.1 MG/DL (2.5-4.9); POTASSIUM 4.3 MMOL/L (3.5-5.1); SODIUM 145 MMOL/L (136-145)
--- NOTE | 2018-07-16 10:47 | Pulmonology Progress Note ---
Assessment/Plan Problems: (1) Acute encephalopathy (2) Acute respiratory failure (3) Supraventricular arrhythmia (4) Sepsis (5) Seizure disorder, complex partial Assessment/Plan afebrile improving continue iv abx check cultures sinus rhythm now tolerating feeding tube dvt prophylaxis electrolytes improving Urine Ecoli resistant to Zosy, ABX by ID Subjective ROS Limited/Unobtainable: No Constitutional: Reports: no symptoms HEENT: Repors: no symptoms Allergies: Coded Allergies: ASPIRIN (Verified Allergy, Unknown, 06/21/18) LOSARTAN (Verified Allergy, Unknown, 06/21/18) Objective Last 24 Hour Vital Signs Date Time Temp Pulse Resp B/P (MAP) Pulse Ox O2 Delivery O2 Flow Rate FiO2 07/16/18 08:40 64 125/61 07/16/18 08:00 99.2 64 20 125/61 (82) 98 07/16/18 07:45 64 17 Nasal Cannula 3.0 32 07/16/18 07:45 Nasal Cannula 3.0 32 07/16/18 07:45 98 Nasal Cannula 3.0 32 07/16/18 05:28 65 116/63 07/16/18 04:00 97.9 64 20 109/53 (71) 100 07/16/18 04:00 65 07/16/18 04:00 Nasal Cannula 3.0 07/16/18 00:00 98.1 60 24 131/53 (79) 100 07/16/18 00:00 63 07/16/18 00:00 Nasal Cannula 3.0 07/15/18 22:53 64 115/52 07/15/18 20:18 68 105/65 07/15/18 20:00 62 07/15/18 20:00 Nasal Cannula 3.0 07/15/18 20:00 98.6 62 18 105/68 (80) 100 07/15/18 17:47 61 07/15/18 16:00 Nasal Cannula 3.0 07/15/18 15:56 98.4 61 22 119/53 (75) 100 61 07/15/18 14:42 64 121/54 07/15/18 13:24 64 07/15/18 12:00 97.5 76 20 118/78 (91) 98 07/15/18 12:00 98.1 61 24 121/54 (76) 100 61 07/15/18 12:00 Nasal Cannula 3.0 Intake and Output 07/15/18 07/16/18 18:59 06:59 Intake Total 1994.350 ml 2037.500 ml Output Total 250 ml 250 ml Balance 1744.350 ml 1787.500 ml Free Water 90 ml IV Total 1274.350 ml 1287.500 ml Tube Feeding 720 ml 660 ml Output Urine Total 250 ml 250 ml # Voids 6 # Bowel Movements 2 General Appearance: WD/WN HEENT: normocephalic, atraumatic Respiratory/Chest: chest wall non-tender, normal breath sounds Cardiovascular: normal peripheral pulses, regular rhythm Abdomen: normal bowel sounds, no organomegaly Genitourinary: normal external genitalia Microbiology Date/Time Source Procedure Growth Status 07/13/18 12:55 Blood Blood Culture - Preliminary NO GROWTH AFTER 48 HOURS Resulted 07/13/18 12:40 Blood Blood Culture - Preliminary Staphylococcus Sp Coag Neg Resulted 07/14/18 21:00 Sputum Induced Gram Stain - Final Resulted 07/14/18 21:00 Sputum Induced Sputum Culture Pending Resulted 07/13/18 12:40 Nasal Nares Influenza Types A,B Antigen (ZELALEM) - Final Complete 07/13/18 12:40 Urine,Clean Catch Urine Culture - Preliminary Escherichia Coli Resulted 07/14/18 12:50 Rectum - Final NO CARBAPENEM-RESISTANT ENTEROBACTERI... Complete 07/13/18 20:30 Rectum VRE Culture - Final Enterococcus Faecalis - Vre Enterococcus Faecium - Vre Complete Laboratory Tests 07/16/18 08:00: White Blood Count 9.5, Red Blood Count 3.64L, Hemoglobin 9.7L, Hematocrit 31.0L , Mean Corpuscular Volume 85, Mean Corpuscular Hemoglobin 26.6L, Mean Corpuscular Hemoglobin Concent 31.2L, Red Cell Distribution Width 15.0H, Platelet Count 235, Mean Platelet Volume 6.7, Neutrophils (%) (Auto) 63.2, Lymphocytes (%) (Auto) 23.9, Monocytes (%) (Auto) 5.4, Eosinophils (%) (Auto) 6.7H, Basophils (%) (Auto) 0.7, Sodium Level 145, Potassium Level 4.3, Chloride Level 110H, Carbon Dioxide Level 30, Anion Gap 5, Blood Urea Nitrogen 19H, Creatinine 0.6, Estimat Glomerular Filtration Rate , Glucose Level 98, Calcium Level 9.1, Phosphorus Level 3.1, Magnesium Level 2.0, Total Bilirubin < 0.1L, Aspartate Amino Transf (AST/SGOT) 19, Alanine Aminotransferase (ALT/SGPT) 20, Alkaline Phosphatase 63, Total Protein 6.8, Albumin 1.8L, Globulin 5.0, Albumin/ Globulin Ratio 0.4L, Vancomycin Level Trough 11.9 Current Medications Medications (Trade) Dose Ordered Sig/Caroline Route PRN Reason Start Time Stop Time Status Last Admin Dose Admin Acetaminophen (Tylenol) 650 mg Q4H PRN GT FEVER (Temp>100.5F) 07/16/18 06:44 08/12/18 06:43 Albuterol/ Ipratropium (Albuterol/ Ipratropium) 3 ml Q4H PRN HHN Shortness of Breath 07/16/18 06:44 07/18/18 06:43 Clonidine HCl (Catapres Tab) 0.1 mg Q4H PRN GT sbp>160 07/16/18 06:45 08/12/18 16:29 Dextrose 1,000 ml @ 75 mls/hr [id number] IV 07/16/18 06:45 08/13/18 14:59 07/16/18 07:19 Diltiazem HCl (Cardizem) 10 mg Q1H PRN IV heart rate more than 120, 07/16/18 07:00 08/12/18 20:59 Diltiazem HCl (Cardizem) 30 mg EVERY 8 HOURS GT 07/16/18 14:00 08/12/18 21:59 Heparin Sodium (Porcine) (Heparin 5000 units/ml) 5,000 units EVERY 12 HOURS SUBQ 07/16/18 09:00 08/12/18 20:59 07/16/18 08:42 Lansoprazole (Prevacid) 30 mg BID GT 07/16/18 09:00 08/13/18 08:59 07/16/18 08:40 Levetiracetam (Keppra) 500 mg Q12HR GT 07/16/18 09:00 08/12/18 21:59 07/16/18 08:39 Lorazepam (Ativan) 0.5 mg Q6H PRN ORAL For Anxiety 07/16/18 06:44 07/22/18 06:43 Memantine (Namenda) 5 mg BID GT 07/16/18 09:00 08/14/18 17:59 07/16/18 08:40 Metoprolol Tartrate (Lopressor) 50 mg Q12HR GT 07/16/18 09:00 08/14/18 20:59 07/16/18 08:40 Morphine Sulfate (Morphine Sulfate) 2 mg Q4H PRN IVP severe Pain (Pain Scale 7-10) 07/16/18 06:44 07/20/18 06:43 Nitroglycerin (Ntg) 0.4 mg Q5M PRN SL Prn Chest Pain 07/16/18 06:45 08/12/18 20:59 Ondansetron HCl (Zofran) 4 mg Q6H PRN IVP Nausea & Vomiting 07/16/18 06:44 08/12/18 06:43 Piperacillin Sod/ Tazobactam Sod 3.375 gm/Sodium Chloride 110 ml @ 27.5 mls/hr Q8H IVPB 07/16/18 15:00 07/21/18 14:59 Polyethylene Glycol (Miralax) 17 gm DAILYPRN PRN GT Constipation 07/16/18 06:45 08/12/18 06:44 Temazepam (Restoril) 15 mg HSPRN PRN GT Insomnia 07/16/18 21:00 07/20/18 20:59 Vancomycin HCl (Vanco rx to dose) 1 ea DAILY PRN MISC Per rx protocol 07/16/18 09:00 08/13/18 13:44 Vancomycin HCl 1 gm/Dextrose 275 ml @ 183.708 mls/hr Q12HR@0800,2000 IVPB 07/16/18 20:00 07/21/18 19:59 Morgan Tang MD Jul 16, 2018 10:47
--- NOTE | 2018-07-16 11:29 | Nephrology Progress Note ---
Assessment/Plan Problem List: (1) Hypernatremia (2) Hypokalemia (3) Dehydration (4) Sepsis Assessment Respiratory failure Sepsis Supraventricular arrhythmia Hypernatremia Free water deficit Dehydration Seizure disorder, complex partial Urinary tract infection HypoAlbuminemia Dementia Allergy to ASA and YVONNE inhibitors HTN Plan adjust bp meds K supplement DC IV D5W Monitor Lytes- antibiotics Keppra to GT K and Phos IV as needed Per orders and consultants Subjective ROS Limited/Unobtainable: No Constitutional: Reports: malaise Objective Objective Last 24 Hour Vital Signs Date Time Temp Pulse Resp B/P (MAP) Pulse Ox O2 Delivery O2 Flow Rate FiO2 07/16/18 08:40 64 125/61 07/16/18 08:00 99.2 64 20 125/61 (82) 98 07/16/18 08:00 64 07/16/18 07:45 64 17 Nasal Cannula 3.0 32 07/16/18 07:45 Nasal Cannula 3.0 32 07/16/18 07:45 98 Nasal Cannula 3.0 32 07/16/18 05:28 65 116/63 07/16/18 04:00 97.9 64 20 109/53 (71) 100 07/16/18 04:00 65 07/16/18 04:00 Nasal Cannula 3.0 07/16/18 00:00 98.1 60 24 131/53 (79) 100 07/16/18 00:00 63 07/16/18 00:00 Nasal Cannula 3.0 07/15/18 22:53 64 115/52 07/15/18 20:18 68 105/65 07/15/18 20:00 62 07/15/18 20:00 Nasal Cannula 3.0 07/15/18 20:00 98.6 62 18 105/68 (80) 100 07/15/18 17:47 61 07/15/18 16:00 Nasal Cannula 3.0 07/15/18 15:56 98.4 61 22 119/53 (75) 100 61 07/15/18 14:42 64 121/54 07/15/18 13:24 64 07/15/18 12:00 97.5 76 20 118/78 (91) 98 07/15/18 12:00 98.1 61 24 121/54 (76) 100 61 07/15/18 12:00 Nasal Cannula 3.0 Intake and Output 12/6/18 12/7/18 18:59 06:59 Intake Total 1994.350 ml 2037.500 ml Output Total 250 ml 250 ml Balance 1744.350 ml 1787.500 ml Free Water 90 ml IV Total 1274.350 ml 1287.500 ml Tube Feeding 720 ml 660 ml Output Urine Total 250 ml 250 ml # Voids 6 # Bowel Movements 2 Laboratory Tests 07/16/18 08:00: White Blood Count 9.5, Red Blood Count 3.64L, Hemoglobin 9.7L, Hematocrit 31.0L , Mean Corpuscular Volume 85, Mean Corpuscular Hemoglobin 26.6L, Mean Corpuscular Hemoglobin Concent 31.2L, Red Cell Distribution Width 15.0H, Platelet Count 235, Mean Platelet Volume 6.7, Neutrophils (%) (Auto) 63.2, Lymphocytes (%) (Auto) 23.9, Monocytes (%) (Auto) 5.4, Eosinophils (%) (Auto) 6.7H, Basophils (%) (Auto) 0.7, Sodium Level 145, Potassium Level 4.3, Chloride Level 110H, Carbon Dioxide Level 30, Anion Gap 5, Blood Urea Nitrogen 19H, Creatinine 0.6, Estimat Glomerular Filtration Rate , Glucose Level 98, Calcium Level 9.1, Phosphorus Level 3.1, Magnesium Level 2.0, Total Bilirubin < 0.1L, Aspartate Amino Transf (AST/SGOT) 19, Alanine Aminotransferase (ALT/SGPT) 20, Alkaline Phosphatase 63, Total Protein 6.8, Albumin 1.8L, Globulin 5.0, Albumin/ Globulin Ratio 0.4L, Vancomycin Level Trough 11.9 Height (Feet): 5 Height (Inches): 3.00 Weight (Pounds): 216 General Appearance: no apparent distress Objective no change Gonsalo Ortiz MD Jul 16, 2018 11:29
--- NOTE | 2018-07-16 11:57 | Infectious Diseases Prog Note ---
Assessment/Plan Assessment/Plan Abx: IV vancomycin x1 07/13 Zosyn x1 07/13 Assessment: Sepsis 2ry to PNA -07/15 cXR" Improved aeration of the right lung base, since prior study 2017. No acute process currently -CXR: Suspect right basilar infiltrate and/or atelectasis. Borderline cardiac megaly -influenza sc neg -sp cx p Probable UTI (unable to obtain symptoms) -u/a wbc 10-15, nit neg, leuk +3; ucx >100k ESBL E.coli ( R Zosyn, S ertapenem ) CONS bacteremia, likely contaminat -07/13 Bcx 08/13 CONS, 07/15 p Fever, improving Leukocytosis, SP HTN COPD dysphagia aphasia Alzheimer's dementia Plan: -Continue IV Vancomycin #4 for PNA pending sp cx and repeat Bcx -Switch Zosyn #4 to Meropenem for ESBL UTI and for pNA coverage -f/u cx -Monitor CBC/CMP, temperatures -aspiration precautions Thank you for this consultation. Will continue to follow along with you. Discussed with RN. Subjective Allergies: Coded Allergies: ASPIRIN (Verified Allergy, Unknown, 06/21/18) LOSARTAN (Verified Allergy, Unknown, 06/21/18) Subjective afebrile >48hrs wbc resolved Bcx 08/13 CONS, repeat Bcx p Sp cx p Objective Vital Signs Last 24 Hour Vital Signs Date Time Temp Pulse Resp B/P (MAP) Pulse Ox O2 Delivery O2 Flow Rate FiO2 07/16/18 08:40 64 125/61 07/16/18 08:00 99.2 64 20 125/61 (82) 98 07/16/18 08:00 64 07/16/18 07:45 64 17 Nasal Cannula 3.0 32 07/16/18 07:45 Nasal Cannula 3.0 32 07/16/18 07:45 98 Nasal Cannula 3.0 32 07/16/18 05:28 65 116/63 07/16/18 04:00 97.9 64 20 109/53 (71) 100 07/16/18 04:00 65 07/16/18 04:00 Nasal Cannula 3.0 07/16/18 00:00 98.1 60 24 131/53 (79) 100 07/16/18 00:00 63 07/16/18 00:00 Nasal Cannula 3.0 07/15/18 22:53 64 115/52 07/15/18 20:18 68 105/65 07/15/18 20:00 62 07/15/18 20:00 Nasal Cannula 3.0 07/15/18 20:00 98.6 62 18 105/68 (80) 100 07/15/18 17:47 61 07/15/18 16:00 Nasal Cannula 3.0 07/15/18 15:56 98.4 61 22 119/53 (75) 100 61 07/15/18 14:42 64 121/54 07/15/18 13:24 64 07/15/18 12:00 97.5 76 20 118/78 (91) 98 07/15/18 12:00 98.1 61 24 121/54 (76) 100 61 07/15/18 12:00 Nasal Cannula 3.0 Height (Feet): 5 Height (Inches): 3.00 Weight (Pounds): 216 Microbiology Date/Time Source Procedure Growth Status 07/13/18 12:55 Blood Blood Culture - Preliminary NO GROWTH AFTER 48 HOURS Resulted 07/13/18 12:40 Blood Blood Culture - Preliminary Staphylococcus Sp Coag Neg Resulted 07/14/18 21:00 Sputum Induced Gram Stain - Final Resulted 07/14/18 21:00 Sputum Induced Sputum Culture Pending Resulted 07/13/18 20:30 Nasal Nares MRSA Culture - Final NO METHICILLIN RESISTANT STAPH AUREUS... Complete 07/13/18 12:40 Nasal Nares Influenza Types A,B Antigen (ZELALEM) - Final Complete 07/13/18 12:40 Urine,Clean Catch Urine Culture - Preliminary Escherichia Coli Resulted 07/14/18 12:50 Rectum - Final NO CARBAPENEM-RESISTANT ENTEROBACTERI... Complete 07/13/18 20:30 Rectum VRE Culture - Final Enterococcus Faecalis - Vre Enterococcus Faecium - Vre Complete Laboratory Tests Test 07/16/18 08:00 White Blood Count 9.5 K/UL (4.8-10.8) Red Blood Count 3.64 M/UL (4.20-5.40) L Hemoglobin 9.7 G/DL (12.0-16.0) L Hematocrit 31.0 % (37.0-47.0) L Mean Corpuscular Volume 85 FL (80-99) Mean Corpuscular Hemoglobin 26.6 PG (27.0-31.0) L Mean Corpuscular Hemoglobin Concent 31.2 G/DL (32.0-36.0) L Red Cell Distribution Width 15.0 % (11.6-14.8) H Platelet Count 235 K/UL (150-450) Mean Platelet Volume 6.7 FL (6.5-10.1) Neutrophils (%) (Auto) 63.2 % (45.0-75.0) Lymphocytes (%) (Auto) 23.9 % (20.0-45.0) Monocytes (%) (Auto) 5.4 % (1.0-10.0) Eosinophils (%) (Auto) 6.7 % (0.0-3.0) H Basophils (%) (Auto) 0.7 % (0.0-2.0) Sodium Level 145 MMOL/L (136-145) Potassium Level 4.3 MMOL/L (3.5-5.1) Chloride Level 110 MMOL/L (98-107) H Carbon Dioxide Level 30 MMOL/L (21-32) Anion Gap 5 mmol/L (5-15) Blood Urea Nitrogen 19 mg/dL (7-18) H Creatinine 0.6 MG/DL (0.55-1.30) Estimat Glomerular Filtration Rate mL/min (>60) Glucose Level 98 MG/DL (74-106) Calcium Level 9.1 MG/DL (8.5-10.1) Phosphorus Level 3.1 MG/DL (2.5-4.9) Magnesium Level 2.0 MG/DL (1.8-2.4) Total Bilirubin < 0.1 MG/DL (0.2-1.0) L Aspartate Amino Transf (AST/SGOT) 19 U/L (15-37) Alanine Aminotransferase (ALT/SGPT) 20 U/L (12-78) Alkaline Phosphatase 63 U/L (46-116) Total Protein 6.8 G/DL (6.4-8.2) Albumin 1.8 G/DL (3.4-5.0) L Globulin 5.0 g/dL Albumin/Globulin Ratio 0.4 (1.0-2.7) L Vancomycin Level Trough 11.9 ug/mL (5.0-12.0) Current Medications Medications (Trade) Dose Ordered Sig/Caroline Route PRN Reason Start Time Stop Time Status Last Admin Dose Admin Acetaminophen (Tylenol) 650 mg Q4H PRN GT FEVER (Temp>100.5F) 07/16/18 06:44 08/12/18 06:43 Albuterol/ Ipratropium (Albuterol/ Ipratropium) 3 ml Q4H PRN HHN Shortness of Breath 07/16/18 06:44 07/18/18 06:43 Clonidine HCl (Catapres Tab) 0.1 mg Q4H PRN GT sbp>160 07/16/18 06:45 08/12/18 16:29 Diltiazem HCl (Cardizem) 10 mg Q1H PRN IV heart rate more than 120, 07/16/18 07:00 08/12/18 20:59 Diltiazem HCl (Cardizem) 30 mg EVERY 8 HOURS GT 07/16/18 14:00 08/12/18 21:59 Heparin Sodium (Porcine) (Heparin 5000 units/ml) 5,000 units EVERY 12 HOURS SUBQ 07/16/18 09:00 08/12/18 20:59 07/16/18 08:42 Lansoprazole (Prevacid) 30 mg BID GT 07/16/18 09:00 08/13/18 08:59 07/16/18 08:40 Levetiracetam (Keppra) 500 mg Q12HR GT 07/16/18 09:00 08/12/18 21:59 07/16/18 08:39 Lorazepam (Ativan) 0.5 mg Q6H PRN ORAL For Anxiety 07/16/18 06:44 07/22/18 06:43 Memantine (Namenda) 5 mg BID GT 07/16/18 09:00 08/14/18 17:59 07/16/18 08:40 Metoprolol Tartrate (Lopressor) 50 mg Q12HR GT 07/16/18 09:00 08/14/18 20:59 07/16/18 08:40 Morphine Sulfate (Morphine Sulfate) 2 mg Q4H PRN IVP severe Pain (Pain Scale 7-10) 07/16/18 06:44 07/20/18 06:43 Nitroglycerin (Ntg) 0.4 mg Q5M PRN SL Prn Chest Pain 07/16/18 06:45 08/12/18 20:59 Ondansetron HCl (Zofran) 4 mg Q6H PRN IVP Nausea & Vomiting 07/16/18 06:44 08/12/18 06:43 Polyethylene Glycol (Miralax) 17 gm DAILYPRN PRN GT Constipation 07/16/18 06:45 08/12/18 06:44 Temazepam (Restoril) 15 mg HSPRN PRN GT Insomnia 07/16/18 21:00 07/20/18 20:59 Vancomycin HCl (Vanco rx to dose) 1 ea DAILY PRN MISC Per rx protocol 07/16/18 09:00 08/13/18 13:44 Vancomycin HCl 1 gm/Dextrose 275 ml @ 183.708 mls/hr Q12HR@0800,2000 IVPB 07/16/18 20:00 07/21/18 19:59 Selene Francis M.D. Jul 16, 2018 11:57
--- NOTE | 2018-07-16 12:08 | General Progress Note ---
Assessment/Plan Problem List: (1) Ulcer of left lower leg ICD Codes: L97.929 - Non-pressure chronic ulcer of unspecified part of left lower leg with unspecified severity SNOMED: 878202378, 619752344 (2) Respiratory failure ICD Codes: J96.90 - Respiratory failure, unspecified, unspecified whether with hypoxia or hypercapnia SNOMED: 448404252 (3) FTT (failure to thrive) in adult ICD Codes: R62.7 - Adult failure to thrive SNOMED: 685201078 (4) Acute respiratory failure ICD Codes: J96.00 - Acute respiratory failure, unspecified whether with hypoxia or hypercapnia SNOMED: 53972692 (5) Severe malnutrition ICD Codes: E43 - Unspecified severe protein-calorie malnutrition SNOMED: 38777556 (6) Sepsis ICD Codes: A41.9 - Sepsis, unspecified organism SNOMED: 00604488 (7) Leukocytosis ICD Codes: D72.829 - Elevated white blood cell count, unspecified SNOMED: 887208589, 607994543 (8) At high risk for aspiration ICD Codes: Z91.89 - Other specified personal risk factors, not elsewhere classified SNOMED: 025762296 (9) Seizure disorder, complex partial ICD Codes: G40.209 - Seizure disorder, complex partial SNOMED: 434147805 Status: stable, progressing Assessment/Plan o2 pulm tx ot pt diet abx cbc bmp am dc plan Subjective Constitutional: Reports: weakness Allergies: Coded Allergies: ASPIRIN (Verified Allergy, Unknown, 06/21/18) LOSARTAN (Verified Allergy, Unknown, 06/21/18) All Systems: reviewed and negative except above Subjective o2nc confused Objective Last 24 Hour Vital Signs Date Time Temp Pulse Resp B/P (MAP) Pulse Ox O2 Delivery O2 Flow Rate FiO2 07/16/18 08:40 64 125/61 07/16/18 08:00 99.2 64 20 125/61 (82) 98 07/16/18 08:00 64 07/16/18 07:45 64 17 Nasal Cannula 3.0 32 07/16/18 07:45 Nasal Cannula 3.0 32 07/16/18 07:45 98 Nasal Cannula 3.0 32 07/16/18 05:28 65 116/63 07/16/18 04:00 97.9 64 20 109/53 (71) 100 07/16/18 04:00 65 07/16/18 04:00 Nasal Cannula 3.0 07/16/18 00:00 98.1 60 24 131/53 (79) 100 07/16/18 00:00 63 07/16/18 00:00 Nasal Cannula 3.0 07/15/18 22:53 64 115/52 07/15/18 20:18 68 105/65 07/15/18 20:00 62 07/15/18 20:00 Nasal Cannula 3.0 07/15/18 20:00 98.6 62 18 105/68 (80) 100 07/15/18 17:47 61 07/15/18 16:00 Nasal Cannula 3.0 07/15/18 15:56 98.4 61 22 119/53 (75) 100 61 07/15/18 14:42 64 121/54 07/15/18 13:24 64 Intake and Output 07/15/18 07/16/18 18:59 06:59 Intake Total 1994.350 ml 2037.500 ml Output Total 250 ml 250 ml Balance 1744.350 ml 1787.500 ml Free Water 90 ml IV Total 1274.350 ml 1287.500 ml Tube Feeding 720 ml 660 ml Output Urine Total 250 ml 250 ml # Voids 6 # Bowel Movements 2 Laboratory Tests 07/16/18 08:00: White Blood Count 9.5, Red Blood Count 3.64L, Hemoglobin 9.7L, Hematocrit 31.0L , Mean Corpuscular Volume 85, Mean Corpuscular Hemoglobin 26.6L, Mean Corpuscular Hemoglobin Concent 31.2L, Red Cell Distribution Width 15.0H, Platelet Count 235, Mean Platelet Volume 6.7, Neutrophils (%) (Auto) 63.2, Lymphocytes (%) (Auto) 23.9, Monocytes (%) (Auto) 5.4, Eosinophils (%) (Auto) 6.7H, Basophils (%) (Auto) 0.7, Sodium Level 145, Potassium Level 4.3, Chloride Level 110H, Carbon Dioxide Level 30, Anion Gap 5, Blood Urea Nitrogen 19H, Creatinine 0.6, Estimat Glomerular Filtration Rate , Glucose Level 98, Calcium Level 9.1, Phosphorus Level 3.1, Magnesium Level 2.0, Total Bilirubin < 0.1L, Aspartate Amino Transf (AST/SGOT) 19, Alanine Aminotransferase (ALT/SGPT) 20, Alkaline Phosphatase 63, Total Protein 6.8, Albumin 1.8L, Globulin 5.0, Albumin/ Globulin Ratio 0.4L, Vancomycin Level Trough 11.9 Height (Feet): 5 Height (Inches): 3.00 Weight (Pounds): 216 General Appearance: lethargic EENT: normal ENT inspection Neck: normal alignment Cardiovascular: normal peripheral pulses, normal rate, regular rhythm Respiratory/Chest: chest wall non-tender, lungs clear, normal breath sounds Abdomen: normal bowel sounds, non tender, soft Extremities: normal inspection Edema: no edema noted Arm (L), no edema noted Arm (R), no edema noted Leg (L), no edema noted Leg (R), no edema noted Pedal (L), no edema noted Pedal (R), no edema noted Generalized Neurologic: motor weakness Skin: normal pigmentation, warm/dry Hong Caballero DO Jul 16, 2018 12:08
[2018-07-16] MEDS ORDERED: Meropenem 1 GM in NS 55 ML IVPB SCH (14:00)
[2018-07-16] MEDS ORDERED: dilTIAZem HCl 30mg tab GT SCH (14:00)
--- NOTE | 2018-07-16 14:39 | Cardiac Electrophysiology PN ---
Assessment/Plan Assessment/Plan 1. Supraventricular tachycardia, S/P adenosine. No recurrence on Cardizem 30 mg 3 times daily and Metoprolol 100 bid 2. Hypertension. On Cardizem and Metoprolol 3. Diabetes, on insulin. 4. S/P Respiratory failure, on antibiotic and off BiPAP. 5. Dysphagia, status post PEG placement. 6. Dementia. 7. History of seizure disorder. 8. Hypernatremia. Getting IV hydration. 9. S/P sharp excisional debridement of left lateral distal lower extremity DW RN Subjective Subjective On Tele. No SVT overnight. Objective Last 24 Hour Vital Signs Date Time Temp Pulse Resp B/P (MAP) Pulse Ox O2 Delivery O2 Flow Rate FiO2 07/16/18 13:45 71 133/66 07/16/18 12:00 98.6 67 18 133/66 (88) 100 07/16/18 12:00 71 07/16/18 08:40 64 125/61 07/16/18 08:00 99.2 64 20 125/61 (82) 98 07/16/18 08:00 64 07/16/18 07:45 64 17 Nasal Cannula 3.0 32 07/16/18 07:45 Nasal Cannula 3.0 32 07/16/18 07:45 98 Nasal Cannula 3.0 32 07/16/18 05:28 65 116/63 07/16/18 04:00 97.9 64 20 109/53 (71) 100 07/16/18 04:00 65 07/16/18 04:00 Nasal Cannula 3.0 07/16/18 00:00 98.1 60 24 131/53 (79) 100 07/16/18 00:00 63 07/16/18 00:00 Nasal Cannula 3.0 07/15/18 22:53 64 115/52 07/15/18 20:18 68 105/65 07/15/18 20:00 62 07/15/18 20:00 Nasal Cannula 3.0 07/15/18 20:00 98.6 62 18 105/68 (80) 100 07/15/18 17:47 61 07/15/18 16:00 Nasal Cannula 3.0 07/15/18 15:56 98.4 61 22 119/53 (75) 100 61 07/15/18 14:42 64 121/54 Intake and Output 07/15/18 07/16/18 18:59 06:59 Intake Total 1994.350 ml 2037.500 ml Output Total 250 ml 250 ml Balance 1744.350 ml 1787.500 ml Free Water 90 ml IV Total 1274.350 ml 1287.500 ml Tube Feeding 720 ml 660 ml Output Urine Total 250 ml 250 ml # Voids 6 # Bowel Movements 2 Laboratory Tests Test 07/16/18 08:00 White Blood Count 9.5 K/UL (4.8-10.8) Red Blood Count 3.64 M/UL (4.20-5.40) L Hemoglobin 9.7 G/DL (12.0-16.0) L Hematocrit 31.0 % (37.0-47.0) L Mean Corpuscular Volume 85 FL (80-99) Mean Corpuscular Hemoglobin 26.6 PG (27.0-31.0) L Mean Corpuscular Hemoglobin Concent 31.2 G/DL (32.0-36.0) L Red Cell Distribution Width 15.0 % (11.6-14.8) H Platelet Count 235 K/UL (150-450) Mean Platelet Volume 6.7 FL (6.5-10.1) Neutrophils (%) (Auto) 63.2 % (45.0-75.0) Lymphocytes (%) (Auto) 23.9 % (20.0-45.0) Monocytes (%) (Auto) 5.4 % (1.0-10.0) Eosinophils (%) (Auto) 6.7 % (0.0-3.0) H Basophils (%) (Auto) 0.7 % (0.0-2.0) Sodium Level 145 MMOL/L (136-145) Potassium Level 4.3 MMOL/L (3.5-5.1) Chloride Level 110 MMOL/L (98-107) H Carbon Dioxide Level 30 MMOL/L (21-32) Anion Gap 5 mmol/L (5-15) Blood Urea Nitrogen 19 mg/dL (7-18) H Creatinine 0.6 MG/DL (0.55-1.30) Estimat Glomerular Filtration Rate mL/min (>60) Glucose Level 98 MG/DL (74-106) Calcium Level 9.1 MG/DL (8.5-10.1) Phosphorus Level 3.1 MG/DL (2.5-4.9) Magnesium Level 2.0 MG/DL (1.8-2.4) Total Bilirubin < 0.1 MG/DL (0.2-1.0) L Aspartate Amino Transf (AST/SGOT) 19 U/L (15-37) Alanine Aminotransferase (ALT/SGPT) 20 U/L (12-78) Alkaline Phosphatase 63 U/L (46-116) Total Protein 6.8 G/DL (6.4-8.2) Albumin 1.8 G/DL (3.4-5.0) L Globulin 5.0 g/dL Albumin/Globulin Ratio 0.4 (1.0-2.7) L Vancomycin Level Trough 11.9 ug/mL (5.0-12.0) Microbiology Date/Time Source Procedure Growth Status 07/15/18 15:15 Blood Blood Culture - Preliminary Resulted 07/14/18 21:00 Sputum Induced Gram Stain - Final Resulted 07/14/18 21:00 Sputum Induced Sputum Culture Pending Resulted 07/13/18 20:30 Nasal Nares MRSA Culture - Final NO METHICILLIN RESISTANT STAPH AUREUS... Complete 07/14/18 12:50 Rectum - Final NO CARBAPENEM-RESISTANT ENTEROBACTERI... Complete 07/13/18 20:30 Rectum VRE Culture - Final Enterococcus Faecalis - Vre Enterococcus Faecium - Vre Complete Objective HEAD AND NECK: No JVD. LUNGS: Coarse rhonchi and decreased breath sounds. CARDIOVASCULAR: Regular S1 and S2 with no gallop or murmur. ABDOMEN: Status post G-tube. EXTREMITIES: 1+ pitting edema. Scar Kamara MD Jul 16, 2018 14:39
[2018-07-16] MEDS ORDERED: Piperacillin/Tazobactam 3.375 GM in NS 110 ML IVPB SCH (15:00)
--- NOTE | 2018-07-16 19:00 | Progress Note ---
DATE: 07/16/2018 SUBJECTIVE: This is a 72-year-old female with sepsis and respiratory failure. She has confusion and altered mental status. Cognition has declined below baseline. That is why, her attending physician has requested daily psychiatric consultation. MENTAL STATUS EXAMINATION: This is a 72-year-old female. Appearance is disheveled. Attitude, irritable and agitated. Affect, guarded and restricted. Intellect poor. Mood, depressed and anxious. Motor activity, psychomotor agitation. Attention span is poor. Orientation x2. Speech is pressured. Thought process is disorganized and illogical. Thought content, auditory hallucinations, paranoid delusions. Insight and judgment is poor. DIAGNOSIS: Major depression with psychotic features, rule out dementia with psychosis. PLAN: Treat the patient with Namenda 5 mg twice a day. Provided with 20 minutes of cognitive behavior therapy to help her identify automatic negative thoughts and help him to convert to those automatic negative thoughts to more positive thoughts and help her to . A 20 minutes of cognitive behavior therapy provided. Chart reviewed and discussed with staff. Seen and assessed in his room. Pearl Cunningham M.D. DR: JOCELYNE JOB#: [id number] CC:
[2018-07-16] MEDS ORDERED: Vancomycin 1gm/D5W 275ml IVPB SCH ×2 (20:00)
[2018-07-16] MEDS: Vancomycin 1 GM in D5W 275 ML IVPB SCH (20:54)
[2018-07-16] MEDS: levETIRAcetam 500mg/5ml Liquid GT SCH (21:41)
[2018-07-16] MEDS: Metoprolol Tartrate 50mg tab GT SCH (21:42)
[2018-07-16] MEDS: Heparin 5000 units/ml inj SUBQ SCH (21:44)
[2018-07-16] MEDS: Meropenem 1 GM in NS 55 ML IVPB SCH (23:22)
[2018-07-17] VITALS: BP 108/67
[2018-07-17 04:00] VITALS: BP 150/85
[2018-07-17] MEDS: dilTIAZem HCl 30mg tab GT SCH ×3 (05:54→22:31)
[2018-07-17] MEDS: Meropenem 1 GM in NS 55 ML IVPB SCH ×3 (06:31→22:57)
[2018-07-17 07:39] LABS: ALANINE AMINOTRANSFERASE 15 U/L (12-78); ALBUMIN 1.9 G/DL (3.4-5.0); ALBUMIN/GLOBULIN RATIO 0.4 (1.0-2.7); ALKALINE PHOSPHATASE 60 U/L (46-116); ANION GAP 4 mmol/L (5-15); ASPARTATE AMINO TRANSFERASE 13 U/L (15-37); BILIRUBIN,TOTAL 0.2 MG/DL (0.2-1.0); BLOOD UREA NITROGEN 11 mg/dL (7-18); CALCIUM 9.2 MG/DL (8.5-10.1); CARBON DIOXIDE 31 MMOL/L (21-32); CHLORIDE 109 MMOL/L (98-107); CREATININE 0.5 MG/DL (0.55-1.30); PHOSPHORUS 3.1 MG/DL (2.5-4.9); POTASSIUM 3.8 MMOL/L (3.5-5.1); SODIUM 143 MMOL/L (136-145)
[2018-07-17 08:00] VITALS: BP 137/64
[2018-07-17] MEDS: Vancomycin 1 GM in D5W 275 ML IVPB SCH ×2 (08:37→21:24)
[2018-07-17] MEDS: Metoprolol Tartrate 50mg tab GT SCH ×2 (08:37→21:07)
[2018-07-17] MEDS: Heparin 5000 units/ml inj SUBQ SCH ×2 (08:37→21:08)
[2018-07-17] MEDS: Memantine 5 MG TAB GT SCH ×2 (08:37→17:39)
--- NOTE | 2018-07-17 08:37 | General Progress Note ---
Assessment/Plan Problem List: (1) Ulcer of left lower leg ICD Codes: L97.929 - Non-pressure chronic ulcer of unspecified part of left lower leg with unspecified severity SNOMED: 336170287, 076828479 (2) Respiratory failure ICD Codes: J96.90 - Respiratory failure, unspecified, unspecified whether with hypoxia or hypercapnia SNOMED: 080157468 (3) FTT (failure to thrive) in adult ICD Codes: R62.7 - Adult failure to thrive SNOMED: 403361622 (4) Acute respiratory failure ICD Codes: J96.00 - Acute respiratory failure, unspecified whether with hypoxia or hypercapnia SNOMED: 39918772 (5) Severe malnutrition ICD Codes: E43 - Unspecified severe protein-calorie malnutrition SNOMED: 22692433 (6) Sepsis ICD Codes: A41.9 - Sepsis, unspecified organism SNOMED: 14592332 (7) Leukocytosis ICD Codes: D72.829 - Elevated white blood cell count, unspecified SNOMED: 478446073, 666434851 (8) At high risk for aspiration ICD Codes: Z91.89 - Other specified personal risk factors, not elsewhere classified SNOMED: 969745023 (9) Seizure disorder, complex partial ICD Codes: G40.209 - Seizure disorder, complex partial SNOMED: 716644866 Status: stable, progressing Assessment/Plan o2 pulm tx ot pt diet abx cbc bmp am dc plan Subjective Constitutional: Reports: weakness Allergies: Coded Allergies: ASPIRIN (Verified Allergy, Unknown, 06/21/18) LOSARTAN (Verified Allergy, Unknown, 06/21/18) All Systems: reviewed and negative except above Subjective o2nc confused Objective Last 24 Hour Vital Signs Date Time Temp Pulse Resp B/P (MAP) Pulse Ox O2 Delivery O2 Flow Rate FiO2 07/17/18 08:00 97.9 64 18 137/64 (88) 100 07/17/18 05:54 73 142/81 07/17/18 04:00 98.2 66 19 150/85 (106) 97 07/17/18 00:00 99.0 66 19 108/67 (81) 97 07/16/18 21:52 83 157/95 07/16/18 21:42 78 158/99 07/16/18 20:00 98.2 79 18 150/89 (109) 100 07/16/18 19:00 Nasal Cannula 3.0 32 07/16/18 19:00 97 Nasal Cannula 3.0 32 07/16/18 19:00 67 20 Nasal Cannula 3.0 32 07/16/18 17:28 99.8 74 20 128/69 (88) 100 07/16/18 16:00 82 07/16/18 16:00 99.8 74 20 128/69 (88) 100 07/16/18 13:45 71 133/66 07/16/18 12:00 98.6 67 18 133/66 (88) 100 07/16/18 12:00 71 07/16/18 08:40 64 125/61 Intake and Output 07/16/18 07/17/18 19:00 07:00 Intake Total 480 ml 1220.000 ml Output Total 700 ml 850 ml Balance -220 ml 370.000 ml Free Water 60 ml 230 ml IV Total 330.000 ml Tube Feeding 420 ml 660 ml Output Urine Total 700 ml 850 ml # Bowel Movements 2 3 Laboratory Tests 07/17/18 06:17: Sodium Level 143, Potassium Level 3.8, Chloride Level 109H, Carbon Dioxide Level 31, Anion Gap 4L, Blood Urea Nitrogen 11, Creatinine 0.5L, Estimat Glomerular Filtration Rate , Glucose Level 97, Calcium Level 9.2, Phosphorus Level 3.1, Magnesium Level 1.9, Total Bilirubin 0.2, Aspartate Amino Transf (AST /SGOT) 13L, Alanine Aminotransferase (ALT/SGPT) 15, Alkaline Phosphatase 60, Total Protein 6.9, Albumin 1.9L, Globulin 5.0, Albumin/Globulin Ratio 0.4L Height (Feet): 5 Height (Inches): 3.00 Weight (Pounds): 221 General Appearance: lethargic EENT: normal ENT inspection Neck: normal alignment Cardiovascular: normal peripheral pulses, normal rate, regular rhythm Respiratory/Chest: chest wall non-tender, lungs clear, normal breath sounds Abdomen: normal bowel sounds, non tender, soft Extremities: normal inspection Edema: 1+ Arm (L), 1+ Arm (R), 1+ Leg (L), 1+ Leg (R), 1+ Pedal (L), 1+ Pedal ( R), 1+ Generalized Edema: trace edema Neurologic: motor weakness Skin: normal pigmentation, warm/dry Hong Caballero DO Jul 17, 2018 08:37
[2018-07-17] MEDS: levETIRAcetam 500mg/5ml Liquid GT SCH ×2 (08:38→21:07)
--- NOTE | 2018-07-17 08:43 | Pulmonology Progress Note ---
Assessment/Plan Problems: (1) Acute encephalopathy (2) Acute respiratory failure (3) Supraventricular arrhythmia (4) Sepsis (5) Seizure disorder, complex partial Assessment/Plan afebrile improving continue iv abx check cultures sinus rhythm now tolerating feeding tube dvt prophylaxis electrolytes improving Subjective ROS Limited/Unobtainable: No Constitutional: Reports: no symptoms HEENT: Repors: no symptoms Respiratory: Reports: no symptoms Allergies: Coded Allergies: ASPIRIN (Verified Allergy, Unknown, 06/21/18) LOSARTAN (Verified Allergy, Unknown, 06/21/18) Objective Last 24 Hour Vital Signs Date Time Temp Pulse Resp B/P (MAP) Pulse Ox O2 Delivery O2 Flow Rate FiO2 07/17/18 08:37 64 137/64 07/17/18 08:00 97.9 64 18 137/64 (88) 100 07/17/18 05:54 73 142/81 07/17/18 04:00 98.2 66 19 150/85 (106) 97 07/17/18 00:00 99.0 66 19 108/67 (81) 97 07/16/18 21:52 83 157/95 07/16/18 21:42 78 158/99 07/16/18 20:00 98.2 79 18 150/89 (109) 100 07/16/18 19:00 Nasal Cannula 3.0 32 07/16/18 19:00 97 Nasal Cannula 3.0 32 07/16/18 19:00 67 20 Nasal Cannula 3.0 32 07/16/18 17:28 99.8 74 20 128/69 (88) 100 07/16/18 16:00 82 07/16/18 16:00 99.8 74 20 128/69 (88) 100 07/16/18 13:45 71 133/66 07/16/18 12:00 98.6 67 18 133/66 (88) 100 07/16/18 12:00 71 Intake and Output 07/16/18 07/17/18 19:00 07:00 Intake Total 480 ml 1220.000 ml Output Total 700 ml 850 ml Balance -220 ml 370.000 ml Free Water 60 ml 230 ml IV Total 330.000 ml Tube Feeding 420 ml 660 ml Output Urine Total 700 ml 850 ml # Bowel Movements 2 3 Objective General Appearance: WD/WN HEENT: normocephalic Respiratory/Chest: chest wall non-tender, lungs clear, normal breath sounds Cardiovascular: normal peripheral pulses, normal rate Abdomen: normal bowel sounds, soft, non tender, Gtube Genitourinary: normal external genitalia Extremities: no clubbing Skin: no rash General Appearance: WD/WN HEENT: normocephalic Microbiology Date/Time Source Procedure Growth Status 07/15/18 15:15 Blood Blood Culture - Preliminary Staphylococcus Sp Coag Neg Resulted 07/14/18 21:00 Sputum Induced Gram Stain - Final Resulted 07/14/18 21:00 Sputum Culture - Preliminary Staphylococcus Aureus Usual Respiratory Hetal Resulted 07/14/18 12:50 Rectum - Final NO CARBAPENEM-RESISTANT ENTEROBACTERI... Complete Laboratory Tests 07/17/18 06:17: Sodium Level 143, Potassium Level 3.8, Chloride Level 109H, Carbon Dioxide Level 31, Anion Gap 4L, Blood Urea Nitrogen 11, Creatinine 0.5L, Estimat Glomerular Filtration Rate , Glucose Level 97, Calcium Level 9.2, Phosphorus Level 3.1, Magnesium Level 1.9, Total Bilirubin 0.2, Aspartate Amino Transf (AST /SGOT) 13L, Alanine Aminotransferase (ALT/SGPT) 15, Alkaline Phosphatase 60, Total Protein 6.9, Albumin 1.9L, Globulin 5.0, Albumin/Globulin Ratio 0.4L Current Medications Medications (Trade) Dose Ordered Sig/Caroline Route PRN Reason Start Time Stop Time Status Last Admin Dose Admin Acetaminophen (Tylenol) 650 mg Q4H PRN GT FEVER (Temp>100.5F) 07/16/18 20:30 08/12/18 20:29 Albuterol/ Ipratropium (Albuterol/ Ipratropium) 3 ml Q4H PRN HHN Shortness of Breath 07/16/18 20:30 07/18/18 20:29 Clonidine HCl (Catapres Tab) 0.1 mg Q4H PRN GT sbp>160 07/16/18 20:30 08/12/18 20:29 Diltiazem HCl (Cardizem) 30 mg EVERY 8 HOURS GT 07/16/18 22:00 08/12/18 21:59 07/17/18 05:54 Heparin Sodium (Porcine) (Heparin 5000 units/ml) 5,000 units EVERY 12 HOURS SUBQ 07/16/18 21:00 08/12/18 20:59 07/17/18 08:37 Lansoprazole (Prevacid) 30 mg BID GT 07/17/18 09:00 08/13/18 08:59 07/17/18 08:37 Levetiracetam (Keppra) 500 mg Q12HR GT 07/16/18 21:00 08/12/18 21:59 07/17/18 08:38 Lorazepam (Ativan) 0.5 mg Q6H PRN ORAL For Anxiety 07/16/18 20:30 07/23/18 20:29 Memantine (Namenda) 5 mg BID GT 07/17/18 09:00 08/14/18 17:59 07/17/18 08:37 Meropenem 1 gm/ Sodium Chloride 55 ml @ 110 mls/hr Q8HR IVPB 07/16/18 22:00 07/21/18 13:59 07/17/18 06:31 Metoprolol Tartrate (Lopressor) 50 mg Q12HR GT 07/16/18 21:00 08/14/18 20:59 07/17/18 08:37 Morphine Sulfate (Morphine Sulfate) 2 mg Q4H PRN IVP severe Pain (Pain Scale 7-10) 07/16/18 20:30 07/20/18 20:29 Nitroglycerin (Ntg) 0.4 mg Q5M PRN SL Prn Chest Pain 07/16/18 20:30 08/12/18 20:59 Ondansetron HCl (Zofran) 4 mg Q6H PRN IVP Nausea & Vomiting 07/16/18 20:30 08/15/18 20:29 Polyethylene Glycol (Miralax) 17 gm DAILYPRN PRN GT Constipation 07/16/18 20:30 08/15/18 20:29 Temazepam (Restoril) 15 mg HSPRN PRN GT Insomnia 07/16/18 21:00 07/20/18 20:59 Vancomycin HCl (Vanco rx to dose) 1 ea DAILY PRN MISC Per rx protocol 07/17/18 09:00 08/13/18 13:44 Vancomycin HCl 1 gm/Dextrose 275 ml @ 183.708 mls/hr Q12HR@0800,2000 IVPB 07/16/18 20:00 07/21/18 19:59 07/17/18 08:37 Morgan Tang MD Jul 17, 2018 08:43
[2018-07-17 08:53] LABS: EOSINOPHILS % (AUTO) 4.8 % (0.0-3.0); HEMATOCRIT 32.5 % (37.0-47.0); LYMPHOCYTES % (AUTO) 20.3 % (20.0-45.0); MEAN CORPUSCULAR VOLUME 84 FL (80-99); MONOCYTES % (AUTO) 5.1 % (1.0-10.0); NEUTROPHILS % (AUTO) 68.7 % (45.0-75.0); PLATELET COUNT 289 K/UL (150-450); RED BLOOD COUNT 3.87 M/UL (4.20-5.40)
--- NOTE | 2018-07-17 09:18 | Infectious Diseases Prog Note ---
Assessment/Plan Assessment/Plan Assessment: Sepsis 2ry to PNA -07/15 cXR" Improved aeration of the right lung base, since prior study 2017. No acute process currently -CXR: Suspect right basilar infiltrate and/or atelectasis. Borderline cardiac megaly -influenza sc neg -sp cx p Probable UTI (unable to obtain symptoms) -u/a wbc 10-15, nit neg, leuk +3; ucx >100k ESBL E.coli ( R Zosyn, S ertapenem ) CONS bacteremia, likely contaminat -07/13 Bcx 08/13 CONS, 07/15 : CoNS 2DEcho : no Veg Fever, improving Leukocytosis, mild HTN COPD dysphagia aphasia Alzheimer's dementia Plan: -Continue IV Vancomycin # 5 /14 for PNA pending sp cx and repeat Bcx - cont Meropenem d# 2 for ESBL UTI and for pNA coverage 07/16 SP Zosyn #4 -f/u cx ( Rpt Blood Cx) -Monitor CBC/CMP, temperatures -aspiration precautions Subjective Allergies: Coded Allergies: ASPIRIN (Verified Allergy, Unknown, 06/21/18) LOSARTAN (Verified Allergy, Unknown, 06/21/18) Subjective Comfortable Objective Vital Signs Last 24 Hour Vital Signs Date Time Temp Pulse Resp B/P (MAP) Pulse Ox O2 Delivery O2 Flow Rate FiO2 07/17/18 08:37 64 137/64 07/17/18 08:00 97.9 64 18 137/64 (88) 100 07/17/18 05:54 73 142/81 07/17/18 04:00 98.2 66 19 150/85 (106) 97 07/17/18 00:00 99.0 66 19 108/67 (81) 97 07/16/18 21:52 83 157/95 07/16/18 21:42 78 158/99 07/16/18 20:00 98.2 79 18 150/89 (109) 100 07/16/18 19:00 Nasal Cannula 3.0 32 07/16/18 19:00 97 Nasal Cannula 3.0 32 07/16/18 19:00 67 20 Nasal Cannula 3.0 32 07/16/18 17:28 99.8 74 20 128/69 (88) 100 07/16/18 16:00 82 07/16/18 16:00 99.8 74 20 128/69 (88) 100 07/16/18 13:45 71 133/66 07/16/18 12:00 98.6 67 18 133/66 (88) 100 07/16/18 12:00 71 Height (Feet): 5 Height (Inches): 3.00 Weight (Pounds): 221 HEENT: anicteric Respiratory/Chest: normal breath sounds Cardiovascular: regularly irregular Abdomen: soft, non tender Microbiology Date/Time Source Procedure Growth Status 07/15/18 15:15 Blood Blood Culture - Preliminary Staphylococcus Sp Coag Neg Resulted 07/14/18 21:00 Sputum Induced Gram Stain - Final Resulted 07/14/18 21:00 Sputum Culture - Preliminary Staphylococcus Aureus Usual Respiratory Hetal Resulted 07/14/18 12:50 Rectum - Final NO CARBAPENEM-RESISTANT ENTEROBACTERI... Complete Laboratory Tests Test 07/17/18 06:17 07/17/18 08:10 Sodium Level 143 MMOL/L (136-145) Potassium Level 3.8 MMOL/L (3.5-5.1) Chloride Level 109 MMOL/L (98-107) H Carbon Dioxide Level 31 MMOL/L (21-32) Anion Gap 4 mmol/L (5-15) L Blood Urea Nitrogen 11 mg/dL (7-18) Creatinine 0.5 MG/DL (0.55-1.30) L Estimat Glomerular Filtration Rate mL/min (>60) Glucose Level 97 MG/DL (74-106) Calcium Level 9.2 MG/DL (8.5-10.1) Phosphorus Level 3.1 MG/DL (2.5-4.9) Magnesium Level 1.9 MG/DL (1.8-2.4) Total Bilirubin 0.2 MG/DL (0.2-1.0) Aspartate Amino Transf (AST/SGOT) 13 U/L (15-37) L Alanine Aminotransferase (ALT/SGPT) 15 U/L (12-78) Alkaline Phosphatase 60 U/L (46-116) Total Protein 6.9 G/DL (6.4-8.2) Albumin 1.9 G/DL (3.4-5.0) L Globulin 5.0 g/dL Albumin/Globulin Ratio 0.4 (1.0-2.7) L White Blood Count 11.0 K/UL (4.8-10.8) H Red Blood Count 3.87 M/UL (4.20-5.40) L Hemoglobin 10.0 G/DL (12.0-16.0) L Hematocrit 32.5 % (37.0-47.0) L Mean Corpuscular Volume 84 FL (80-99) Mean Corpuscular Hemoglobin 25.9 PG (27.0-31.0) L Mean Corpuscular Hemoglobin Concent 30.9 G/DL (32.0-36.0) L Red Cell Distribution Width 15.0 % (11.6-14.8) H Platelet Count 289 K/UL (150-450) Mean Platelet Volume 6.8 FL (6.5-10.1) Neutrophils (%) (Auto) 68.7 % (45.0-75.0) Lymphocytes (%) (Auto) 20.3 % (20.0-45.0) Monocytes (%) (Auto) 5.1 % (1.0-10.0) Eosinophils (%) (Auto) 4.8 % (0.0-3.0) H Basophils (%) (Auto) 1.0 % (0.0-2.0) Current Medications Medications (Trade) Dose Ordered Sig/Caroline Route PRN Reason Start Time Stop Time Status Last Admin Dose Admin Acetaminophen (Tylenol) 650 mg Q4H PRN GT FEVER (Temp>100.5F) 07/16/18 20:30 08/12/18 20:29 Albuterol/ Ipratropium (Albuterol/ Ipratropium) 3 ml Q4H PRN HHN Shortness of Breath 07/16/18 20:30 07/18/18 20:29 Clonidine HCl (Catapres Tab) 0.1 mg Q4H PRN GT sbp>160 07/16/18 20:30 08/12/18 20:29 Diltiazem HCl (Cardizem) 30 mg EVERY 8 HOURS GT 07/16/18 22:00 08/12/18 21:59 07/17/18 05:54 Heparin Sodium (Porcine) (Heparin 5000 units/ml) 5,000 units EVERY 12 HOURS SUBQ 07/16/18 21:00 08/12/18 20:59 07/17/18 08:37 Lansoprazole (Prevacid) 30 mg BID GT 07/17/18 09:00 08/13/18 08:59 07/17/18 08:37 Levetiracetam (Keppra) 500 mg Q12HR GT 07/16/18 21:00 08/12/18 21:59 07/17/18 08:38 Lorazepam (Ativan) 0.5 mg Q6H PRN ORAL For Anxiety 07/16/18 20:30 07/23/18 20:29 Memantine (Namenda) 5 mg BID GT 07/17/18 09:00 08/14/18 17:59 07/17/18 08:37 Meropenem 1 gm/ Sodium Chloride 55 ml @ 110 mls/hr Q8HR IVPB 07/16/18 22:00 07/21/18 13:59 07/17/18 06:31 Metoprolol Tartrate (Lopressor) 50 mg Q12HR GT 07/16/18 21:00 08/14/18 20:59 07/17/18 08:37 Morphine Sulfate (Morphine Sulfate) 2 mg Q4H PRN IVP severe Pain (Pain Scale 7-10) 07/16/18 20:30 07/20/18 20:29 Nitroglycerin (Ntg) 0.4 mg Q5M PRN SL Prn Chest Pain 07/16/18 20:30 08/12/18 20:59 Ondansetron HCl (Zofran) 4 mg Q6H PRN IVP Nausea & Vomiting 07/16/18 20:30 08/15/18 20:29 Polyethylene Glycol (Miralax) 17 gm DAILYPRN PRN GT Constipation 07/16/18 20:30 08/15/18 20:29 Temazepam (Restoril) 15 mg HSPRN PRN GT Insomnia 07/16/18 21:00 07/20/18 20:59 Vancomycin HCl (Vanco rx to dose) 1 ea DAILY PRN MISC Per rx protocol 07/17/18 09:00 08/13/18 13:44 Vancomycin HCl 1 gm/Dextrose 275 ml @ 183.708 mls/hr Q12HR@0800,2000 IVPB 07/16/18 20:00 07/21/18 19:59 07/17/18 08:37 Eduardo Phelps MD Jul 17, 2018 09:18
--- NOTE | 2018-07-17 10:56 | Nephrology Progress Note ---
Assessment/Plan Problem List: (1) Hypernatremia (2) Hypokalemia (3) Dehydration (4) Sepsis Assessment Respiratory failure Sepsis Supraventricular arrhythmia Hypernatremia Free water deficit Dehydration Seizure disorder, complex partial Urinary tract infection HypoAlbuminemia Dementia Allergy to ASA and YVONNE inhibitors HTN Plan adjust bp meds K supplement DC IV D5W Monitor Lytes- antibiotics Keppra to GT K and Phos IV as needed Per orders and consultants Subjective ROS Limited/Unobtainable: No Objective Objective Last 24 Hour Vital Signs Date Time Temp Pulse Resp B/P (MAP) Pulse Ox O2 Delivery O2 Flow Rate FiO2 07/17/18 09:00 Nasal Cannula 3.0 07/17/18 08:37 64 137/64 07/17/18 08:00 97.9 64 18 137/64 (88) 100 07/17/18 05:54 73 142/81 07/17/18 04:00 98.2 66 19 150/85 (106) 97 07/17/18 00:00 99.0 66 19 108/67 (81) 97 07/16/18 21:52 83 157/95 07/16/18 21:42 78 158/99 07/16/18 20:00 98.2 79 18 150/89 (109) 100 07/16/18 19:00 Nasal Cannula 3.0 32 07/16/18 19:00 97 Nasal Cannula 3.0 32 07/16/18 19:00 67 20 Nasal Cannula 3.0 32 07/16/18 17:28 99.8 74 20 128/69 (88) 100 07/16/18 16:00 82 07/16/18 16:00 99.8 74 20 128/69 (88) 100 07/16/18 13:45 71 133/66 07/16/18 12:00 98.6 67 18 133/66 (88) 100 07/16/18 12:00 71 Intake and Output 07/16/18 07/17/18 19:00 07:00 Intake Total 480 ml 1220.000 ml Output Total 700 ml 850 ml Balance -220 ml 370.000 ml Free Water 60 ml 230 ml IV Total 330.000 ml Tube Feeding 420 ml 660 ml Output Urine Total 700 ml 850 ml # Bowel Movements 2 3 Laboratory Tests 07/17/18 06:17: Sodium Level 143, Potassium Level 3.8, Chloride Level 109H, Carbon Dioxide Level 31, Anion Gap 4L, Blood Urea Nitrogen 11, Creatinine 0.5L, Estimat Glomerular Filtration Rate , Glucose Level 97, Calcium Level 9.2, Phosphorus Level 3.1, Magnesium Level 1.9, Total Bilirubin 0.2, Aspartate Amino Transf (AST /SGOT) 13L, Alanine Aminotransferase (ALT/SGPT) 15, Alkaline Phosphatase 60, Total Protein 6.9, Albumin 1.9L, Globulin 5.0, Albumin/Globulin Ratio 0.4L 07/17/18 08:10: White Blood Count 11.0H, Red Blood Count 3.87L, Hemoglobin 10.0L, Hematocrit 32.5L, Mean Corpuscular Volume 84, Mean Corpuscular Hemoglobin 25.9L, Mean Corpuscular Hemoglobin Concent 30.9L, Red Cell Distribution Width 15.0H, Platelet Count 289, Mean Platelet Volume 6.8, Neutrophils (%) (Auto) 68.7, Lymphocytes (%) (Auto) 20.3, Monocytes (%) (Auto) 5.1, Eosinophils (%) (Auto) 4.8H, Basophils (%) (Auto) 1.0 Height (Feet): 5 Height (Inches): 3.00 Weight (Pounds): 221 General Appearance: no apparent distress Objective no change Gonsalo Ortiz MD Jul 17, 2018 10:56
[2018-07-17 11:50] VITALS: BP 132/66
--- NOTE | 2018-07-17 13:57 | Cardiac Electrophysiology PN ---
Assessment/Plan Assessment/Plan 1. Supraventricular tachycardia, S/P adenosine. No recurrence on Cardizem 30 mg 3 times daily and Metoprolol 100 bid Off tele now. 2. Hypertension. On Cardizem and Metoprolol 3. Diabetes, on insulin. 4. S/P Respiratory failure, on antibiotic and off BiPAP. 5. S/P PEG placement. 6. Dementia. 7. History of seizure disorder. 8. Hypernatremia. Getting IV hydration. 9. S/P sharp excisional debridement of left lateral distal lower extremity DW RN Subjective Subjective Off Tele now.No SVT overnight. Objective Last 24 Hour Vital Signs Date Time Temp Pulse Resp B/P (MAP) Pulse Ox O2 Delivery O2 Flow Rate FiO2 07/17/18 11:50 98.0 66 18 132/66 (88) 100 07/17/18 09:00 Nasal Cannula 3.0 07/17/18 08:37 64 137/64 07/17/18 08:00 97.9 64 18 137/64 (88) 100 07/17/18 05:54 73 142/81 07/17/18 04:00 98.2 66 19 150/85 (106) 97 07/17/18 00:00 99.0 66 19 108/67 (81) 97 07/16/18 21:52 83 157/95 07/16/18 21:42 78 158/99 07/16/18 20:00 98.2 79 18 150/89 (109) 100 07/16/18 19:00 Nasal Cannula 3.0 32 07/16/18 19:00 97 Nasal Cannula 3.0 32 07/16/18 19:00 67 20 Nasal Cannula 3.0 32 07/16/18 17:28 99.8 74 20 128/69 (88) 100 07/16/18 16:00 82 07/16/18 16:00 99.8 74 20 128/69 (88) 100 Intake and Output 07/16/18 07/17/18 18:59 06:59 Intake Total 480 ml 1220.000 ml Output Total 700 ml 850 ml Balance -220 ml 370.000 ml Free Water 60 ml 230 ml IV Total 330.000 ml Tube Feeding 420 ml 660 ml Output Urine Total 700 ml 850 ml # Bowel Movements 2 3 Laboratory Tests Test 07/17/18 06:17 07/17/18 08:10 Sodium Level 143 MMOL/L (136-145) Potassium Level 3.8 MMOL/L (3.5-5.1) Chloride Level 109 MMOL/L (98-107) H Carbon Dioxide Level 31 MMOL/L (21-32) Anion Gap 4 mmol/L (5-15) L Blood Urea Nitrogen 11 mg/dL (7-18) Creatinine 0.5 MG/DL (0.55-1.30) L Estimat Glomerular Filtration Rate mL/min (>60) Glucose Level 97 MG/DL (74-106) Calcium Level 9.2 MG/DL (8.5-10.1) Phosphorus Level 3.1 MG/DL (2.5-4.9) Magnesium Level 1.9 MG/DL (1.8-2.4) Total Bilirubin 0.2 MG/DL (0.2-1.0) Aspartate Amino Transf (AST/SGOT) 13 U/L (15-37) L Alanine Aminotransferase (ALT/SGPT) 15 U/L (12-78) Alkaline Phosphatase 60 U/L (46-116) Total Protein 6.9 G/DL (6.4-8.2) Albumin 1.9 G/DL (3.4-5.0) L Globulin 5.0 g/dL Albumin/Globulin Ratio 0.4 (1.0-2.7) L White Blood Count 11.0 K/UL (4.8-10.8) H Red Blood Count 3.87 M/UL (4.20-5.40) L Hemoglobin 10.0 G/DL (12.0-16.0) L Hematocrit 32.5 % (37.0-47.0) L Mean Corpuscular Volume 84 FL (80-99) Mean Corpuscular Hemoglobin 25.9 PG (27.0-31.0) L Mean Corpuscular Hemoglobin Concent 30.9 G/DL (32.0-36.0) L Red Cell Distribution Width 15.0 % (11.6-14.8) H Platelet Count 289 K/UL (150-450) Mean Platelet Volume 6.8 FL (6.5-10.1) Neutrophils (%) (Auto) 68.7 % (45.0-75.0) Lymphocytes (%) (Auto) 20.3 % (20.0-45.0) Monocytes (%) (Auto) 5.1 % (1.0-10.0) Eosinophils (%) (Auto) 4.8 % (0.0-3.0) H Basophils (%) (Auto) 1.0 % (0.0-2.0) Microbiology Date/Time Source Procedure Growth Status 07/15/18 15:30 Blood Blood Culture - Preliminary NO GROWTH AFTER 24 HOURS Resulted 07/15/18 15:15 Blood Blood Culture - Preliminary Staphylococcus Sp Coag Neg Resulted 07/14/18 21:00 Sputum Induced Gram Stain - Final Resulted 07/14/18 21:00 Sputum Culture - Preliminary Staphylococcus Aureus Usual Respiratory Hetal Resulted Objective HEAD AND NECK: No JVD. LUNGS: Coarse rhonchi and decreased breath sounds. CARDIOVASCULAR: Regular S1 and S2 with no gallop or murmur. ABDOMEN: Status post G-tube. EXTREMITIES: 1+ pitting edema. Scar Kamara MD Jul 17, 2018 13:57
[2018-07-17 16:00] VITALS: BP 126/92
[2018-07-17] MEDS ORDERED: D5NS 1000ml IV ONE (16:52)
[2018-07-17] MEDS ORDERED: Sterile Water Irrig 1000ml IRRIG ONE (16:52)
[2018-07-17] MEDS ORDERED: Tubing IV Secondary IV ONE (16:52)
[2018-07-17] MEDS ORDERED: NS 275ml ONE (16:52)
--- NOTE | 2018-07-17 17:00 | Progress Note ---
DATE: 07/17/2018 NOTE: "POOR AUDIO QUALITY" SUBJECTIVE: The patient is a 72-year-old female patient with sepsis and respiratory failure. She had decline of cognition below baseline. That is why, her attending physician has requested daily psychiatric consultation. MENTAL STATUS EXAMINATION: A 72-year-old female. Appearance is disheveled. Attitude, irritable and agitated. Affect, guarded and restricted. Intellect poor. Mood, depressed and anxious. Motor activity, psychomotor agitation. Attention span is poor. Orientation x2. Speech is low volume and slurred. Thought process, disorganized and illogical. Thought content, she has auditory hallucinations and paranoia. Insight and judgment is poor. DIAGNOSIS: Major depression with psychotic features. PLAN: My plan for this patient is to treat her with a medication regimen consisting of Namenda 5 mg twice a day to prevent any further decline in her cognition and provided with 20 minutes of cognitive behavioral therapy to prevent any further decline in her cognition and encouraged her to interact appropriately with staff and other patients, and this 20 minutes of cognitive behavioral therapy was to help her identify automatic negative thoughts and help her to convert those negative thoughts to more positive thoughts using techniques of cognitive behavioral therapy and also in order to reduce depression, anxiety, impulsivity, and help her have a more adaptive behavioral pattern and better insight. In addition to Namenda and cognitive behavioral therapy, I am also treating her with Ativan 0.5 mg every 6 hours p.r.n. anxiety and agitation, and encouraged her to interact appropriately with staff and other patients. Chart reviewed. Discussed with staff. Seen and assessed in her room. Pearl Cunningham M.D. DR: Ruthie JOB#: [id number] CC:
[2018-07-17 20:00] VITALS: BP 144/63
[2018-07-18] VITALS: BP 140/72
[2018-07-18 04:00] VITALS: BP_SYST 140; BP_SYST 142; BP_DIAS 70; BP_DIAS 79
[2018-07-18] MEDS: Meropenem 1 GM in NS 55 ML IVPB SCH ×3 (05:05→22:36)
[2018-07-18] MEDS: dilTIAZem HCl 30mg tab GT SCH ×3 (05:29→22:36)
[2018-07-18 07:45] LABS: BASOPHILS % (AUTO) 0.7 % (0.0-2.0); EOSINOPHILS % (AUTO) 3.9 % (0.0-3.0); HEMOGLOBIN 10.7 G/DL (12.0-16.0); MEAN CORPUSCULAR VOLUME 84 FL (80-99); NEUTROPHILS % (AUTO) 66.3 % (45.0-75.0); PLATELET COUNT 284 K/UL (150-450); RED BLOOD COUNT 4.05 M/UL (4.20-5.40); RED CELL DISTRIBUTION WIDTH 14.7 % (11.6-14.8)
[2018-07-18 07:54] LABS: ANION GAP 4 mmol/L (5-15); BLOOD UREA NITROGEN 7 mg/dL (7-18); CALCIUM 9.2 MG/DL (8.5-10.1); CARBON DIOXIDE 33 MMOL/L (21-32); CHLORIDE 105 MMOL/L (98-107); CREATININE 0.5 MG/DL (0.55-1.30); SODIUM 142 MMOL/L (136-145)
[2018-07-18 08:00] VITALS: BP 123/77
[2018-07-18] MEDS: Vancomycin 1 GM in D5W 275 ML IVPB SCH ×2 (08:37→20:25)
--- NOTE | 2018-07-18 08:43 | General Progress Note ---
Assessment/Plan Problem List: (1) Ulcer of left lower leg ICD Codes: L97.929 - Non-pressure chronic ulcer of unspecified part of left lower leg with unspecified severity SNOMED: 916527528, 095632159 (2) Respiratory failure ICD Codes: J96.90 - Respiratory failure, unspecified, unspecified whether with hypoxia or hypercapnia SNOMED: 979654908 (3) FTT (failure to thrive) in adult ICD Codes: R62.7 - Adult failure to thrive SNOMED: 858965233 (4) Acute respiratory failure ICD Codes: J96.00 - Acute respiratory failure, unspecified whether with hypoxia or hypercapnia SNOMED: 79137227 (5) Severe malnutrition ICD Codes: E43 - Unspecified severe protein-calorie malnutrition SNOMED: 27999867 (6) Sepsis ICD Codes: A41.9 - Sepsis, unspecified organism SNOMED: 88272811 (7) Leukocytosis ICD Codes: D72.829 - Elevated white blood cell count, unspecified SNOMED: 415569446, 895637498 (8) At high risk for aspiration ICD Codes: Z91.89 - Other specified personal risk factors, not elsewhere classified SNOMED: 078726776 (9) Seizure disorder, complex partial ICD Codes: G40.209 - Seizure disorder, complex partial SNOMED: 116890602 Status: stable, progressing Assessment/Plan o2 pulm tx ot pt diet abx cbc bmp am dc plan Subjective Constitutional: Reports: weakness Allergies: Coded Allergies: ASPIRIN (Verified Allergy, Unknown, 06/21/18) LOSARTAN (Verified Allergy, Unknown, 06/21/18) All Systems: reviewed and negative except above Subjective o2nc confused Objective Last 24 Hour Vital Signs Date Time Temp Pulse Resp B/P (MAP) Pulse Ox O2 Delivery O2 Flow Rate FiO2 07/18/18 07:35 Nasal Cannula 1.0 24 07/18/18 07:35 65 16 Nasal Cannula 1.0 24 07/18/18 07:35 99 Nasal Cannula 1.0 24 07/18/18 05:29 74 134/76 07/18/18 04:00 98.7 78 20 140/70 (93) 100 07/18/18 00:00 99.0 62 20 140/72 (94) 100 07/17/18 22:31 81 151/73 07/17/18 21:07 70 144/69 07/17/18 21:00 Nasal Cannula 3.0 07/17/18 20:18 Nasal Cannula 1.0 24 07/17/18 20:17 69 16 Nasal Cannula 1.0 24 07/17/18 20:17 100 Nasal Cannula 1.0 24 07/17/18 20:00 98.6 70 20 144/63 (90) 100 07/17/18 16:00 98.4 68 18 126/92 (103) 100 07/17/18 14:25 68 142/60 07/17/18 11:50 98.0 66 18 132/66 (88) 100 07/17/18 09:00 Nasal Cannula 3.0 Intake and Output 07/17/18 07/18/18 19:00 07:00 Intake Total 1538.708 ml 1050.000 ml Output Total 500 ml 1000 ml Balance 1038.708 ml 50.000 ml Free Water 140 ml 60 ml IV Total 678.708 ml 330.000 ml Tube Feeding 720 ml 660 ml Output Urine Total 500 ml 1000 ml Laboratory Tests 07/18/18 07:05: White Blood Count 11.0H, Red Blood Count 4.05L, Hemoglobin 10.7L, Hematocrit 34.0L, Mean Corpuscular Volume 84, Mean Corpuscular Hemoglobin 26.4L, Mean Corpuscular Hemoglobin Concent 31.5L, Red Cell Distribution Width 14.7, Platelet Count 284, Mean Platelet Volume 7.2, Neutrophils (%) (Auto) 66.3, Lymphocytes (%) (Auto) 24.0, Monocytes (%) (Auto) 5.0, Eosinophils (%) (Auto) 3.9H, Basophils (%) (Auto) 0.7, Sodium Level 142, Potassium Level 4.0, Chloride Level 105, Carbon Dioxide Level 33H, Anion Gap 4L, Blood Urea Nitrogen 7, Creatinine 0.5L, Estimat Glomerular Filtration Rate , Glucose Level 94, Calcium Level 9.2, Vancomycin Level Trough 16.3H Height (Feet): 5 Height (Inches): 3.00 Weight (Pounds): 224 General Appearance: lethargic, confused EENT: normal ENT inspection Neck: normal alignment Cardiovascular: normal peripheral pulses, normal rate, regular rhythm Respiratory/Chest: chest wall non-tender, decreased breath sounds Abdomen: normal bowel sounds, non tender, soft Extremities: normal inspection Edema: 1+ Arm (L), 1+ Arm (R), 1+ Leg (L), 1+ Leg (R), 1+ Pedal (L), 1+ Pedal ( R), 1+ Generalized Edema: trace edema Neurologic: motor weakness Skin: normal pigmentation, warm/dry Hong Caballero DO Jul 18, 2018 08:43
[2018-07-18] MEDS: Metoprolol Tartrate 50mg tab GT SCH ×2 (09:23→20:28)
[2018-07-18] MEDS: levETIRAcetam 500mg/5ml Liquid GT SCH ×2 (09:23→20:29)
[2018-07-18] MEDS: Memantine 5 MG TAB GT SCH ×2 (09:23→17:47)
[2018-07-18] MEDS: Heparin 5000 units/ml inj SUBQ SCH ×2 (09:24→20:30)
--- NOTE | 2018-07-18 10:00 | Nephrology Progress Note ---
Assessment/Plan Problem List: (1) Hypernatremia (2) Hypokalemia (3) Dehydration (4) Sepsis Assessment Respiratory failure Sepsis Supraventricular arrhythmia Hypernatremia Free water deficit Dehydration Seizure disorder, complex partial Urinary tract infection HypoAlbuminemia Dementia Allergy to ASA and YVONNE inhibitors HTN Plan adjust bp meds K supplement DC IV D5W Monitor Lytes- antibiotics Keppra to GT K and Phos IV as needed Per orders and consultants Subjective ROS Limited/Unobtainable: No Objective Objective Last 24 Hour Vital Signs Date Time Temp Pulse Resp B/P (MAP) Pulse Ox O2 Delivery O2 Flow Rate FiO2 07/18/18 09:23 93 123/77 07/18/18 08:00 98.6 93 20 123/77 (92) 97 07/18/18 07:35 Nasal Cannula 1.0 24 07/18/18 07:35 65 16 Nasal Cannula 1.0 24 07/18/18 07:35 99 Nasal Cannula 1.0 24 07/18/18 05:29 74 134/76 07/18/18 04:00 98.7 78 20 140/70 (93) 100 07/18/18 00:00 99.0 62 20 140/72 (94) 100 07/17/18 22:31 81 151/73 07/17/18 21:07 70 144/69 07/17/18 21:00 Nasal Cannula 3.0 07/17/18 20:18 Nasal Cannula 1.0 24 07/17/18 20:17 69 16 Nasal Cannula 1.0 24 07/17/18 20:17 100 Nasal Cannula 1.0 24 07/17/18 20:00 98.6 70 20 144/63 (90) 100 07/17/18 16:00 98.4 68 18 126/92 (103) 100 07/17/18 14:25 68 142/60 07/17/18 11:50 98.0 66 18 132/66 (88) 100 Intake and Output 07/17/18 07/18/18 19:00 07:00 Intake Total 1538.708 ml 1050.000 ml Output Total 500 ml 1000 ml Balance 1038.708 ml 50.000 ml Free Water 140 ml 60 ml IV Total 678.708 ml 330.000 ml Tube Feeding 720 ml 660 ml Output Urine Total 500 ml 1000 ml Laboratory Tests 12/9/18 07:05: White Blood Count 11.0H, Red Blood Count 4.05L, Hemoglobin 10.7L, Hematocrit 34.0L, Mean Corpuscular Volume 84, Mean Corpuscular Hemoglobin 26.4L, Mean Corpuscular Hemoglobin Concent 31.5L, Red Cell Distribution Width 14.7, Platelet Count 284, Mean Platelet Volume 7.2, Neutrophils (%) (Auto) 66.3, Lymphocytes (%) (Auto) 24.0, Monocytes (%) (Auto) 5.0, Eosinophils (%) (Auto) 3.9H, Basophils (%) (Auto) 0.7, Sodium Level 142, Potassium Level 4.0, Chloride Level 105, Carbon Dioxide Level 33H, Anion Gap 4L, Blood Urea Nitrogen 7, Creatinine 0.5L, Estimat Glomerular Filtration Rate , Glucose Level 94, Calcium Level 9.2, Vancomycin Level Trough 16.3H Height (Feet): 5 Height (Inches): 3.00 Weight (Pounds): 224 General Appearance: no apparent distress Cardiovascular: normal rate Respiratory/Chest: lungs clear Abdomen: soft Objective no change Gonsalo Ortiz MD Jul 18, 2018 10:00
[2018-07-18 12:00] VITALS: BP 128/83
[2018-07-18 16:00] VITALS: BP 126/80
--- NOTE | 2018-07-18 16:46 | Cardiac Electrophysiology PN ---
Assessment/Plan Assessment/Plan 1. Supraventricular tachycardia, S/P adenosine. Continue Cardizem 30 mg 3 times daily and Metoprolol 100 bid Off tele now. 2. Hypertension. On Cardizem and Metoprolol 3. Diabetes, on insulin. 4. S/P Respiratory failure, on antibiotic and off BiPAP. 5. S/P PEG placement. 6. Dementia. 7. History of seizure disorder. 8. Hypernatremia. Getting IV hydration. 9. S/P sharp excisional debridement of left lateral distal lower extremity DW RN Subjective Subjective Off Tele comfortable in NAD Objective Last 24 Hour Vital Signs Date Time Temp Pulse Resp B/P (MAP) Pulse Ox O2 Delivery O2 Flow Rate FiO2 07/18/18 14:49 83 128/83 07/18/18 12:00 98.8 83 20 128/83 (98) 99 07/18/18 09:23 93 123/77 07/18/18 09:00 Nasal Cannula 3.0 07/18/18 08:00 98.6 93 20 123/77 (92) 97 07/18/18 07:35 Nasal Cannula 1.0 24 07/18/18 07:35 65 16 Nasal Cannula 1.0 24 07/18/18 07:35 99 Nasal Cannula 1.0 24 07/18/18 05:29 74 134/76 07/18/18 04:00 98.7 78 20 140/70 (93) 100 07/18/18 00:00 99.0 62 20 140/72 (94) 100 07/17/18 22:31 81 151/73 07/17/18 21:07 70 144/69 07/17/18 21:00 Nasal Cannula 3.0 07/17/18 20:18 Nasal Cannula 1.0 24 07/17/18 20:17 69 16 Nasal Cannula 1.0 24 07/17/18 20:17 100 Nasal Cannula 1.0 24 07/17/18 20:00 98.6 70 20 144/63 (90) 100 Intake and Output 07/17/18 07/18/18 18:59 06:59 Intake Total 1508.708 ml 1140.000 ml Output Total 500 ml 1000 ml Balance 1008.708 ml 140.000 ml Free Water 110 ml 90 ml IV Total 678.708 ml 330.000 ml Tube Feeding 720 ml 720 ml Output Urine Total 500 ml 1000 ml Laboratory Tests Test 07/18/18 07:05 White Blood Count 11.0 K/UL (4.8-10.8) H Red Blood Count 4.05 M/UL (4.20-5.40) L Hemoglobin 10.7 G/DL (12.0-16.0) L Hematocrit 34.0 % (37.0-47.0) L Mean Corpuscular Volume 84 FL (80-99) Mean Corpuscular Hemoglobin 26.4 PG (27.0-31.0) L Mean Corpuscular Hemoglobin Concent 31.5 G/DL (32.0-36.0) L Red Cell Distribution Width 14.7 % (11.6-14.8) Platelet Count 284 K/UL (150-450) Mean Platelet Volume 7.2 FL (6.5-10.1) Neutrophils (%) (Auto) 66.3 % (45.0-75.0) Lymphocytes (%) (Auto) 24.0 % (20.0-45.0) Monocytes (%) (Auto) 5.0 % (1.0-10.0) Eosinophils (%) (Auto) 3.9 % (0.0-3.0) H Basophils (%) (Auto) 0.7 % (0.0-2.0) Sodium Level 142 MMOL/L (136-145) Potassium Level 4.0 MMOL/L (3.5-5.1) Chloride Level 105 MMOL/L (98-107) Carbon Dioxide Level 33 MMOL/L (21-32) H Anion Gap 4 mmol/L (5-15) L Blood Urea Nitrogen 7 mg/dL (7-18) Creatinine 0.5 MG/DL (0.55-1.30) L Estimat Glomerular Filtration Rate mL/min (>60) Glucose Level 94 MG/DL (74-106) Calcium Level 9.2 MG/DL (8.5-10.1) Vancomycin Level Trough 16.3 ug/mL (5.0-12.0) H Microbiology Date/Time Source Procedure Growth Status 07/16/18 14:15 Blood Blood Culture - Preliminary NO GROWTH AFTER 24 HOURS Resulted 07/16/18 14:10 Blood Blood Culture - Preliminary NO GROWTH AFTER 24 HOURS Resulted Objective HEAD AND NECK: No JVD. LUNGS: Coarse rhonchi and decreased breath sounds. CARDIOVASCULAR: Regular S1 and S2 with no gallop or murmur. ABDOMEN: Status post G-tube. EXTREMITIES: 1+ pitting edema. Scar Kamara MD Jul 18, 2018 16:46
[2018-07-18 20:00] VITALS: BP 154/70
[2018-07-19] VITALS: BP 148/74
--- NOTE | 2018-07-19 03:30 | Progress Note ---
DATE: 07/18/2018 SUBJECTIVE: The patient is a 72-year-old female patient with sepsis and respiratory insufficiency. This patient is confused, disorganized, and mood labile secondary to stress of her medical illness. That is why her attending physician has requested daily psychiatric consultation. DIAGNOSIS: Major depressive disorder, mild paranoid type. paranoid schizophrenia with acute exacerbation. PLAN: Continue titrating up her medications to stabilize her mood. Provided with 20 minutes of supportive psychotherapy and 20 minutes of cognitive behavior therapy to help identify automatic negative thoughts and help her to convert those negative thoughts to more positive thoughts to reduce depression, anxiety, and suicidality and also help her having more adaptive behavior pattern and improve her cognition. That is why had 20 minutes of cognitive behavior therapy. Treated with Namenda 5 mg per G-tube twice a day. Seen and assessed in the morning. Chart reviewed. Discussed with staff. Pearl Cunningham M.D. DR: PETER JOB#: [id number] CC:
[2018-07-19 04:00] VITALS: BP 138/75
[2018-07-19] MEDS: dilTIAZem HCl 30mg tab GT SCH ×3 (05:26→22:43)
[2018-07-19] MEDS: Meropenem 1 GM in NS 55 ML IVPB SCH (05:27)
[2018-07-19 07:27] LABS: EOSINOPHILS % (AUTO) 3.6 % (0.0-3.0); HEMATOCRIT 32.6 % (37.0-47.0); HEMOGLOBIN 10.5 G/DL (12.0-16.0); LYMPHOCYTES % (AUTO) 24.3 % (20.0-45.0); MEAN CORPUSCULAR VOLUME 84 FL (80-99); MONOCYTES % (AUTO) 5.8 % (1.0-10.0); NEUTROPHILS % (AUTO) 65.2 % (45.0-75.0); PLATELET COUNT 303 K/UL (150-450); RED BLOOD COUNT 3.89 M/UL (4.20-5.40); RED CELL DISTRIBUTION WIDTH 14.8 % (11.6-14.8); WHITE BLOOD COUNT 10.1 K/UL (4.8-10.8)
[2018-07-19 07:59] LABS: ANION GAP 3 mmol/L (5-15); BLOOD UREA NITROGEN 8 mg/dL (7-18); CALCIUM 9.1 MG/DL (8.5-10.1); CARBON DIOXIDE 33 MMOL/L (21-32); CHLORIDE 104 MMOL/L (98-107); CREATININE 0.5 MG/DL (0.55-1.30); POTASSIUM 4.2 MMOL/L (3.5-5.1); SODIUM 140 MMOL/L (136-145)
[2018-07-19 08:00] VITALS: BP 147/66
[2018-07-19] MEDS: Memantine 5 MG TAB GT SCH ×2 (08:43→18:18)
[2018-07-19] MEDS: Vancomycin 1 GM in D5W 275 ML IVPB SCH ×2 (08:43→20:31)
[2018-07-19] MEDS: Metoprolol Tartrate 50mg tab GT SCH ×2 (08:43→20:54)
[2018-07-19] MEDS: levETIRAcetam 500mg/5ml Liquid GT SCH ×2 (08:43→20:53)
[2018-07-19] MEDS: Heparin 5000 units/ml inj SUBQ SCH ×2 (08:46→20:54)
[2018-07-19 12:00] VITALS: BP 118/59
--- NOTE | 2018-07-19 12:29 | Infectious Diseases Prog Note ---
Assessment/Plan Assessment/Plan Assessment: Sepsis 2ry to PNA -07/15 cXR" Improved aeration of the right lung base, since prior study 2017. No acute process currently -CXR: Suspect right basilar infiltrate and/or atelectasis. Borderline cardiac megaly -influenza sc neg -sp cx MRSA Probable UTI (unable to obtain symptoms) -u/a wbc 10-15, nit neg, leuk +3; ucx >100k ESBL E.coli ( R Zosyn, S ertapenem ) CONS bacteremia, likely contaminant -07/13 Bcx 08/13 CONS, 07/15 : CoNS; 07/16n NTD 2DEcho : no Veg Fever, SP Leukocytosis, mild , SP HTN COPD dysphagia aphasia Alzheimer's dementia Plan: -Continue IV Vancomycin # for MRSA PNA -Switch Meropenem d# 11/14 to Ertapenem for ESBL UTI -07/16 SP Zosyn #4 -f/u cx ( Rpt Blood Cx) -Monitor CBC/CMP, temperatures -aspiration precautions Subjective Allergies: Coded Allergies: ASPIRIN (Verified Allergy, Unknown, 06/21/18) LOSARTAN (Verified Allergy, Unknown, 06/21/18) Subjective afebrile >48hrs wbc resolved Bcx 08/13 CONS, repeat Bcx p Sp cx p Objective Vital Signs Last 24 Hour Vital Signs Date Time Temp Pulse Resp B/P (MAP) Pulse Ox O2 Delivery O2 Flow Rate FiO2 07/19/18 09:00 Nasal Cannula 3.0 07/19/18 08:43 75 147/66 07/19/18 08:00 98.2 75 20 147/66 (93) 99 07/19/18 05:26 75 138/75 07/19/18 04:00 98.2 75 20 138/75 (96) 99 07/19/18 00:00 98.4 65 20 148/74 (98) 100 07/18/18 22:36 79 141/77 07/18/18 20:28 75 154/70 07/18/18 20:00 97.6 75 20 154/70 (98) 100 07/18/18 19:39 Nasal Cannula 1.0 24 07/18/18 19:39 100 Nasal Cannula 1.0 24 07/18/18 19:38 72 18 Nasal Cannula 1.0 24 07/18/18 16:00 98.3 74 21 126/80 (95) 99 07/18/18 14:49 83 128/83 Height (Feet): 5 Height (Inches): 3.00 Weight (Pounds): 256 Microbiology Date/Time Source Procedure Growth Status 07/16/18 14:15 Blood Blood Culture - Preliminary NO GROWTH AFTER 48 HOURS Resulted 07/16/18 14:10 Blood Blood Culture - Preliminary NO GROWTH AFTER 48 HOURS Resulted Laboratory Tests Test 07/19/18 07:03 White Blood Count 10.1 K/UL (4.8-10.8) Red Blood Count 3.89 M/UL (4.20-5.40) L Hemoglobin 10.5 G/DL (12.0-16.0) L Hematocrit 32.6 % (37.0-47.0) L Mean Corpuscular Volume 84 FL (80-99) Mean Corpuscular Hemoglobin 26.9 PG (27.0-31.0) L Mean Corpuscular Hemoglobin Concent 32.1 G/DL (32.0-36.0) Red Cell Distribution Width 14.8 % (11.6-14.8) Platelet Count 303 K/UL (150-450) Mean Platelet Volume 6.6 FL (6.5-10.1) Neutrophils (%) (Auto) 65.2 % (45.0-75.0) Lymphocytes (%) (Auto) 24.3 % (20.0-45.0) Monocytes (%) (Auto) 5.8 % (1.0-10.0) Eosinophils (%) (Auto) 3.6 % (0.0-3.0) H Basophils (%) (Auto) 1.0 % (0.0-2.0) Sodium Level 140 MMOL/L (136-145) Potassium Level 4.2 MMOL/L (3.5-5.1) Chloride Level 104 MMOL/L (98-107) Carbon Dioxide Level 33 MMOL/L (21-32) H Anion Gap 3 mmol/L (5-15) L Blood Urea Nitrogen 8 mg/dL (7-18) Creatinine 0.5 MG/DL (0.55-1.30) L Estimat Glomerular Filtration Rate mL/min (>60) Glucose Level 104 MG/DL (74-106) Calcium Level 9.1 MG/DL (8.5-10.1) Current Medications Medications (Trade) Dose Ordered Sig/Caroline Route PRN Reason Start Time Stop Time Status Last Admin Dose Admin Acetaminophen (Tylenol) 650 mg Q4H PRN GT FEVER (Temp>100.5F) 07/16/18 20:30 08/12/18 20:29 Clonidine HCl (Catapres Tab) 0.1 mg Q4H PRN GT sbp>160 07/16/18 20:30 08/12/18 20:29 Diltiazem HCl (Cardizem) 30 mg EVERY 8 HOURS GT 07/16/18 22:00 08/12/18 21:59 07/19/18 05:26 Heparin Sodium (Porcine) (Heparin 5000 units/ml) 5,000 units EVERY 12 HOURS SUBQ 07/16/18 21:00 08/12/18 20:59 07/19/18 08:46 Lansoprazole (Prevacid) 30 mg BID GT 07/17/18 09:00 08/13/18 08:59 07/19/18 08:43 Levetiracetam (Keppra) 500 mg Q12HR GT 07/16/18 21:00 08/12/18 21:59 07/19/18 08:43 Lorazepam (Ativan) 0.5 mg Q6H PRN ORAL For Anxiety 07/16/18 20:30 07/23/18 20:29 Memantine (Namenda) 5 mg BID GT 07/17/18 09:00 08/14/18 17:59 07/19/18 08:43 Meropenem 1 gm/ Sodium Chloride 55 ml @ 110 mls/hr Q8HR IVPB 07/16/18 22:00 07/21/18 13:59 07/19/18 05:27 Metoprolol Tartrate (Lopressor) 50 mg Q12HR GT 07/16/18 21:00 08/14/18 20:59 07/19/18 08:43 Morphine Sulfate (Morphine Sulfate) 2 mg Q4H PRN IVP severe Pain (Pain Scale 7-10) 07/16/18 20:30 07/20/18 20:29 Nitroglycerin (Ntg) 0.4 mg Q5M PRN SL Prn Chest Pain 07/16/18 20:30 08/12/18 20:59 Ondansetron HCl (Zofran) 4 mg Q6H PRN IVP Nausea & Vomiting 07/16/18 20:30 08/15/18 20:29 Polyethylene Glycol (Miralax) 17 gm DAILYPRN PRN GT Constipation 07/16/18 20:30 08/15/18 20:29 Temazepam (Restoril) 15 mg HSPRN PRN GT Insomnia 07/16/18 21:00 07/20/18 20:59 Vancomycin HCl (Vanco rx to dose) 1 ea DAILY PRN MISC Per rx protocol 07/17/18 09:00 08/13/18 13:44 Vancomycin HCl 1 gm/Dextrose 275 ml @ 183.708 mls/hr Q12HR@0800,2000 IVPB 07/16/18 20:00 07/21/18 19:59 07/19/18 08:43 Selene Francis M.D. Jul 19, 2018 12:29
--- NOTE | 2018-07-19 12:45 | Pulmonology Progress Note ---
Assessment/Plan Problems: (1) Acute encephalopathy (2) Acute respiratory failure (3) Supraventricular arrhythmia (4) Sepsis (5) Seizure disorder, complex partial Assessment/Plan afebrile improving continue iv abx check cultures, ESBL urine, MRSA sputum sinus rhythm now tolerating feeding tube dvt prophylaxis electrolytes improving Subjective ROS Limited/Unobtainable: No Constitutional: Reports: no symptoms HEENT: Repors: no symptoms Respiratory: Reports: no symptoms Allergies: Coded Allergies: ASPIRIN (Verified Allergy, Unknown, 06/21/18) LOSARTAN (Verified Allergy, Unknown, 06/21/18) Objective Last 24 Hour Vital Signs Date Time Temp Pulse Resp B/P (MAP) Pulse Ox O2 Delivery O2 Flow Rate FiO2 07/19/18 12:00 97.9 70 17 118/59 (78) 100 07/19/18 09:00 Nasal Cannula 3.0 07/19/18 08:43 75 147/66 07/19/18 08:00 98.2 75 20 147/66 (93) 99 07/19/18 05:26 75 138/75 07/19/18 04:00 98.2 75 20 138/75 (96) 99 07/19/18 00:00 98.4 65 20 148/74 (98) 100 07/18/18 22:36 79 141/77 07/18/18 20:28 75 154/70 07/18/18 20:00 97.6 75 20 154/70 (98) 100 07/18/18 19:39 Nasal Cannula 1.0 24 07/18/18 19:39 100 Nasal Cannula 1.0 24 07/18/18 19:38 72 18 Nasal Cannula 1.0 24 07/18/18 16:00 98.3 74 21 126/80 (95) 99 07/18/18 14:49 83 128/83 Intake and Output 07/18/18 07/19/18 19:00 07:00 Intake Total 550 ml 587.416 ml Output Total 1200 ml 1850 ml Balance -650 ml -1262.584 ml Free Water 100 ml IV Total 330 ml 587.416 ml Tube Feeding 120 ml Output Urine Total 1200 ml 1850 ml # Bowel Movements 1 Objective General Appearance: WD/WN HEENT: normocephalic Respiratory/Chest: chest wall non-tender, lungs clear, normal breath sounds Cardiovascular: normal peripheral pulses, normal rate Abdomen: normal bowel sounds, soft, non tender, Gtube Genitourinary: normal external genitalia Extremities: no clubbing Skin: no rash Microbiology Date/Time Source Procedure Growth Status 07/16/18 14:15 Blood Blood Culture - Preliminary NO GROWTH AFTER 48 HOURS Resulted 07/16/18 14:10 Blood Blood Culture - Preliminary NO GROWTH AFTER 48 HOURS Resulted Laboratory Tests 07/19/18 07:03: White Blood Count 10.1, Red Blood Count 3.89L, Hemoglobin 10.5L, Hematocrit 32.6L, Mean Corpuscular Volume 84, Mean Corpuscular Hemoglobin 26.9L, Mean Corpuscular Hemoglobin Concent 32.1, Red Cell Distribution Width 14.8, Platelet Count 303, Mean Platelet Volume 6.6, Neutrophils (%) (Auto) 65.2, Lymphocytes (% ) (Auto) 24.3, Monocytes (%) (Auto) 5.8, Eosinophils (%) (Auto) 3.6H, Basophils (%) (Auto) 1.0, Sodium Level 140, Potassium Level 4.2, Chloride Level 104, Carbon Dioxide Level 33H, Anion Gap 3L, Blood Urea Nitrogen 8, Creatinine 0.5L, Estimat Glomerular Filtration Rate , Glucose Level 104, Calcium Level 9.1 Current Medications Medications (Trade) Dose Ordered Sig/Caroline Route PRN Reason Start Time Stop Time Status Last Admin Dose Admin Acetaminophen (Tylenol) 650 mg Q4H PRN GT FEVER (Temp>100.5F) 07/16/18 20:30 08/12/18 20:29 Clonidine HCl (Catapres Tab) 0.1 mg Q4H PRN GT sbp>160 07/16/18 20:30 08/12/18 20:29 Diltiazem HCl (Cardizem) 30 mg EVERY 8 HOURS GT 07/16/18 22:00 08/12/18 21:59 07/19/18 05:26 Ertapenem 1 gm/ Sodium Chloride 55 ml @ 110 mls/hr Q24H IVPB 07/19/18 15:00 07/24/18 14:59 Heparin Sodium (Porcine) (Heparin 5000 units/ml) 5,000 units EVERY 12 HOURS SUBQ 07/16/18 21:00 08/12/18 20:59 07/19/18 08:46 Lansoprazole (Prevacid) 30 mg BID GT 07/17/18 09:00 08/13/18 08:59 07/19/18 08:43 Levetiracetam (Keppra) 500 mg Q12HR GT 07/16/18 21:00 08/12/18 21:59 07/19/18 08:43 Lorazepam (Ativan) 0.5 mg Q6H PRN ORAL For Anxiety 07/16/18 20:30 07/23/18 20:29 Memantine (Namenda) 5 mg BID GT 07/17/18 09:00 08/14/18 17:59 07/19/18 08:43 Metoprolol Tartrate (Lopressor) 50 mg Q12HR GT 07/16/18 21:00 08/14/18 20:59 07/19/18 08:43 Morphine Sulfate (Morphine Sulfate) 2 mg Q4H PRN IVP severe Pain (Pain Scale 7-10) 07/16/18 20:30 07/20/18 20:29 Nitroglycerin (Ntg) 0.4 mg Q5M PRN SL Prn Chest Pain 07/16/18 20:30 08/12/18 20:59 Ondansetron HCl (Zofran) 4 mg Q6H PRN IVP Nausea & Vomiting 07/16/18 20:30 08/15/18 20:29 Polyethylene Glycol (Miralax) 17 gm DAILYPRN PRN GT Constipation 07/16/18 20:30 08/15/18 20:29 Temazepam (Restoril) 15 mg HSPRN PRN GT Insomnia 07/16/18 21:00 07/20/18 20:59 Vancomycin HCl (Vanco rx to dose) 1 ea DAILY PRN MISC Per rx protocol 07/17/18 09:00 08/13/18 13:44 Vancomycin HCl 1 gm/Dextrose 275 ml @ 183.708 mls/hr Q12HR@0800,2000 IVPB 07/16/18 20:00 07/21/18 19:59 07/19/18 08:43 Morgan Tang MD Jul 19, 2018 12:45
--- NOTE | 2018-07-19 13:16 | Nephrology Progress Note ---
Assessment/Plan Problem List: (1) Hypernatremia (2) Hypokalemia (3) Dehydration (4) Sepsis Assessment Respiratory failure Sepsis Supraventricular arrhythmia Hypernatremia Free water deficit Dehydration Seizure disorder, complex partial Urinary tract infection HypoAlbuminemia Dementia Allergy to ASA and YVONNE inhibitors HTN Plan adjust bp meds K supplement DC IV D5W Monitor Lytes- antibiotics Keppra to GT K and Phos IV as needed Per orders and consultants Subjective ROS Limited/Unobtainable: No Objective Objective Last 24 Hour Vital Signs Date Time Temp Pulse Resp B/P (MAP) Pulse Ox O2 Delivery O2 Flow Rate FiO2 07/19/18 12:00 97.9 70 17 118/59 (78) 100 07/19/18 09:00 Nasal Cannula 3.0 07/19/18 08:43 75 147/66 07/19/18 08:00 98.2 75 20 147/66 (93) 99 07/19/18 05:26 75 138/75 07/19/18 04:00 98.2 75 20 138/75 (96) 99 07/19/18 00:00 98.4 65 20 148/74 (98) 100 07/18/18 22:36 79 141/77 07/18/18 20:28 75 154/70 07/18/18 20:00 97.6 75 20 154/70 (98) 100 07/18/18 19:39 Nasal Cannula 1.0 24 07/18/18 19:39 100 Nasal Cannula 1.0 24 07/18/18 19:38 72 18 Nasal Cannula 1.0 24 07/18/18 16:00 98.3 74 21 126/80 (95) 99 07/18/18 14:49 83 128/83 Intake and Output 07/18/18 07/19/18 19:00 07:00 Intake Total 550 ml 587.416 ml Output Total 1200 ml 1850 ml Balance -650 ml -1262.584 ml Free Water 100 ml IV Total 330 ml 587.416 ml Tube Feeding 120 ml Output Urine Total 1200 ml 1850 ml # Bowel Movements 1 Laboratory Tests 07/19/18 07:03: White Blood Count 10.1, Red Blood Count 3.89L, Hemoglobin 10.5L, Hematocrit 32.6L, Mean Corpuscular Volume 84, Mean Corpuscular Hemoglobin 26.9L, Mean Corpuscular Hemoglobin Concent 32.1, Red Cell Distribution Width 14.8, Platelet Count 303, Mean Platelet Volume 6.6, Neutrophils (%) (Auto) 65.2, Lymphocytes (% ) (Auto) 24.3, Monocytes (%) (Auto) 5.8, Eosinophils (%) (Auto) 3.6H, Basophils (%) (Auto) 1.0, Sodium Level 140, Potassium Level 4.2, Chloride Level 104, Carbon Dioxide Level 33H, Anion Gap 3L, Blood Urea Nitrogen 8, Creatinine 0.5L, Estimat Glomerular Filtration Rate , Glucose Level 104, Calcium Level 9.1 Height (Feet): 5 Height (Inches): 3.00 Weight (Pounds): 256 General Appearance: no apparent distress Cardiovascular: normal rate Respiratory/Chest: decreased breath sounds Abdomen: soft Objective no change Gonsalo Ortiz MD Jul 19, 2018 13:16
--- NOTE | 2018-07-19 14:20 | General Progress Note ---
Assessment/Plan Problem List: (1) Ulcer of left lower leg ICD Codes: L97.929 - Non-pressure chronic ulcer of unspecified part of left lower leg with unspecified severity SNOMED: 694744100, 282455003 (2) Respiratory failure ICD Codes: J96.90 - Respiratory failure, unspecified, unspecified whether with hypoxia or hypercapnia SNOMED: 432647340 (3) FTT (failure to thrive) in adult ICD Codes: R62.7 - Adult failure to thrive SNOMED: 326746396 (4) Acute respiratory failure ICD Codes: J96.00 - Acute respiratory failure, unspecified whether with hypoxia or hypercapnia SNOMED: 23630645 (5) Severe malnutrition ICD Codes: E43 - Unspecified severe protein-calorie malnutrition SNOMED: 14170489 (6) Sepsis ICD Codes: A41.9 - Sepsis, unspecified organism SNOMED: 45879696 (7) Leukocytosis ICD Codes: D72.829 - Elevated white blood cell count, unspecified SNOMED: 574695934, 605998971 (8) At high risk for aspiration ICD Codes: Z91.89 - Other specified personal risk factors, not elsewhere classified SNOMED: 526757942 (9) Seizure disorder, complex partial ICD Codes: G40.209 - Seizure disorder, complex partial SNOMED: 128294580 Status: stable, progressing Assessment/Plan o2 pulm tx ot pt diet abx dc if clear Subjective Constitutional: Reports: weakness Allergies: Coded Allergies: ASPIRIN (Verified Allergy, Unknown, 06/21/18) LOSARTAN (Verified Allergy, Unknown, 06/21/18) All Systems: reviewed and negative except above Subjective o2nc confused Objective Last 24 Hour Vital Signs Date Time Temp Pulse Resp B/P (MAP) Pulse Ox O2 Delivery O2 Flow Rate FiO2 07/19/18 12:00 97.9 70 17 118/59 (78) 100 07/19/18 09:00 Nasal Cannula 3.0 07/19/18 08:43 75 147/66 07/19/18 08:00 98.2 75 20 147/66 (93) 99 07/19/18 05:26 75 138/75 07/19/18 04:00 98.2 75 20 138/75 (96) 99 07/19/18 00:00 98.4 65 20 148/74 (98) 100 07/18/18 22:36 79 141/77 07/18/18 20:28 75 154/70 07/18/18 20:00 97.6 75 20 154/70 (98) 100 07/18/18 19:39 Nasal Cannula 1.0 24 07/18/18 19:39 100 Nasal Cannula 1.0 24 07/18/18 19:38 72 18 Nasal Cannula 1.0 24 07/18/18 16:00 98.3 74 21 126/80 (95) 99 07/18/18 14:49 83 128/83 Intake and Output 07/18/18 07/19/18 19:00 07:00 Intake Total 550 ml 587.416 ml Output Total 1200 ml 1850 ml Balance -650 ml -1262.584 ml Free Water 100 ml IV Total 330 ml 587.416 ml Tube Feeding 120 ml Output Urine Total 1200 ml 1850 ml # Bowel Movements 1 Laboratory Tests 07/19/18 07:03: White Blood Count 10.1, Red Blood Count 3.89L, Hemoglobin 10.5L, Hematocrit 32.6L, Mean Corpuscular Volume 84, Mean Corpuscular Hemoglobin 26.9L, Mean Corpuscular Hemoglobin Concent 32.1, Red Cell Distribution Width 14.8, Platelet Count 303, Mean Platelet Volume 6.6, Neutrophils (%) (Auto) 65.2, Lymphocytes (% ) (Auto) 24.3, Monocytes (%) (Auto) 5.8, Eosinophils (%) (Auto) 3.6H, Basophils (%) (Auto) 1.0, Sodium Level 140, Potassium Level 4.2, Chloride Level 104, Carbon Dioxide Level 33H, Anion Gap 3L, Blood Urea Nitrogen 8, Creatinine 0.5L, Estimat Glomerular Filtration Rate , Glucose Level 104, Calcium Level 9.1 Height (Feet): 5 Height (Inches): 3.00 Weight (Pounds): 256 General Appearance: lethargic EENT: normal ENT inspection Neck: normal alignment Cardiovascular: normal peripheral pulses, normal rate, regular rhythm Respiratory/Chest: chest wall non-tender, lungs clear, normal breath sounds Abdomen: normal bowel sounds, non tender, soft Extremities: normal inspection Edema: no edema noted Arm (L), no edema noted Arm (R), no edema noted Leg (L), no edema noted Leg (R), no edema noted Pedal (L), no edema noted Pedal (R), no edema noted Generalized Neurologic: motor weakness Skin: normal pigmentation, warm/dry Hong Caballero DO Jul 19, 2018 14:20
[2018-07-19] MEDS: Ertapenem 1 GM in NS 55 ML IVPB SCH (15:24)
--- NOTE | 2018-07-19 15:41 | Diagnostic Imaging Report ---
Indication: Dyspnea Comparison: 07/15/2018 A single view chest radiograph was obtained. Findings: No definite infiltrate or pulmonary vascular congestion identified. The heart is enlarged. The aorta is mildly enlarged consistent with atherosclerotic vascular disease. The bones are osteopenic. Impression: No acute disease
[2018-07-19 16:00] VITALS: BP 150/76
--- NOTE | 2018-07-19 17:15 | Progress Note ---
DATE: 07/19/2018 SUBJECTIVE: The patient is a 72-year-old female patient with sepsis and respiratory insufficiency. She is confused, disorganized. She has got some altered mental status worsened by stress causing her to have decline in cognition below her baseline. That is why her attending has requested daily psychiatric consultation. MENTAL STATUS EXAMINATION: The patient is a 72-year-old female. Appearance is disheveled. Attitude, irritable and agitated. Affect, guarded and restricted. Intellect poor. Mood depressed and anxious. Motor activity, psychomotor agitation. Attention span is poor. Orientation x2. Speech is pressured. Thought process, disorganized and illogical. Thought content, auditory hallucinations and paranoid delusions. Insight and Judgment is poor. DIAGNOSIS: Major depression with psychotic features, rule out dementia with psychosis. PLAN: Continue treatment with medications to prevent any further decline in cognition. A 20 minutes of cognitive behavior therapy would help identify automatic negative thoughts and help her convert those negative thoughts to more positive thoughts using cognitive behavior therapy in order to reduce depression, anxiety, and also to help her with a more adaptive behavior to have better functionality outside the hospital. Chart reviewed and discussed with staff. Seen and assessed in her room. Pearl Cunningham M.D. DR: Kermit JOB#: [id number] CC:
--- NOTE | 2018-07-19 17:32 | Cardiac Electrophysiology PN ---
Assessment/Plan Assessment/Plan 1. Supraventricular tachycardia, S/P adenosine. Continue Cardizem 30 mg 3 times daily and Metoprolol 100 bid No recurrence 2. Hypertension. On Cardizem and Metoprolol 3. Diabetes, on insulin. 4. S/P Respiratory failure, on antibiotic and off BiPAP. 5. S/P PEG placement. 6. Dementia. 7. History of seizure disorder. 8. Hypernatremia.On IV hydration. 9. 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 Awaiting placement Objective Last 24 Hour Vital Signs Date Time Temp Pulse Resp B/P (MAP) Pulse Ox O2 Delivery O2 Flow Rate FiO2 07/19/18 16:00 98.4 67 20 150/76 (100) 100 07/19/18 15:05 70 118/59 07/19/18 12:00 97.9 70 17 118/59 (78) 100 07/19/18 09:00 Nasal Cannula 3.0 07/19/18 08:43 75 147/66 07/19/18 08:00 98.2 75 20 147/66 (93) 99 07/19/18 05:26 75 138/75 07/19/18 04:00 98.2 75 20 138/75 (96) 99 07/19/18 00:00 98.4 65 20 148/74 (98) 100 07/18/18 22:36 79 141/77 07/18/18 20:28 75 154/70 07/18/18 20:00 97.6 75 20 154/70 (98) 100 07/18/18 19:39 Nasal Cannula 1.0 24 07/18/18 19:39 100 Nasal Cannula 1.0 24 07/18/18 19:38 72 18 Nasal Cannula 1.0 24 Intake and Output 07/18/18 07/19/18 19:00 07:00 Intake Total 550 ml 587.416 ml Output Total 1200 ml 1850 ml Balance -650 ml -1262.584 ml Free Water 100 ml IV Total 330 ml 587.416 ml Tube Feeding 120 ml Output Urine Total 1200 ml 1850 ml # Bowel Movements 1 Laboratory Tests Test 07/19/18 07:03 White Blood Count 10.1 K/UL (4.8-10.8) Red Blood Count 3.89 M/UL (4.20-5.40) L Hemoglobin 10.5 G/DL (12.0-16.0) L Hematocrit 32.6 % (37.0-47.0) L Mean Corpuscular Volume 84 FL (80-99) Mean Corpuscular Hemoglobin 26.9 PG (27.0-31.0) L Mean Corpuscular Hemoglobin Concent 32.1 G/DL (32.0-36.0) Red Cell Distribution Width 14.8 % (11.6-14.8) Platelet Count 303 K/UL (150-450) Mean Platelet Volume 6.6 FL (6.5-10.1) Neutrophils (%) (Auto) 65.2 % (45.0-75.0) Lymphocytes (%) (Auto) 24.3 % (20.0-45.0) Monocytes (%) (Auto) 5.8 % (1.0-10.0) Eosinophils (%) (Auto) 3.6 % (0.0-3.0) H Basophils (%) (Auto) 1.0 % (0.0-2.0) Sodium Level 140 MMOL/L (136-145) Potassium Level 4.2 MMOL/L (3.5-5.1) Chloride Level 104 MMOL/L (98-107) Carbon Dioxide Level 33 MMOL/L (21-32) H Anion Gap 3 mmol/L (5-15) L Blood Urea Nitrogen 8 mg/dL (7-18) Creatinine 0.5 MG/DL (0.55-1.30) L Estimat Glomerular Filtration Rate mL/min (>60) Glucose Level 104 MG/DL (74-106) Calcium Level 9.1 MG/DL (8.5-10.1) Objective HEAD AND NECK: No JVD. LUNGS: Coarse rhonchi and decreased breath sounds. CARDIOVASCULAR: Regular S1 and S2 with no gallop or murmur. ABDOMEN: Status post G-tube. EXTREMITIES: 1+ pitting edema. Scar Kamara MD Jul 19, 2018 17:32
[2018-07-19 20:00] VITALS: BP 159/73
[2018-07-20] VITALS: BP 167/69
[2018-07-20 04:00] VITALS: BP 133/79
[2018-07-20] MEDS: dilTIAZem HCl 30mg tab GT SCH ×3 (06:25→21:47)
[2018-07-20 08:00] VITALS: BP 182/91
[2018-07-20] MEDS: levETIRAcetam 500mg/5ml Liquid GT SCH ×2 (09:29→20:17)
[2018-07-20] MEDS: Memantine 5 MG TAB GT SCH ×2 (09:30→17:52)
[2018-07-20] MEDS: Metoprolol Tartrate 50mg tab GT SCH ×2 (09:30→20:19)
[2018-07-20] MEDS: Vancomycin 1 GM in D5W 275 ML IVPB SCH ×2 (09:30→19:47)
[2018-07-20] MEDS: Heparin 5000 units/ml inj SUBQ SCH ×2 (09:32→20:22)
--- NOTE | 2018-07-20 10:16 | Infectious Diseases Prog Note ---
Assessment/Plan Assessment/Plan Assessment: Sepsis 2ry to PNA -07/15 cXR" Improved aeration of the right lung base, since prior study 2017. No acute process currently -CXR: Suspect right basilar infiltrate and/or atelectasis. Borderline cardiac megaly -influenza sc neg -sp cx MRSA Probable UTI (unable to obtain symptoms) -u/a wbc 10-15, nit neg, leuk +3; ucx >100k ESBL E.coli ( R Zosyn, S ertapenem ) CONS bacteremia, likely contaminant -07/13 Bcx 08/13 CONS, 07/15 : CoNS; 07/16n NTD 2DEcho : no Veg Fever, SP Leukocytosis, mild , SP HTN COPD dysphagia aphasia Alzheimer's dementia Plan: -Continue IV Vancomycin # / for MRSA PNA -Continue Ertapenem #2 (abx d#12/14) for ESBL UTI -ok to discharge to SNF on above regimen -07/16 SP Zosyn #4 -f/u cx ( Rpt Blood Cx) -Monitor CBC/CMP, temperatures -aspiration precautions Subjective Allergies: Coded Allergies: ASPIRIN (Verified Allergy, Unknown, 06/21/18) LOSARTAN (Verified Allergy, Unknown, 06/21/18) Subjective afebrile no leukocytosis discharge planning Objective Vital Signs Last 24 Hour Vital Signs Date Time Temp Pulse Resp B/P (MAP) Pulse Ox O2 Delivery O2 Flow Rate FiO2 07/20/18 09:30 67 182/91 07/20/18 09:30 182/91 07/20/18 08:00 98.5 67 22 182/91 (121) 100 07/20/18 06:25 84 137/77 07/20/18 04:00 99.1 79 20 133/79 (97) 100 07/20/18 00:00 98.9 76 19 167/69 (101) 99 07/19/18 22:43 85 147/77 07/19/18 20:54 79 152/75 07/19/18 20:32 Nasal Cannula 3.0 07/19/18 20:00 99.0 76 22 159/73 (101) 100 07/19/18 19:30 Nasal Cannula 2.0 28 07/19/18 19:30 98 Nasal Cannula 2.0 28 07/19/18 16:00 98.4 67 20 150/76 (100) 100 07/19/18 15:05 70 118/59 07/19/18 12:00 97.9 70 17 118/59 (78) 100 Height (Feet): 5 Height (Inches): 3.00 Weight (Pounds): 217 Current Medications Medications (Trade) Dose Ordered Sig/Caroline Route PRN Reason Start Time Stop Time Status Last Admin Dose Admin Acetaminophen (Tylenol) 650 mg Q4H PRN GT FEVER (Temp>100.5F) 07/16/18 20:30 08/12/18 20:29 Clonidine HCl (Catapres Tab) 0.1 mg Q4H PRN GT sbp>160 07/16/18 20:30 08/12/18 20:29 07/20/18 09:30 Diltiazem HCl (Cardizem) 30 mg EVERY 8 HOURS GT 07/16/18 22:00 08/12/18 21:59 07/20/18 06:25 Ertapenem 1 gm/ Sodium Chloride 55 ml @ 110 mls/hr Q24H IVPB 07/19/18 15:00 07/24/18 14:59 07/19/18 15:24 Heparin Sodium (Porcine) (Heparin 5000 units/ml) 5,000 units EVERY 12 HOURS SUBQ 07/16/18 21:00 08/12/18 20:59 07/20/18 09:32 Lansoprazole (Prevacid) 30 mg BID GT 07/17/18 09:00 08/13/18 08:59 07/20/18 09:29 Levetiracetam (Keppra) 500 mg Q12HR GT 07/16/18 21:00 08/12/18 21:59 07/20/18 09:29 Lorazepam (Ativan) 0.5 mg Q6H PRN ORAL For Anxiety 07/16/18 20:30 07/23/18 20:29 Memantine (Namenda) 5 mg BID GT 07/17/18 09:00 08/14/18 17:59 07/20/18 09:30 Metoprolol Tartrate (Lopressor) 50 mg Q12HR GT 07/16/18 21:00 08/14/18 20:59 07/20/18 09:30 Morphine Sulfate (Morphine Sulfate) 2 mg Q4H PRN IVP severe Pain (Pain Scale 7-10) 07/16/18 20:30 07/20/18 20:29 Nitroglycerin (Ntg) 0.4 mg Q5M PRN SL Prn Chest Pain 07/16/18 20:30 08/12/18 20:59 Ondansetron HCl (Zofran) 4 mg Q6H PRN IVP Nausea & Vomiting 07/16/18 20:30 08/15/18 20:29 Polyethylene Glycol (Miralax) 17 gm DAILYPRN PRN GT Constipation 07/16/18 20:30 08/15/18 20:29 Temazepam (Restoril) 15 mg HSPRN PRN GT Insomnia 07/16/18 21:00 07/20/18 20:59 Vancomycin HCl (Vanco rx to dose) 1 ea DAILY PRN MISC Per rx protocol 07/17/18 09:00 08/13/18 13:44 Vancomycin HCl 1 gm/Dextrose 275 ml @ 183.708 mls/hr Q12HR@0800,2000 IVPB 07/16/18 20:00 07/21/18 19:59 07/20/18 09:30 Selene Francis M.D. Jul 20, 2018 10:16
--- NOTE | 2018-07-20 10:41 | Cardiac Electrophysiology PN ---
Assessment/Plan Assessment/Plan 1. Supraventricular tachycardia, S/P adenosine. No recurrence on Cardizem 30 mg tid and Metoprolol 100 bid 2. Hypertension. On Cardizem and Metoprolol 3. Diabetes, on insulin. 4. S/P Respiratory failure, on antibiotic and off BiPAP. 5. S/P PEG placement. 6. Dementia. 7. History of seizure disorder. 8. Hypernatremia.On IV hydration. 9. S/P sharp excisional debridement of left lateral distal lower extremity DW RN Subjective Subjective Comfortable in NAD. Awaiting placement. No events Objective Last 24 Hour Vital Signs Date Time Temp Pulse Resp B/P (MAP) Pulse Ox O2 Delivery O2 Flow Rate FiO2 07/20/18 09:30 67 182/91 07/20/18 09:30 182/91 07/20/18 08:00 98.5 67 22 182/91 (121) 100 07/20/18 06:25 84 137/77 07/20/18 04:00 99.1 79 20 133/79 (97) 100 07/20/18 00:00 98.9 76 19 167/69 (101) 99 07/19/18 22:43 85 147/77 07/19/18 20:54 79 152/75 07/19/18 20:32 Nasal Cannula 3.0 07/19/18 20:00 99.0 76 22 159/73 (101) 100 07/19/18 19:30 Nasal Cannula 2.0 28 07/19/18 19:30 98 Nasal Cannula 2.0 28 07/19/18 16:00 98.4 67 20 150/76 (100) 100 07/19/18 15:05 70 118/59 07/19/18 12:00 97.9 70 17 118/59 (78) 100 Intake and Output 07/19/18 07/20/18 19:00 07:00 Intake Total 910 ml 873.708 ml Output Total 1400 ml 1850 ml Balance -490 ml -976.292 ml Free Water 130 ml 30 ml IV Total 183.708 ml Tube Feeding 780 ml 660 ml Output Urine Total 1400 ml 1850 ml # Bowel Movements 1 1 Objective HEAD AND NECK: No JVD. LUNGS: Coarse rhonchi and decreased breath sounds. CARDIOVASCULAR: Regular S1 and S2 with no gallop or murmur. ABDOMEN: Status post G-tube. EXTREMITIES: 1+ pitting edema. Scar Kamara MD Jul 20, 2018 10:41
--- NOTE | 2018-07-20 11:59 | Pulmonology Progress Note ---
Assessment/Plan Problems: (1) Acute encephalopathy (2) Acute respiratory failure (3) Supraventricular arrhythmia (4) Sepsis (5) Seizure disorder, complex partial Assessment/Plan afebrile improving continue iv abx check cultures, ESBL urine, MRSA sputum sinus rhythm now tolerating feeding tube dvt prophylaxis electrolytes improving Subjective ROS Limited/Unobtainable: No Constitutional: Reports: no symptoms HEENT: Repors: no symptoms Respiratory: Reports: no symptoms Allergies: Coded Allergies: ASPIRIN (Verified Allergy, Unknown, 06/21/18) LOSARTAN (Verified Allergy, Unknown, 06/21/18) Objective Last 24 Hour Vital Signs Date Time Temp Pulse Resp B/P (MAP) Pulse Ox O2 Delivery O2 Flow Rate FiO2 07/20/18 09:30 67 182/91 07/20/18 09:30 182/91 07/20/18 09:00 Nasal Cannula 3.0 07/20/18 08:00 98.5 67 22 182/91 (121) 100 07/20/18 06:25 84 137/77 07/20/18 04:00 99.1 79 20 133/79 (97) 100 07/20/18 00:00 98.9 76 19 167/69 (101) 99 07/19/18 22:43 85 147/77 07/19/18 20:54 79 152/75 07/19/18 20:32 Nasal Cannula 3.0 07/19/18 20:00 99.0 76 22 159/73 (101) 100 07/19/18 19:30 Nasal Cannula 2.0 28 07/19/18 19:30 98 Nasal Cannula 2.0 28 07/19/18 16:00 98.4 67 20 150/76 (100) 100 07/19/18 15:05 70 118/59 07/19/18 12:00 97.9 70 17 118/59 (78) 100 Intake and Output 07/19/18 07/20/18 19:00 07:00 Intake Total 910 ml 873.708 ml Output Total 1400 ml 1850 ml Balance -490 ml -976.292 ml Free Water 130 ml 30 ml IV Total 183.708 ml Tube Feeding 780 ml 660 ml Output Urine Total 1400 ml 1850 ml # Bowel Movements 1 1 Objective General Appearance: WD/WN HEENT: normocephalic Respiratory/Chest: chest wall non-tender, lungs clear, normal breath sounds Cardiovascular: normal peripheral pulses, normal rate Abdomen: normal bowel sounds, soft, non tender, Gtube Genitourinary: normal external genitalia Extremities: no clubbing Skin: no rash Current Medications Medications (Trade) Dose Ordered Sig/Caroline Route PRN Reason Start Time Stop Time Status Last Admin Dose Admin Acetaminophen (Tylenol) 650 mg Q4H PRN GT FEVER (Temp>100.5F) 07/16/18 20:30 08/12/18 20:29 Clonidine HCl (Catapres Tab) 0.1 mg Q4H PRN GT sbp>160 07/16/18 20:30 08/12/18 20:29 07/20/18 09:30 Diltiazem HCl (Cardizem) 30 mg EVERY 8 HOURS GT 07/16/18 22:00 08/12/18 21:59 07/20/18 06:25 Ertapenem 1 gm/ Sodium Chloride 55 ml @ 110 mls/hr Q24H IVPB 07/19/18 15:00 07/24/18 14:59 07/19/18 15:24 Heparin Sodium (Porcine) (Heparin 5000 units/ml) 5,000 units EVERY 12 HOURS SUBQ 07/16/18 21:00 08/12/18 20:59 07/20/18 09:32 Lansoprazole (Prevacid) 30 mg BID GT 07/17/18 09:00 08/13/18 08:59 07/20/18 09:29 Levetiracetam (Keppra) 500 mg Q12HR GT 07/16/18 21:00 08/12/18 21:59 07/20/18 09:29 Lorazepam (Ativan) 0.5 mg Q6H PRN ORAL For Anxiety 07/16/18 20:30 07/23/18 20:29 Memantine (Namenda) 5 mg BID GT 07/17/18 09:00 08/14/18 17:59 07/20/18 09:30 Metoprolol Tartrate (Lopressor) 50 mg Q12HR GT 07/16/18 21:00 08/14/18 20:59 07/20/18 09:30 Morphine Sulfate (Morphine Sulfate) 2 mg Q4H PRN IVP severe Pain (Pain Scale 7-10) 07/16/18 20:30 07/20/18 20:29 Nitroglycerin (Ntg) 0.4 mg Q5M PRN SL Prn Chest Pain 07/16/18 20:30 08/12/18 20:59 Ondansetron HCl (Zofran) 4 mg Q6H PRN IVP Nausea & Vomiting 07/16/18 20:30 08/15/18 20:29 Polyethylene Glycol (Miralax) 17 gm DAILYPRN PRN GT Constipation 07/16/18 20:30 08/15/18 20:29 Temazepam (Restoril) 15 mg HSPRN PRN GT Insomnia 07/16/18 21:00 07/20/18 20:59 Vancomycin HCl (Vanco rx to dose) 1 ea DAILY PRN MISC Per rx protocol 07/17/18 09:00 08/13/18 13:44 Vancomycin HCl 1 gm/Dextrose 275 ml @ 183.708 mls/hr Q12HR@0800,2000 IVPB 07/16/18 20:00 07/21/18 19:59 07/20/18 09:30 Morgan Tang MD Jul 20, 2018 11:59
[2018-07-20 12:00] VITALS: BP 156/82
--- NOTE | 2018-07-20 13:46 | Nephrology Progress Note ---
Assessment/Plan Problem List: (1) Hypernatremia (2) Hypokalemia (3) Dehydration (4) Sepsis Assessment Respiratory failure Sepsis Supraventricular arrhythmia Hypernatremia Free water deficit Dehydration Seizure disorder, complex partial Urinary tract infection HypoAlbuminemia Dementia Allergy to ASA and YVONNE inhibitors HTN Plan adjust bp meds K supplement DC IV D5W Monitor Lytes- antibiotics Keppra to GT K and Phos IV as needed Per orders and consultants Subjective ROS Limited/Unobtainable: No Constitutional: Reports: malaise Objective Objective Last 24 Hour Vital Signs Date Time Temp Pulse Resp B/P (MAP) Pulse Ox O2 Delivery O2 Flow Rate FiO2 07/20/18 09:30 67 182/91 07/20/18 09:30 182/91 07/20/18 09:00 Nasal Cannula 3.0 07/20/18 08:00 98.5 67 22 182/91 (121) 100 07/20/18 06:25 84 137/77 07/20/18 04:00 99.1 79 20 133/79 (97) 100 07/20/18 00:00 98.9 76 19 167/69 (101) 99 07/19/18 22:43 85 147/77 07/19/18 20:54 79 152/75 07/19/18 20:32 Nasal Cannula 3.0 07/19/18 20:00 99.0 76 22 159/73 (101) 100 07/19/18 19:30 Nasal Cannula 2.0 28 07/19/18 19:30 98 Nasal Cannula 2.0 28 07/19/18 16:00 98.4 67 20 150/76 (100) 100 07/19/18 15:05 70 118/59 Intake and Output 07/19/18 07/20/18 19:00 07:00 Intake Total 910 ml 873.708 ml Output Total 1400 ml 1850 ml Balance -490 ml -976.292 ml Free Water 130 ml 30 ml IV Total 183.708 ml Tube Feeding 780 ml 660 ml Output Urine Total 1400 ml 1850 ml # Bowel Movements 1 1 Height (Feet): 5 Height (Inches): 3.00 Weight (Pounds): 217 General Appearance: no apparent distress Objective no change Gonsalo Ortiz MD Jul 20, 2018 13:46
[2018-07-20] MEDS: Ertapenem 1 GM in NS 55 ML IVPB SCH (14:33)
--- NOTE | 2018-07-20 15:10 | General Progress Note ---
Assessment/Plan Problem List: (1) Ulcer of left lower leg ICD Codes: L97.929 - Non-pressure chronic ulcer of unspecified part of left lower leg with unspecified severity SNOMED: 907168692, 745052992 (2) Respiratory failure ICD Codes: J96.90 - Respiratory failure, unspecified, unspecified whether with hypoxia or hypercapnia SNOMED: 692254832 (3) FTT (failure to thrive) in adult ICD Codes: R62.7 - Adult failure to thrive SNOMED: 860873779 (4) Acute respiratory failure ICD Codes: J96.00 - Acute respiratory failure, unspecified whether with hypoxia or hypercapnia SNOMED: 45182675 (5) Severe malnutrition ICD Codes: E43 - Unspecified severe protein-calorie malnutrition SNOMED: 08941035 (6) Sepsis ICD Codes: A41.9 - Sepsis, unspecified organism SNOMED: 24387273 (7) Leukocytosis ICD Codes: D72.829 - Elevated white blood cell count, unspecified SNOMED: 428573606, 395467937 (8) At high risk for aspiration ICD Codes: Z91.89 - Other specified personal risk factors, not elsewhere classified SNOMED: 612149582 (9) Seizure disorder, complex partial ICD Codes: G40.209 - Seizure disorder, complex partial SNOMED: 161284243 Status: stable, progressing Assessment/Plan o2 pulm tx ot pt diet abx cbc bmp am dc if clear Subjective Constitutional: Reports: weakness Allergies: Coded Allergies: ASPIRIN (Verified Allergy, Unknown, 06/21/18) LOSARTAN (Verified Allergy, Unknown, 06/21/18) All Systems: reviewed and negative except above Subjective o2nc confused Objective Last 24 Hour Vital Signs Date Time Temp Pulse Resp B/P (MAP) Pulse Ox O2 Delivery O2 Flow Rate FiO2 07/20/18 14:33 68 156/82 07/20/18 09:30 67 182/91 07/20/18 09:30 182/91 07/20/18 09:00 Nasal Cannula 3.0 07/20/18 08:00 98.5 67 22 182/91 (121) 100 07/20/18 06:25 84 137/77 07/20/18 04:00 99.1 79 20 133/79 (97) 100 07/20/18 00:00 98.9 76 19 167/69 (101) 99 07/19/18 22:43 85 147/77 07/19/18 20:54 79 152/75 07/19/18 20:32 Nasal Cannula 3.0 07/19/18 20:00 99.0 76 22 159/73 (101) 100 07/19/18 19:30 Nasal Cannula 2.0 28 07/19/18 19:30 98 Nasal Cannula 2.0 28 07/19/18 16:00 98.4 67 20 150/76 (100) 100 Intake and Output 07/19/18 07/20/18 19:00 07:00 Intake Total 910 ml 873.708 ml Output Total 1400 ml 1850 ml Balance -490 ml -976.292 ml Free Water 130 ml 30 ml IV Total 183.708 ml Tube Feeding 780 ml 660 ml Output Urine Total 1400 ml 1850 ml # Bowel Movements 1 1 Height (Feet): 5 Height (Inches): 3.00 Weight (Pounds): 217 General Appearance: lethargic EENT: normal ENT inspection Neck: normal alignment Cardiovascular: normal peripheral pulses, normal rate, regular rhythm Respiratory/Chest: chest wall non-tender, decreased breath sounds Abdomen: normal bowel sounds, non tender, soft Extremities: normal inspection Edema: 1+ Arm (L), 1+ Arm (R), 1+ Leg (L), 1+ Leg (R), 1+ Pedal (L), 1+ Pedal ( R), 1+ Generalized Edema: trace edema Neurologic: motor weakness Skin: normal pigmentation, warm/dry Hong Caballero DO Jul 20, 2018 15:10
--- NOTE | 2018-07-20 15:45 | Progress Note ---
DATE: 07/20/2018 SUBJECTIVE: The patient is a 72-year-old female patient with sepsis and respiratory failure. She still has some confusion, disorganized thought process, and mood lability worsened by stress of her medical illness that is why her attending physician has requested daily psychiatric consultation. MENTAL STATUS EXAMINATION: The patient is a 72-year-old female. Appearance disheveled. Attitude, irritable and agitated. Affect, guarded and restricted. Intellect poor. Mood depressed and anxious. Motor activity, psychomotor agitation. Attention span is poor. Orientation x2. Speech is pressured. Thought process, disorganized and illogical. Thought content, auditory hallucinations and paranoid delusions. Insight and judgment is poor. DIAGNOSIS: Major depression with psychotic features, rule out dementia with psychosis. PLAN: Continue to treat with medications to prevent any further decline in cognition. Provide her with 20 minutes of cognitive behavioral therapy to help her identify automatic negative thoughts and help her to convert those automatic negative thoughts to more positive thinking to reduce depression, anxiety, and suicidality. Pearl Cunningham M.D. DR: Kermit JOB#: [id number] CC:
[2018-07-20 16:00] VITALS: BP 126/69
[2018-07-20 20:00] VITALS: BP 149/69
[2018-07-21] VITALS: BP 138/72
[2018-07-21 04:00] VITALS: BP 148/75
[2018-07-21] MEDS: dilTIAZem HCl 30mg tab GT SCH ×3 (05:32→21:30)
[2018-07-21 07:38] LABS: BASOPHILS % (AUTO) 0.6 % (0.0-2.0); EOSINOPHILS % (AUTO) 3.6 % (0.0-3.0); HEMATOCRIT 32.3 % (37.0-47.0); HEMOGLOBIN 10.2 G/DL (12.0-16.0); LYMPHOCYTES % (AUTO) 25.4 % (20.0-45.0); MEAN CORPUSCULAR VOLUME 84 FL (80-99); MONOCYTES % (AUTO) 5.6 % (1.0-10.0); NEUTROPHILS % (AUTO) 64.8 % (45.0-75.0); PLATELET COUNT 340 K/UL (150-450); RED BLOOD COUNT 3.84 M/UL (4.20-5.40); RED CELL DISTRIBUTION WIDTH 14.9 % (11.6-14.8); WHITE BLOOD COUNT 8.5 K/UL (4.8-10.8)
[2018-07-21 07:56] LABS: ALANINE AMINOTRANSFERASE 13 U/L (12-78); ALBUMIN/GLOBULIN RATIO 0.4 (1.0-2.7); ALKALINE PHOSPHATASE 72 U/L (46-116); ANION GAP 3 mmol/L (5-15); ASPARTATE AMINO TRANSFERASE 11 U/L (15-37); BILIRUBIN,TOTAL 0.2 MG/DL (0.2-1.0); BLOOD UREA NITROGEN 8 mg/dL (7-18); CALCIUM 9.7 MG/DL (8.5-10.1); CARBON DIOXIDE 34 MMOL/L (21-32); CHLORIDE 102 MMOL/L (98-107); CREATININE 0.5 MG/DL (0.55-1.30); PHOSPHORUS 3.4 MG/DL (2.5-4.9); POTASSIUM 4.3 MMOL/L (3.5-5.1); SODIUM 139 MMOL/L (136-145)
[2018-07-21 08:00] VITALS: BP 145/72
[2018-07-21] MEDS: levETIRAcetam 500mg/5ml Liquid GT SCH ×2 (09:06→20:18)
[2018-07-21] MEDS: Memantine 5 MG TAB GT SCH ×2 (09:06→17:00)
[2018-07-21] MEDS: Metoprolol Tartrate 50mg tab GT SCH ×2 (09:07→20:19)
[2018-07-21] MEDS: Vancomycin 1 GM in D5W 275 ML IVPB SCH ×2 (09:07→19:35)
[2018-07-21] MEDS: Heparin 5000 units/ml inj SUBQ SCH ×2 (09:15→20:20)
[2018-07-21 12:00] VITALS: BP 137/81
--- NOTE | 2018-07-21 12:23 | General Progress Note ---
Assessment/Plan Problem List: (1) Ulcer of left lower leg ICD Codes: L97.929 - Non-pressure chronic ulcer of unspecified part of left lower leg with unspecified severity SNOMED: 228499293, 080698719 (2) Respiratory failure ICD Codes: J96.90 - Respiratory failure, unspecified, unspecified whether with hypoxia or hypercapnia SNOMED: 367562377 (3) FTT (failure to thrive) in adult ICD Codes: R62.7 - Adult failure to thrive SNOMED: 981797503 (4) Acute respiratory failure ICD Codes: J96.00 - Acute respiratory failure, unspecified whether with hypoxia or hypercapnia SNOMED: 03783913 (5) Severe malnutrition ICD Codes: E43 - Unspecified severe protein-calorie malnutrition SNOMED: 11265174 (6) Sepsis ICD Codes: A41.9 - Sepsis, unspecified organism SNOMED: 98266286 (7) Leukocytosis ICD Codes: D72.829 - Elevated white blood cell count, unspecified SNOMED: 182134705, 976492105 (8) At high risk for aspiration ICD Codes: Z91.89 - Other specified personal risk factors, not elsewhere classified SNOMED: 542000444 (9) Seizure disorder, complex partial ICD Codes: G40.209 - Seizure disorder, complex partial SNOMED: 612643323 Status: stable, progressing Assessment/Plan o2 pulm tx ot pt diet abx cbc bmp am dc if clear Subjective Constitutional: Reports: weakness Allergies: Coded Allergies: ASPIRIN (Verified Allergy, Unknown, 06/21/18) LOSARTAN (Verified Allergy, Unknown, 06/21/18) All Systems: reviewed and negative except above Subjective o2nc confused Objective Last 24 Hour Vital Signs Date Time Temp Pulse Resp B/P (MAP) Pulse Ox O2 Delivery O2 Flow Rate FiO2 07/21/18 09:07 76 145/72 07/21/18 09:00 Nasal Cannula 3.0 07/21/18 08:00 98.2 76 18 145/72 (96) 99 07/21/18 05:32 73 148/75 07/21/18 04:00 98.4 73 18 148/75 (99) 100 07/21/18 00:00 98.2 74 20 138/72 (94) 98 07/20/18 21:47 76 133/65 07/20/18 21:00 Nasal Cannula 3.0 07/20/18 20:19 71 149/69 07/20/18 20:00 98.0 71 18 149/69 (95) 98 07/20/18 16:00 97.8 65 20 126/69 (88) 100 07/20/18 14:33 68 156/82 Intake and Output 07/20/18 07/21/18 19:00 07:00 Intake Total 860 ml 1145.000 ml Output Total 1375 ml 2000 ml Balance -515 ml -855.000 ml Free Water 150 ml 150 ml IV Total 275.000 ml Tube Feeding 710 ml 720 ml Output Urine Total 1375 ml 2000 ml # Voids 2 Laboratory Tests 07/21/18 05:20: White Blood Count 8.5, Red Blood Count 3.84L, Hemoglobin 10.2L, Hematocrit 32.3L , Mean Corpuscular Volume 84, Mean Corpuscular Hemoglobin 26.6L, Mean Corpuscular Hemoglobin Concent 31.5L, Red Cell Distribution Width 14.9H, Platelet Count 340, Mean Platelet Volume 6.2L, Neutrophils (%) (Auto) 64.8, Lymphocytes (%) (Auto) 25.4, Monocytes (%) (Auto) 5.6, Eosinophils (%) (Auto) 3.6H, Basophils (%) (Auto) 0.6, Sodium Level 139, Potassium Level 4.3, Chloride Level 102, Carbon Dioxide Level 34H, Anion Gap 3L, Blood Urea Nitrogen 8, Creatinine 0.5L, Estimat Glomerular Filtration Rate , Glucose Level 94, Calcium Level 9.7, Phosphorus Level 3.4, Magnesium Level 1.8, Total Bilirubin 0.2, Aspartate Amino Transf (AST/SGOT) 11L, Alanine Aminotransferase (ALT/SGPT) 13, Alkaline Phosphatase 72, Total Protein 7.1, Albumin 2.0L, Globulin 5.1, Albumin/ Globulin Ratio 0.4L Height (Feet): 5 Height (Inches): 3.00 Weight (Pounds): 247 General Appearance: lethargic, confused EENT: normal ENT inspection Neck: normal alignment Cardiovascular: normal peripheral pulses, normal rate, regular rhythm Respiratory/Chest: chest wall non-tender, lungs clear, normal breath sounds Abdomen: normal bowel sounds, non tender, soft Extremities: normal inspection Edema: 1+ Arm (L), 1+ Arm (R), 1+ Leg (L), 1+ Leg (R), 1+ Pedal (L), 1+ Pedal ( R), 1+ Generalized Edema: trace edema Neurologic: motor weakness Skin: normal pigmentation, warm/dry Hong Caballero DO Jul 21, 2018 12:23
--- NOTE | 2018-07-21 12:54 | Cardiac Electrophysiology PN ---
Assessment/Plan Assessment/Plan 1. Supraventricular tachycardia, S/P adenosine. Continue Cardizem 30 mg tid and Metoprolol 100 bid 2. Hypertension. On Cardizem and Metoprolol 3. Diabetes, on insulin. 4. S/P Respiratory failure, on antibiotic and off BiPAP. 5. S/P PEG placement. 6. Dementia. 7. History of seizure disorder. 8. Hypernatremia. 9. S/P sharp excisional debridement of left lateral distal lower extremity DW RN Subjective Subjective Comfortable in NAD. Awaiting placement. No events Objective Last 24 Hour Vital Signs Date Time Temp Pulse Resp B/P (MAP) Pulse Ox O2 Delivery O2 Flow Rate FiO2 07/21/18 09:07 76 145/72 07/21/18 09:00 Nasal Cannula 3.0 07/21/18 08:00 98.2 76 18 145/72 (96) 99 07/21/18 05:32 73 148/75 07/21/18 04:00 98.4 73 18 148/75 (99) 100 07/21/18 00:00 98.2 74 20 138/72 (94) 98 07/20/18 21:47 76 133/65 07/20/18 21:00 Nasal Cannula 3.0 07/20/18 20:19 71 149/69 07/20/18 20:00 98.0 71 18 149/69 (95) 98 07/20/18 16:00 97.8 65 20 126/69 (88) 100 07/20/18 14:33 68 156/82 Intake and Output 07/20/18 07/21/18 19:00 07:00 Intake Total 860 ml 1145.000 ml Output Total 1375 ml 2000 ml Balance -515 ml -855.000 ml Free Water 150 ml 150 ml IV Total 275.000 ml Tube Feeding 710 ml 720 ml Output Urine Total 1375 ml 2000 ml # Voids 2 Laboratory Tests Test 07/21/18 05:20 White Blood Count 8.5 K/UL (4.8-10.8) Red Blood Count 3.84 M/UL (4.20-5.40) L Hemoglobin 10.2 G/DL (12.0-16.0) L Hematocrit 32.3 % (37.0-47.0) L Mean Corpuscular Volume 84 FL (80-99) Mean Corpuscular Hemoglobin 26.6 PG (27.0-31.0) L Mean Corpuscular Hemoglobin Concent 31.5 G/DL (32.0-36.0) L Red Cell Distribution Width 14.9 % (11.6-14.8) H Platelet Count 340 K/UL (150-450) Mean Platelet Volume 6.2 FL (6.5-10.1) L Neutrophils (%) (Auto) 64.8 % (45.0-75.0) Lymphocytes (%) (Auto) 25.4 % (20.0-45.0) Monocytes (%) (Auto) 5.6 % (1.0-10.0) Eosinophils (%) (Auto) 3.6 % (0.0-3.0) H Basophils (%) (Auto) 0.6 % (0.0-2.0) Sodium Level 139 MMOL/L (136-145) Potassium Level 4.3 MMOL/L (3.5-5.1) Chloride Level 102 MMOL/L (98-107) Carbon Dioxide Level 34 MMOL/L (21-32) H Anion Gap 3 mmol/L (5-15) L Blood Urea Nitrogen 8 mg/dL (7-18) Creatinine 0.5 MG/DL (0.55-1.30) L Estimat Glomerular Filtration Rate mL/min (>60) Glucose Level 94 MG/DL (74-106) Calcium Level 9.7 MG/DL (8.5-10.1) Phosphorus Level 3.4 MG/DL (2.5-4.9) Magnesium Level 1.8 MG/DL (1.8-2.4) Total Bilirubin 0.2 MG/DL (0.2-1.0) Aspartate Amino Transf (AST/SGOT) 11 U/L (15-37) L Alanine Aminotransferase (ALT/SGPT) 13 U/L (12-78) Alkaline Phosphatase 72 U/L (46-116) Total Protein 7.1 G/DL (6.4-8.2) Albumin 2.0 G/DL (3.4-5.0) L Globulin 5.1 g/dL Albumin/Globulin Ratio 0.4 (1.0-2.7) L Objective HEAD AND NECK: No JVD. LUNGS: Coarse rhonchi and decreased breath sounds. CARDIOVASCULAR: Regular S1 and S2 with no gallop or murmur. ABDOMEN: G-tube. EXTREMITIES: 1+ pitting edema. Scar Kamara MD Jul 21, 2018 12:54
--- NOTE | 2018-07-21 13:10 | Pulmonology Progress Note ---
Assessment/Plan Problems: (1) Acute encephalopathy (2) Acute respiratory failure (3) Supraventricular arrhythmia (4) Sepsis (5) Seizure disorder, complex partial Assessment/Plan afebrile improving continue iv abx check cultures, ESBL urine, MRSA sputum sinus rhythm now tolerating feeding tube dvt prophylaxis electrolytes improving Subjective ROS Limited/Unobtainable: No Constitutional: Reports: no symptoms HEENT: Repors: no symptoms Respiratory: Reports: no symptoms Allergies: Coded Allergies: ASPIRIN (Verified Allergy, Unknown, 06/21/18) LOSARTAN (Verified Allergy, Unknown, 06/21/18) Objective Last 24 Hour Vital Signs Date Time Temp Pulse Resp B/P (MAP) Pulse Ox O2 Delivery O2 Flow Rate FiO2 07/21/18 12:00 98.7 69 18 137/81 (99) 100 07/21/18 09:07 76 145/72 07/21/18 09:00 Nasal Cannula 3.0 07/21/18 08:00 98.2 76 18 145/72 (96) 99 07/21/18 05:32 73 148/75 07/21/18 04:00 98.4 73 18 148/75 (99) 100 07/21/18 00:00 98.2 74 20 138/72 (94) 98 07/20/18 21:47 76 133/65 07/20/18 21:00 Nasal Cannula 3.0 07/20/18 20:19 71 149/69 07/20/18 20:00 98.0 71 18 149/69 (95) 98 07/20/18 16:00 97.8 65 20 126/69 (88) 100 07/20/18 14:33 68 156/82 Intake and Output 07/20/18 07/21/18 19:00 07:00 Intake Total 860 ml 1145.000 ml Output Total 1375 ml 2000 ml Balance -515 ml -855.000 ml Free Water 150 ml 150 ml IV Total 275.000 ml Tube Feeding 710 ml 720 ml Output Urine Total 1375 ml 2000 ml # Voids 2 Objective General Appearance: WD/WN HEENT: normocephalic Respiratory/Chest: chest wall non-tender, lungs clear, normal breath sounds Cardiovascular: normal peripheral pulses, normal rate Abdomen: normal bowel sounds, soft, non tender, Gtube Genitourinary: normal external genitalia Extremities: no clubbing Skin: no rash Laboratory Tests 07/21/18 05:20: White Blood Count 8.5, Red Blood Count 3.84L, Hemoglobin 10.2L, Hematocrit 32.3L , Mean Corpuscular Volume 84, Mean Corpuscular Hemoglobin 26.6L, Mean Corpuscular Hemoglobin Concent 31.5L, Red Cell Distribution Width 14.9H, Platelet Count 340, Mean Platelet Volume 6.2L, Neutrophils (%) (Auto) 64.8, Lymphocytes (%) (Auto) 25.4, Monocytes (%) (Auto) 5.6, Eosinophils (%) (Auto) 3.6H, Basophils (%) (Auto) 0.6, Sodium Level 139, Potassium Level 4.3, Chloride Level 102, Carbon Dioxide Level 34H, Anion Gap 3L, Blood Urea Nitrogen 8, Creatinine 0.5L, Estimat Glomerular Filtration Rate , Glucose Level 94, Calcium Level 9.7, Phosphorus Level 3.4, Magnesium Level 1.8, Total Bilirubin 0.2, Aspartate Amino Transf (AST/SGOT) 11L, Alanine Aminotransferase (ALT/SGPT) 13, Alkaline Phosphatase 72, Total Protein 7.1, Albumin 2.0L, Globulin 5.1, Albumin/ Globulin Ratio 0.4L Current Medications Medications (Trade) Dose Ordered Sig/Caroline Route PRN Reason Start Time Stop Time Status Last Admin Dose Admin Acetaminophen (Tylenol) 650 mg Q4H PRN GT FEVER (Temp>100.5F) 07/16/18 20:30 08/12/18 20:29 Clonidine HCl (Catapres Tab) 0.1 mg Q4H PRN GT sbp>160 07/16/18 20:30 08/12/18 20:29 07/20/18 09:30 Diltiazem HCl (Cardizem) 30 mg EVERY 8 HOURS GT 07/16/18 22:00 08/12/18 21:59 07/21/18 05:32 Ertapenem 1 gm/ Sodium Chloride 55 ml @ 110 mls/hr Q24H IVPB 07/19/18 15:00 07/24/18 14:59 07/20/18 14:33 Heparin Sodium (Porcine) (Heparin 5000 units/ml) 5,000 units EVERY 12 HOURS SUBQ 07/16/18 21:00 08/12/18 20:59 07/21/18 09:15 Lansoprazole (Prevacid) 30 mg BID GT 07/17/18 09:00 08/13/18 08:59 07/21/18 09:06 Levetiracetam (Keppra) 500 mg Q12HR GT 07/16/18 21:00 08/12/18 21:59 07/21/18 09:06 Lorazepam (Ativan) 0.5 mg Q6H PRN ORAL For Anxiety 07/16/18 20:30 07/23/18 20:29 Memantine (Namenda) 5 mg BID GT 07/17/18 09:00 08/14/18 17:59 07/21/18 09:06 Metoprolol Tartrate (Lopressor) 50 mg Q12HR GT 07/16/18 21:00 08/14/18 20:59 07/21/18 09:07 Nitroglycerin (Ntg) 0.4 mg Q5M PRN SL Prn Chest Pain 07/16/18 20:30 08/12/18 20:59 Ondansetron HCl (Zofran) 4 mg Q6H PRN IVP Nausea & Vomiting 07/16/18 20:30 08/15/18 20:29 Polyethylene Glycol (Miralax) 17 gm DAILYPRN PRN GT Constipation 07/16/18 20:30 08/15/18 20:29 Vancomycin HCl (Vanco rx to dose) 1 ea DAILY PRN MISC Per rx protocol 07/17/18 09:00 08/13/18 13:44 Vancomycin HCl 1 gm/Dextrose 275 ml @ 183.708 mls/hr Q12HR@0800,2000 IVPB 07/16/18 20:00 07/22/18 23:59 07/21/18 09:07 Morgan Tang MD Jul 21, 2018 13:10
[2018-07-21] MEDS: Ertapenem 1 GM in NS 55 ML IVPB SCH (13:58)
--- NOTE | 2018-07-21 13:58 | Nephrology Progress Note ---
Assessment/Plan Problem List: (1) Hypernatremia (2) Hypokalemia (3) Dehydration (4) Sepsis Assessment Respiratory failure Sepsis Supraventricular arrhythmia Hypernatremia Free water deficit Dehydration Seizure disorder, complex partial Urinary tract infection HypoAlbuminemia Dementia Allergy to ASA and YVONNE inhibitors HTN Plan adjust bp meds K supplement DC IV D5W Monitor Lytes- antibiotics Keppra to GT K and Phos IV as needed Per orders and consultants Subjective ROS Limited/Unobtainable: No Constitutional: Reports: malaise Objective Objective Last 24 Hour Vital Signs Date Time Temp Pulse Resp B/P (MAP) Pulse Ox O2 Delivery O2 Flow Rate FiO2 07/21/18 12:00 98.7 69 18 137/81 (99) 100 07/21/18 09:07 76 145/72 07/21/18 09:00 Nasal Cannula 3.0 07/21/18 08:00 98.2 76 18 145/72 (96) 99 07/21/18 05:32 73 148/75 07/21/18 04:00 98.4 73 18 148/75 (99) 100 07/21/18 00:00 98.2 74 20 138/72 (94) 98 07/20/18 21:47 76 133/65 07/20/18 21:00 Nasal Cannula 3.0 07/20/18 20:19 71 149/69 07/20/18 20:00 98.0 71 18 149/69 (95) 98 07/20/18 16:00 97.8 65 20 126/69 (88) 100 07/20/18 14:33 68 156/82 Intake and Output 07/20/18 07/21/18 19:00 07:00 Intake Total 860 ml 1145.000 ml Output Total 1375 ml 2000 ml Balance -515 ml -855.000 ml Free Water 150 ml 150 ml IV Total 275.000 ml Tube Feeding 710 ml 720 ml Output Urine Total 1375 ml 2000 ml # Voids 2 Laboratory Tests 07/21/18 05:20: White Blood Count 8.5, Red Blood Count 3.84L, Hemoglobin 10.2L, Hematocrit 32.3L , Mean Corpuscular Volume 84, Mean Corpuscular Hemoglobin 26.6L, Mean Corpuscular Hemoglobin Concent 31.5L, Red Cell Distribution Width 14.9H, Platelet Count 340, Mean Platelet Volume 6.2L, Neutrophils (%) (Auto) 64.8, Lymphocytes (%) (Auto) 25.4, Monocytes (%) (Auto) 5.6, Eosinophils (%) (Auto) 3.6H, Basophils (%) (Auto) 0.6, Sodium Level 139, Potassium Level 4.3, Chloride Level 102, Carbon Dioxide Level 34H, Anion Gap 3L, Blood Urea Nitrogen 8, Creatinine 0.5L, Estimat Glomerular Filtration Rate , Glucose Level 94, Calcium Level 9.7, Phosphorus Level 3.4, Magnesium Level 1.8, Total Bilirubin 0.2, Aspartate Amino Transf (AST/SGOT) 11L, Alanine Aminotransferase (ALT/SGPT) 13, Alkaline Phosphatase 72, Total Protein 7.1, Albumin 2.0L, Globulin 5.1, Albumin/ Globulin Ratio 0.4L Height (Feet): 5 Height (Inches): 3.00 Weight (Pounds): 247 General Appearance: no apparent distress Objective no change Gonsalo Ortiz MD Jul 21, 2018 13:58
[2018-07-21 16:00] VITALS: BP 139/71
--- NOTE | 2018-07-21 18:11 | Infectious Diseases Prog Note ---
Assessment/Plan Assessment/Plan Assessment: Sepsis, SP- 2ry to PNA -07/15 cXR" Improved aeration of the right lung base, since prior study 2017. No acute process currently -CXR: Suspect right basilar infiltrate and/or atelectasis. Borderline cardiac megaly -influenza sc neg -sp cx MRSA Probable UTI (unable to obtain symptoms) -u/a wbc 10-15, nit neg, leuk +3; ucx >100k ESBL E.coli ( R Zosyn, S ertapenem ) CONS bacteremia, likely contaminant -07/13 Bcx 08/13 CONS, 07/15 : CoNS; 07/16n NTD 2DEcho : no Veg Fever, SP Leukocytosis, mild , SP HTN COPD dysphagia aphasia Alzheimer's dementia Plan: -Continue IV Vancomycin # 9 /10 for MRSA PNA -Continue Ertapenem #3 (abx d#01/14) for ESBL UTI -ok to discharge to SNF on above regimen -07/16 SP Zosyn #4 -f/u cx ( Rpt Blood Cx) -Monitor CBC/CMP, temperatures -aspiration precautions Subjective Allergies: Coded Allergies: ASPIRIN (Verified Allergy, Unknown, 06/21/18) LOSARTAN (Verified Allergy, Unknown, 06/21/18) Subjective afebrile no leukocytosis discharge planning Objective Vital Signs Last 24 Hour Vital Signs Date Time Temp Pulse Resp B/P (MAP) Pulse Ox O2 Delivery O2 Flow Rate FiO2 07/21/18 16:00 98.2 72 19 139/71 (93) 99 07/21/18 13:58 69 137/81 07/21/18 12:00 98.7 69 18 137/81 (99) 100 07/21/18 09:36 Nasal Cannula 2.0 28 07/21/18 09:36 98 Nasal Cannula 2.0 28 07/21/18 09:07 76 145/72 07/21/18 09:00 Nasal Cannula 3.0 07/21/18 08:00 98.2 76 18 145/72 (96) 99 07/21/18 05:32 73 148/75 07/21/18 04:00 98.4 73 18 148/75 (99) 100 07/21/18 00:00 98.2 74 20 138/72 (94) 98 07/20/18 21:47 76 133/65 07/20/18 21:00 Nasal Cannula 3.0 07/20/18 20:19 71 149/69 07/20/18 20:00 98.0 71 18 149/69 (95) 98 Height (Feet): 5 Height (Inches): 3.00 Weight (Pounds): 247 Laboratory Tests Test 07/21/18 05:20 White Blood Count 8.5 K/UL (4.8-10.8) Red Blood Count 3.84 M/UL (4.20-5.40) L Hemoglobin 10.2 G/DL (12.0-16.0) L Hematocrit 32.3 % (37.0-47.0) L Mean Corpuscular Volume 84 FL (80-99) Mean Corpuscular Hemoglobin 26.6 PG (27.0-31.0) L Mean Corpuscular Hemoglobin Concent 31.5 G/DL (32.0-36.0) L Red Cell Distribution Width 14.9 % (11.6-14.8) H Platelet Count 340 K/UL (150-450) Mean Platelet Volume 6.2 FL (6.5-10.1) L Neutrophils (%) (Auto) 64.8 % (45.0-75.0) Lymphocytes (%) (Auto) 25.4 % (20.0-45.0) Monocytes (%) (Auto) 5.6 % (1.0-10.0) Eosinophils (%) (Auto) 3.6 % (0.0-3.0) H Basophils (%) (Auto) 0.6 % (0.0-2.0) Sodium Level 139 MMOL/L (136-145) Potassium Level 4.3 MMOL/L (3.5-5.1) Chloride Level 102 MMOL/L (98-107) Carbon Dioxide Level 34 MMOL/L (21-32) H Anion Gap 3 mmol/L (5-15) L Blood Urea Nitrogen 8 mg/dL (7-18) Creatinine 0.5 MG/DL (0.55-1.30) L Estimat Glomerular Filtration Rate mL/min (>60) Glucose Level 94 MG/DL (74-106) Calcium Level 9.7 MG/DL (8.5-10.1) Phosphorus Level 3.4 MG/DL (2.5-4.9) Magnesium Level 1.8 MG/DL (1.8-2.4) Total Bilirubin 0.2 MG/DL (0.2-1.0) Aspartate Amino Transf (AST/SGOT) 11 U/L (15-37) L Alanine Aminotransferase (ALT/SGPT) 13 U/L (12-78) Alkaline Phosphatase 72 U/L (46-116) Total Protein 7.1 G/DL (6.4-8.2) Albumin 2.0 G/DL (3.4-5.0) L Globulin 5.1 g/dL Albumin/Globulin Ratio 0.4 (1.0-2.7) L Current Medications Medications (Trade) Dose Ordered Sig/Caroline Route PRN Reason Start Time Stop Time Status Last Admin Dose Admin Acetaminophen (Tylenol) 650 mg Q4H PRN GT FEVER (Temp>100.5F) 07/16/18 20:30 08/12/18 20:29 Clonidine HCl (Catapres Tab) 0.1 mg Q4H PRN GT sbp>160 07/16/18 20:30 08/12/18 20:29 07/20/18 09:30 Diltiazem HCl (Cardizem) 30 mg EVERY 8 HOURS GT 07/16/18 22:00 08/12/18 21:59 07/21/18 13:58 Ertapenem 1 gm/ Sodium Chloride 55 ml @ 110 mls/hr Q24H IVPB 07/19/18 15:00 07/24/18 14:59 07/21/18 13:58 Heparin Sodium (Porcine) (Heparin 5000 units/ml) 5,000 units EVERY 12 HOURS SUBQ 07/16/18 21:00 08/12/18 20:59 07/21/18 09:15 Lansoprazole (Prevacid) 30 mg BID GT 07/17/18 09:00 08/13/18 08:59 07/21/18 17:00 Levetiracetam (Keppra) 500 mg Q12HR GT 07/16/18 21:00 08/12/18 21:59 07/21/18 09:06 Lorazepam (Ativan) 0.5 mg Q6H PRN ORAL For Anxiety 07/16/18 20:30 07/23/18 20:29 Memantine (Namenda) 5 mg BID GT 07/17/18 09:00 08/14/18 17:59 07/21/18 17:00 Metoprolol Tartrate (Lopressor) 50 mg Q12HR GT 07/16/18 21:00 08/14/18 20:59 07/21/18 09:07 Nitroglycerin (Ntg) 0.4 mg Q5M PRN SL Prn Chest Pain 07/16/18 20:30 08/12/18 20:59 Ondansetron HCl (Zofran) 4 mg Q6H PRN IVP Nausea & Vomiting 07/16/18 20:30 08/15/18 20:29 Polyethylene Glycol (Miralax) 17 gm DAILYPRN PRN GT Constipation 07/16/18 20:30 08/15/18 20:29 Vancomycin HCl (Vanco rx to dose) 1 ea DAILY PRN MISC Per rx protocol 07/17/18 09:00 08/13/18 13:44 Vancomycin HCl 1 gm/Dextrose 275 ml @ 183.708 mls/hr Q12HR@0800,2000 IVPB 07/16/18 20:00 07/22/18 23:59 07/21/18 09:07 Selene Francis M.D. Jul 21, 2018 18:11
[2018-07-21 20:00] VITALS: BP 140/68
--- NOTE | 2018-07-21 20:30 | Progress Note ---
DATE: 07/21/2018 SUBJECTIVE: The patient is a female patient who is 72-year-old, seen in the hospital secondary to sepsis and respiratory failure. She is in the hospital because of sepsis and respiratory failure, but she is having a decline in condition below her baseline secondary to her stress from medical illness. That is why her attending has requested daily psychiatric consultation. MENTAL STATUS EXAMINATION: This is a 72-year-old female. Appearance is disheveled. Attitude is irritable and agitated. Affect is guarded and restricted. Intellect poor. Mood depressed and anxious. Motor activity, psychomotor agitation. Attention span is poor. Orientation x2. Speech is pressured. Thought process, disorganized and illogical. Thought content, denies auditory or visual hallucinations. . Insight and judgment is poor. DIAGNOSIS: Major depression with psychotic features, rule out dementia with psychosis. PLAN: Treat her with Namenda 5 mg per G-tube twice a day and then also Ativan at a dose of 0.5 mg q.6 h. p.r.n. anxiety and agitation. Provide her with 20 minutes of insight-oriented psychotherapy to help the patient recognize her cognitive deficits so that she has better impulse control, better awareness, and better behavior. A 20 minutes of insight-oriented psychotherapy provided. Chart reviewed. Discussed with staff. . Pearl Cunningham M.D. DR: RYAN JOB#: [id number] CC:
[2018-07-22] VITALS: BP 138/78
[2018-07-22 04:00] VITALS: BP 135/67
[2018-07-22] MEDS: dilTIAZem HCl 30mg tab GT SCH ×2 (05:46→14:26)
[2018-07-22 08:00] VITALS: BP 141/69
[2018-07-22] MEDS: levETIRAcetam 500mg/5ml Liquid GT SCH ×2 (08:40→20:24)
[2018-07-22] MEDS: Memantine 5 MG TAB GT SCH ×2 (08:40→17:04)
[2018-07-22] MEDS: Metoprolol Tartrate 50mg tab GT SCH ×2 (08:40→20:24)
[2018-07-22] MEDS: Vancomycin 1 GM in D5W 275 ML IVPB SCH ×2 (08:41→20:24)
[2018-07-22] MEDS: Heparin 5000 units/ml inj SUBQ SCH ×2 (08:43→20:27)
[2018-07-22 09:14] LABS: BASOPHILS % (AUTO) 0.9 % (0.0-2.0); EOSINOPHILS % (AUTO) 2.8 % (0.0-3.0); HEMATOCRIT 32.5 % (37.0-47.0); HEMOGLOBIN 10.3 G/DL (12.0-16.0); MEAN CORPUSCULAR VOLUME 84 FL (80-99); MONOCYTES % (AUTO) 3.9 % (1.0-10.0); NEUTROPHILS % (AUTO) 69.4 % (45.0-75.0); PLATELET COUNT 374 K/UL (150-450); RED BLOOD COUNT 3.87 M/UL (4.20-5.40); RED CELL DISTRIBUTION WIDTH 15.2 % (11.6-14.8); WHITE BLOOD COUNT 12.3 K/UL (4.8-10.8)
[2018-07-22 09:29] LABS: ANION GAP 3 mmol/L (5-15); BLOOD UREA NITROGEN 10 mg/dL (7-18); CALCIUM 10.1 MG/DL (8.5-10.1); CARBON DIOXIDE 33 MMOL/L (21-32); CHLORIDE 101 MMOL/L (98-107); CREATININE 0.5 MG/DL (0.55-1.30); POTASSIUM 4.2 MMOL/L (3.5-5.1); SODIUM 137 MMOL/L (136-145)
--- NOTE | 2018-07-22 11:59 | Infectious Diseases Prog Note ---
Assessment/Plan Assessment/Plan Assessment: Sepsis, SP- 2ry to PNA -07/15 cXR" Improved aeration of the right lung base, since prior study 2017. No acute process currently -CXR: Suspect right basilar infiltrate and/or atelectasis. Borderline cardiac megaly -influenza sc neg -sp cx MRSA Probable UTI (unable to obtain symptoms) -u/a wbc 10-15, nit neg, leuk +3; ucx >100k ESBL E.coli ( R Zosyn, S ertapenem ) CONS bacteremia, likely contaminant -07/13 Bcx / CONS, 07/15 : CoNS; 07/16n NTD 2DEcho : no Veg Fever, recurrent Leukocytosis, mild , recurrent HTN COPD dysphagia aphasia Alzheimer's dementia Plan: -Continue IV Vancomycin # for MRSA PNA -Continue Ertapenem #4 (abx d#02/13) for ESBL UTI -07/16 SP Zosyn #4 -Bcx x2, u.a, ucx, CXR -f/u cx ( Rpt Blood Cx) -Monitor CBC/CMP, temperatures -aspiration precautions -CBC, CMP am -Cdiff if diarrhea Subjective Allergies: Coded Allergies: ASPIRIN (Verified Allergy, Unknown, 06/21/18) LOSARTAN (Verified Allergy, Unknown, 06/21/18) Subjective Tm 100 WBC increased Objective Vital Signs Last 24 Hour Vital Signs Date Time Temp Pulse Resp B/P (MAP) Pulse Ox O2 Delivery O2 Flow Rate FiO2 07/22/18 09:00 Nasal Cannula 3.0 07/22/18 08:40 74 141/69 07/22/18 08:00 98.6 74 18 141/69 (93) 100 07/22/18 05:46 68 135/67 07/22/18 04:00 98.3 68 22 135/67 (89) 96 07/22/18 00:00 99.5 85 22 138/78 (98) 98 07/21/18 21:30 72 138/70 07/21/18 21:00 Nasal Cannula 3.0 07/21/18 20:34 Nasal Cannula 2.0 28 07/21/18 20:34 99 Nasal Cannula 2.0 28 07/21/18 20:19 76 140/68 07/21/18 20:00 100.0 76 20 140/68 (92) 96 07/21/18 16:00 98.2 72 19 139/71 (93) 99 07/21/18 13:58 69 137/81 18 12:00 98.7 69 18 137/81 (99) 100 Height (Feet): 5 Height (Inches): 3.00 Weight (Pounds): 238 Laboratory Tests Test 07/22/18 08:00 White Blood Count 12.3 K/UL (4.8-10.8) H Red Blood Count 3.87 M/UL (4.20-5.40) L Hemoglobin 10.3 G/DL (12.0-16.0) L Hematocrit 32.5 % (37.0-47.0) L Mean Corpuscular Volume 84 FL (80-99) Mean Corpuscular Hemoglobin 26.5 PG (27.0-31.0) L Mean Corpuscular Hemoglobin Concent 31.6 G/DL (32.0-36.0) L Red Cell Distribution Width 15.2 % (11.6-14.8) H Platelet Count 374 K/UL (150-450) Mean Platelet Volume 6.1 FL (6.5-10.1) L Neutrophils (%) (Auto) 69.4 % (45.0-75.0) Lymphocytes (%) (Auto) 23.0 % (20.0-45.0) Monocytes (%) (Auto) 3.9 % (1.0-10.0) Eosinophils (%) (Auto) 2.8 % (0.0-3.0) Basophils (%) (Auto) 0.9 % (0.0-2.0) Sodium Level 137 MMOL/L (136-145) Potassium Level 4.2 MMOL/L (3.5-5.1) Chloride Level 101 MMOL/L (98-107) Carbon Dioxide Level 33 MMOL/L (21-32) H Anion Gap 3 mmol/L (5-15) L Blood Urea Nitrogen 10 mg/dL (7-18) Creatinine 0.5 MG/DL (0.55-1.30) L Estimat Glomerular Filtration Rate mL/min (>60) Glucose Level 95 MG/DL (74-106) Calcium Level 10.1 MG/DL (8.5-10.1) Current Medications Medications (Trade) Dose Ordered Sig/Caroline Route PRN Reason Start Time Stop Time Status Last Admin Dose Admin Acetaminophen (Tylenol) 650 mg Q4H PRN GT FEVER (Temp>100.5F) 07/16/18 20:30 08/12/18 20:29 Clonidine HCl (Catapres Tab) 0.1 mg Q4H PRN GT sbp>160 07/16/18 20:30 08/12/18 20:29 07/20/18 09:30 Diltiazem HCl (Cardizem) 30 mg EVERY 8 HOURS GT 07/16/18 22:00 08/12/18 21:59 07/22/18 05:46 Ertapenem 1 gm/ Sodium Chloride 55 ml @ 110 mls/hr Q24H IVPB 07/19/18 15:00 07/24/18 14:59 07/21/18 13:58 Heparin Sodium (Porcine) (Heparin 5000 units/ml) 5,000 units EVERY 12 HOURS SUBQ 07/16/18 21:00 08/12/18 20:59 07/22/18 08:43 Lansoprazole (Prevacid) 30 mg BID GT 07/17/18 09:00 08/13/18 08:59 07/22/18 08:40 Levetiracetam (Keppra) 500 mg Q12HR GT 07/16/18 21:00 08/12/18 21:59 07/22/18 08:40 Lorazepam (Ativan) 0.5 mg Q6H PRN ORAL For Anxiety 07/16/18 20:30 07/23/18 20:29 Memantine (Namenda) 5 mg BID GT 07/17/18 09:00 08/14/18 17:59 07/22/18 08:40 Metoprolol Tartrate (Lopressor) 50 mg Q12HR GT 07/16/18 21:00 08/14/18 20:59 07/22/18 08:40 Nitroglycerin (Ntg) 0.4 mg Q5M PRN SL Prn Chest Pain 07/16/18 20:30 08/12/18 20:59 Ondansetron HCl (Zofran) 4 mg Q6H PRN IVP Nausea & Vomiting 07/16/18 20:30 08/15/18 20:29 Polyethylene Glycol (Miralax) 17 gm DAILYPRN PRN GT Constipation 07/16/18 20:30 08/15/18 20:29 Vancomycin HCl (Vanco rx to dose) 1 ea DAILY PRN MISC Per rx protocol 07/17/18 09:00 08/13/18 13:44 Vancomycin HCl 1 gm/Dextrose 275 ml @ 183.708 mls/hr Q12HR@0800,2000 IVPB 07/16/18 20:00 07/22/18 23:59 07/22/18 08:41 Selene Francis M.D. Jul 22, 2018 11:59
[2018-07-22 12:00] VITALS: BP 132/70
--- NOTE | 2018-07-22 13:00 | Pulmonology Progress Note ---
Assessment/Plan Problems: (1) Acute encephalopathy (2) Acute respiratory failure (3) Supraventricular arrhythmia (4) Sepsis (5) Seizure disorder, complex partial Assessment/Plan afebrile improving continue iv abx sinus rhythm now tolerating feeding tube dvt prophylaxis electrolytes improving Subjective ROS Limited/Unobtainable: No Constitutional: Reports: no symptoms Respiratory: Reports: no symptoms Allergies: Coded Allergies: ASPIRIN (Verified Allergy, Unknown, 06/21/18) LOSARTAN (Verified Allergy, Unknown, 06/21/18) Objective Last 24 Hour Vital Signs Date Time Temp Pulse Resp B/P (MAP) Pulse Ox O2 Delivery O2 Flow Rate FiO2 07/22/18 12:00 97.7 75 19 132/70 (90) 100 07/22/18 09:00 Nasal Cannula 3.0 07/22/18 08:40 74 141/69 07/22/18 08:00 98.6 74 18 141/69 (93) 100 07/22/18 05:46 68 135/67 07/22/18 04:00 98.3 68 22 135/67 (89) 96 07/22/18 00:00 99.5 85 22 138/78 (98) 98 07/21/18 21:30 72 138/70 07/21/18 21:00 Nasal Cannula 3.0 07/21/18 20:34 Nasal Cannula 2.0 28 07/21/18 20:34 99 Nasal Cannula 2.0 28 07/21/18 20:19 76 140/68 07/21/18 20:00 100.0 76 20 140/68 (92) 96 07/21/18 16:00 98.2 72 19 139/71 (93) 99 07/21/18 13:58 69 137/81 Intake and Output 07/21/18 07/22/18 19:00 07:00 Intake Total 820 ml 1095.000 ml Output Total 400 ml 1500 ml Balance 420 ml -405.000 ml Free Water 100 ml 100 ml IV Total 275.000 ml Tube Feeding 720 ml 720 ml Output Urine Total 400 ml 1500 ml Objective General Appearance: WD/WN HEENT: normocephalic Respiratory/Chest: chest wall non-tender, lungs clear, normal breath sounds Cardiovascular: normal peripheral pulses, normal rate Abdomen: normal bowel sounds, soft, non tender, Gtube Genitourinary: normal external genitalia Extremities: no clubbing Skin: no rash Laboratory Tests 07/22/18 08:00: White Blood Count 12.3H, Red Blood Count 3.87L, Hemoglobin 10.3L, Hematocrit 32.5L, Mean Corpuscular Volume 84, Mean Corpuscular Hemoglobin 26.5L, Mean Corpuscular Hemoglobin Concent 31.6L, Red Cell Distribution Width 15.2H, Platelet Count 374, Mean Platelet Volume 6.1L, Neutrophils (%) (Auto) 69.4, Lymphocytes (%) (Auto) 23.0, Monocytes (%) (Auto) 3.9, Eosinophils (%) (Auto) 2.8, Basophils (%) (Auto) 0.9, Sodium Level 137, Potassium Level 4.2, Chloride Level 101, Carbon Dioxide Level 33H, Anion Gap 3L, Blood Urea Nitrogen 10, Creatinine 0.5L, Estimat Glomerular Filtration Rate , Glucose Level 95, Calcium Level 10.1 Current Medications Medications (Trade) Dose Ordered Sig/Caroline Route PRN Reason Start Time Stop Time Status Last Admin Dose Admin Acetaminophen (Tylenol) 650 mg Q4H PRN GT FEVER (Temp>100.5F) 07/16/18 20:30 08/12/18 20:29 Clonidine HCl (Catapres Tab) 0.1 mg Q4H PRN GT sbp>160 07/16/18 20:30 08/12/18 20:29 07/20/18 09:30 Diltiazem HCl (Cardizem) 30 mg EVERY 8 HOURS GT 07/16/18 22:00 08/12/18 21:59 07/22/18 05:46 Ertapenem 1 gm/ Sodium Chloride 55 ml @ 110 mls/hr Q24H IVPB 07/19/18 15:00 07/24/18 14:59 07/21/18 13:58 Heparin Sodium (Porcine) (Heparin 5000 units/ml) 5,000 units EVERY 12 HOURS SUBQ 07/16/18 21:00 08/12/18 20:59 07/22/18 08:43 Lansoprazole (Prevacid) 30 mg BID GT 07/17/18 09:00 08/13/18 08:59 07/22/18 08:40 Levetiracetam (Keppra) 500 mg Q12HR GT 07/16/18 21:00 08/12/18 21:59 07/22/18 08:40 Lorazepam (Ativan) 0.5 mg Q6H PRN ORAL For Anxiety 07/16/18 20:30 07/23/18 20:29 Memantine (Namenda) 5 mg BID GT 07/17/18 09:00 08/14/18 17:59 07/22/18 08:40 Metoprolol Tartrate (Lopressor) 50 mg Q12HR GT 07/16/18 21:00 08/14/18 20:59 07/22/18 08:40 Nitroglycerin (Ntg) 0.4 mg Q5M PRN SL Prn Chest Pain 07/16/18 20:30 08/12/18 20:59 Ondansetron HCl (Zofran) 4 mg Q6H PRN IVP Nausea & Vomiting 07/16/18 20:30 08/15/18 20:29 Polyethylene Glycol (Miralax) 17 gm DAILYPRN PRN GT Constipation 07/16/18 20:30 08/15/18 20:29 Vancomycin HCl (Vanco rx to dose) 1 ea DAILY PRN MISC Per rx protocol 07/17/18 09:00 08/13/18 13:44 Vancomycin HCl 1 gm/Dextrose 275 ml @ 183.708 mls/hr Q12HR@0800,2000 IVPB 07/16/18 20:00 07/22/18 23:59 07/22/18 08:41 Morgan Tang MD Jul 22, 2018 13:00
--- NOTE | 2018-07-22 13:11 | Nephrology Progress Note ---
Assessment/Plan Problem List: (1) Hypernatremia (2) Hypokalemia (3) Dehydration (4) Sepsis Assessment Respiratory failure Sepsis Supraventricular arrhythmia Hypernatremia Free water deficit Dehydration Seizure disorder, complex partial Urinary tract infection HypoAlbuminemia Dementia Allergy to ASA and YVONNE inhibitors HTN Plan adjust bp meds K supplement DC IV D5W Monitor Lytes- antibiotics Keppra to GT K and Phos IV as needed Per orders and consultants Subjective ROS Limited/Unobtainable: No Constitutional: Reports: malaise Objective Objective Last 24 Hour Vital Signs Date Time Temp Pulse Resp B/P (MAP) Pulse Ox O2 Delivery O2 Flow Rate FiO2 07/22/18 12:00 97.7 75 19 132/70 (90) 100 07/22/18 09:00 Nasal Cannula 3.0 07/22/18 08:40 74 141/69 07/22/18 08:00 98.6 74 18 141/69 (93) 100 07/22/18 05:46 68 135/67 07/22/18 04:00 98.3 68 22 135/67 (89) 96 07/22/18 00:00 99.5 85 22 138/78 (98) 98 07/21/18 21:30 72 138/70 07/21/18 21:00 Nasal Cannula 3.0 07/21/18 20:34 Nasal Cannula 2.0 28 07/21/18 20:34 99 Nasal Cannula 2.0 28 07/21/18 20:19 76 140/68 07/21/18 20:00 100.0 76 20 140/68 (92) 96 07/21/18 16:00 98.2 72 19 139/71 (93) 99 07/21/18 13:58 69 137/81 Intake and Output 07/21/18 07/22/18 19:00 07:00 Intake Total 820 ml 1095.000 ml Output Total 400 ml 1500 ml Balance 420 ml -405.000 ml Free Water 100 ml 100 ml IV Total 275.000 ml Tube Feeding 720 ml 720 ml Output Urine Total 400 ml 1500 ml Laboratory Tests 07/22/18 08:00: White Blood Count 12.3H, Red Blood Count 3.87L, Hemoglobin 10.3L, Hematocrit 32.5L, Mean Corpuscular Volume 84, Mean Corpuscular Hemoglobin 26.5L, Mean Corpuscular Hemoglobin Concent 31.6L, Red Cell Distribution Width 15.2H, Platelet Count 374, Mean Platelet Volume 6.1L, Neutrophils (%) (Auto) 69.4, Lymphocytes (%) (Auto) 23.0, Monocytes (%) (Auto) 3.9, Eosinophils (%) (Auto) 2.8, Basophils (%) (Auto) 0.9, Sodium Level 137, Potassium Level 4.2, Chloride Level 101, Carbon Dioxide Level 33H, Anion Gap 3L, Blood Urea Nitrogen 10, Creatinine 0.5L, Estimat Glomerular Filtration Rate , Glucose Level 95, Calcium Level 10.1 Height (Feet): 5 Height (Inches): 3.00 Weight (Pounds): 238 General Appearance: no apparent distress Objective no change Gonsalo Ortiz MD Jul 22, 2018 13:11
--- NOTE | 2018-07-22 13:28 | General Progress Note ---
Assessment/Plan Problem List: (1) Ulcer of left lower leg ICD Codes: L97.929 - Non-pressure chronic ulcer of unspecified part of left lower leg with unspecified severity SNOMED: 078643362, 559811802 (2) Respiratory failure ICD Codes: J96.90 - Respiratory failure, unspecified, unspecified whether with hypoxia or hypercapnia SNOMED: 709235120 (3) FTT (failure to thrive) in adult ICD Codes: R62.7 - Adult failure to thrive SNOMED: 328164006 (4) Acute respiratory failure ICD Codes: J96.00 - Acute respiratory failure, unspecified whether with hypoxia or hypercapnia SNOMED: 08598853 (5) Severe malnutrition ICD Codes: E43 - Unspecified severe protein-calorie malnutrition SNOMED: 57492219 (6) Sepsis ICD Codes: A41.9 - Sepsis, unspecified organism SNOMED: 49878301 (7) Leukocytosis ICD Codes: D72.829 - Elevated white blood cell count, unspecified SNOMED: 244030742, 426850212 (8) At high risk for aspiration ICD Codes: Z91.89 - Other specified personal risk factors, not elsewhere classified SNOMED: 180339759 (9) Seizure disorder, complex partial ICD Codes: G40.209 - Seizure disorder, complex partial SNOMED: 461626668 Status: unchanged Assessment/Plan o2 pulm tx ot pt diet abx cbc bmp am dc if clear Subjective Constitutional: Reports: weakness Allergies: Coded Allergies: ASPIRIN (Verified Allergy, Unknown, 06/21/18) LOSARTAN (Verified Allergy, Unknown, 06/21/18) All Systems: reviewed and negative except above Subjective o2nc confused Objective Last 24 Hour Vital Signs Date Time Temp Pulse Resp B/P (MAP) Pulse Ox O2 Delivery O2 Flow Rate FiO2 07/22/18 13:25 99 Nasal Cannula 2.0 28 07/22/18 13:25 Nasal Cannula 2.0 28 07/22/18 12:00 97.7 75 19 132/70 (90) 100 07/22/18 09:00 Nasal Cannula 3.0 07/22/18 08:40 74 141/69 07/22/18 08:00 98.6 74 18 141/69 (93) 100 07/22/18 05:46 68 135/67 07/22/18 04:00 98.3 68 22 135/67 (89) 96 07/22/18 00:00 99.5 85 22 138/78 (98) 98 07/21/18 21:30 72 138/70 07/21/18 21:00 Nasal Cannula 3.0 07/21/18 20:34 Nasal Cannula 2.0 28 07/21/18 20:34 99 Nasal Cannula 2.0 28 07/21/18 20:19 76 140/68 07/21/18 20:00 100.0 76 20 140/68 (92) 96 07/21/18 16:00 98.2 72 19 139/71 (93) 99 07/21/18 13:58 69 137/81 Intake and Output 07/21/18 07/22/18 19:00 07:00 Intake Total 820 ml 1095.000 ml Output Total 400 ml 1500 ml Balance 420 ml -405.000 ml Free Water 100 ml 100 ml IV Total 275.000 ml Tube Feeding 720 ml 720 ml Output Urine Total 400 ml 1500 ml Laboratory Tests 07/22/18 08:00: White Blood Count 12.3H, Red Blood Count 3.87L, Hemoglobin 10.3L, Hematocrit 32.5L, Mean Corpuscular Volume 84, Mean Corpuscular Hemoglobin 26.5L, Mean Corpuscular Hemoglobin Concent 31.6L, Red Cell Distribution Width 15.2H, Platelet Count 374, Mean Platelet Volume 6.1L, Neutrophils (%) (Auto) 69.4, Lymphocytes (%) (Auto) 23.0, Monocytes (%) (Auto) 3.9, Eosinophils (%) (Auto) 2.8, Basophils (%) (Auto) 0.9, Sodium Level 137, Potassium Level 4.2, Chloride Level 101, Carbon Dioxide Level 33H, Anion Gap 3L, Blood Urea Nitrogen 10, Creatinine 0.5L, Estimat Glomerular Filtration Rate , Glucose Level 95, Calcium Level 10.1 Height (Feet): 5 Height (Inches): 3.00 Weight (Pounds): 238 General Appearance: lethargic EENT: normal ENT inspection Neck: normal alignment Cardiovascular: normal peripheral pulses, normal rate, regular rhythm Respiratory/Chest: chest wall non-tender, lungs clear, normal breath sounds Abdomen: normal bowel sounds, non tender, soft Extremities: normal inspection Edema: no edema noted Arm (L), no edema noted Arm (R), no edema noted Leg (L), no edema noted Leg (R), no edema noted Pedal (L), no edema noted Pedal (R), no edema noted Generalized Neurologic: motor weakness Skin: normal pigmentation, warm/dry Hong Caballero DO Jul 22, 2018 13:28
[2018-07-22] MEDS: Ertapenem 1 GM in NS 55 ML IVPB SCH (14:26)
[2018-07-22] MEDS ORDERED: ACETAMINOPHEN325 M1 ORAL (15:11)
[2018-07-22] MEDS ORDERED: CLONIDINE HCL10 GM MC (15:14)
[2018-07-22] MEDS ORDERED: CLONIDINE0.1 MG GT (15:14)
[2018-07-22 15:16] LABS: APPEARANCE,URINE CLEAR; BILIRUBIN, URINE NEGATIVE (NEGATIVE); COLOR,URINE PALE YELLOW; GLUCOSE, URINE (UA) NEGATIVE (NEGATIVE); KETONES,URINE NEGATIVE (NEGATIVE); LEUKOCYTE ESTERASE ,URINE 2+ (NEGATIVE); NITRITE,URINE NEGATIVE (NEGATIVE); PH,URINE 8 (4.5-8.0); PROTEIN,URINE NEGATIVE (NEGATIVE); UROBILINOGEN,URINE NORMAL MG/DL (0.0-1.0)
[2018-07-22 16:00] VITALS: BP 121/59
--- NOTE | 2018-07-22 16:10 | Cardiac Electrophysiology PN ---
Assessment/Plan Assessment/Plan 1. Supraventricular tachycardia, S/P adenosine. Continue Cardizem 30 mg tid and Metoprolol 50 bid 2. Hypertension. On Cardizem and Metoprolol 3. Diabetes, on insulin. 4. S/P Respiratory failure, on antibiotic and off BiPAP. 5. S/P PEG placement. 6. Dementia. 7. History of seizure disorder. 8. Hypernatremia. 9. S/P sharp excisional debridement of left lateral distal lower extremity DW RN DC today to [facility] Subjective Subjective Comfortable in NAD. Awaiting placement. Objective Last 24 Hour Vital Signs Date Time Temp Pulse Resp B/P (MAP) Pulse Ox O2 Delivery O2 Flow Rate FiO2 07/22/18 14:26 75 132/70 07/22/18 13:25 99 Nasal Cannula 2.0 28 07/22/18 13:25 Nasal Cannula 2.0 28 07/22/18 12:00 97.7 75 19 132/70 (90) 100 07/22/18 09:00 Nasal Cannula 3.0 07/22/18 08:40 74 141/69 07/22/18 08:00 98.6 74 18 141/69 (93) 100 07/22/18 05:46 68 135/67 07/22/18 04:00 98.3 68 22 135/67 (89) 96 07/22/18 00:00 99.5 85 22 138/78 (98) 98 07/21/18 21:30 72 138/70 07/21/18 21:00 Nasal Cannula 3.0 07/21/18 20:34 Nasal Cannula 2.0 28 07/21/18 20:34 99 Nasal Cannula 2.0 28 07/21/18 20:19 76 140/68 07/21/18 20:00 100.0 76 20 140/68 (92) 96 Intake and Output 07/21/18 07/22/18 19:00 07:00 Intake Total 820 ml 1095.000 ml Output Total 400 ml 1500 ml Balance 420 ml -405.000 ml Free Water 100 ml 100 ml IV Total 275.000 ml Tube Feeding 720 ml 720 ml Output Urine Total 400 ml 1500 ml Laboratory Tests Test 07/22/18 08:00 07/22/18 14:30 White Blood Count 12.3 K/UL (4.8-10.8) H Red Blood Count 3.87 M/UL (4.20-5.40) L Hemoglobin 10.3 G/DL (12.0-16.0) L Hematocrit 32.5 % (37.0-47.0) L Mean Corpuscular Volume 84 FL (80-99) Mean Corpuscular Hemoglobin 26.5 PG (27.0-31.0) L Mean Corpuscular Hemoglobin Concent 31.6 G/DL (32.0-36.0) L Red Cell Distribution Width 15.2 % (11.6-14.8) H Platelet Count 374 K/UL (150-450) Mean Platelet Volume 6.1 FL (6.5-10.1) L Neutrophils (%) (Auto) 69.4 % (45.0-75.0) Lymphocytes (%) (Auto) 23.0 % (20.0-45.0) Monocytes (%) (Auto) 3.9 % (1.0-10.0) Eosinophils (%) (Auto) 2.8 % (0.0-3.0) Basophils (%) (Auto) 0.9 % (0.0-2.0) Sodium Level 137 MMOL/L (136-145) Potassium Level 4.2 MMOL/L (3.5-5.1) Chloride Level 101 MMOL/L (98-107) Carbon Dioxide Level 33 MMOL/L (21-32) H Anion Gap 3 mmol/L (5-15) L Blood Urea Nitrogen 10 mg/dL (7-18) Creatinine 0.5 MG/DL (0.55-1.30) L Estimat Glomerular Filtration Rate mL/min (>60) Glucose Level 95 MG/DL (74-106) Calcium Level 10.1 MG/DL (8.5-10.1) Urine Color Pale yellow Urine Appearance Clear Urine pH 8 (4.5-8.0) Urine Specific [place] 1.010 (1.005-1.035) Urine Protein Negative (NEGATIVE) Urine Glucose (UA) Negative (NEGATIVE) Urine Ketones Negative (NEGATIVE) Urine Blood 1+ (NEGATIVE) H Urine Nitrite Negative (NEGATIVE) Urine Bilirubin Negative (NEGATIVE) Urine Urobilinogen Normal MG/DL (0.0-1.0) Urine Leukocyte Esterase 2+ (NEGATIVE) H Urine RBC 0-2 /HPF (0 - 2) Urine WBC 2-4 /HPF (0 - 2) Urine Squamous Epithelial Cells Occasional /LPF Urine Bacteria Occasional /HPF (NONE) Objective HEAD AND NECK: No JVD. LUNGS: Coarse rhonchi and decreased breath sounds. CARDIOVASCULAR: Regular S1 and S2 with no gallop or murmur. ABDOMEN: G-tube. EXTREMITIES: 1+ pitting edema. Scar Kamara MD Jul 22, 2018 16:10
[2018-07-22] MEDS ORDERED: CLONIDINE HCL0.1 MG PO (16:11)
[2018-07-22] MEDS ORDERED: CARDIZEM30 MG ORAL (16:13)
[2018-07-22] MEDS ORDERED: LANSOPRAZOLE30 MG GT (16:17)
[2018-07-22] MEDS ORDERED: KEPPRA500 M3 GT (16:19)
[2018-07-22] MEDS ORDERED: LORAZEPAM0.5 GM MC (16:21)
[2018-07-22] MEDS ORDERED: LORAZEPAM0.5 MG ORAL (16:21)
[2018-07-22] MEDS ORDERED: MEMANTINE HCL5 MG GT (16:22)
[2018-07-22] MEDS ORDERED: METOPROLOL TART50 M1 GT (16:23)
[2018-07-22] MEDS ORDERED: ACETAMINOPHEN80 M1 GT (16:27)
[2018-07-22] MEDS ORDERED: HEPARIN SO5000 UNIT2 SUBQ (16:28)
--- NOTE | 2018-07-22 18:45 | Progress Note ---
DATE: 07/22/2018 SUBJECTIVE: This is a 72-year-old female patient. The patient has sepsis and respiratory failure, but she does have some confusion, disorganized thought process, and mood lability. Declined cognition below baseline. MENTAL STATUS EXAMINATION: This is a 72-year-old female. Appearance is disheveled. Attitude, irritable and agitated. Affect, guarded and restricted. Intellect poor. Mood, depressed and anxious. Motor activity, psychomotor agitation. Attention span is poor. Orientation x2. Speech is low volume and slurred. Thought process is disorganized and illogical. Insight and judgment is poor. DIAGNOSIS: Major depression with psychotic features, rule out dementia with psychosis. PLAN: Treat her with Namenda 5 mg per G-tube twice a day and Ativan 0.5 mg per G-tube q.6 h. p.r.n. anxiety and agitation. Provided with 20 minutes of insight-oriented psychotherapy to cognition decline and cognitive impairment so that she has better impulse control and better behavior in the unit to promote more insight into her symptoms and awareness into her symptoms and medical condition. A 20 minutes of insight-oriented psychotherapy. Chart reviewed. Discussed with staff. Seen and assessed at bedside. Pearl Cunningham M.D. DR: MARLON JOB#: [id number] CC:
[2018-07-22 20:40] VITALS: BP 148/79
--- NOTE | 2018-07-23 02:00 | Progress Note ---
INCOMPLETE DICTATION SUBJECTIVE: This is a 72-year-old female patient with sepsis. She still has some confusion, disorganized thought process, and mood lability secondary to the stress of her medical illness. That is why her attending has requested daily psychiatric consultation to prevent any further decline in her cognition. MENTAL STATUS EXAMINATION: This is a 72-year-old female. Appearance is disheveled. Attitude is irritable and agitated. Affect is guarded and restricted. Intellect poor. Mood, depressed and anxious. Motor activity, psychomotor agitation. . Pearl Cunningham M.D. DR: MARLON JOB#: [id number] CC:
--- NOTE | 2018-07-23 11:57 | Discharge Summary ---
Discharge Summary Discharge Summary _ DATE OF ADMISSION: 07/13/2018 DATE OF DISCHARGE: 07/22/2018 DISCHARGED BY: Dr. Hong Caballero CONSULTANTS: Dr. Caleb Kamara [facility] COURSE: Patient is a 72-year-old female, who lives in [facility], presented to ED with lethargy. Patient had increased shortness of breath and agitation. She was noted to have increased respiratory rate. She was brought in by EMS to ED for further evaluation. On evaluation at the ED, patient was febrile, temperature was 100.4. Blood pressure was 169/90, pulse rate of 120. Blood work showed leukocytosis, WBC 17 , hemoglobin 11.9, hematocrit 38. Electrolytes were stable. Troponin was negative. Urinalysis showed 40-60 RBC, 10-15 WBC, 3+ leukocyte esterase, 5+ blood, negative nitrite, negative ketones, 4+ protein. Patient presented with shortness of breath and was suctioned by respiratory therapy. She was eventually started on BiPAP. Chest x-ray showed right basilar infiltrate/ atelectasis. Influenza screen was negative. She subsequently developed supraventricular tachycardia at the rate of approximately 190. She was given adenosine 6 mg IV and patient converted. She was given IV fluids and was started on IV antibiotics. Admitted for evaluation of sepsis, respiratory failure and supraventricular arrhythmia. She underwent cardiac evaluation. She was eventually started on Cardizem 3 times daily. Amlodipine was discontinued. She was started on metoprolol. Respiratory status was monitored. She was started empirically on IV vancomycin and Zosyn pending culture results. Renal function was monitored. She was given IV hydration D5 water. She was given potassium and phosphorus supplementation. She had episodes of dementia and agitation she had waxing and waning of consciousness. She was diagnosed with dementia and encephalopathy. She was given Seroquel as needed. Patient was assessed to lack the capacity to make medical decisions. Respiratory status improved. She was taken off BiPAP. cardiac monitor technician did not show any recurrence of SVT on Cardizem and metoprolol. Patient continued to be in sinus rhythm. Tube feeding was started. Cardiogram showed ejection fraction of 60%. Urine culture showed growth of E. coli resistant to Zosyn. Antibiotic was switched to meropenem. She was continued on IV vancomycin. Sputum culture showed MRSA and usual respiratory taisha. Blood culture showed growth of coagulase-negative staph, possibly contaminant. Repeat blood culture did not isolate any growth. She was followed by psychiatrist. She was diagnosed with major depression. She was given Namenda and Ativan as needed. She was provided psychotherapy. She was noted to have stage III left heel and sacral wounds on admission. She was given wound care. She was eventually discharged to SNF. FINAL DIAGNOSES: Sepsis secondary to pneumonia Acute respiratory failure requiring BIPAP, resolved E coli UTI HTN COPD Dysphagia with PEG Alzheimer's dementia Hypernatremia Seizure DO Supraventricular tachycardia, S/P adenosine. Hypertension S/P sharp excisional debridement of left lateral distal lower extremity Severe protein-calorie malnutrition Hypokalemia Hypoalbuminemia Major Depressive disorder with psychotic features Stage III pressure ulcer as stated above, present on admission DISPOSITION: Patient was discharged to SNF. DISCHARGE MEDICATIONS: Refer to Discharge Medication List. DISCHARGE INSTRUCTIONS: Follow-up in a week. I have been assigned to dictate discharge summary on this account, and I was not involved in the patient's management. Carmen Vazquez NP Jul 23, 2018 11:57
== END 2018-07-22 20:45 | DRG 720 ==
LOC: EDBD 12:38 → EMR 13:15 → EDBEDREQ 13:20 → ICU 14:03 → EDBEDREQ 15:03 → 2W 07-15 04:08 → 2E 07-16 06:38 → 4E 07-16 20:18
PROC: 5A09357 Assistance with Respiratory Ventilation, Less than 24 Consecutive Hours, Continuous Positive Airway Pressure (ICD-10-PCS; principal; 2018-07-13)
DX: A41.9 Sepsis, unspecified organism (principal); J96.00 Acute respiratory failure, unspecified whether with hypoxia or hypercapnia; E43 Unspecified severe protein-calorie malnutrition; L89.159 Pressure ulcer of sacral region, unspecified stage; G93.40 Encephalopathy, unspecified; J18.9 Pneumonia, unspecified organism; E87.0 Hyperosmolality and hypernatremia; F32.3 Major depressive disorder, single episode, severe with psychotic features; G40.209 Localization-related (focal) (partial) symptomatic epilepsy and epileptic syndromes with complex partial seizures, not intractable, without status epilepticus; L03.311 Cellulitis of abdominal wall; L89.623 Pressure ulcer of left heel, stage 3; R13.10 Dysphagia, unspecified; I47.1 Supraventricular tachycardia; E11.9 Type 2 diabetes mellitus without complications; G30.9 Alzheimer's disease, unspecified; F02.80 Dementia in other diseases classified elsewhere, unspecified severity, without behavioral disturbance, psychotic disturbance, mood disturbance, and anxiety; J44.9 Chronic obstructive pulmonary disease, unspecified; N39.0 Urinary tract infection, site not specified; B96.20 Unspecified Escherichia coli [E. coli] as the cause of diseases classified elsewhere; I10 Essential (primary) hypertension; Z43.1 Encounter for attention to gastrostomy; E87.6 Hypokalemia; Z88.6 Allergy status to analgesic agent; Z88.8 Allergy status to other drugs, medicaments and biological substances; R47.01 Aphasia; Z79.4 Long term (current) use of insulin; L97.829 Non-pressure chronic ulcer of other part of left lower leg with unspecified severity
CPT/HCPCS: 36415; 36600; 71045; 80048; 80053; 80061; 80202; 81003; 82533; 82550; 82553; 82607; 82728; 82746; 82803; 82977; 83036; 83540; 83550; 83605; 83735; 83880; 84100; 84439; 84443; 84484; 84550; 85025; 85610; 85730; 86140; 86710; 87040; 87070; 87081; 87086; 87181; 87205; 93005; 93306; 94664; 94760; 96365; 96366; 96368; 96375; 99291